=== PATIENT | male | born 1960 | race Caucasian/White ===

== ENCOUNTER 2018-02-28 04:14 | Emergency (ER) | payer MEDICAID, SELFPAY ==
[2018-02-28 04:17] VITALS: BP 137/89; PULSE 67; RESP 16; TEMP 36.6; O2SAT 99; BMI 27.5
--- NOTE | 2018-02-28 04:42 | RAD_ITS ---
STUDY: X-RAY - LEFT FOOT CLINICAL: Male, 57 years old. Pain. No known injury. TECHNIQUE: 3 view(s) of the foot. COMPARISON: None. FINDINGS: There is a plantar calcaneal spur. Otherwise normal Talus, calcaneus, and tarsal bones. Normal visualized subtalar, talonavicular, calcaneocuboid, tarsal and tarsometatarsal articulations. Normal metatarsi. Normal metatarsophalangeal joint of the great toe. Normal tibial and fibular sesamoid bones. Normal interphalangeal joint of the great toe. Normal phalanges of the great toe. Normal second through fifth metatarsophalangeal joints. There is a defect in the medial cortex of the proximal metaphysis of the proximal phalanx of the fifth toe which probably represents an old healed fracture. There is nonspecific soft tissue swelling. RAD/Foot min 3 Views IMPRESSION: No demonstrated acute fracture, dislocation, or destructive osseous lesion. Electronically Signed: Roni Cruz MD at 5:41 EDT , Service support ,
--- NOTE | 2018-02-28 04:49 | ED.DCSUM_ITS ---
- ER Visit Summary Date of Service: 02/28/18 Chief Complaint: Left foot pain History of Present Illness: The patient is a 57 M presenting with left foot pain. Patient states that he was walking in a store yesterday and started noticing pain in his left foot. He does not recall specific injury to his foot. He states he woke up this morning with more severe pain in his foot. Denies fever. Denies other complaints. He does have a history of previous gout. Physical Examination: Vitals are stable. Patient is afebrile. Alert no acute distress. HEENT exam is unremarkable. Neck is supple. Lungs are clear and equal bilaterally. Heart is regular rate and rhythm. Extremities left midfoot and ankle tenderness with mild erythema. Normal pulse. Active full range of motion. Skin is warm and dry. No focal neurologic deficit. Remainder of exam is unremarkable. Emergency Department Course and Treatment: Patient was given OxyIR. Left foot and ankle x-ray shows nonspecific soft tissue swelling. No demonstrated fracture , dislocation, or destructive osseous lesion. Patient has improvement following pain medication. He states he did eat red meat prior to this starting. He will be given colchicine and Naprosyn. Advised to follow-up with Dr. Mcdaniel his primary care physician. Advised return to ED for worsening complaints. Disposition: Discharge home Impression: Left ankle and foot pain suspect gout This note was generated with [employer] dictation software. It may contain incorrect words, spelling, and punctuation that were not noted in review of the chart prior to signing ED Disposition - Plan for ED Patient: Chief Complaint: Lower Extremity Injury Referrals: Ernesto Vincent MD [Primary Care Provider] -
--- NOTE | 2018-02-28 04:50 | RAD_ITS ---
STUDY: X-RAY - LEFT ANKLE REASON FOR EXAM: Male, 57 years old. Pain in the anterior left ankle. No known injury. TECHNIQUE: 3 view(s) of the ankle. COMPARISON: None. FINDINGS: Normal visualized distal tibia and fibula. Normal medial and lateral malleoli. Normal tibiotalar articulation and ankle mortise. There is a plantar calcaneal spur. Otherwise normal visualized talus and calcaneus. The visualized subtalar, talonavicular, calcaneocuboid and tarsal articulations are normal. There is nonspecific soft tissue swelling. RAD/Ankle min 3 Views IMPRESSION: No demonstrated fracture, dislocation, or destructive osseous lesion. Electronically Signed: Roni Cruz MD at 5:19 EDT , Service support ,
[2018-02-28] MEDS: oxyCODONE 5 MG Tablet PO (05:01)
--- NOTE | 2018-02-28 06:27 | ED.DEP ---
ED Disposition - Plan for ED Patient: Chief Complaint: Lower Extremity Injury Instructions: ED Arthritis Gout Prescriptions: Colchicine 0.6 mg PO DAILY #7 capsule Naproxen [Naprosyn] 500 mg PO BID PRN #20 tablet Referrals: Ernesto Vincent MD [Primary Care Provider] -
[2018-02-28 06:40] VITALS: BP 132/90; PULSE 60; RESP 16; O2SAT 96
== END 2018-02-28 06:47 | disposition home or self-care (01) ==
PROVIDERS: Emergency Provider Emergency Medicine; Family Provider Family Medicine; PCP Family Medicine
DX: M79.672 Pain in left foot (principal); M25.572 Pain in left ankle and joints of left foot; Z86.39 Personal history of other endocrine, nutritional and metabolic disease; Z79.899 Other long term (current) drug therapy
CPT/HCPCS: 73610; 73630; 99285

== ENCOUNTER 2018-03-22 11:19 | Emergency (ER) | payer MEDICAID, SELFPAY ==
[2018-03-22 11:19] VITALS: BP 146/92; PULSE 98; RESP 16; TEMP 36.2; O2SAT 97; BMI 25.4
--- NOTE | 2018-03-22 11:30 | ED.VISSUMM ---
- ER Visit Summary Date of Service: 03/22/18 Chief Complaint: Nausea, vomiting, diarrhea History of Present Illness: The patient is a 57 M nausea, vomiting, diarrhea. 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 He states he was at work Sunday in his normal state of health. He states he began to have some abdominal cramping. Shortly thereafter, he began to have some vomiting. He states he vomited for 2 days and began have loose watery diarrhea. Describes some abdominal cramping. He has had some chills and sweats. He denies any abdominal pain. He has been treated able to drink for the past 2 days, but states that every time he has to move his bowels. He has no history of inflammatory bowel disease. He denies any history of abdominal surgery. Physical Examination: Vital signs reviewed General: Well-nourished, well-developed Head: Normocephalic, atraumatic Eyes: Pupils equal and reactive, extraocular muscles intact Neck, supple, no lymphadenopathy Heart: Regular rate and rhythm Respiratory: No distress, clear bilaterally Abdomen: Soft, nontender, nondistended, no peritoneal signs Back: Nontender Extremities: Nontender, no edema, no cords Skin: Normal color no rash Neuro: Alert and oriented, no focal or lateralizing deficits Test Results: [] Emergency Department Course and Treatment: The patient has no reproducible abdominal tenderness. I did feel that this is more likely food related illness or gastroenteritis. Do not feel that imaging was necessary given his lack of pain on palpation. IV was established. Patient was given fluids, Zofran, and Bentyl. He had marked improvement of the symptoms. His nausea had completely resolved. Screening labs do show a very minimal leukocytosis. He has a creatinine of 1.5, but I have no old to compare to. He has a normal anion gap. On reevaluation is resting comfortably. Patient will be hydrated. At this time, I do feel that he is safe for outpatient therapy. I feel this is likely viral in nature. The patient will be treated with Zofran and Bentyl. He will also be using Imodium. He is counseled that if his pain worsens, he is a fever, or any change in symptoms he should be reevaluated within the next 24-48 hours. He is comfortable with this plan of care. Treatment Plan: [] Disposition: Discharge Impression: Gastroenteritis This note was generated with [employer] dictation software. It may contain incorrect words, spelling, and punctuation that were not noted in review of the chart prior to signing ED Disposition - Plan for ED Patient: Chief Complaint: Nausea/Vomiting/Diarrhea Instructions: ED Food Poison Or Gastroenteritis Prescriptions: Loperamide [Imodium] 2 mg PO Q4H PRN PRN #30 cap PRN Reason: Diarrhea Ondansetron [Zofran Odt] 4 mg PO Q8H PRN PRN #10 tab PRN Reason: Nausea Dicyclomine HCl [Bentyl] 20 mg PO TIDAC #20 cap Referrals: Ernesto Vincent MD [Primary Care Provider] -
[2018-03-22] MEDS: 0.9% Normal Saline 1,000 ML 1000 ML IV (11:44)
[2018-03-22] MEDS: Ondansetron 4 MG/2 ML Vial IV (11:44)
[2018-03-22] MEDS: Dicyclomine 20 MG/2 ML Vial IM (11:45)
[2018-03-22 12:03] LABS: Absolute Neutrophil Count 7.1 X10^3/uL (2.0-7.7); Basophil# 0.02 X10^3/uL; Basophil% 0.2 % (0-1); Eosinophil# 0.18 X10^3/uL; Eosinophils% 1.6 % (0-5); Hematocrit 40.7 % (40-54); Hemoglobin 13.6 g/dl (13.0-16.5); Lymphocyte % 13.3 % (19-41); Mean Corp Hgb Conc 33.4 g/gl (32-36); Mean Corpuscular Hgb 31.1 pg (27.0-32.0); Mean Corpuscular Volume 93.1 fL (80-94); Mean Platelet Vol. 9.6 fl (6.2-12.0); Monocyte# 2.49 X10^3/uL; Monocyte% 22.1 % (0-10); Neutrophil # 7.08 X10^3/uL (2.7-7.7); Neutrophil % 62.7 % (47-70); Platelet Count 365 K/mm3 (150-450); RBC Distribution Width SD 44.3 fl (35.1-43.9); Red Blood Count 4.37 M/mm3 (4.6-6.2); White Blood Count 11.3 K/mm3 (4.4-11.0)
[2018-03-22 12:04] LABS: Differential Indicated SCAN CRITERIA MET; POSITIVE COUNT NO; POSITIVE DIFFERENTIAL YES; POSITIVE MORPHOLOGY NO
[2018-03-22 12:13] LABS: ALB/GLOB Ratio 0.9 RATIO (0.9-2.4); AST(SGOT) 16 U/L (15-37); Alanine Aminotransfer ALT/SGPT 13 U/L (16-61); Albumin, Serum 3.7 g/dL (3.2-5.0); Alkaline Phosphatase 67 U/L (45-117); Anion Gap 9 (5-15); BUN 30 mg/dL (7-18); BUN/Creat Ratio 19.9 RATIO (10-20); Calcium,Total 8.9 mg/dL (8.5-10.1); Chloride 106 mmol/L (98-107); Creatinine, Serum 1.51 mg/dL (0.70-1.30); EST Glomerular Filtration Rate 51 mL/min (>60); Est Glom Filt Rate - Afr Amer 61 mL/min (>60); Estimated Creatinine Clearance 53.32 ml/min; Globulin 4.1 g/dL (2.2-4.2); Glucose 127 mg/dL (74-106); Lipase 456 U/L (73-393); Potassium 3.7 mmol/L (3.5-5.1); Protein, Total 7.8 g/dL (6.4-8.2); Sodium Level 138 mmol/L (136-145)
[2018-03-22] MEDS: Lactated Ringers 1,000 ML 999 ML IV (12:38)
[2018-03-22 13:14] VITALS: BP 131/82; PULSE 62; RESP 14; O2SAT 98
== END 2018-03-22 13:15 | disposition home or self-care (01) ==
LOC: ED 11:49
PROVIDERS: Emergency Provider Emergency Medicine; Family Provider Family Medicine; PCP Family Medicine
DX: K52.9 Noninfective gastroenteritis and colitis, unspecified (principal); Z72.0 Tobacco use; Z79.899 Other long term (current) drug therapy
CPT/HCPCS: 80053; 83690; 85025; 96361; 96372; 96374; 99285; J7030; J7120; J2405

== ENCOUNTER 2018-08-11 09:29 | Emergency (ER) | payer MEDICAID, SELFPAY ==
[2018-08-11 09:30] VITALS: BP 148/84; PULSE 78; RESP 16; TEMP 36.3; O2SAT 97; BMI 26.6
--- NOTE | 2018-08-11 10:03 | RAD_ITS ---
STUDY: X-RAY - LEFT KNEE REASON FOR EXAM: Male, 58 years old. Left knee pain TECHNIQUE: 2 view(s) of the knee. COMPARISON: None. FINDINGS: Normal visualized distal femur. Normal visualized proximal tibia and fibula. Normal proximal tibiofibular articulation. Normal medial femorotibial compartment. Normal lateral femorotibial compartment. Normal patellofemoral articulation. There is a moderate volume joint effusion. The soft tissue structures are unremarkable. RAD/Knee 1 or 2 Views IMPRESSION: No acute osseous findings. Moderate knee effusion Electronically Signed: Roland Sinha DO at 10:40 EST Tel , Service support ,
[2018-08-11] MEDS: Naproxen 500 MG Tablet PO (10:06)
[2018-08-11] MEDS: HYDROmorphone 1 MG/ML Syringe IM (10:06)
[2018-08-11] MEDS: Triamcinolone Acetonide 40 MG/ML Vial IU (10:09)
[2018-08-11] MEDS: Bupivacaine Mpf 0.5% 30 ML VIAL INFILT (10:09)
--- NOTE | 2018-08-11 10:24 | ED.VISSUMM ---
- ER Visit Summary Date of Service: 08/11/18 Chief Complaint: Left knee pain History of Present Illness: The patient is a [address] Vincent. He has a history of gout and is on allopurinol. He reports in the past this is always been in his feet. States he has left knee pain that began yesterday. He describes it as a sharp, aching pain is 10 out of 10 severity. Is worsened by walking or movement. Is not taking anything for pain. He denies any trauma. No fall, MVA, or change in activity. No fever, chills, nausea, or other constitutional symptoms. Physical Examination: Vitals: Stable. Afebrile. General: Well-nourished and well-developed. Head: Normocephalic atraumatic. Neck: Supple, no lymphadenopathy. No JVD. Nontender. Cardiovascular: Regular rate and rhythm. No murmurs. Respiratory: No respiratory distress. Clear to auscultation bilaterally. Abdominal: Soft, nontender, nondistended, normal bowel sounds. No guarding, rebound, or peritoneal signs. Back: Nontender. Extremities: Left knee shows a large joint effusion. No erythema or warmth. Decreased range of motion secondary to pain. He is neurovascular intact distal this. Skin: Normal color, no rash. Neurologic: Alert and oriented ?3. Cranial nerves II through XII are intact. Normal strength and sensation. Psych: Normal affect. Test Results: X-ray shows a large joint effusion, but no acute disease otherwise. Synovial fluid shows 35,000, 513 white cells with 82% segmented neutrophils. Gram stain was negative. There were monosodium urate crystals. Emergency Department Course and Treatment: Patient was given Dilaudid IM and naproxen p.o. He had arthrocentesis performed. He tolerated this well. Treatment Plan: Patient be discharged Percocet for pain. Instructed follow-up his primary care physician in 10-14 days not improving. Return to the emergency department for any worsening symptoms. Disposition: To home in improved and stable condition. Impression: 1. Gouty arthritis left knee. 2. Arthrocentesis left knee. Procedure note: Patient had his knee prepped with Betadine. It was draped in a sterile fashion. He had the knee joint accessed medial to the patella on the first attempt without any difficulty. 80 cc of yellow, viscous fluid was removed. It was injected with 9 cc of bupivacaine and 40 mg of Kenalog. He tolerated this well. This note was generated with [employer] dictation software. It may contain incorrect words, spelling, and punctuation that were not noted in review of the chart prior to signing ED Disposition - Plan for ED Patient: Disposition: Home or Assisted Living Chief Complaint: Lower Extremity Injury Instructions: ED Arthritis Gout Prescriptions: Oxycodone HCl/Acetaminophen [Percocet 5/325] 1 tablet PO Q6H PRN PRN 5 Days #20 tablet PRN Reason: Pain Referrals: Ernesto Vincent MD [Primary Care Provider] - 3-5 Days if not improving
[2018-08-11 10:49] LABS: Pathologist Comment May follow
[2018-08-11 11:04] LABS: Synovial Fld Mononuclear WBC % 9.2 %; Synovial Fld Polynuclear WBC % 90.8 %
[2018-08-11 11:10] LABS: AUTO B FLUID DILUENT BKGD CT WBC <0.1 RBC <0.01 (W<.1,R<.01)
[2018-08-11 11:11] LABS: Appearance /Synovial Fluid Cloudy (CLEAR); CRYSTALS, BODY FLUID MONOSODIUM URATE; Color / Synovial Fluid Yellow (Pale Yellow); Source- Body Fluid SYNOVIAL
[2018-08-11 11:57] LABS: Body Fluid QC Type(s) BF3Q,BF4Q; RBC /Synovial Fluid 497 /mm3 (0)
[2018-08-11 12:17] VITALS: BP 125/88; PULSE 71; RESP 17; O2SAT 95
--- NOTE | 2018-08-11 12:18 | ED.RN ---
DISCHARGE INSTRUCTIONS GIVE TO AND REVIEWED WITH PATIENT, PATIENT DENIES QUESTIONS OR CONCERNS AND VOICES UNDERSTANDING OF DISCHARGE INSTRUCTIONS. PT AMBULATES OUT OF ROOM WITHOUT DIFFICULTY.
[2018-08-11 12:31] LABS: Lymph 5 %; Monocyte /Synovial Fluid 13 %; Neutrophil 82 % (0-25)
[2018-08-12 15:34] LABS: Pathologist Review Reviewed
== END 2018-08-11 12:19 | disposition home or self-care (01) ==
LOC: ED 10:52
PROVIDERS: Emergency Provider Emergency Medicine; Family Provider Family Medicine; PCP Family Medicine
DX: M10.9 Gout, unspecified (principal); M06.9 Rheumatoid arthritis, unspecified; I10 Essential (primary) hypertension; Z79.899 Other long term (current) drug therapy
CPT/HCPCS: 20610; 73560; 87070; 87075; 87205; 89050; 89051; 89060; 96372; 99283

== ENCOUNTER 2018-10-20 10:23 | Emergency (ER) | payer SELFPAY ==
[2018-10-20 10:24] VITALS: BP 167/80; PULSE 87; RESP 16; TEMP 36.8; O2SAT 97; BMI 27.0
--- NOTE | 2018-10-20 10:35 | ED.VISSUMM ---
- ER Visit Summary Date of Service: 10/20/18 Chief Complaint: Dental pain History of Present Illness: The patient is a 58 M with history of hypertension. Patient reports left upper dental pain and facial swelling for the past 2 days. He states his tooth is been bad for quite some time, but did not start bothering him until 2 days ago. Patient denies any difficulty swallowing. No fever or chills. Physical Examination: Vital signs remarkable for blood pressure of 167/80, otherwise vitals are normal. Patient sitting upright in bed no acute distress. He speaks with a strong voice and is tolerating secretions well. Head neck examination does reveal left maxillary swelling without erythema. Intraoral examination reveals diffuse dental decay. What I believe is the left maxillary first molar is decayed with area of decay extending up onto the hard palate. No focal abscess is palpated. Posterior pharynx examination is unremarkable. There is no evidence of Daron's angina. He does have left anterior cervical lymphadenopathy. Heart is regular rate and rhythm without murmur. Lungs sounds are clear. Test Results: [] Emergency Department Course and Treatment: Patient be treated with Pen-Vee K and naproxen. He is written off work today and given a list of dental clinics in the area for follow-up. Treatment Plan: [] Disposition: Discharge Impression: Odontalgia with dental abscess This note was generated with [employer] dictation software. It may contain incorrect words, spelling, and punctuation that were not noted in review of the chart prior to signing ED Disposition - Plan for ED Patient: Chief Complaint: Dental Referrals: Ernesto Vincent MD [Primary Care Provider] -
--- NOTE | 2018-10-20 10:37 | ED.DEP ---
ED Disposition - Plan for ED Patient: Disposition: Home or Assisted Living Chief Complaint: Dental Instructions: Dental Abscess Prescriptions: Naproxen [Naprosyn] 500 mg PO BID PRN PRN #20 tablet PRN Reason: Pain Penicillin V Potassium 500 mg PO 4X/DAY #40 tablet Referrals: Ernesto Vincent MD [Primary Care Provider] - Additional Instructions: Dental list provided of area clinics. Follow-up as soon as possible.
[2018-10-20] MEDS: Naproxen 500 MG Tablet PO (10:39)
[2018-10-20] MEDS: Penicillin Vk 250 MG Tablet 500 MG PO (10:39)
== END 2018-10-20 10:50 | disposition home or self-care (01) ==
LOC: ED 10:48
PROVIDERS: Emergency Provider Emergency Medicine; Family Provider Family Medicine; PCP Family Medicine
DX: K04.7 Periapical abscess without sinus (principal); K02.9 Dental caries, unspecified; K08.89 Other specified disorders of teeth and supporting structures; I10 Essential (primary) hypertension; Z79.899 Other long term (current) drug therapy
CPT/HCPCS: 99283

== ENCOUNTER 2019-06-21 14:37 | Emergency (ER) | payer BC, SELFPAY ==
[2019-06-21 14:39] VITALS: BP 141/80; PULSE 84; RESP 16; TEMP 36.7; O2SAT 97; BMI 26.0
--- NOTE | 2019-06-21 15:16 | ED.DCSUM_ITS ---
History of Present Illness Informant: Patient, Family Occurred: Yesterday Mechanism/Context: - - denies inciting injury or trauma Onset: Yesterday Context: Gradual Onset Timing: Continuous Quality of Pain: Sharp, Aching, Throbbing Location: right foot Current Severity: Severe Maximum Severity: Severe Worsened by: movement, ambulation Relieved by: rest Associated Symptoms: Negative for: Parasthesia, Weakness, Loss of Funtion Narrative: 58-year-old male history of chronic kidney disease as well as gout presents to the emergency department with pain and swelling of his right foot. He first noticed it yesterday. Denies trauma or injury. It is gotten worse over the past 24 hours. He is able to bear weight. He does not feel like this is gout. He has not had a fever. He has no wound. He denies any other review of systems. <AmandaPelon - Last Filed: 06/21/19 16:30> <Penelope Van - Last Filed: 06/21/19 22:53> Chief Complaint: Lower Extremity Injury Past Medical History Prior records reviewed: Yes Past Medical History: - - CKD, gout Surgical History: no surgical history Lives: With Family Smoking Status: Former smoker <AmandaPelon - Last Filed: 06/21/19 16:30> <Penelope Van - Last Filed: 06/21/19 22:53> - Allergies and Home Meds Allergies/Adverse Reactions: Allergies No Known Allergies Allergy (Verified 06/21/19 14:39) Primary Care Physician: Ernesto Vincent MD [Primary Care Provider] - Review of Systems All systems negative except as indicated General: Denies: Chills, Fever Musculoskeletal: Reports: Swelling, Extremity Pain <AmandaPelon - Last Filed: 06/21/19 16:30> Physical Exam Vital Signs/Narrative: Vital Signs Temp Pulse Resp BP Pulse Ox 06/21/19 14:39 98.1 F 84 16 141/80 H 97 Inital Vital Signs reviewed: Yes - Extremity Exam Right Toe: Edema - Swelling of the right foot diffusely. There is no wound. There is no redness. It is not warm. Diffuse bony tenderness. No focal tenderness. No bony tenderness of the ankle. No asymmetrical leg edema. DP pulse and PT pulse are normal. Capillary refill and sensation of all 5 toes are normal. Negative for: Abrasion, Contusion, Deformity, Hematoma, Limited ROM General: Well nourished, Well developed Head: Normocephalic, Atraumatic Eyes: Perrl, EOMI ENT: No Trauma, Moist Mucous Membranes Neck: Nontender, Full ROM Cardiovascular: Regular rate, Regular rhythm Respiratory: No distress, CTA bilaterally, Chest nontender Back: Nontender Skin: Normal color, No rash, No Trauma Neurological: Alert, Oriented x3, Normal Gait <Pelon Patel - Last Filed: 06/21/19 16:30> Diagnostic/Tx/Re-eval - Medical Decision Making X-ray of the right foot shows no acute abnormality. Discussed with patient that this is likely early gout versus an early cellulitis. He is able to ambulate. Pulses are normal. There is no wound. Examination otherwise unremarkable. He will be placed on Keflex as well as given analgesia. He was advised to follow- up on Sunday with his primary care physician. He was agreeable with our plan of care. <Pelon Patel - Last Filed: 06/21/19 16:30> - Medical Decision Making I independently evaluated the patient and agree with above. Patient has swelling and erythema of his right foot. Normal pulses. X-ray right foot shows no acute abnormality. Will treat for gout versus early cellulitis. Advised to follow up with primary care physician. Advised return to ED if worsening complaints. <Penelope Van - Last Filed: 06/21/19 22:53> ED Disposition <Pelon Patel - Last Filed: 06/21/19 16:30> <Penelope Van - Last Filed: 06/21/19 22:53> - Plan for ED Patient: Disposition: Home or Assisted Living Diagnosis: Right foot pain Instructions: Cellulitis, Gouty Arthritis Prescriptions: Cephalexin [Keflex] 500 mg PO Q12 #14 cap Prescription Printed Oxycodone HCl/Acetaminophen [Percocet 5/325] 1 tab PO Q6H PRN PRN 3 Days #12 tab PRN Reason: Pain Prescription Printed Referrals: Ernesto Vincent MD [Primary Care Provider] -
[2019-06-21] MEDS: oxyCODONE 5 MG Tablet PO (15:17)
--- NOTE | 2019-06-21 15:23 | RAD_ITS ---
STUDY: X-RAY - RIGHT FOOT CLINICAL: Male, 58 years old. Pain, swelling. TECHNIQUE: 3 view(s) of the foot. COMPARISON: 07/10/2017. FINDINGS: No fracture or dislocation. Joint spaces are well-maintained. Moderate plantar calcaneal spur. Soft tissues and bony structures are otherwise unremarkable. RAD/Foot min 3 Views IMPRESSION: Heel spur, otherwise unremarkable x-ray examination of the foot. Electronically Signed: Natalie Brooke MD at 16:21 EDT Tel , Service support ,
== END 2019-06-21 16:50 | disposition home or self-care (01) ==
PROVIDERS: Emergency Provider Physician Assistant Medical; Family Provider Family Medicine; PCP Family Medicine
DX: M79.671 Pain in right foot (principal); M79.89 Other specified soft tissue disorders; M10.9 Gout, unspecified; N18.9 Chronic kidney disease, unspecified; Z79.899 Other long term (current) drug therapy; Z87.891 Personal history of nicotine dependence
CPT/HCPCS: 73630; 99282

== ENCOUNTER 2019-06-26 11:25 | Observation (INO) | payer BC, SELFPAY ==
[2019-06-26 11:25] VITALS: BP 122/92; PULSE 77; RESP 17; TEMP 36.7; O2SAT 96; BMI 25.1
[2019-06-26 14:26] LABS: Absolute Lymphocyte Count 1.91 X10^3/uL (0.83-4.51); Absolute Neutrophil Count 8.2 X10^3/uL (2.0-7.7); Basophil# 0.06 X10^3/uL; Basophil% 0.5 % (0-1); Eosinophils% 0.8 % (0-5); Hematocrit 39.7 % (40-54); Hemoglobin 13.3 g/dL (13.0-16.5); Lymphocyte # 1.91 X10^3/ul (4.0); Lymphocyte % 15.5 % (19-41); Mean Corp Hgb Conc 33.5 g/dL (32-36); Mean Corpuscular Hgb 31.8 pg (27.0-32.0); Mean Platelet Vol. 9.6 fl (6.2-12.0); Monocyte# 1.89 X10^3/uL; Monocyte% 15.4 % (0-10); NRBC Flagged by Analyzer 0 % (0-5); Neutrophil # 8.21 X10^3/uL (2.7-7.7); Neutrophil % 66.8 % (47-70); POSITIVE DIFFERENTIAL YES; Platelet Count 389 K/mm3 (150-450); RBC Distribution Width CV 12.1 % (11.6-14.6); RBC Distribution Width SD 42.4 fl (35.1-43.9); Red Blood Count 4.18 M/mm3 (4.6-6.2); White Blood Count 12.3 K/mm3 (4.4-11.0)
[2019-06-26 14:30] LABS: Differential Indicated SCAN CRITERIA MET
[2019-06-26 14:42] LABS: Anion Gap 9 (5-15); BUN 24 mg/dL (7-18); BUN/Creat Ratio 15.4 RATIO (10-20); Chloride 103 mmol/L (98-107); Creatinine, Serum 1.56 mg/dL (0.70-1.30); EST Glomerular Filtration Rate 49 mL/min (>60); Est Glom Filt Rate - Afr Amer 59 mL/min (>60); Estimated Creatinine Clearance 50.36 ml/min; Glucose 102 mg/dL (74-106); Potassium 3.6 mmol/L (3.5-5.1); Sodium Level 138 mmol/L (136-145)
[2019-06-26] MEDS: 0.9% Normal Saline 1,000 ML 150 ML IV ×2 (14:43→23:47)
[2019-06-26 15:01] LABS: Differential Comment SCANNED
[2019-06-26 15:09] LABS: Lactic Acid 2.6 mmol/L (0.4-2.0)
--- NOTE | 2019-06-26 15:13 | ED.DCSUM_ITS ---
- ER Visit Summary Date of Service: 06/26/19 Chief Complaint: [Pain, redness, swelling right foot] History of Present Illness: The patient is a 59 M [Zentz to the emergency department with pain and swelling to his foot that initially started 3 or 4 days ago. Patient was seen in the emergency department here at that time and had an x-ray of his foot and subsequently started on Keflex for suspected cellulitis. Patient states that the swelling and the redness seemed to improve for about 24 hours but then today developed severe pain once again as well as redness and swelling. Patient denies any fevers. Patient states that he stopped taking the Keflex antibiotic after 2 days because it made him nauseated and made him vomit. He denies any fevers at home. Patient has had subjective chills and sweats. Patient does have history of gout and history of plantar fasciitis. Patient having a hard time bearing any weight on the right foot now.] Physical Examination: [HEENT-PERRLA, EOMI. Cranial nerves II through XII grossly intact. TMs clear. Mucous membranes moist. No adenopathy. Cardiovascular-regular rate and rhythm without murmur or ectopy Lungs-clear to auscultation, chest wall stable without crepitus or subcu emphysema Abdomen-normoactive bowel sounds, soft, nontender, no rebound or rigidity, no peritoneal signs. Extremities-intact ?4, normal range of motion, normal pulses, atraumatic. Right foot-patient has diffuse soft tissue swelling of the foot with red streaks noted. Patient has dry skin about the toes and cracks in the skin noted. Toes warm to the touch. The foot appears cellulitic.] Test Results: [CBC with differential obtained showed an elevated white blood cell count of 12.3, hemoglobin 13, hematocrit 40, placed 389. Chemistries unremarkable. BUN was 24 and creatinine 1.56. Lactate pending.] Emergency Department Course and Treatment: [Patient had an IV line established and he was medicated with morphine and Zofran for his pain. Patient was started on Unasyn 3 g IV.] Treatment Plan: [Admit for pain control and IV antibiotics] Disposition: [Admit] Impression: [Cellulitis right foot] This note was generated with [employer] dictation software. It may contain incorrect words, spelling, and punctuation that were not noted in review of the chart prior to signing ED Disposition - Plan for ED Patient: Referrals: Ernesto Vincent MD [Primary Care Provider] -
[2019-06-26] MEDS: Morphine 4 MG/ML Syringe IV (15:35)
[2019-06-26] MEDS: Ondansetron 4 MG/2 ML Vial IV (15:35)
[2019-06-26 15:38] VITALS: BP 122/82; PULSE 64; RESP 18; TEMP 37.2; O2SAT 97
--- NOTE | 2019-06-26 16:10 | HP.PCM_ITS ---
Problem List (1) Cellulitis of right foot Status: Acute History of Present Illness Date of Admission: 06/26/19 Chief Complaint: right foot redness and pain. The patient is a 59 year old M presents with redness and pain on his her right foot. Patient was seen in the emergency room on the and discharged with Keflex. At that time, they could not determine if it was a gouty flare or early cellulitis and he was discharged with Keflex as well as Percocets. Patient states that he was taking the Keflex and his foot was getting slightly better but when he got worse. During that time, patient was unable to tolerate Keflex and started having vomiting and diarrhea when he would take it. Presents back to the emergency room with circumferential erythema over his right foot. Patient does have a history of gout but states that this is different than his gout flares. Also has a history of plantar fasciitis but the pain is just different quality from that as well. Given that his foot is gotten worse despite oral antibiotics, the hospitalist service was contacted for admission for treatment. Patient did receive ampicillin sulbactam in the emergency room. Patient denies ever having had cellulitis before. [] Past Medical History Medical History: Medical History (Last Updated 06/26/19 @ 16:13 by Phillip Liu DO) Gout M10.9 CKD (chronic kidney disease), stage III N18.3 HTN (hypertension) I10 Allergies No Known Allergies Allergy (Verified 06/26/19 11:25) Home Medications: Ambulatory Orders Medication Instructions Recorded Lisinopril [Zestril] 20 mg PO DAILY 02/02/15 Amlodipine Besylate 5 mg PO DAILY 06/21/19 Gabapentin [Neurontin] 200 cap PO BID 06/21/19 Allopurinol 300 mg PO BID 06/26/19 Surgical History: no surgical history Lives: Spouse/ Significant Other Smoking Status: Former smoker Tobacco Use: Non-smoker Alcohol: None Drugs: None - *Family History Maternal History Items: Hypertension Review of Systems Constitutional: Denies: Anorexia, Chills, Fever, Night Sweats Eyes: Denies: Blurred vision, Double vision HEENT: Denies: Head Aches, Sinus Congestion, Sinus Drainage Cardiovascular: Denies: Chest Pain, Palpitations Respiratory: Denies: Cough, Shortness of breath at rest, Sputum production Gastrointestinal: Reports: Diarrhea, Nausea. Denies: Abdominal Pain, Vomiting Genitourinary: Denies: Dysuria Musculoskeletal: Reports: Foot Pain - right. Denies: Joint Pain, Joint Tenderness Skin: Reports: Rash - right foot Neurological: Denies: Numbness, Tingling, Focal weakness Psychiatric: Denies: Anxiety, Depression, Homicidal Ideations, Suicidal Ideations Endocrine: Denies: Change in Body Habitus, Heat/ Cold Intolerance Hematologic/ Lymphatic: Denies: Easy Bruising, Easy Bleeding, Hx of blood clot Comment: A 10 point review of systems were negative except as mentioned in the history of present illness and the other review of systems. VTE Information - Inpt Only VTE Present on Admission: No VTE Mechan Device Prophylaxis: None VTE Pharm Prophylaxis ordered?: No Reason prophylaxis not ordered:: Procedure Not Indicated Patient Problems: Active and Suspected Problems Cellulitis of right foot (Acute) - Physical Exam General: Alert, Cooperative, No apparent distress HEENT: Atraumatic, Normocephalic Oral: Moist Mucosa, No Gingival or Mucosal Lesions/ Ulcerations Neck: No Nodes, Trachea Midline Lungs: Clear to auscultation, Normal air movement, No rhonchi, No wheeze, No rales, Diminished Cardiovascular: Regular rate, Regular Rhythm, Normal S1, Normal S2, No murmurs Abdomen: Bowel Sounds Present, Soft, Non Tender, Non-Distended, No Hepato- splenomegaly Extremities: No Calf Tenderness, Edema - Slight on the right foot Skin: - - Circumferential, spotty erythema involving the entire circumference of the right foot. Patient does have some mild edema and tenderness throughout. No overt lesions were notified as the source of cellulitis. Musculoskeletal: No Muscle Wasting Neurological: Neuro grossly intact, Muscle tone normal, Coordination normal Psych/Mental Status: Normal Affect, Appropriate Vital Signs Temp Pulse Resp BP Pulse Ox 37.2 C 64 18 122/82 H 97 06/26/19 15:38 06/26/19 15:38 06/26/19 15:38 06/26/19 15:38 06/26/19 15:38 Oxygen Delivery Method Room Air Weight: 77.111 kg Body Mass Index (BMI) 25.1 Laboratory Tests Past 24 Hrs 06/26/19 06/26/19 06/26/19 14:15 14:15 14:15 WBC 12.3 H RBC 4.18 L Hgb 13.3 Hct 39.7 L MCV 95.0 H MCH 31.8 MCHC 33.5 RDW Std Deviation 42.4 RDW Coeff of Stephen 12.1 Plt Count 389 MPV 9.6 Immature Gran % (Auto) 1.000 H Neut % (Auto) 66.8 Lymph % (Auto) 15.5 L [place] % (Auto) 15.4 H Eos % (Auto) 0.8 Baso % (Auto) 0.5 Absolute Neuts (auto) 8.2 H Absolute Lymphs (auto) 1.91 Nucleated RBC % 0 Differential Comment SCANNED Diff Path Review May foll Sodium 138 Potassium 3.6 Chloride 103 Carbon Dioxide 26.0 Anion Gap 9 BUN 24 H Creatinine 1.56 H Estim Creat Clear Calc 50.36 Est GFR (MDRD) Af Amer 59 L Est GFR (MDRD) Non-Af 49 L BUN/Creatinine Ratio 15.4 Glucose 102 Lactic Acid 2.6 H Calcium 9.0 Assessment/Plan All Active Problems Cellulitis of right foot (Acute) 1. Right foot cellulitis * Failed outpatient antibiotics with cephalexin * Patient appears not to tolerate the cephalexin with the vomiting. * Patient received ampicillin sulbactam in the emergency room and will continue that on the floor. If that does not work, then the plan would be to change him over to vancomycin. * Given the appearance at this time, I am more concerned that this being a streptococcal infection rather than staphylococcal infection * If does well, then patient could be discharged with amoxicillin/clavulanic acid 2. Gout * Patient does have some mild right MTP tenderness of the first digit * Though I do not feel that is consistent with acute gouty flare as patient's entire foot is tender throughout * Continue with the allopurinol 3. Hypertension * Stable * Continue with amlodipine and lisinopril 4. Lactic acidosis * Patient only meets 1/4 Sirs criteria with leukocytosis of 12.3 thousand * I do not have a good examination for it at this time but it is not necessary to further follow this up right now 5. VTE prophylaxis: Low risk at this time and therefore not indicated as patient is observation status 6. Advanced care planning: Discussed with the patient and I verify that he is full CODE STATUS at this time. Case discussed with the patient's at bedside. Code Visit OBSV E&M: 07050 Initial observation care L3
[2019-06-26 17:02] VITALS: BMI 25.1
[2019-06-26 17:14] VITALS: BMI 25.2
[2019-06-26] MEDS: oxyCODONE 5 MG Tablet PO ×2 (17:41→22:22)
[2019-06-26 17:44] VITALS: BP 116/71; PULSE 64; RESP 14; TEMP 36.9; O2SAT 97
[2019-06-26 18:21] LABS: Reflex Lactate? Y
[2019-06-26 19:08] LABS: Lactic Acid 1.9 mmol/L (0.4-2.0)
[2019-06-26] MEDS: Allopurinol 300 MG Tablet PO (21:18)
[2019-06-26] MEDS: Gabapentin 100 MG Capsule 200 MG PO (21:18)
[2019-06-26 21:25] VITALS: BP 115/74; PULSE 63; RESP 18; TEMP 36.8; O2SAT 97
[2019-06-27 03:25] VITALS: BP 118/79; PULSE 66; RESP 18; TEMP 36.9; O2SAT 97
[2019-06-27] MEDS: oxyCODONE 5 MG Tablet PO ×3 (03:33→13:29)
[2019-06-27 05:42] LABS: Absolute Lymphocyte Count 1.97 X10^3/uL (0.83-4.51); Absolute Neutrophil Count 9.7 X10^3/uL (2.0-7.7); Basophil# 0.07 X10^3/uL; Basophil% 0.5 % (0-1); Eosinophil# 0.23 X10^3/uL; Eosinophils% 1.6 % (0-5); Hematocrit 34.7 % (40-54); Hemoglobin 11.5 g/dL (13.0-16.5); Lymphocyte # 1.97 X10^3/ul (4.0); Lymphocyte % 13.6 % (19-41); Mean Corp Hgb Conc 33.1 g/dL (32-36); Mean Corpuscular Hgb 31.8 pg (27.0-32.0); Mean Corpuscular Volume 95.9 fL (80-94); Mean Platelet Vol. 9.5 fl (6.2-12.0); Monocyte# 2.33 X10^3/uL; Monocyte% 16.1 % (0-10); NRBC Flagged by Analyzer 0 % (0-5); Neutrophil % 66.9 % (47-70); POSITIVE DIFFERENTIAL YES; Platelet Count 344 K/mm3 (150-450); RBC Distribution Width CV 12.2 % (11.6-14.6); RBC Distribution Width SD 42.9 fl (35.1-43.9); Red Blood Count 3.62 M/mm3 (4.6-6.2); White Blood Count 14.5 K/mm3 (4.4-11.0)
[2019-06-27 05:52] LABS: Differential Indicated SCAN CRITERIA MET
[2019-06-27 05:54] LABS: Anion Gap 6 (5-15); BUN 19 mg/dL (7-18); BUN/Creat Ratio 13.6 RATIO (10-20); Calcium,Total 7.9 mg/dL (8.5-10.1); Chloride 108 mmol/L (98-107); EST Glomerular Filtration Rate 55 mL/min (>60); Est Glom Filt Rate - Afr Amer 67 mL/min (>60); Estimated Creatinine Clearance 56.11 ml/min; Glucose 113 mg/dL (74-106); Potassium 3.7 mmol/L (3.5-5.1); Sodium Level 139 mmol/L (136-145)
[2019-06-27 06:41] LABS: Differential Comment SCANNED
[2019-06-27 08:51] VITALS: BP 133/82; PULSE 72; RESP 16; TEMP 36.7; O2SAT 97
[2019-06-27] MEDS: Lisinopril 20 MG Tablet PO (08:53)
[2019-06-27] MEDS: amLODIPine 5 MG Tablet PO (08:53)
[2019-06-27] MEDS: Allopurinol 300 MG Tablet PO ×2 (08:54→17:19)
[2019-06-27] MEDS: Gabapentin 100 MG Capsule 200 MG PO ×2 (08:54→21:29)
[2019-06-27] MEDS: Acetaminophen 325 MG Tablet 650 MG PO (08:56)
[2019-06-27] MEDS: 0.9% Normal Saline 1,000 ML 150 ML IV ×2 (13:29→21:33)
[2019-06-27] MEDS: predniSONE 20 MG Tablet 40 MG PO (13:29)
[2019-06-27 14:04] VITALS: BP 126/79; PULSE 69; RESP 18; TEMP 36.8; O2SAT 96
[2019-06-27 15:18] LABS: Pathologist Review Reviewed
--- NOTE | 2019-06-27 16:49 | PN_ITS ---
Patient Problems: Active and Suspected Problems (Last Updated 06/26/19 @ 16:13 by Phillip Liu DO) Cellulitis of right foot (Acute) Subjective: redness around right foot improved, but still with swelling. Now with pain in right knee. Vitals/I&O's: Vital Signs Temp Pulse Resp BP Pulse Ox 36.8 C 69 18 126/79 H 96 06/27/19 14:04 06/27/19 14:04 06/27/19 14:04 06/27/19 14:04 06/27/19 14:04 Oxygen Delivery Method Room Air Weight: 77.3 kg Body Mass Index (BMI) 25.1 Intake and Output for Last 24 Hours 06/25/19 06/26/19 06/27/19 23:59 23:59 23:59 Intake Total 1464.0 / 1704.0 2276.5 / 2276.5 Output Total 2075 / 2075 Balance 1464.0 / 1054.0 201.5 / 201.5 General: Alert, No apparent distress HEENT: Atraumatic, Normocephalic Oral: Moist Mucosa, No Gingival or Mucosal Lesions/ Ulcerations Extremities: No Calf Tenderness, - - Still some mild swelling and involving his right foot circumferentially. Skin: - - improved erythema of right foot. Musculoskeletal: - - Tender palpation over the dorsum as well as plantar aspect of his foot. Tender palpation over the right medial MTP. Some pain bilaterally his knee but no overt effusion. No Sampson's cyst appreciated. Psych/Mental Status: Normal Affect, Agitated Laboratory Results 06/26/19 14:15: Diff Path Review Reviewed 06/26/19 18:31: Lactic Acid 1.9 06/27/19 05:15: WBC 14.5 H, RBC 3.62 L, Hgb 11.5 L, Hct 34.7 L, MCV 95.9 H, MCH 31.8, MCHC 33.1, RDW Std Deviation 42.9, RDW Coeff of Stephen 12.2, Plt Count 344, MPV 9.5, Immature Gran % (Auto) 1.300 H, Neut % (Auto) 66.9, Lymph % (Auto) 13.6 L, [place] % (Auto) 16.1 H, Eos % (Auto) 1.6, Baso % (Auto) 0.5, Absolute Neuts (auto) 9.7 H, Absolute Lymphs (auto) 1.97, Nucleated RBC % 0, Differential Comment SCANNED, Diff Path Review May foll 06/27/19 05:15: Sodium 139, Potassium 3.7, Chloride 108 H, Carbon Dioxide 25.0, Anion Gap 6, BUN 19 H, Creatinine 1.40 H, Estim Creat Clear Calc 56.11, Est GFR (MDRD) Af Amer 67, Est GFR (MDRD) Non-Af 55 L, BUN/Creatinine Ratio 13.6, Glucose 113 H, Calcium 7.9 L Current Medications Acetaminophen (Tylenol) 650 mg PO Q6H PRN PRN PRN Reason: Mild Pain (1-3)/Temp > 100.7 F Last Admin: 06/27/19 08:56 Dose: 650 mg Documented by: Allopurinol (Zyloprim) 300 mg PO BIDCM [facility] Last Admin: 06/27/19 08:54 Dose: 300 mg Documented by: Amlodipine Besylate (Norvasc) 5 mg PO DAILY [facility] Last Admin: 06/27/19 08:53 Dose: 5 mg Documented by: Colchicine (Colchicine) 0.6 mg PO BID PRN PRN Reason: gout flare Dextrose (D50w Syringe) 0 gm IV X1 PRN; Protocol PRN Reason: Hypoglycemia Gabapentin (Neurontin) 200 mg PO BID [facility] Last Admin: 06/27/19 08:54 Dose: 200 mg Documented by: Glucagon () 1 mg IM .X1 PRN PRN Reason: Hypoglycemia Sodium Chloride () 1,000 mls @ 150 mls/hr IV .Q6H40M [facility] Last Infusion: 06/27/19 15:43 Dose: 150 mls/hr Documented by: Ampicillin Sodium/Sulbactam (Sodium 3 gm/ Sodium Chloride) 112 mls @ 150 mls/hr IV Q8 [facility] Last Infusion: 06/27/19 15:42 Dose: Infused Documented by: Lisinopril (Zestril) 20 mg PO DAILY [facility] Last Admin: 06/27/19 08:53 Dose: 20 mg Documented by: Melatonin (Melatonin) 3 mg PO QHS PRN PRN PRN Reason: INSOMNIA Ondansetron HCl (Zofran) 4 mg IV Q8H PRN PRN PRN Reason: NAUSEA/VOMITING Oxycodone HCl (Oxyir) 5 mg PO Q4H PRN PRN PRN Reason: Moderate Pain (4-6/10) Last Admin: 06/27/19 13:29 Dose: 5 mg Documented by: Prednisone () 40 mg PO DAILY@0800 [facility] Senna/Docusate Sodium (Senokot-S, [place]-Colace) 2 tablet PO BID PRN PRN PRN Reason: Constipation Sodium Chloride () 10 - 40 ml IV UD PRN PRN Reason: SALINE FLUSH Medical Necessity - Tobacco Use Smoking Status: Former smoker Tobacco Use: Non-smoker Assessment/Plan All Active Problems (Last Updated 06/26/19 @ 16:13 by Phililp Liu DO) Cellulitis of right foot (Acute) 1. Right foot cellulitis * Failed outpatient antibiotics with cephalexin * Patient appears not to tolerate the cephalexin with the vomiting. * Patient received ampicillin sulbactam in the emergency room and will continue that on the floor. If that does not work, then the plan would be to change him over to vancomycin. * Given the appearance at this time, I am more concerned that this being a streptococcal infection rather than staphylococcal infection * Erythema resolved but still with swelling and tenderness and not certain suspect that this may be more of an acute gout flare. With his knee issues. We will continue with the ampicillin/sulbactam for now and add prednisone as well as as needed colchicine and monitor. 2. Gout * Patient does have some mild right MTP tenderness of the first digit * Though I do not feel that is consistent with acute gouty flare as patient's entire foot is tender throughout * Continue with the allopurinol * As above with the prednisone and the colchicine. Continue with allopurinol for now as he is already been on that even if this winds up being an acute gout flare. 3. Hypertension * Stable * Continue with amlodipine and lisinopril 4. Lactic acidosis * Patient only meets 1/4 Sirs criteria with leukocytosis of 12.3 thousand * I do not have a good examination for it at this time but it is not necessary t o further follow this up right now 5. VTE prophylaxis: Low risk at this time and therefore not indicated as patient is observation status 6. Advanced care planning: Discussed with the patient and I verify that he is full CODE STATUS at this time. Case discussed with the patient's at bedside. Code Visit OBSV E&M: 71965 Subsequent observation care L2
[2019-06-27 20:00] VITALS: BP 119/79; PULSE 66; RESP 18; TEMP 37; O2SAT 96
[2019-06-28 02:00] VITALS: BP 118/76; PULSE 60; RESP 18; TEMP 36.7; O2SAT 97
[2019-06-28] MEDS: 0.9% Normal Saline 1,000 ML 150 ML IV (05:28)
[2019-06-28 07:49] VITALS: BP 115/71; PULSE 67; RESP 18; TEMP 36.8; O2SAT 97
[2019-06-28] MEDS: predniSONE 20 MG Tablet 40 MG PO (07:55)
[2019-06-28] MEDS: amLODIPine 5 MG Tablet PO (07:55)
[2019-06-28] MEDS: Allopurinol 300 MG Tablet PO (07:55)
[2019-06-28] MEDS: Lisinopril 20 MG Tablet PO (07:55)
[2019-06-28] MEDS: Gabapentin 100 MG Capsule 200 MG PO (07:55)
--- NOTE | 2019-06-28 10:45 | DCINST_ITS ---
- Discharge Diagnoses Current Active Problems: Current Active and Chronic Problems (Last Updated 06/26/19 @ 16:13 by Phillip Liu DO) Cellulitis of right foot (Acute) You will use the following diet at home:: Other - avoid alcohol, red meats, fish during gout flares Your food should be the consistency of: Regular Your liquids should be the consistency of: Regular/Thin Return to work on:: 06/30/19 Weight Bearing Status: Weight bearing as tolerated Call your doctor if you observe: Fever of 101 or Higher, - - increased joint pain/swelling. Allergies/Adverse Reactions: Allergies No Known Allergies Allergy (Verified 06/26/19 11:25) Medications to take at Discharge Lisinopril [Zestril] 20 mg PO DAILY 02/02/15 Amlodipine Besylate 5 mg PO DAILY 06/21/19 Gabapentin [Neurontin] 200 cap PO BID 06/21/19 Allopurinol 300 mg PO BID 06/26/19 Acetaminophen [Tylenol Tablet] 650 mg PO Q6H PRN PRN tablet 06/28/19 Amox/Clavulanate Tablet [Augmentin Tablet] 875 mg PO Q12H #6 tab 06/28/19 Colchicine 0.6 mg PO BID PRN #30 tab 06/28/19 Oxycodone [Oxyir] 5 mg PO Q6H PRN 3 Days #12 tablet 06/28/19 Prednisone 4 tab PO DAILY #16 tab.ds.pk 06/28/19 The following prescriptions were given: Amox/Clavulanate Tablet [Augmentin Tablet] 875 mg PO Q12H #6 tab Transmission Status: Pending to [facility] Colchicine 0.6 mg PO BID PRN #30 tab PRN Reason: gout flare Transmission Status: Pending to [facility] [address] Oxycodone [Oxyir] 5 mg PO Q6H PRN 3 Days #12 tablet PRN Reason: Moderate Pain (4-6/10) Transmission Status: Received by [facility] Prednisone 4 tab PO DAILY #16 tab.ds.pk Transmission Status: Pending to [facility] Primary Care Physician: Ernesto Vincent MD [Primary Care Provider] - Within 2 Weeks Test Results: Test results from this visit will be discussed in further detail at your follow- up appointment, if applicable. Proposed Discharge Date: 06/28/19
--- NOTE | 2019-06-28 10:47 | DS.PCM_ITS ---
Discharge Date and Diagnosis - Problem List Patient Problems: Active and Suspected Problems (Last Updated 06/26/19 @ 16:13 by Phillip Liu DO) Cellulitis of right foot (Suspected) Gout flare (Acute) Date of Admission: 06/26/19 Date of Discharge: 06/28/19 - Primary Discharge Diagnosis Active and Suspected Problems (Last Updated 06/26/19 @ 16:13 by Phillip Liu DO) Cellulitis of right foot (Acute) Hospital Course and Treatment Operations: None Procedures: None Summary of Care Provided: The patient is a 59 year old M presents with erythema of his right foot. Patient had been on outpatient cephalexin but did not get better and patient actually had vomiting associated with taking cephalexin. The concern was for inadequately treated cellulitis. Patient was changed over to ampicillin sulbactam. On the , patient's erythema had resolved the patient still had swelling and increased pain in the right MTP as well as on the lateral aspect of his foot but also pain in his knee. Patient has no history of gout so is concerned that this may be acute gout flares that the patient may be experiencing so patient was started on colchicine as well as prednisone. Today, the patient feels much better able to put weight still does have swelling on the lateral aspect of his right foot though his right MTP pain and swelling are improved and his knee is unremarkable. Patient has been evaluated with arthrocentesis from his knee before the did confirm gout crystals and not pseudogout. I will treat the patient empirically for possible cellulitis though my thinking now that it is that this is less likely cellulitis and more likely just acute gout flares in numerous locations. Patient follows up with a medical claims examiner [place] and would defer to the medical claims examiner in regards to increasing his allopurinol or changing the patient over to febuxostat. Patient will continue with burst of prednisone 40 mg and then have colchicine as needed. Patient advised to hold off on returning to work until the . [] Patient Problems: Active and Suspected Problems (Last Updated 06/26/19 @ 16:13 by Phillip Liu DO) Cellulitis of right foot (Suspected) Gout flare (Acute) - Physical Exam General: Alert, No apparent distress HEENT: Atraumatic, Normocephalic Oral: Moist Mucosa, No Gingival or Mucosal Lesions/ Ulcerations Extremities: - - Swelling over the lateral aspect of his right foot with pitting. No right MTP tenderness. No right knee tenderness. Skin: - - Resolving erythema over the right foot Vital Signs Temp Pulse Resp BP Pulse Ox 36.8 C 67 18 115/71 97 06/28/19 07:49 06/28/19 07:49 06/28/19 07:49 06/28/19 07:49 06/28/19 07:49 Oxygen Delivery Method Room Air Weight: 77.3 kg Body Mass Index (BMI) 25.1 Intake and Output for Last 24 Hours 06/26/19 06/27/19 06/28/19 23:59 23:59 23:59 Intake Total 1464.0 / 1704.0 3766.0 / 4006.0 1314.5 / 1314.5 Output Total 3075 / 4175 2800 / 2800 Balance 1464.0 / 1054.0 691.0 / -169.0 -1485.5 / -1485.5 Laboratory Tests Past 24 Hrs 06/26/19 14:15 Diff Path Review Reviewed Discharge Diet: Low fat/ Low Cholesterol Return to work on:: 06/30/19 Weight Bearing Status: Weight bearing as tolerated Call your doctor if you observe: Fever of 101 or Higher, - - increased joint pain/swelling. Home Medications: Medications to take at Discharge Lisinopril [Zestril] 20 mg PO DAILY 02/02/15 Amlodipine Besylate 5 mg PO DAILY 06/21/19 Gabapentin [Neurontin] 200 cap PO BID 06/21/19 Allopurinol 300 mg PO BID 06/26/19 Acetaminophen [Tylenol Tablet] 650 mg PO Q6H PRN PRN tablet 06/28/19 Amox/Clavulanate Tablet [Augmentin Tablet] 875 mg PO Q12H #6 tab 06/28/19 Colchicine 0.6 mg PO BID PRN #30 tab 06/28/19 Oxycodone [Oxyir] 5 mg PO Q6H PRN 3 Days #12 tablet 06/28/19 Prednisone 4 tab PO DAILY #16 tab.ds.pk 06/28/19 Following Prescrptions Were Given to Patient: Amox/Clavulanate Tablet [Augmentin Tablet] 875 mg PO Q12H #6 tab Transmission Status: P[facility] Colchicine 0.6 mg PO BID PRN #30 tab PRN Reason: gout flare Transmission Status: Pending to [facility] [address] Oxycodone [Oxyir] 5 mg PO Q6H PRN 3 Days #12 tablet PRN Reason: Moderate Pain (4-6/10) Transmission Status: Received by [facility] Prednisone 4 tab PO DAILY #16 tab.ds.pk Transmission Status: Pending to [facility] [address] Primary Care Physician: Ernesto Vincent MD [Primary Care Provider] - Within 2 Weeks Disposition: Home Minutes spent on discharge:: 32 Patient Condition:: Good Medical Necessity - Tobacco Use Smoking Status: Former smoker Tobacco Use: Non-smoker Meaningful Use Info Meaningful Use Diagnoses (Choose all that apply): None applicable Code Visit OBSV E&M: 27958 Observation care discharge
[2019-06-28 12:16] VITALS: BP 135/79; PULSE 87; RESP 18; TEMP 37; O2SAT 96
[2019-06-30 13:34] LABS: Pathologist Review Reviewed
== END 2019-06-28 10:46 | disposition home or self-care (01) ==
LOC: ED 14:11 → PCU 15:39
PROVIDERS: Emergency Provider Emergency Medicine; Family Provider Family Medicine; PCP Family Medicine
DX: M10.9 Gout, unspecified (principal); I12.9 Hypertensive chronic kidney disease with stage 1 through stage 4 chronic kidney disease, or unspecified chronic kidney disease; E87.2 Acidosis; N18.3 Chronic kidney disease, stage 3 (moderate); Z79.899 Other long term (current) drug therapy; Z87.891 Personal history of nicotine dependence
CPT/HCPCS: 36415; 80048; 83605; 85025; 96361; 96365; 96366; 96375; 97802; 99218; 99285; J7030; A4216; G0378; J0295; J2405

== ENCOUNTER 2019-12-24 14:30 | Emergency (ER) | payer BC, SELFPAY ==
[2019-12-24 14:31] VITALS: BP 142/72; PULSE 109; RESP 18; TEMP 36.5; O2SAT 96; BMI 26.6
--- NOTE | 2019-12-24 15:25 | ED.VISSUMM ---
- ER Visit Summary Date of Service: 12/24/19 Chief Complaint: Left knee pain History of Present Illness: The patient is a 59 M who presents with left knee pain that is been getting worse over the past 6 days. Patient states it is gradually gotten worse. Patient states the pain is worse with flexion of his knee and with squatting. Patient describes his pain is sharp. Patient states his pain improves with rest. Patient denies any paresthesias or weakness. Patient denies any specific trauma or injury. Patient admits to some increasing swelling. Patient denies any back pain. Physical Examination: Vital signs are stable. Patient is afebrile. Patient is in no acute distress. Musculoskeletal exam reveals tenderness over the left knee. There is a moderate effusion. There is no bony crepitance or step-off. Range of motion was limited in all motions of the left knee secondary to pain. There is no erythema or warmth. There is guarding with exam. Varus and valgus stress tests were negative. Fracisco's test was negative. Patient was unable to tolerate Yue testing. Pedal pulses are equal bilaterally. There are no sensory deficits noted. Test Results: X-rays of the left knee were obtained. There is a moderate effusion of the left knee. There is no acute fracture or dislocation. This was interpreted by the radiologist and myself. Emergency Department Course and Treatment: Patient was given a dose of [place] here. Patient was instructed to ice and elevate the left knee. Patient was instructed to take Tylenol or ibuprofen as needed for pain. Patient was instructed to follow-up with his primary care physician in 5 to 7 days. Patient understood and was agreeable with the plan. All questions were answered. Disposition: Discharge home Impression: Left knee effusion This note was generated with [employer] dictation software. It may contain incorrect words, spelling, and punctuation that were not noted in review of the chart prior to signing ED Disposition - Plan for ED Patient: Disposition: Home or Assisted Living Diagnosis: Effusion, left knee Instructions: KNEE PAIN, Uncertain Cause Referrals: Ernesto Vincent MD [Primary Care Provider] - 5-7 Days Additional Instructions: Use ice to your left knee. Take Tylenol or ibuprofen as needed for pain. Follow-up with your primary care physician in 5 to 7 days.
[2019-12-24] MEDS: HYDROcodone Bitartrate/Apap 5/325 Tablet PO (15:30)
--- NOTE | 2019-12-24 15:30 | RAD_ITS ---
STUDY: X-RAY - LEFT KNEE REASON FOR EXAM: Male, 59 years old. Left knee pain. nki TECHNIQUE: 3 view(s) of the knee. COMPARISON: 08/11/2018. FINDINGS: No acute fracture, dislocation or osseous destruction. No significant joint space narrowing. No significant productive changes. Moderate suprapatellar effusion and soft tissue swelling. IMPRESSION: Moderate suprapatellar effusion and soft tissue swelling. Electronically Signed: Axel Ohara, at 15:59 EDT Tel , Service support , RAD/Knee 4 or More Views
[2019-12-24 17:23] VITALS: PULSE 102; RESP 16; O2SAT 99
== END 2019-12-24 17:33 | disposition home or self-care (01) ==
PROVIDERS: Emergency Provider Emergency Medicine; PCP Family Medicine
DX: M25.462 Effusion, left knee (principal); M17.12 Unilateral primary osteoarthritis, left knee; I10 Essential (primary) hypertension; M10.9 Gout, unspecified; Z79.899 Other long term (current) drug therapy
CPT/HCPCS: 73564; 99283

== ENCOUNTER 2019-12-29 14:07 | Emergency (ER) | payer BC, SELFPAY ==
[2019-12-29 14:09] VITALS: BP 133/99; PULSE 101; RESP 19; TEMP 36.8; O2SAT 98; BMI 27.5
--- NOTE | 2019-12-29 14:22 | ED.VIS.GEN ---
History of Present Illness Chief Complaint: Lower Extremity Injury Informant: Patient Onset: Days - Narrative: Persistent nontraumatic left knee swelling for the past 11 days. History of gout to the right knee in the past. Seen in the ED 5 days ago with x-ray noting effusion. Last 2 days no ankle and foot swelling. No fevers. History of stage III chronic kidney disease. No diabetes history. was told to follow-up with his PCP in 1 week and has not been that long and has not made appointment. [facility] he has right knee drained 2 years ago in the ED. denies any recent red meats or seafood or any alcohol. Prior similar symptoms: Yes Past Medical History - Allergies and Home Meds Allergies/Adverse Reactions: Allergies cephalexin [From Keflex] Adverse Reaction (Verified 12/24/19 14:34) Vomiting Primary Care Physician: Ernesto Vincent MD [Primary Care Provider] - Past Medical History: - - Stage III chronic kidney disease, gout, hypertension Surgical History: no surgical history Smoking Status: Former smoker - Family History Maternal Family History: Reports: Hypertension Review of Systems General: Denies: Chills, Fever, Sweats Eyes: Denies: Visual changes - bilaterally, Diplopia ENT: Denies: Rhinorrhea, Sore throat Cardiovascular: Denies: Chest pain, Palpitations Respiratory: Denies: Dyspnea, Cough, Dyspnea on exertion Gastrointestinal: Denies: Abdominal pain, Nausea, Vomiting, Diarrhea, Melena, Hematochezia Genitourinary: Denies: Dysuria, Hematuria, Frequency Musculoskeletal: Reports: Arthralgias. Denies: Back pain, Extremity Pain Skin: Denies: Rash, Wounds Neurological: Denies: Headache, Weakness, Numbness Physical Exam Vital Signs/Narrative: Vital Signs Temp Pulse Resp BP Pulse Ox 12/29/19 14:09 98.2 F 101 H 19 H 133/99 H 98 Inital Vital Signs reviewed: Yes General: Well nourished, Well developed, No Acute Distress Head: Normocephalic, Atraumatic Eyes: Perrl, EOMI ENT: Moist mucous membranes, No rhinorrhea Neck: Supple, Nontender Cardiovascular: Regular rate, Regular rhythm, No murmurs Respiratory: No distress, CTA bilaterally, Chest nontender Abdomen: Soft, Nontender, Nondistended, Normal bowel sounds Back: Nontender, Normal Inspection Extremities: - - Left lower extremity: Swelling in the knee prepatellar, no erythema joint cool to palpation however pain with forced flexion. There is mild ankle swelling with no tenderness. No foot tenderness or any erythema. Skin intact. Neurovascular intact. Skin: Normal color, No rash Neurological: Alert, Oriented x3, Cranial nerves II-XII grossly intact, Normal Strength, Normal Sensation Psychological: Normal affect, Normal Mood Diagnostic/Tx/Re-eval - Medical Decision Making Patient nontoxic, no redness or warmth left knee. Patient return after 5 days increasing pain with movement I discussed therapeutic arthrocentesis to remove fluid to try to help with symptoms. Nursing did give Kenalog IM. Knee films were reviewed from 5 days ago. Consent was obtained, total of 33 mL of synovial fluid was removed with improve infusion. Review of records he had a same knee arthrocentesis in 2018- for infection. I did not see any crystal evaluation. Sent to lab for crystal analysis and culture. [place] wrap and crutches and outpatient follow-up.OARRS report. Due to stage III chronic kidney disease will avoid NSAIDs. Will give a short prescription for [place]. All questions were answered. Procedure note: Written consent. Timeout performed. Normal sterile conditions. Betadine was used for prep. Sterile gloves. 18-gauge needle advanced medial aspect patellar ligament, synovial fluid yellow nature 33 cc obtained. 5 cc of 1% lidocaine was injected. Needle removed, bandage. Patient tolerated procedure well. ED Disposition - Plan for ED Patient: Disposition: Home or Assisted Living Diagnosis: Effusion, left knee, Gouty arthritis, S/P arthrocentesis Instructions: Knee Effusion, Gouty Arthritis Prescriptions: Hydrocodone Bitart/Apap 5-325 [[place] 5MG-325MG] 1 tablet PO Q6H PRN PRN 3 Days #12 tablet PRN Reason: Pain Referrals: Ernesto Vincent MD [Primary Care Provider] - 3-5 Days
[2019-12-29] MEDS: Triamcinolone Acetonide 40 MG/ML Vial OPERA.SITE (14:31)
[2019-12-29 16:03] VITALS: BP 127/83; PULSE 100; RESP 17
[2019-12-29 16:41] LABS: Body Fluid QC Type(s) BF1Q; Source- Body Fluid SYNOVIAL
--- NOTE | 2019-12-29 20:21 | ED.RN ---
PER DR JAMES, THIS NURSE CALLED PT TO INFORM HIM HE NEEDS TO RETURN TO THE ER FOR TREATMENT AND ADMISSION. NO ANSWER. LEFT A MESSAGE FOR THE PT TO CALL THE ER
--- NOTE | 2019-12-29 21:43 | ED.RN ---
THIS NURSE SPOKE WITH THE PT AND HIS GIRLFRIEND ON THE TELEPHONE. PT INSTRUCTED TO RETURN TO THE ER FOR ADMISSION AND ANTIBIOTIC TREATMENT PER DR JAMES
[2019-12-30 13:28] LABS: Pathologist Review Reviewed
== END 2019-12-29 16:07 | disposition home or self-care (01) ==
PROVIDERS: Emergency Provider Emergency Medicine; PCP Family Medicine
DX: M10.9 Gout, unspecified (principal); I12.9 Hypertensive chronic kidney disease with stage 1 through stage 4 chronic kidney disease, or unspecified chronic kidney disease; N18.3 Chronic kidney disease, stage 3 (moderate); Z79.899 Other long term (current) drug therapy; Z88.1 Allergy status to other antibiotic agents; Z87.891 Personal history of nicotine dependence
CPT/HCPCS: 20610; 87070; 87075; 87205; 89060; 99285

== ENCOUNTER 2019-12-29 22:11 | Inpatient (IN) | payer BC, SELFPAY ==
[2019-12-29 14:09] VITALS: BMI 27.5
[2019-12-29 22:12] VITALS: BP 110/75; PULSE 87; RESP 16; TEMP 36.4; O2SAT 96; BMI 27.3
[2019-12-29 22:38] VITALS: BP 110/75; PULSE 87; RESP 16; TEMP 36.4; O2SAT 96
--- NOTE | 2019-12-29 22:58 | ED.VISSUMM ---
- ER Visit Summary Date of Service: 12/29/19 Chief Complaint: Atraumatic left knee pain History of Present Illness: The patient is a 59 M past medical history of gout, hypertension, right foot cellulitis in the past and renal insufficiency. Was seen earlier today. Gram stain came back positive he was called back in for IV antibiotics and admitted for suspected septic joint. Patient states that this knee pain is been going on for 1 to 2 weeks. He denies any fever or chills. Physical Examination: Middle-aged male no acute distress vital signs are stable afebrile. H EENT exam unremarkable. Neck nontender. Lungs clear to auscultation. Heart regular rhythm no murmur. Abdomen soft nontender. Extremities moves all 4. His left knee is not severely swollen. Is not red or hot. But he has extreme discomfort with trying to do passive or active flexion. Left foot is neurovascular intact with DP pulse. Dorsi and plantar flexion. There is no cellulitis. Test Results: CBC shows a count of 14 which is seen on a previous CBC. Hemoglobin 12. Chemistries show BUN 32 creatinine 1.74 is a history of renal insufficiency. Is normal gap. Sed rate is pending. CRP is elevated at 92. Arthrocentesis from earlier showed gram-positive cocci rare and 2+ white blood cells. The cultures pending. I did call the lab to see if they can run cell counts. Emergency Department Course and Treatment: Concern is for a left septic joint. Patient be started on IV Rocephin. Labs being obtained. I will speak both to the hospitalist and orthopedic physician aeronautical test engineer. Treatment Plan: I spoke to orthopedics aeronautical test engineer. Also spoke to the hospitalist. Hospitalist will admit. Patient be started on IV antibiotics. Orthopedics will see in the morning. Disposition: admission Impression: Atraumatic left knee pain History of gout Rule out septic joint History of renal insufficiency This note was generated with [employer] dictation software. It may contain incorrect words, spelling, and punctuation that were not noted in review of the chart prior to signing ED Disposition - Plan for ED Patient: Referrals: Ernesto Vincent MD [Primary Care Provider] -
[2019-12-29 23:11] LABS: Absolute Lymphocyte Count 1.09 X10^3/uL (0.83-4.51); Basophil# 0.06 X10^3/uL; Basophil% 0.4 % (0-1); Eosinophil# 0.05 X10^3/uL; Eosinophils% 0.4 % (0-5); Hematocrit 36.9 % (40-54); Hemoglobin 12.1 g/dL (13.0-16.5); Lymphocyte # 1.09 X10^3/ul (4.0); Lymphocyte % 7.8 % (19-41); Mean Corp Hgb Conc 32.8 g/dL (32-36); Mean Corpuscular Hgb 31.4 pg (27.0-32.0); Mean Corpuscular Volume 95.8 fL (80-94); Mean Platelet Vol. 9.3 fl (6.2-12.0); Monocyte# 1.77 X10^3/uL; Monocyte% 12.6 % (0-10); NRBC Flagged by Analyzer 0 % (0-5); Neutrophil # 10.96 X10^3/uL (2.7-7.7); Neutrophil % 78.2 % (47-70); POSITIVE DIFFERENTIAL YES; Platelet Count 408 K/mm3 (150-450); RBC Distribution Width CV 12.4 % (11.6-14.6); RBC Distribution Width SD 42.9 fl (35.1-43.9); Red Blood Count 3.85 M/mm3 (4.6-6.2)
[2019-12-29 23:15] LABS: Differential Indicated SCAN CRITERIA MET
[2019-12-29 23:17] LABS: Erythrocyte Sedimentation Rate 86 mm/hr (0-20)
[2019-12-29] MEDS: Ceftriaxone 1 GM/50 ML BAG IV (23:17)
[2019-12-29 23:21] LABS: Anion Gap 8 (5-15); BUN 32 mg/dL (7-18); BUN/Creat Ratio 18.4 RATIO (10-20); Chloride 104 mmol/L (98-107); Creatinine, Serum 1.74 mg/dL (0.70-1.30); EST Glomerular Filtration Rate 43 mL/min (>60); Est Glom Filt Rate - Afr Amer 52 mL/min (>60); Estimated Creatinine Clearance 43.68 ml/min; Glucose 136 mg/dL (74-106); Potassium 4.7 mmol/L (3.5-5.1); Sodium Level 136 mmol/L (136-145)
[2019-12-29 23:29] LABS: Differential Comment SCANNED
[2019-12-30] VITALS (12 sets, daily range): BP systolic 110–152; BP diastolic 65–91; PULSE 63–86; RESP 16–18; TEMP 36.4–37.2; O2SAT 92–98; BMI 26.8; BMI 26.9
--- NOTE | 2019-12-30 00:14 | HP.PCM_ITS ---
Problem List (1) Swelling of left knee joint Status: Acute (2) History of gout Status: Chronic History of Present Illness Date of Admission: 12/30/19 Chief Complaint: left knee pain The patient is a 59 year old male patient with a significant past medical history of gout presents the emergency room for the second time today due to left knee pain. Earlier today he had his left knee drained due to substantial s welling and was subsequently discharged home however later in the day Gram stain of the synovial fluid was found to be 2+ for gram-positive cocci and patient was requested back to the emergency room for admission. He has an elevated white blood cell count of 14,000 and mild renal insufficiency with a creatinine of 1.7. He has no chest pain or shortness of breath no cough fever chills at this time. Dr. Jose Armando Downs was consulted for orthopedic management who will see the patient in consult. Past Medical History Past Medical History (Chronic Problems): Chronic Problems (Last Updated 06/26/19 @ 16:[address] Phillip Liu DO) History of gout (Chronic) Medical History: Medical History (Last Updated 06/26/19 @ 16:[address] Phillip Lui DO) Gout M10.9 CKD (chronic kidney disease), stage III N18.3 HTN (hypertension) I10 Allergies cephalexin [From Keflex] Adverse Reaction (Verified 12/29/19 22:11) Vomiting Home Medications: Ambulatory Orders Medication Instructions Recorded Lisinopril [Zestril] 20 mg PO DAILY 02/02/15 Amlodipine Besylate 5 mg PO DAILY 06/21/19 Gabapentin [Neurontin] 200 cap PO BID 06/21/19 Allopurinol 300 mg PO BID 06/26/19 Acetaminophen [Tylenol Tablet] 650 mg PO Q6H PRN PRN tab 06/28/19 Hydrocodone Bitart/Apap 5-325 1 tab PO Q6H PRN PRN 3 Days #12 tab 12/29/19 [[place] 5MG-325MG] traMADol [Ultram (G)] 50 mg PO Q6H PRN PRN 12/29/19 Surgical History: no surgical history Smoking Status: Current every day smoker - *Family History Maternal History Items: Hypertension Review of Systems Constitutional: Denies: Chills, Fever, Weight Change HEENT: Denies: Head Aches, Sinus Congestion, Sinus Drainage Cardiovascular: Denies: Chest Pain, Palpitations Respiratory: Denies: Cough, Shortness of breath at rest, Sputum production Gastrointestinal: Denies: Abdominal Pain, Nausea, Vomiting Genitourinary: Denies: Dysuria Musculoskeletal: Reports: Joint Pain, Joint swelling, Joint Tenderness Skin: Denies: Rash, Wounds Neurological: Denies: Numbness, Tingling, Focal weakness Psychiatric: Denies: Anxiety, Depression, Homicidal Ideations, Suicidal Ideations Hematologic/ Lymphatic: Denies: Easy Bruising, Easy Bleeding VTE Information - Inpt Only VTE Present on Admission: No VTE Mechan Device Prophylaxis: None VTE Pharm Prophylaxis ordered?: Yes Patient Problems: Active and Suspected Problems (Last Updated 06/26/19 @ 16:[address] Phillip Liu, DO) Swelling of left knee joint (Acute) - Physical Exam Vitals/I&O's: Vital Signs Temp Pulse Resp BP Pulse Ox 97.6 F L 87 16 110/75 96 12/29/19 22:38 12/29/19 22:38 12/29/19 22:38 12/29/19 22:38 12/29/19 22:38 Oxygen Delivery Method Room Air Weight: 179 lb 10.828 oz Body Mass Index (BMI) 27.3 General: Alert, Oriented x3, Cooperative HEENT: Atraumatic, Normocephalic Neck: Supple Lungs: Clear to auscultation, Normal air movement Cardiovascular: Regular rate, Normal S1, Normal S2, No murmurs Abdomen: Bowel Sounds Present Extremities: Edema, Tenderness Skin: No rashes Musculoskeletal: Tenderness - left knee Neurological: Neuro grossly intact Psych/Mental Status: Normal Affect, Appropriate Laboratory Results 12/29/19 22:30: WBC 14.0 H, RBC 3.85 L, Hgb 12.1 L, Hct 36.9 L, MCV 95.8 H, MCH 31.4, MCHC 32.8, RDW Std Deviation 42.9, RDW Coeff of Stephen 12.4, Plt Count 408, MPV 9.3, Immature Gran % (Auto) 0.600, Neut % (Auto) 78.2 H, Lymph % (Auto) 7.8 L, [place] % (Auto) 12.6 H, Eos % (Auto) 0.4, Baso % (Auto) 0.4, Absolute Neuts (auto) 11.0 H, Absolute Lymphs (auto) 1.09, Nucleated RBC % 0, Differential Comment SCANNED, Diff Path Review February gema, ESR 86 H 12/29/19 22:30: Sodium 136, Potassium 4.7, Chloride 104, Carbon Dioxide 24.0, Anion Gap 8, BUN 32 H, Creatinine 1.74 H, Estim Creat Clear Calc 43.68, Est GFR (MDRD) Af Amer 52 L, Est GFR (MDRD) Non-Af 43 L, BUN/Creatinine Ratio 18.4, Glucose 136 H, Calcium 9.0, C-React Prot Ext Range 92.30 H Assessment/Plan All Active Problems (Last Updated 06/26/19 @ 16:[address] Phillip Liu, DO) Swelling of left knee joint (Acute) Gout flare (Acute) Plan 1. Left knee joint infection?gram-positive cocci 2+ and synovial fluid further study evaluation pending?Place patient general medical floor, consult Dr. Jose Armando Downs, place patient on vancomycin, make n.p.o. at midnight with IV fluids of normal saline at 100 cc/h, will use tylenol as needed for pain 2. DVT prophylaxis?low molecular weight heparin Inpatient E&M: 51392 Init Hosp L3
[2019-12-30] MEDS: 0.9% Normal Saline 1,000 ML 100 ML IV ×3 (01:53→19:26)
--- NOTE | 2019-12-30 02:15 | PCM.RX.CS ---
Consult Pharmacy has been consulted to manage selected antiobiotic: Vancomycin Type of Consult: New start Suspected Infection: Other Prior Doses of Antibiotics Received/Current Regimen: Medications Vancomycin HCl 1,250 mg/ (Sodium Chloride) 275 mls @ 167 mls/hr IV Q24H CATHERINE Vancomycin HCl 1,250 mg/ (Sodium Chloride) 275 mls @ 167 mls/hr IV X1 ONE Stop: 12/30/19 03:08 Last Admin: 12/30/19 01:53 Dose: 167 mls/hr Labs: Sodium 136 mmol/L (136-145) 12/29/19 22:30 Potassium 4.7 mmol/L (3.5-5.1) 12/29/19 22:30 Chloride 104 mmol/L (98-107) 12/29/19 22:30 Carbon Dioxide 24.0 mmol/L (21.0-32.0) 12/29/19 22:30 Anion Gap 8 (5-15) 12/29/19 22:30 BUN 32 mg/dL (7-18) H 12/29/19 22:30 Creatinine 1.74 mg/dL (0.70-1.30) H 12/29/19 22:30 Est GFR (MDRD) Af Amer 52 mL/min (>60) L 12/29/19 22:30 Est GFR (MDRD) Non-Af 43 mL/min (>60) L 12/29/19 22:30 BUN/Creatinine Ratio 18.4 RATIO (10-20) 12/29/19 22:30 Glucose 136 mg/dL (74-106) H 12/29/19 22:30 Weight used for dosin.1 kg Estimated Creatinine Clearance: 44 Goal Trough: 10-15 mcg/mL Pharmacy Plan for Drug Dosing: Pharmacy Service will continue to monitor and adjust dosing as required. Follow-Up Labs: Trough Vancomycin Labs to be done on [date and time ordered]: 01/01/20 @6051
[2019-12-30 05:54] LABS: Absolute Lymphocyte Count 1.43 X10^3/uL (0.83-4.51); Absolute Neutrophil Count 10.5 X10^3/uL (2.0-7.7); Basophil# 0.05 X10^3/uL; Basophil% 0.4 % (0-1); Eosinophil# 0.06 X10^3/uL; Eosinophils% 0.4 % (0-5); Hematocrit 35.2 % (40-54); Hemoglobin 11.6 g/dL (13.0-16.5); Lymphocyte # 1.43 X10^3/ul (4.0); Lymphocyte % 10.5 % (19-41); Mean Corpuscular Hgb 31.4 pg (27.0-32.0); Mean Corpuscular Volume 95.4 fL (80-94); Mean Platelet Vol. 8.7 fl (6.2-12.0); Monocyte# 1.54 X10^3/uL; Monocyte% 11.3 % (0-10); NRBC Flagged by Analyzer 0 % (0-5); Neutrophil # 10.53 X10^3/uL (2.7-7.7); POSITIVE DIFFERENTIAL YES; Platelet Count 365 K/mm3 (150-450); RBC Distribution Width CV 12.3 % (11.6-14.6); RBC Distribution Width SD 42.7 fl (35.1-43.9); Red Blood Count 3.69 M/mm3 (4.6-6.2); White Blood Count 13.7 K/mm3 (4.4-11.0)
--- NOTE | 2019-12-30 06:00 | EKG12_ITS ---
Test Reason : Blood Pressure : / mmHG Vent. Rate : 060 BPM Atrial Rate : 060 BPM P-R Int : 154 ms QRS Dur : 088 ms QT Int : 382 ms P-R-T Axes : 056 076 037 degrees QTc Int : 382 ms Normal sinus rhythm Normal ECG No previous ECGs available Confirmed by MAURO STOVALL ([id number]), loan expeditor KATHY BUSTOS ([id number]) on 01/01/2020 8:01:12 AM Referred By: Confirmed By:MAURO STOVALL
[2019-12-30 06:06] LABS: Differential Indicated SCAN CRITERIA MET
[2019-12-30 06:11] LABS: Differential Comment SCANNED
[2019-12-30 06:12] LABS: Platelet Estimate ADEQUATE (ADEQ)
[2019-12-30 06:20] LABS: Anion Gap 9 (5-15); BUN 30 mg/dL (7-18); BUN/Creat Ratio 19.6 RATIO (10-20); Calcium,Total 8.8 mg/dL (8.5-10.1); Chloride 104 mmol/L (98-107); Creatinine, Serum 1.53 mg/dL (0.70-1.30); EST Glomerular Filtration Rate 50 mL/min (>60); Est Glom Filt Rate - Afr Amer 60 mL/min (>60); Estimated Creatinine Clearance 49.67 ml/min; Glucose 122 mg/dL (74-106); Potassium 5.1 mmol/L (3.5-5.1); Sodium Level 136 mmol/L (136-145)
--- NOTE | 2019-12-30 08:05 | PCM.CONS.GEN ---
Reason for Consult Date of Consultation: 12/30/19 Reason for Consultation: Left knee pain and swelling History of Present Illness: The patient is a 59 year old M [with a history of gout that presented for evaluation of left knee pain and swelling dating back to December 24, 2019. X-rays were taken in the emergency department and he was discharged. Over the past 1 or 2 weeks pain and swelling have increased with no known injury. He does take allopurinol routinely for his gout. He has had a gout flare in his knee in the past. He was treated with aspiration injection and oral medications. He feels that the intensity of pain is very similar to what he is experienced in the past the location may be slightly different. The pain is globally about the left knee. He presented to the emergency department December 29, 2019 the knee was aspirated and came back with positive Gram stain findings. He was contacted by the emergency department and recommended to come back in for admission for IV antibiotics. Orthopedics was consulted. Denies fevers chills or other signs of infection. Denies numbness or tingling into the left foot. No hip pain at this time. Does complain of some left ankle pain. He cannot recall if he has had gout flare in his ankle in the past or not. He has been on IV antibiotics overnight. There is pain at rest.] Past Medical History Past Medical History (Chronic Problems): Chronic Problems (Last Updated 06/26/19 @ 16:[address] Phillip Liu DO) History of gout (Chronic) Medical History: Medical History (Last Updated 06/26/19 @ 16:[address] Phillip Liu DO) Gout M10.9 CKD (chronic kidney disease), stage III N18.3 HTN (hypertension) I10 Allergies cephalexin [From Keflex] Adverse Reaction (Verified 12/29/19 22:11) Vomiting Home Medications: Ambulatory Orders Medication Instructions Recorded Lisinopril [Zestril] 20 mg PO DAILY 02/02/15 Amlodipine Besylate 5 mg PO DAILY 06/21/19 Gabapentin [Neurontin] 200 cap PO BID 06/21/19 Allopurinol 300 mg PO BID 06/26/19 Acetaminophen [Tylenol Tablet] 650 mg PO Q6H PRN PRN tab 06/28/19 traMADol [Ultram (G)] 50 mg PO Q6H PRN PRN 12/29/19 Surgical History: no surgical history Smoking Status: Former smoker Tobacco Use: Cigarettes - *Family History Maternal History Items: Hypertension Review of Systems Comment: Review of systems are documented in the electronic medical record and were personally reviewed Patient Problems: Active and Suspected Problems (Last Updated 06/26/19 @ 16:[address] Phillip Liu, DO) Swelling of left knee joint (Acute) Objective: Patient is resting comfortably in hospital bed upon entering the room. No acute distress at rest. Breathing easily without respiratory distress. He is pleasant. He has poor dentition. Inspection of left hip is without deformity. Left hip without tenderness. Gentle range of motion left hip without pain. Left knee is with trace palpable effusion there is a puncture site from where the knee was aspirated yesterday. Knee is without erythema warmth or other signs of infection. There is tenderness to palpation over the medial joint line of the left knee. Patient is able to actively perform a straight leg raise against gravity. Left knee range of motion is 0 to 45 degrees with discomfort and stiffness. Negative valgus/varus stress test on the left. Negative Esteban bilaterally without signs of DVT. Left ankle is with mild to moderate swelling and tenderness to palpation he is able to actively plantar and dorsiflex the left ankle against gravity with minimal discomfort and restriction. Sensation intact to light touch. Capillary refill less than 3 seconds. Neurovascularly intact. - Physical Exam Vitals/I&O's: Vital Signs Temp Pulse Resp BP Pulse Ox 98.1 F 63 16 113/65 97 12/30/19 02:00 12/30/19 02:00 12/30/19 02:00 12/30/19 02:00 12/30/19 02:00 Oxygen Delivery Method Room Air Weight: 80.1 kg Body Mass Index (BMI) 26.8 Intake and Output for Last 24 Hours 12/28/19 12/29/19 12/30/19 23:59 23:59 23:59 Intake Total 325 / 325 Output Total 600 / 600 Balance -275 / -275 Laboratory Results 12/29/19 15:15: Fluid Source OTHER, Fluid Color LT YEL, Fluid Appearance CLEAR, Fluid WBC 1.645, Fluid RBC 203, Fluid Tot Cell Count 1.649, Fld Polynuclear WBCs # 1.362, Fld Polynuclear WBCs % 82.8, Fluid Mononuclear WBCs 0.283, Fld Mononuclear WBCs % 17.2, Fluid Neutrophils 84, Fluid Lymphocytes 10, Fluid Monocytes 6, Fl Pathologist Comment May follow, Fluid Comment 2 SEE COMMENT 12/29/19 22:30: WBC 14.0 H, RBC 3.85 L, Hgb 12.1 L, Hct 36.9 L, MCV 95.8 H, MCH 31.4, MCHC 32.8, RDW Std Deviation 42.9, RDW Coeff of Stephen 12.4, Plt Count 408, MPV 9.3, Immature Gran % (Auto) 0.600, Neut % (Auto) 78.2 H, Lymph % (Auto) 7.8 L, [place] % (Auto) 12.6 H, Eos % (Auto) 0.4, Baso % (Auto) 0.4, Absolute Neuts (auto) 11.0 H, Absolute Lymphs (auto) 1.09, Nucleated RBC % 0, Differential Comment SCANNED, Diff Path Review Layla ribeiro, ESR 86 H 12/29/19 22:30: Sodium 136, Potassium 4.7, Chloride 104, Carbon Dioxide 24.0, Anion Gap 8, BUN 32 H, Creatinine 1.74 H, Estim Creat Clear Calc 43.68, Est GFR (MDRD) Af Amer 52 L, Est GFR (MDRD) Non-Af 43 L, BUN/Creatinine Ratio 18.4, Glucose 136 H, Calcium 9.0, C-React Prot Ext Range 92.30 H 12/30/19 05:41: WBC 13.7 H, RBC 3.69 L, Hgb 11.6 L, Hct 35.2 L, MCV 95.4 H, MCH 31.4, MCHC 33.0, RDW Std Deviation 42.7, RDW Coeff of Stephen 12.3, Plt Count 365, MPV 8.7, Immature Gran % (Auto) 0.400, Neut % (Auto) 77.0 H, Lymph % (Auto) 10.5 L, [place] % (Auto) 11.3 H, Eos % (Auto) 0.4, Baso % (Auto) 0.4, Absolute Neuts (auto) 10.5 H, Absolute Lymphs (auto) 1.43, Nucleated RBC % 0, Differential Comment SCANNED, Diff Path Review Layla ribeiro, Platelet Estimate ADEQUATE 12/30/19 05:41: Sodium 136, Potassium 5.1, Chloride 104, Carbon Dioxide 23.0, Anion Gap 9, BUN 30 H, Creatinine 1.53 H, Estim Creat Clear Calc 49.67, Est GFR (MDRD) Af Amer 60, Est GFR (MDRD) Non-Af 50 L, BUN/Creatinine Ratio 19.6, Glucose 122 H, Calcium 8.8 Current Medications Acetaminophen (Tylenol) 650 mg PO Q6H PRN PRN PRN Reason: Mild Pain (1-3)/Temp > 100.7 F Hydrocodone Bitart/Acetaminophen ([place] 5mg-325mg) 1 tablet PO Q6H PRN PRN PRN Reason: PAIN (4-07/17) Allopurinol (Zyloprim) 300 mg PO BIDCM CATHERINE Amlodipine Besylate (Norvasc) 5 mg PO DAILY CATHERINE Enoxaparin Sodium (Lovenox) 40 mg SC DAILY CATHERINE Gabapentin (Neurontin) 200 mg PO BID CATHERINE Sodium Chloride () 1,000 mls @ 100 mls/hr IV .Q10H CATHERINE Last Infusion: 12/30/19 03:32 Dose: 100 mls/hr Documented by: Vancomycin IV Pharmacy to Dose (1 ea/ Sodium Chloride) 500 mls @ 250 mls/hr IV PRN PRN; Protocol PRN Reason: Rx to Dose Vancomycin HCl 1,250 mg/ (Sodium Chloride) 275 mls @ 167 mls/hr IV Q24H CATHERINE Lisinopril (Zestril) 20 mg PO DAILY CATHERINE Sodium Chloride () 10 - 40 ml IV UD PRN PRN Reason: SALINE FLUSH Assessment/Plan All Active Problems (Last Updated 06/26/19 @ 16:[address] Phillip Liu, DO) Swelling of left knee joint (Acute) Gout flare (Acute) Diagnostic studies x-rays of [facility] dated December 24, 2019 weightbearing images were reviewed are without acute bony abnormality fracture dislocation lytic or blastic lesions. Suprapatellar joint effusion noted. Without significant degenerative changes All laboratory results were reviewed discussed with Dr. Jose Armando Downs Gram stain findings of gram-positive cocci rare is a preliminary finding culture results are not back Impression: Left knee effusion Left knee pain Possible gouty flare versus septic knee joint Plan: I discussed and reviewed treatment options with the patient as well as Dr. Jose Armando Downs. With the presence of the knee effusion the patient did wish to proceed with a repeat aspiration of the left knee today. We will send it for culture sensitivity Gram stain cell count and crystals. We will additionally order a serum uric acid level. He may continue with the IV antibiotics as ordered by the hospitalist. We will keep him n.p.o. at this time. Based on results if we have a high suspicion for septic joint we will plan for a left knee arthroscopy with I&D. If this is an acute gouty flare we will plan to treat him nonoperatively may consider a cortisone injection into the knee joint after septic knee joint has been ruled out. Continue with rest ice elevation for any pain or swelling. Continue with pain medications as needed. Continue to work on gentle range of motion left knee as tolerated.
[2019-12-30 08:31] LABS: Pathologist Comment May follow
[2019-12-30 08:49] LABS: Synovial Fld Mononuclear WBC % 32.7 %; Synovial Fld Polynuclear WBC # 2.141 10^3/uL; Synovial Fld Polynuclear WBC % 67.3 %
[2019-12-30 08:50] LABS: Uric Acid 6.8 mg/dL (3.5-7.2)
[2019-12-30 08:54] LABS: RBC /Synovial Fluid 0.003 10^6/uL (0)
[2019-12-30 09:10] LABS: AUTO B FLUID DILUENT BKGD CT WBC <0.1 RBC <0.01 (W<.1,R<.01); Appearance /Synovial Fluid Sl Cl (CLEAR); Color / Synovial Fluid Yellow (Pale Yellow)
[2019-12-30 09:11] LABS: RBC /Synovial Fluid 203 /mm3 (0); Synovial Fld Mononuclear WBC # 0.283 10^3/ul; Synovial Fld Mononuclear WBC % 17.2 %; Synovial Fld Polynuclear WBC # 1.362 10^3/uL; Synovial Fld Polynuclear WBC % 82.8 %
[2019-12-30 09:12] LABS: Lymph 10 %; Monocyte /Synovial Fluid 6 %; Neutrophil 84 % (0-25)
--- NOTE | 2019-12-30 10:02 | PN_ITS ---
Patient Problems: Active and Suspected Problems (Last Updated 06/26/19 @ 16:[address] Phillip Liu, DO) Swelling of left knee joint (Acute) Subjective: Patient seen and examined. He was admitted with complaints of left swollen knee. He had talked done in the ED was told to come back for admission because cultures and Gram stain revealed gram-positive cocci. Patient feels well this morning. He complains of some left ankle swelling but denies any left knee pain. He denies any fever or chills, competitions or dizziness, chest pain, abdominal pain, diarrhea vomiting. Review of systems otherwise negative. Repeat aspiration done by orthopedic surgery this morning. Labs and vitals reviewed. WBC is down to 13.7 from 14 on admission. ESR was 86 and CRP was also elevated at 92.3. Vitals/I&O's: Vital Signs Temp Pulse Resp BP Pulse Ox 98.1 F 63 16 113/65 97 12/30/19 02:00 12/30/19 02:00 12/30/19 02:00 12/30/19 02:00 12/30/19 02:00 Oxygen Delivery Method Room Air Weight: 176 lb 9.444 oz Body Mass Index (BMI) 26.8 Intake and Output for Last 24 Hours 12/28/19 12/29/19 12/30/19 23:59 23:59 23:59 Intake Total 325 / 325 Output Total 600 / 600 Balance -275 / -275 General: Alert, Oriented x3, Cooperative, No apparent distress HEENT: Atraumatic, PERRLA, EOMI, Normocephalic Oral: Dry Mucosa Neck: Supple, No JVD, Negative Carotid Bruits Lungs: Clear to auscultation, Normal air movement, No rhonchi, No wheeze, No rales Cardiovascular: Regular rate, Regular Rhythm, Normal S1, Normal S2, No murmurs Abdomen: Bowel Sounds Present, Soft, Non Tender, No Hepato-splenomegaly Extremities: No clubbing, No cyanosis, No edema, Capillary Refill Less than 3 Seconds Skin: No rashes, No breakdown Musculoskeletal: - - dressing over left knee; minimal swelling and tenderness, no differential warmth. Mild left ankle swelling, no redness or differential warmth. Lymphatic: No Cervical, Supraclavicular, or Inguinal Adenopathy Neurological: Cranial nerves II-XII grossly intact, Neuro grossly intact, Motor Exam 5/5 strength throughout Psych/Mental Status: Normal Affect, Appropriate, Alert and oriented to time, place, person, mood and affect Microbiology Past 72 Hours 12/30/19 08:00 Fluid - Synovial (joint) Gram Stain - Final Laboratory Results 12/29/19 15:15: Fluid Source Cancelled, Fluid Color Cancelled, Fluid Appearance Cancelled, Fluid WBC Cancelled, Fluid RBC Cancelled, Fluid Tot Cell Count Cancelled, Fld Polynuclear WBCs # Cancelled, Fld Polynuclear WBCs % Cancelled, Fluid Mononuclear WBCs Cancelled, Fld Mononuclear WBCs % Cancelled, Fluid Neutrophils Cancelled, Fluid Lymphocytes Cancelled, Fluid Monocytes Cancelled, Fluid Plasma Cells Cancelled, Fluid Macrophages Cancelled, Fld Mesothelial Cells Cancelled, Fluid Other Cells Cancelled, Fl Pathologist Comment Cancelled, Fluid Comment 2 Cancelled, Synovial Source LKNEE, Synovial Color Yellow, Synovial Appearance Sl Cl, Synovial WBC 1.6450 H, Synovial RBC 203 H, Synovial Tot Cell Ct 1.6490 H, Synov Polynuclear WBCs 1.362, Synov Mononuclear WBCs 0.283, Synovial Neutrophils 84 H, Synovial Lymphocytes 10, Synovial Monocytes 6, Synovial Polynuclear % 82.8, Synovial Mononuclear % 17.2, Synovial Path Comment May follow 12/29/19 22:30: WBC 14.0 H, RBC 3.85 L, Hgb 12.1 L, Hct 36.9 L, MCV 95.8 H, MCH 31.4, MCHC 32.8, RDW Std Deviation 42.9, RDW Coeff of Stephen 12.4, Plt Count 408, MPV 9.3, Immature Gran % (Auto) 0.600, Neut % (Auto) 78.2 H, Lymph % (Auto) 7.8 L, [place] % (Auto) 12.6 H, Eos % (Auto) 0.4, Baso % (Auto) 0.4, Absolute Neuts (auto) 11.0 H, Absolute Lymphs (auto) 1.09, Nucleated RBC % 0, Differential Comment SCANNED, Diff Path Review February foll, ESR 86 H 12/29/19 22:30: Sodium 136, Potassium 4.7, Chloride 104, Carbon Dioxide 24.0, Anion Gap 8, BUN 32 H, Creatinine 1.74 H, Estim Creat Clear Calc 43.68, Est GFR (MDRD) Af Amer 52 L, Est GFR (MDRD) Non-Af 43 L, BUN/Creatinine Ratio 18.4, Glucose 136 H, Calcium 9.0, C-React Prot Ext Range 92.30 H 12/30/19 05:41: WBC 13.7 H, RBC 3.69 L, Hgb 11.6 L, Hct 35.2 L, MCV 95.4 H, MCH 31.4, MCHC 33.0, RDW Std Deviation 42.7, RDW Coeff of Stephen 12.3, Plt Count 365, MPV 8.7, Immature Gran % (Auto) 0.400, Neut % (Auto) 77.0 H, Lymph % (Auto) 10.5 L, [place] % (Auto) 11.3 H, Eos % (Auto) 0.4, Baso % (Auto) 0.4, Absolute Neuts (auto) 10.5 H, Absolute Lymphs (auto) 1.43, Nucleated RBC % 0, Differential Comment SCANNED, Diff Path Review February, Platelet Estimate ADEQUATE 12/30/19 05:41: Sodium 136, Potassium 5.1, Chloride 104, Carbon Dioxide 23.0, Anion Gap 9, BUN 30 H, Creatinine 1.53 H, Estim Creat Clear Calc 49.67, Est GFR (MDRD) Af Amer 60, Est GFR (MDRD) Non-Af 50 L, BUN/Creatinine Ratio 19.6, Glucose 122 H, Calcium 8.8 12/30/19 05:41: Uric Acid 6.8 12/30/19 08:00: Fluid Source Cancelled, Fluid Color Cancelled, Fluid Appearance Cancelled, Fluid WBC Cancelled, Fluid RBC Cancelled, Fluid Tot Cell Count Cancelled, Fld Polynuclear WBCs # Cancelled, Fld Polynuclear WBCs % Cancelled, Fluid Mononuclear WBCs Cancelled, Fld Mononuclear WBCs % Cancelled, Fluid Neutrophils Cancelled, Fluid Lymphocytes Cancelled, Fluid Monocytes Cancelled, Fluid Plasma Cells Cancelled, Fluid Macrophages Cancelled, Fld Mesothelial Cells Cancelled, Fluid Other Cells Cancelled, Fluid Crystals Pending, Fluid Crystal Source Pending, Fl Pathologist Comment Cancelled, Fluid Comment 2 Cancelled, Synovial Source Pending, Synovial Color Pending, Synovial Appearance Pending, Synovial WBC 3.1830 H, Synovial RBC 0.003 H, Synovial Tot Cell Ct 3.2290 H, Synov Polynuclear WBCs 2.141, Synovial Polynuclear % 67.3, Synovial Mononuclear % 32.7, Synovial Path Comment Pending Current Medications Acetaminophen (Tylenol) 650 mg PO Q6H PRN PRN PRN Reason: Mild Pain (1-3)/Temp > 100.7 F Hydrocodone Bitart/Acetaminophen (Warren 5mg-325mg) 1 tablet PO Q6H PRN PRN PRN Reason: PAIN (4-10/10) Allopurinol (Zyloprim) 300 mg PO BIDCM [facility] Last Admin: 12/30/19 09:22 Dose: Not Given Documented by: Amlodipine Besylate (Norvasc) 5 mg PO DAILY [facility] Last Admin: 12/30/19 09:22 Dose: Not Given Documented by: Enoxaparin Sodium (Lovenox) 40 mg SC DAILY [facility] Last Admin: 12/30/19 09:22 Dose: Not Given Documented by: Gabapentin (Neurontin) 200 mg PO BID [facility] Last Admin: 12/30/19 09:22 Dose: Not Given Documented by: Sodium Chloride () 1,000 mls @ 100 mls/hr IV .Q10H [facility] Last Infusion: 12/30/19 03:32 Dose: 100 mls/hr Documented by: Vancomycin IV Pharmacy to Dose (1 ea/ Sodium Chloride) 500 mls @ 250 mls/hr IV PRN PRN; Protocol PRN Reason: Rx to Dose Vancomycin HCl 1,250 mg/ (Sodium Chloride) 275 mls @ 167 mls/hr IV Q24H [facility] Lisinopril (Zestril) 20 mg PO DAILY [facility] Last Admin: 12/30/19 09:22 Dose: Not Given Documented by: Sodium Chloride () 10 - 40 ml IV UD PRN PRN Reason: SALINE FLUSH Medical Necessity - Tobacco Use Smoking Status: Former smoker Tobacco Use: Cigarettes Assessment/Plan All Active Problems (Last Updated 06/26/19 @ 16:[address] Phillip Liu, DO) Swelling of left knee joint (Acute) Gout flare (Acute) 1. Left knee effusion * differentials are currently septic knee vs gout flare up. * CRP and ESR are both elevated * had a repeat aspiration of left knee today and it is pending gram stain, culture and sensitivity as well as review for crystals * serum uric acid is 6.8; this however doesnt rule out gout flare up. * wbc is 13.7 today, from 14 on admission * on IV vancomycin and ceftriaxone * tylenol prn for pain * per orthopedics, to keep NPO for now, pending review of aspirate. If there is high suspicion for septic joint, to have left knee arthroscopy with I&D * on allopurinol * patient to go for left knee arthroscopy and debridement; NSQIP surgical risk calculator shows a 7.6% risk of serious compliaction from surgery, with average risk being 14.6%. and 0.1% risk of cardiac complication, 7.8% risk of any complication * EKG done showed normal sinus rhythm with no acute ST changes * patient to go for surgery with low to medium risk of complications, as per NSQIP risk score. * 2.CKD 3: Cr is 1.53 today, was 1.74 on admission. baseline is ~ 1.4, from 06/09/19 3. Hypertension: on lisinopril. DVT prophylaxis; SCDs Inpatient E&M: 69449 Subs Hosp L2
[2019-12-30 10:18] LABS: AUTO B FLUID DILUENT BKGD CT WBC <0.1 RBC <0.01 (W<.1,R<.01)
[2019-12-30 10:19] LABS: Appearance /Synovial Fluid Sl Cl (CLEAR); CRYSTALS, BODY FLUID Other, see comment; Color / Synovial Fluid Yellow (Pale Yellow)
[2019-12-30 10:25] LABS: Lymph 4 %; Monocyte /Synovial Fluid 39 %; Neutrophil 55 % (0-25)
[2019-12-30 10:26] LABS: Body Fluid QC Type(s) BF2Q,BF3Q; Other Cell /Synovial Fluid 2 %
[2019-12-30 10:29] LABS: Source- Body Fluid SYNOVIAL
--- NOTE | 2019-12-30 12:03 | EKG12_ITS ---
Test Reason : Blood Pressure : / mmHG Vent. Rate : 066 BPM Atrial Rate : 066 BPM P-R Int : 144 ms QRS Dur : 098 ms QT Int : 378 ms P-R-T Axes : 049 075 017 degrees QTc Int : 396 ms Normal sinus rhythm Normal ECG When compared with ECG of 30-DEC-2019 05:38, MANUAL COMPARISON REQUIRED, DATA IS UNCONFIRMED Confirmed by MAURO STOVALL ([id number]), order editor ANNELISE BYRNE ([id number]) on 01/01/2020 9:34:23 AM Referred By: ANNA Confirmed By:MAURO STOVALL
--- NOTE | 2019-12-30 12:15 | RAD_ITS ---
STUDY: X-RAY CHEST REASON FOR EXAM: Male, 59 years old. PRE OP TECHNIQUE: Single AP portable view of the chest. COMPARISON: None. FINDINGS: The lungs are clear and expanded. There is no demonstrated pleural abnormality. Normal size heart. Normal mediastinum and domingo. Normal visualized pulmonary arteries. Normal visualized aortic arch and descending thoracic aorta. Normal visualized thoracic spine. Normal visualized ribs, clavicles, and shoulders. There is no demonstrated abnormality of the visualized soft tissue structures of the upper abdomen. RAD/Chest 1 View (Portable) IMPRESSION: Normal x-ray examination of the chest. Electronically Signed: Juan Rinaldi, at 13:05 EDT , Service support ,
--- NOTE | 2019-12-30 12:16 | CASEMGMT ---
TATYANA ALBARRAN Face to Face with patient for initial transition planning/care coordination assessment. RN DEION introduced self and role at [facility]. Patient lying in bed, alert and oriented. Patient willing to participate in assessment and is able to answer all questions appropriately. Care providers, pharmacy, and demographics verified. Patient wishes to discharge home, will monitor for need for HHC pending course of treatment. Patient states he has no further needs or concerns at this time. CM to follow for discharge planning needs that may arise. PCP: Melisa Specialists: [facility], [facility] in [place] Preferred Pharmacy: [facility] Insurance: [employer] Prescription Benefit: yes Living Will/HPOA: none LNOK: girlfriend Living Arrangements: Patient lives with girlfriend in 2nd floor apartment. Patient able to ambulate stairs and is independent at home. Transportation: Friend DME/HHC: Patient states he has crutches. No previous HHC. Will monitor for additional DME and HHC pending course of treatment. Patient to have surgery later today. Disposition Plan: Home with family support and follow-up plans in place. Will monitor for need for HHC and additional DME. Becky MERIDA, RN, CM
[2019-12-30 12:45] LABS: International Normalized Ratio 1.2; Prothrombin Time (Protime)PT. 14.7 SECONDS (11.7-14.9)
[2019-12-30 13:29] LABS: Pathologist Comment Reviewed
[2019-12-30 13:34] LABS: Pathologist Review Reviewed
[2019-12-30 13:36] LABS: Pathologist Review Reviewed
--- NOTE | 2019-12-30 14:58 | OP.PCM_ITS ---
Problem List (1) Swelling of joint, ankle, left Status: Acute Report of Operation Date of Procedure: 12/30/19 Pre-Operative Diagnosis: Possible septic arthritis, left ankle joint Post-Operative Diagnosis: Same as preoperative Surgery/Procedure Performed:: Left ankle joint aspiration for Gram stain, aerobic, anaerobic, crystals, cell count Description of Surgical Findings:: Left ankle joint aspiration performed to rule out septic arthritis of left ankle. Initial Gram stain shows white blood cells but no evidence of bacteria. Type of Anesthesia:: General Anesthesiologist: Arnie Joyner Specimen's removed: Left ankle joint aspiration for Gram stain, aerobic, anaerobic, crystals, cell count Drains: None Estimated Blood Loss (mL): 1 Description of Procedure: Pathology:Left ankle joint aspiration for Gram stain, aerobic, anaerobic, crystals, cell count Anesthesia: General Estimated blood loss: 1 mL Complications: None Condition: Stable Indications: Patient is a 59-year-old male who was admitted for left knee sepsis after po sitive Gram stain for bacteria after knee joint aspiration. Patient was admitted for IV antibiotics and surgical intervention. Patient had increased swelling and pain in his left ankle as well. Patient has history of gout. Due to the presence of a left knee joint infection, it was determined that a joint aspiration of the left ankle would be performed in order to rule out a left ankle joint septic arthritis. Left knee arthroscopic debridement was performed by Dr. Jose Armando Downs. Operative report: Before the patient was brought to the operating room, the risks, benefits, possible outcomes, possible complications the procedure discussed with the patient. All patient questions were answered to his satisfaction and all of his concerns were addressed. No guarantees were made as to the outcome of the procedure. Patient understood all aspects of the procedure, consent was then signed by the patient. Patient was then brought to the operating room placed on the operating table in supine position. After timeout, under general anesthesia, the left foot and ankle were scrubbed, prepped, draped in the usual sterile manner. Tender Zendra to the anterior medial aspect of the left ankle. The tibialis anterior tendon was palpated and marked. The ankle joint line was palpated and marked. At this time, a 10 cc syringe with an 18-gauge spinal needle was used to aspirate the joint. This was placed just medial to the tibialis anterior tendon at the level of the ankle joint. Care was taken make sure that this needle entered the ankle joint. Aspiration of fluid was performed, appr oximately 1 mL total. This was then sent for stat Gram stain along with aerobic, anaerobic, crystals, cell count. The initial read of the Gram stain came back as positive white blood cells, but no evidence of bacteria. The incision site was then dressed with a Band-Aid. The left knee incision and drainage with arthroscopic debridement was performed by Dr. Jose Armando Downs. Patient tolerated the left ankle aspiration well. At this time, there are no restrictions by me for immobilization of the left ankle. Patient can perform left ankle range of motion exercises as tolerated. Patient can be weightbearing on the left ankle as tolerated. Weightbearing restrictions per Dr. Jose Armando Downs status post left knee incision and drainage and debridement. Thank you for allowing me to take part in the care of your patient. - Complications None
[2019-12-30] MEDS: Epinephrine (1 mg/ml) 1 MG/ML VIAL (15:00)
--- NOTE | 2019-12-30 15:32 | PRO.PCM_ITS ---
Procedure Report Date of Procedure: 12/30/19 Preoperative diagnosis: Left knee effusion, probable septic knee #2 left ankle swelling Postoperative diagnosis : Same plus left lateral meniscus tear, arthritis medial femoral condyle Procedure: Diagnostic video arthroscopy, arthroscopic irrigation debridement tricompartmental left knee, arthroscopic partial lateral meniscectomy, shaving chondroplasty medial femoral condyle, insertion of Hemovac drain #2 aspiration of left ankle by Dr. Elton Downs Surgeon: Dr. Jose Armando Downs Anesthesia: General, Dr. Joyner /GALE Special medications: Vancomycin, Rocephin Complications: None EBL: Minimal Indications for surgery: Patient is a 59-year-old male with approximately 7-day history of left knee pain and swelling. Developed left ankle pain and swelling a few days later. Does have a history of gout. Patient was seen and evaluated by [facility]opedic physician back office medical assistant this morning. He was aspirated and again gram-positive cocci in clusters reported. Gram stain from fluid from December 29, 2019 so reported as gram-positive cocci. Based on history and physical exam and laboratory studies surgery was recommended for left knee arthroscopy, joint debridement. Also plan to aspirate left ankle to rule out infection there or possibly gout flare Findings: Intraoperative findings were consistent with her preoperative history, physical, radiographic exam. INFlamed, hyper trophic synovium in his left knee joint consistent with infection. He underwent arthroscopic debridement of all 3 compartments. Partial lateral meniscectomy, chondroplasty medial femoral condyle, drain insertion. Ankle aspiration to be dictated by Dr. Elton Downs Details of procedure: Patient was taken to the OR transfer to the OR table. Nonoperative limb was appropriately padded, STEPH hose and SCD applied. Patient was placed under the anesthetic agent. Operative knee was examined. Effusion consistent with possibility of infection. Operative upper thigh was well-padded and ultimately placed in a well-padded thigh miranda. Operative lower extremity was prepped and draped in usual orthopedic sterile fashion for the procedure. L Lateral portal was established with a knife. Took us through skin only. Dull trocar took us into the joint. The scope was placed through the lateral portal. Medial portal and ultimately established using a spinal needle followed by a knife through skin, followed by a dull trocar into the joint. Probe was placed to the medial portal. Patellofemoral joint: No significant arthritis was noted. Patella tracked nicely. No significant plica noted. Hypertrophic synovium noted about the patellofemoral joint region and suprapatellar pouch region this was ultimately debrided with a shaver. Medial and lateral gutter: No loose bodies noted. Hypertrophic synovial lining debrided with a shaver Intercondylar notch: ACL appeared within normal limits. Nice resting tension. No loose bodies or cystic changes noted. Hyper trophic synovium debrided with a shaver Medial compartment: Chondral surfaces were with chondrosis, grade 1 and 2 diffusely. No obvious medial meniscus tear noted and compartment fully probed. Plasty carried out with a shaver. Anterior compartment debrided of hypertrophic synovium Lateral compartment: Chondral surfaces are within normal limits. Parrot-beak lateral meniscus tear noted, and compartment fully probed. Show lateral meniscectomy performed with forward biter and shaver Posterior medial compartment: No loose bodies or pathology noted. Posterior lateral compartment: No loose bodies or pathology noted. 9 L of fluid irrigated throughout joint during the procedure. Medium Hemovac drain placed from a superior lateral portal. Then placed with Steri-Strips. 4- 0 nylon suture used next to drain tube Arthroscopic pictures were taken and saved throughout the procedure. Knee was drained of excess fluid. Arthroscopic instruments were removed. Arthroscopic portals closed with simple sutures of 4-0 nylon. Knee joint injected with a combination of local anesthetic and Duramorph. sterile bandage was applied. Patient was transferred to the room bed and recovery room in satisfactory condition. Patient will continue on IV antibiotics. Drain output will be monitored and drain will be removed when deemed appropriate. This note was generated with [employer] dictation software. It may contain incorrect words, spelling, and punctuation that were not noted in checking the note before signing.
[2019-12-30] MEDS: HYDROcodone Bitartrate/Apap 5/325 Tablet PO (17:39)
[2019-12-30] MEDS: Allopurinol 300 MG Tablet PO (17:40)
[2019-12-30] MEDS: Morphine 2 MG/ML Syringe IV (20:24)
[2019-12-30] MEDS: Gabapentin 100 MG Capsule 200 MG PO (23:05)
[2019-12-31 00:39] VITALS: BP 127/80; PULSE 78; RESP 16; TEMP 36.9; O2SAT 97
[2019-12-31] MEDS: HYDROcodone Bitartrate/Apap 5/325 Tablet PO ×2 (02:31→20:55)
[2019-12-31 02:34] VITALS: BP 139/86; PULSE 81; RESP 16; TEMP 36.6; O2SAT 97
[2019-12-31] MEDS: 0.9% Normal Saline 1,000 ML 100 ML IV ×2 (06:17→17:14)
--- NOTE | 2019-12-31 07:17 | PCM.PN.ORT ---
Patient Problems: Active and Suspected Problems (Last Updated 06/26/19 @ 16:[address] Phillip Liu, DO) Swelling of left knee joint (Acute) Swelling of joint, ankle, left (Acute) Subjective: 59-year-old male no adverse events overnight. Pain seems to be slightly better controlled since increasing pain medications. Currently rates the pain level at about a 6 out of 10. He had continued bloody drainage into the drain overnight. Currently denies chest pain shortness of breath dizziness or calf pain. Ankle pain on the left is slightly improved. He has been working on gentle range of motion. Objective: Patient is alert and oriented x3 no acute distress at rest breathing easily without respiratory distress. Inspection of right knee reveals a drain from the surgical site with minimal bloody drainage present at this time. Total of 50 cc of bloody drainage from the knee overnight per nursing staff. Gentle range of motion left knee was stiffness negative Esteban bilaterally without signs of DVT. Mild swelling about the left ankle. Patient is able to actively plantar and dorsiflex the left ankle against resistance with minimal discomfort. Neurovascularly intact. Sensation intact light touch. Capillary refill less than 3 seconds. Neurovascularly intact. - Physical Exam Vitals/I&O's: Vital Signs Temp Pulse Resp BP Pulse Ox 97.9 F 81 16 139/86 H 97 12/31/19 02:34 12/31/19 02:34 12/31/19 02:34 12/31/19 02:34 12/31/19 02:34 Oxygen Delivery Method Room Air Weight: 80.1 kg Body Mass Index (BMI) 26.8 Intake and Output for Last 24 Hours 12/29/19 12/30/19 12/31/19 23:59 23:59 23:59 Intake Total 2618.33 / 3168.33 2295 / 2295 Output Total 1870 / 3090 2450 / 2450 Balance 748.33 / 78.33 -155 / -155 Microbiology Past 72 Hours 12/30/19 14:21 Aspirate - Ankle Gram Stain - Final 12/30/19 08:00 Fluid - Synovial (joint) Gram Stain - Final Laboratory Results 12/29/19 15:15: Fluid Source Cancelled, Fluid Color Cancelled, Fluid Appearance Cancelled, Fluid WBC Cancelled, Fluid RBC Cancelled, Fluid Tot Cell Count Cancelled, Fld Polynuclear WBCs # Cancelled, Fld Polynuclear WBCs % Cancelled, Fluid Mononuclear WBCs Cancelled, Fld Mononuclear WBCs % Cancelled, Fluid Neutrophils Cancelled, Fluid Lymphocytes Cancelled, Fluid Monocytes Cancelled, Fluid Plasma Cells Cancelled, Fluid Macrophages Cancelled, Fld Mesothelial Cells Cancelled, Fluid Other Cells Cancelled, Fl Pathologist Comment Cancelled, Fluid Comment 2 Cancelled, Synovial Source LKNEE, Synovial Color Yellow, Synovial Appearance Sl Cl, Synovial WBC 1.6450 H, Synovial RBC 203 H, Synovial Tot Cell Ct 1.6490 H, Synov Polynuclear WBCs 1.362, Synov Mononuclear WBCs 0.283, Synovial Neutrophils 84 H, Synovial Lymphocytes 10, Synovial Monocytes 6, Synovial Polynuclear % 82.8, Synovial Mononuclear % 17.2, Synovial Path Comment Reviewed 12/29/19 22:30: Diff Path Review Reviewed 12/30/19 05:41: Diff Path Review Reviewed 12/30/19 05:41: Uric Acid 6.8 12/30/19 08:00: Fluid Source Cancelled, Fluid Color Cancelled, Fluid Appearance Cancelled, Fluid WBC Cancelled, Fluid RBC Cancelled, Fluid Tot Cell Count Cancelled, Fld Polynuclear WBCs # Cancelled, Fld Polynuclear WBCs % Cancelled, Fluid Mononuclear WBCs Cancelled, Fld Mononuclear WBCs % Cancelled, Fluid Neutrophils Cancelled, Fluid Lymphocytes Cancelled, Fluid Monocytes Cancelled, Fluid Plasma Cells Cancelled, Fluid Macrophages Cancelled, Fld Mesothelial Cells Cancelled, Fluid Other Cells Cancelled, Fluid Crystals Other, see comment, Fluid Crystal Source SYNOVIAL, Fl Crystal Path Review Will follow, Fl Pathologist Comment Cancelled, Fluid Comment 2 Cancelled, Synovial Source LKNEE, Synovial Color Yellow, Synovial Appearance Sl Cl, Synovial WBC 3.1830 H, Synovial RBC 0.003 H, Synovial Tot Cell Ct 3.2290 H, Synov Polynuclear WBCs 2.141, Synovial Neutrophils 55 H, Synovial Lymphocytes 4, Synovial Monocytes 39, Synovial Other Cells 2, Synovial Polynuclear % 67.3, Synovial Mononuclear % 32.7, Synovial Path Comment May follow 12/30/19 12:20: PT 14.7, INR 1.2 Current Medications Acetaminophen (Tylenol) 650 mg PO Q6H PRN PRN PRN Reason: Mild Pain (1-3)/Temp > 100.7 F Hydrocodone Bitart/Acetaminophen ([place] 5mg-325mg) 2 tablet PO Q6H PRN PRN PRN Reason: Pain Score 1-5/10 Last Admin: 12/31/19 02:31 Dose: 2 tablet Documented by: Allopurinol (Zyloprim) 300 mg PO BIDCM [facility] Last Admin: 12/30/19 17:40 Dose: 300 mg Documented by: Amlodipine Besylate (Norvasc) 5 mg PO DAILY [facility] Last Admin: 12/30/19 09:22 Dose: Not Given Documented by: Gabapentin (Neurontin) 200 mg PO BID [facility] Last Admin: 12/30/19 23:05 Dose: 200 mg Documented by: Sodium Chloride () 1,000 mls @ 100 mls/hr IV .Q10H [facility] Last Admin: 12/31/19 06:17 Dose: 100 mls/hr Documented by: Vancomycin IV Pharmacy to Dose (1 ea/ Sodium Chloride) 500 mls @ 250 mls/hr IV PRN PRN; Protocol PRN Reason: Rx to Dose Vancomycin HCl 1,250 mg/ (Sodium Chloride) 275 mls @ 167 mls/hr IV Q24H [facility] Last Infusion: 12/31/19 04:05 Dose: Infused Documented by: Lisinopril (Zestril) 20 mg PO DAILY [facility] Last Admin: 12/30/19 09:22 Dose: Not Given Documented by: Morphine Sulfate () 2 mg IV Q4H PRN PRN PRN Reason: Pain Score 6-10/10 Last Admin: 12/30/19 20:24 Dose: 2 mg Documented by: Sodium Chloride () 10 - 40 ml IV UD PRN PRN Reason: SALINE FLUSH Medical Necessity - Tobacco Use Smoking Status: Former smoker Tobacco Use: Cigarettes Assessment/Plan All Active Problems (Last Updated 06/26/19 @ 16:[address] Phillip Liu, DO) Swelling of left knee joint (Acute) Swelling of joint, ankle, left (Acute) Gout flare (Acute) Serum uric acid was 6.8 and appears to have nondescript crystals from yesterday's knee aspiration not yet reviewed by pathology. Status post left knee arthroscopy I&D postop day #1. We will plan to continue with drain at surgical site. Anticipate discontinuing tomorrow. Continue rest ice compression elevation for any pain or swelling. Continue pain medications as prescribed. Continue with bilateral teds SCDs for DVT prevention. We will order a CBC and review later today. Recommended working on gentle range of motion of the left knee and ankle. Okay to weight-bear as tolerated with crutches. We are awaiting culture and sensitivity results from previous knee aspirates. We have consulted infectious disease for antibiotic management upon receiving cultures and sensitivities. We will follow-up tomorrow.
[2019-12-31 07:45] LABS: Absolute Lymphocyte Count 1.66 X10^3/uL (0.83-4.51); Absolute Neutrophil Count 12.9 X10^3/uL (2.0-7.7); Basophil# 0.09 X10^3/uL; Basophil% 0.5 % (0-1); Eosinophil# 0.09 X10^3/uL; Eosinophils% 0.5 % (0-5); Hematocrit 35.3 % (40-54); Hemoglobin 11.5 g/dL (13.0-16.5); Lymphocyte # 1.66 X10^3/ul (4.0); Lymphocyte % 9.6 % (19-41); Mean Corp Hgb Conc 32.6 g/dL (32-36); Mean Corpuscular Volume 95.1 fL (80-94); Mean Platelet Vol. 10.5 fl (6.2-12.0); Monocyte# 2.44 X10^3/uL; Monocyte% 14.1 % (0-10); NRBC Flagged by Analyzer 0 % (0-5); Neutrophil # 12.94 X10^3/uL (2.7-7.7); Neutrophil % 74.8 % (47-70); POSITIVE DIFFERENTIAL YES; Platelet Count 335 K/mm3 (150-450); RBC Distribution Width CV 12.1 % (11.6-14.6); RBC Distribution Width SD 42.2 fl (35.1-43.9); Red Blood Count 3.71 M/mm3 (4.6-6.2); White Blood Count 17.3 K/mm3 (4.4-11.0)
[2019-12-31 07:52] VITALS: BP 141/92; PULSE 74; RESP 16; TEMP 36.6; O2SAT 98
[2019-12-31] MEDS: Allopurinol 300 MG Tablet PO ×2 (08:03→17:14)
[2019-12-31 08:06] LABS: Differential Indicated SCAN CRITERIA MET
[2019-12-31] MEDS: Gabapentin 100 MG Capsule 200 MG PO ×2 (09:30→20:55)
[2019-12-31] MEDS: amLODIPine 5 MG Tablet PO (09:30)
[2019-12-31] MEDS: Lisinopril 20 MG Tablet PO (09:30)
--- NOTE | 2019-12-31 09:58 | CASEMGMT ---
RN DEION Note: Intro role of CM to patient in room. Discussed list of Home care and IV infusion companies IF home IV antibiotics are needed on dc. Pt does not have a preference as long as is [facility]. Agreeable to [facility] and [facility]. Call to Harmony @ [facility] to notify of referral. Can accept pt if infusion company is [facility] as they can bill Lasana through this. TATYANA ALBARRAN let Harmony know cultures are pending and ID will be evaluating for home with po antibiotics vs IV. Anticipate dc Sunday or Sunday. -Pt states his girlfriend Loan is willing to assist at home with care needs, learning IV antibiotics, transportation and meals. Discussed if IV antibiotics are needed, would be delivered to home and Loan would need to be there to accept delivery as well as be home when C nurse came to do teaching. Pt states this would not be a problem. -Pt states he has 16 steep steps to apt. States he was managing them prior, but now has more pain since surgery. RN DEION let pt know PT/OT would work with him and would be aware of stairs into apt. -Call to Dr. Downs's office as PT/OT has not been ordered. Order received for PT/OT WBAT w/crutches. Call to [facility] to update that order is being placed and pt has 16 steep stairs into home. -DC PLAN: Home w/girlfriend to assist. [facility] can do HHC for IV antibiotics if needed. Jennifer MERIDA RN ACM
--- NOTE | 2019-12-31 09:59 | PCM.PN.HOSP ---
Patient Problems: Active and Suspected Problems (Last Updated 06/26/19 @ 16:[address] Phillip Liu, DO) Swelling of left knee joint (Acute) Swelling of joint, ankle, left (Acute) Subjective: Patient seen and examined. He had left knee arthroscopy done yesterday. Complains of mild pain in his left knee. He denies nausea vomiting, fever or chills, diarrhea vomiting he denies any pain in his left cough. Review of systems otherwise negative. Vitals/I&O's: Vital Signs Temp Pulse Resp BP Pulse Ox 97.9 F 74 16 141/92 H 98 12/31/19 07:52 12/31/19 07:52 12/31/19 07:52 12/31/19 07:52 12/31/19 07:52 Oxygen Delivery Method Room Air Weight: 176 lb 9.444 oz Body Mass Index (BMI) 26.8 Intake and Output for Last 24 Hours 12/29/19 12/30/19 12/31/19 23:59 23:59 23:59 Intake Total 2618.33 / 3168.33 2295 / 2295 Output Total 1870 / 3090 2450 / 2450 Balance 748.33 / 78.33 -155 / -155 General: Alert, Oriented x3, Cooperative, No apparent distress HEENT: Atraumatic, PERRLA, EOMI, Normocephalic Oral: Dry Mucosa Neck: Supple, No JVD, Negative Carotid Bruits Lungs: Clear to auscultation, Normal air movement, No rhonchi, No wheeze, No rales Cardiovascular: Regular rate, Regular Rhythm, Normal S1, Normal S2, No murmurs Abdomen: Bowel Sounds Present, Soft, Non Tender, No Hepato-splenomegaly Extremities: No clubbing, No cyanosis, No edema, Capillary Refill Less than 3 Seconds Skin: No rashes, No breakdown Musculoskeletal: - - left knee dressing, with drain in place. Lymphatic: No Cervical, Supraclavicular, or Inguinal Adenopathy Neurological: Cranial nerves II-XII grossly intact, Neuro grossly intact, Motor Exam 5/5 strength throughout Psych/Mental Status: Normal Affect, Appropriate, Alert and oriented to time, place, person, mood and affect Microbiology Past 72 Hours 12/30/19 08:00 Fluid - Synovial (joint) Gram Stain - Final 12/30/19 08:00 Fluid - Synovial (joint) Body Fluid Culture - Preliminary No growth-Final to follow 12/30/19 14:21 Aspirate - Ankle Gram Stain - Final Laboratory Results 12/29/19 15:15: Synovial Path Comment Reviewed 12/29/19 22:30: Diff Path Review Reviewed 12/30/19 05:41: Diff Path Review Reviewed 12/30/19 08:00: Fluid Crystals Other, see comment, Fluid Crystal Source SYNOVIAL, Fl Crystal Path Review Will follow, Synovial Source LKNEE, Synovial Color Yellow, Synovial Appearance Sl Cl, Synovial Neutrophils 55 H, Synovial Lymphocytes 4, Synovial Monocytes 39, Synovial Other Cells 2, Synovial Path Comment May follow 12/30/19 12:20: PT 14.7, INR 1.2 12/31/19 07:34: WBC 17.3 H, RBC 3.71 L, Hgb 11.5 L, Hct 35.3 L, MCV 95.1 H, MCH 31.0, MCHC 32.6, RDW Std Deviation 42.2, RDW Coeff of Stephen 12.1, Plt Count 335, MPV 10.5, Immature Gran % (Auto) 0.500, Neut % (Auto) 74.8 H, Lymph % (Auto) 9.6 L, Rice % (Auto) 14.1 H, Eos % (Auto) 0.5, Baso % (Auto) 0.5, Absolute Neuts (auto) 12.9 H, Absolute Lymphs (auto) 1.66, Nucleated RBC % 0, Differential Comment COMMENT, Diff Path Review May foll Diagnostic Data Chest X-Ray 12/30/19 12:15 IMPRESSION: Normal x-ray examination of the chest. Electronically Signed: Juan Rinaldi, at 13:05 EDT , Service support , Current Medications Acetaminophen (Tylenol) 650 mg PO Q6H PRN PRN PRN Reason: Mild Pain (1-3)/Temp > 100.7 F Hydrocodone Bitart/Acetaminophen ([place] 5mg-325mg) 2 tablet PO Q6H PRN PRN PRN Reason: Pain Score 1-5/10 Last Admin: 03/25/20 02:31 Dose: 2 tablet Documented by: [facility] Last Admin: 12/31/19 08:03 Dose: 300 mg Documented by: Amlodipine Besylate (Norvasc) 5 mg PO DAILY [facility] Last Admin: 12/31/19 09:30 Dose: 5 mg Documented by: Gabapentin (Neurontin) 200 mg PO BID [facility] Last Admin: 12/31/19 09:30 Dose: 200 mg Documented by: Sodium Chloride () 1,000 mls @ 100 mls/hr IV .Q10H [facility] Last Admin: 12/31/19 06:17 Dose: 100 mls/hr Documented by: Vancomycin IV Pharmacy to Dose (1 ea/ Sodium Chloride) 500 mls @ 250 mls/hr IV PRN PRN; Protocol PRN Reason: Rx to Dose Vancomycin HCl 1,250 mg/ (Sodium Chloride) 275 mls @ 167 mls/hr IV Q24H [facility] Last Infusion: 12/31/19 04:05 Dose: Infused Documented by: Lisinopril (Zestril) 20 mg PO DAILY [facility] Last Admin: 12/31/19 09:30 Dose: 20 mg Documented by: Morphine Sulfate () 2 mg IV Q4H PRN PRN PRN Reason: Pain Score 6-10/10 Last Admin: 12/30/19 20:24 Dose: 2 mg Documented by: Sodium Chloride () 10 - 40 ml IV UD PRN PRN Reason: SALINE FLUSH STROKE Vital Signs/Narrative: Vital Signs Temp Pulse Resp BP Pulse Ox 12/31/19 07:52 97.9 F 74 16 141/92 H 98 Medical Necessity - Tobacco Use Smoking Status: Former smoker Tobacco Use: Cigarettes Assessment/Plan All Active Problems (Last Updated 06/26/19 @ 16:[address] Phillip Liu, DO) Swelling of left knee joint (Acute) Swelling of joint, ankle, left (Acute) Gout flare (Acute) 1. Left knee effusion with left lateral meniscal tear had left knee arthroscopy yesterday with debridement, findings of which were left left knee effusion with left lateral meniscal tear and arthritis of medial femoral condyle also had left ankle arthroplasty. initial gram statin shows wbcs but no evidence of bacteria on IV vancomycin and ceftriaxone. wbc today is up to 17 wound cultures pending CRP and ESR both elevated will consult ID [id number] 3:baseline is ~1.4. Cr is 1.53. 3. Hypertension: on lisinopril. DVT prophylaxis;SCDs Inpatient E&M: 66394 Subs Hosp L2
[2019-12-31 10:40] LABS: Pathologist Review Reviewed
[2019-12-31 14:18] VITALS: BP 145/86; PULSE 80; RESP 16; TEMP 37.3; O2SAT 98
--- NOTE | 2019-12-31 16:20 | PCM.HP.ID ---
Problem List (1) Swelling of left knee joint Status: Acute Reason for Consult: septic arthritis Consulted by: Dr. Benson History of Present Illness: The patient is a 59 year old M with h/o gout, presented with several days of progressive L knee pain. Sx started 12/23, works at [employer] in [email or web address], so has been busy. Noticed knee pain, no trauma, no cuts. No h/o MRSA. Over next few days, increasing, pain, redness, warmth. No fever. Ankle started to get sore, knee started to swell. Admitted here, aspiration done, started on ceftriaxone, vanc. Taken to OR 12/29 for L knee arthroscopy, drain placed. L ankle also aspirated. Feeling better. Full ROS performed and neg except as noted above. - Medical History Past Medical History (Chronic Problems): Chronic Problems (Last Updated 06/26/19 @ 16:[address] Phillip Liu, DO) History of gout (Chronic) Allergies/Adverse Reactions: Allergies cephalexin [From Keflex] Adverse Reaction (Verified 12/29/19 22:11) Vomiting Home Medications: Ambulatory Orders Medication Instructions Recorded Lisinopril [Zestril] 20 mg PO DAILY 02/02/15 Amlodipine Besylate 5 mg PO DAILY 06/21/19 Gabapentin [Neurontin] 200 cap PO BID 06/21/19 Allopurinol 300 mg PO BID 06/26/19 Acetaminophen [Tylenol Tablet] 650 mg PO Q6H PRN PRN tab 06/28/19 traMADol [Ultram (G)] 50 mg PO Q6H PRN PRN 12/29/19 - Social History SMOKING STATUS:: Former smoker Vital Signs Temp Pulse Resp BP Pulse Ox 99.1 F 80 16 145/86 H 98 12/31/19 14:18 12/31/19 14:18 12/31/19 14:18 12/31/19 14:18 12/31/19 14:18 Oxygen Delivery Method Room Air Weight: 80.1 kg Body Mass Index (BMI) 26.8 Microbiology Past 72 Hours 12/30/19 14:21 Gram Stain - Final Aspirate - Ankle Wound Culture - Preliminary No growth aerobically. 12/30/19 08:00 Gram Stain - Final Fluid - Synovial (joint) Body Fluid Culture - Preliminary No growth-Final to follow Laboratory Tests Past 24 Hrs 12/30/19 12/31/19 08:00 07:34 WBC 17.3 H RBC 3.71 L Hgb 11.5 L Hct 35.3 L MCV 95.1 H MCH 31.0 MCHC 32.6 RDW Std Deviation 42.2 RDW Coeff of Stephen 12.1 Plt Count 335 MPV 10.5 Immature Gran % (Auto) 0.500 Neut % (Auto) 74.8 H Lymph % (Auto) 9.6 L Wagoner % (Auto) 14.1 H Eos % (Auto) 0.5 Baso % (Auto) 0.5 Absolute Neuts (auto) 12.9 H Absolute Lymphs (auto) 1.66 Nucleated RBC % 0 Differential Comment COMMENT Diff Path Review May foll Fl Crystal Path Review Reviewed - Other Studies Radiology: [] reviewed Other Studies: [] Route of nutrition/ use of supplements: [] Nutritional Intake: [] IV Site: [] [place]alante Catheter: [] - Physical Exam General: Alert, Oriented x3, Cooperative, No apparent distress HEENT: Atraumatic, PERRLA, EOMI Neck: Supple, No Nodes Lungs: Clear to auscultation, Normal air movement Cardiovascular: Regular rate, Regular Rhythm Extremities: No edema Skin: No rashes IV Site: Peripheral, without redness Musculoskeletal: - - L knee wrapped, drain in place Neurological: Cranial nerves II-XII grossly intact - Assessment/Plan Antibiotics: [] Assessment/Plan: [] Active and Suspected Problems (Last Updated 06/26/19 @ 16:[address] Phillip Liu, DO) Swelling of left knee joint (Acute) Swelling of joint, ankle, left (Acute) L knee septic arthritis - gram stain shows GPC. Cont vanc. No fever here. Will follow, thank you.
[2019-12-31 20:49] VITALS: BP 145/81; PULSE 80; RESP 18; TEMP 36.9; O2SAT 98
[2020-01-01 02:11] VITALS: BP 131/79; PULSE 72; RESP 16; TEMP 36.9; O2SAT 98
[2020-01-01] MEDS: 0.9% Normal Saline 1,000 ML 100 ML IV (02:12)
[2020-01-01 02:19] LABS: Vancomycin, Trough Level 7.2 ug/mL (5.0-15.0)
[2020-01-01 02:20] LABS: Creatinine, Serum 1.25 mg/dL (0.70-1.30); EST Glomerular Filtration Rate 63 mL/min (>60); Est Glom Filt Rate - Afr Amer 76 mL/min (>60)
--- NOTE | 2020-01-01 02:32 | PCM.RX.CS ---
Consult Pharmacy has been consulted to manage selected antiobiotic: Vancomycin Type of Consult: Follow-up Labs: Sodium 136 mmol/L (136-145) 12/30/19 05:41 Potassium 5.1 mmol/L (3.5-5.1) 12/30/19 05:41 Chloride 104 mmol/L (98-107) 12/30/19 05:41 Carbon Dioxide 23.0 mmol/L (21.0-32.0) 12/30/19 05:41 Anion Gap 9 (5-15) 12/30/19 05:41 BUN 30 mg/dL (7-18) H 12/30/19 05:41 Creatinine 1.25 mg/dL (0.70-1.30) 01/01/20 01:37 Est GFR (MDRD) Af Amer 76 mL/min (>60) 01/01/20 01:37 Est GFR (MDRD) Non-Af 63 mL/min (>60) 01/01/20 01:37 BUN/Creatinine Ratio 19.6 RATIO (10-20) 12/30/19 05:41 Glucose 122 mg/dL (74-106) H 12/30/19 05:41 Vancomycin Trough 7.2 ug/mL (5.0-15.0) 01/01/20 01:37 Microbiology: Microbiology 12/30/19 14:21 Aspirate - Ankle Gram Stain - Final 12/30/19 14:21 Aspirate - Ankle Wound Culture - Preliminary No growth aerobically. 12/30/19 08:00 Fluid - Synovial (joint) Gram Stain - Final 12/30/19 08:00 Fluid - Synovial (joint) Body Fluid Culture - Preliminary No growth-Final to follow Goal Trough: 10-15 mcg/mL Pharmacy Plan for Drug Dosing: Pharmacy Service will continue to monitor and adjust dosing as required. trough 7.2 increase to 1000mg q12h and redraw trough 01/01 @ 1330 Follow-Up Labs: Trough Vancomycin Labs to be done on [date and time ordered]: 01/01 @ 1338
[2020-01-01 05:56] LABS: Absolute Lymphocyte Count 1.97 X10^3/uL (0.83-4.51); Absolute Neutrophil Count 11.1 X10^3/uL (2.0-7.7); Basophil# 0.08 X10^3/uL; Basophil% 0.5 % (0-1); Eosinophil# 0.11 X10^3/uL; Eosinophils% 0.7 % (0-5); Hematocrit 34.6 % (40-54); Hemoglobin 11.5 g/dL (13.0-16.5); Lymphocyte # 1.97 X10^3/ul (4.0); Lymphocyte % 12.8 % (19-41); Mean Corp Hgb Conc 33.2 g/dL (32-36); Mean Corpuscular Hgb 32.3 pg (27.0-32.0); Mean Corpuscular Volume 97.2 fL (80-94); Mean Platelet Vol. 8.9 fl (6.2-12.0); Monocyte# 2.03 X10^3/uL; Monocyte% 13.2 % (0-10); NRBC Flagged by Analyzer 0 % (0-5); Neutrophil # 11.11 X10^3/uL (2.7-7.7); Neutrophil % 72.2 % (47-70); POSITIVE DIFFERENTIAL YES; Platelet Count 412 K/mm3 (150-450); RBC Distribution Width CV 12.2 % (11.6-14.6); Red Blood Count 3.56 M/mm3 (4.6-6.2); White Blood Count 15.4 K/mm3 (4.4-11.0)
[2020-01-01 05:59] LABS: Differential Indicated SCAN CRITERIA MET
[2020-01-01 06:12] LABS: Differential Comment SCANNED; Platelet Estimate ADEQUATE (ADEQ)
[2020-01-01 06:19] LABS: Anion Gap 9 (5-15); BUN 24 mg/dL (7-18); BUN/Creat Ratio 19.4 RATIO (10-20); Calcium,Total 8.7 mg/dL (8.5-10.1); Chloride 107 mmol/L (98-107); Creatinine, Serum 1.24 mg/dL (0.70-1.30); EST Glomerular Filtration Rate 63 mL/min (>60); Est Glom Filt Rate - Afr Amer 76 mL/min (>60); Estimated Creatinine Clearance 61.29 ml/min; Glucose 113 mg/dL (74-106); Potassium 4.6 mmol/L (3.5-5.1); Sodium Level 138 mmol/L (136-145)
--- NOTE | 2020-01-01 07:28 | PN.ORTHO_ITS ---
Patient Problems: Active and Suspected Problems (Last Updated 06/26/19 @ 16:[address] Phillip Liu, DO) Swelling of left knee joint (Acute) Swelling of joint, ankle, left (Acute) Subjective: 59-year-old male is now 2 days following left knee arthroscopy with I&D partial lateral meniscectomy and chondroplasty of the medial femoral condyle. He still has an indwelling Hemovac drain. The drainage has become minimal within the last 12 to 24 hours. His pain is improving. He denies chest pain shortness of breath dizziness or calf pain. Doing well overall. He has been weightbearing with crutches and working with physical therapy. Objective: Patient is alert and oriented x3 no acute distress at rest breathing easily without respiratory distress. Hemovac drain is with 12 cc of blood-tinged serous drainage. Left knee is with range of motion 0 to 80 degrees with stiffness. Negative Esteban bilaterally without signs of DVT. Sensation intact light touch bilateral lower extremities. Left ankle pain improved no longer with tenderness to palpation full range of motion without pain. Capillary re fill less than 3 seconds. Pedal pulses present and equal bilaterally. Neurovascularly intact. - Physical Exam Vitals/I&O's: Vital Signs Temp Pulse Resp BP Pulse Ox 98.5 F 72 16 131/79 H 98 01/01/20 02:11 01/01/20 02:11 01/01/20 02:11 01/01/20 02:11 01/01/20 02:11 Oxygen Delivery Method Room Air Weight: 80.1 kg Body Mass Index (BMI) 26.8 Intake and Output for Last 24 Hours 12/30/19 12/31/19 01/01/20 23:59 23:59 23:59 Intake Total 2618.33 / 3168.33 3450 / 3450 1573.34 / 1573.34 Output Total 1870 / 3090 5395 / 5395 562 / 562 Balance 748.33 / 78.33 -1945 / -1945 1011.34 / 1011.34 Microbiology Past 72 Hours 12/30/19 14:21 Aspirate - Ankle Gram Stain - Final 12/30/19 14:21 Aspirate - Ankle Wound Culture - Preliminary No growth aerobically. 12/30/19 08:00 Fluid - Synovial (joint) Gram Stain - Final 12/30/19 08:00 Fluid - Synovial (joint) Body Fluid Culture - Preliminary No growth-Final to follow Laboratory Results 12/30/19 08:00: Fl Crystal Path Review Reviewed 12/31/19 07:34: WBC 17.3 H, RBC 3.71 L, Hgb 11.5 L, Hct 35.3 L, MCV 95.1 H, MCH 31.0, MCHC 32.6, RDW Std Deviation 42.2, RDW Coeff of Stephen 12.1, Plt Count 335, MPV 10.5, Immature Gran % (Auto) 0.500, Neut % (Auto) 74.8 H, Lymph % (Auto) 9.6 L, [place] % (Auto) 14.1 H, Eos % (Auto) 0.5, Baso % (Auto) 0.5, Absolute Neuts (auto) 12.9 H, Absolute Lymphs (auto) 1.66, Nucleated RBC % 0, Differential Comment COMMENT, Diff Path Review February gema 01/01/20 01:37: Vancomycin Trough 7.2 01/01/20 01:37: Creatinine 1.25, Estim Creat Clear Calc 60.80, Est GFR (MDRD) Af Amer 76, Est GFR (MDRD) Non-Af 63 01/01/20 05:35: WBC 15.4 H, RBC 3.56 L, Hgb 11.5 L, Hct 34.6 L, MCV 97.2 H, MCH 32.3 H, MCHC 33.2, RDW Std Deviation 43.0, RDW Coeff of Stephen 12.2, Plt Count 412, MPV 8.9, Immature Gran % (Auto) 0.600, Neut % (Auto) 72.2 H, Lymph % (Auto) 12.8 L, [place] % (Auto) 13.2 H, Eos % (Auto) 0.7, Baso % (Auto) 0.5, Absolute Neuts (auto) 11.1 H, Absolute Lymphs (auto) 1.97, Nucleated RBC % 0, Differential Comment SCANNED, Diff Path Review February gema, Platelet Estimate ADEQUATE 01/01/20 05:35: Sodium 138, Potassium 4.6, Chloride 107, Carbon Dioxide 22.0, Anion Gap 9, BUN 24 H, Creatinine 1.24, Estim Creat Clear Calc 61.29, Est GFR (MDRD) Af Amer 76, Est GFR (MDRD) Non-Af 63, BUN/Creatinine Ratio 19.4, Glucose 113 H, Calcium 8.7 Current Medications Acetaminophen (Tylenol) 650 mg PO Q6H PRN PRN PRN Reason: Mild Pain (1-3)/Temp > 100.7 F Hydrocodone Bitart/Acetaminophen ([place] 5mg-325mg) 2 tablet PO Q6H PRN PRN PRN Reason: Pain Score 1-5/10 Last Admin: 12/31/19 20:55 Dose: 2 tablet Documented by: [facility] Last Admin: 12/31/19 17:14 Dose: 300 mg Documented by: Amlodipine Besylate (Norvasc) 5 mg PO DAILY [facility] Last Admin: 12/31/19 09:30 Dose: 5 mg Documented by: Gabapentin (Neurontin) 200 mg PO BID [facility] Last Admin: 12/31/19 20:55 Dose: 200 mg Documented by: Sodium Chloride () 1,000 mls @ 100 mls/hr IV .Q10H [facility] Last Infusion: 01/01/20 03:51 Dose: 100 mls/hr Documented by: Vancomycin IV Pharmacy to Dose (1 ea/ Sodium Chloride) 500 mls @ 250 mls/hr IV PRN PRN; Protocol PRN Reason: Rx to Dose Vancomycin HCl (Vancomycin) 1,000 mg in 200 mls @ 200 mls/hr IV Q12H [facility] Lisinopril (Zestril) 20 mg PO DAILY [facility] Last Admin: 12/31/19 09:30 Dose: 20 mg Documented by: Morphine Sulfate () 2 mg IV Q4H PRN PRN PRN Reason: Pain Score 6-10/10 Last Admin: 12/30/19 20:24 Dose: 2 mg Documented by: Sodium Chloride () 10 - 40 ml IV UD PRN PRN Reason: SALINE FLUSH Medical Necessity - Tobacco Use Smoking Status: Former smoker Tobacco Use: Cigarettes Assessment/Plan All Active Problems (Last Updated 06/26/19 @ 16:[address] Phillip Liu, DO) Swelling of left knee joint (Acute) Swelling of joint, ankle, left (Acute) Gout flare (Acute) Under sterile conditions patient's Hemovac drain was removed today. He tolerated procedure well. Dry sterile dressing was reapplied. Gram stain and cultures reviewed both knee aspirate cultures are without growth at this time. CBC results reviewed white blood cell count is slightly improved from yesterday. Patient is status post left knee arthroscopy with I&D partial lateral meniscectomy and chondroplasty of the medial femoral condyle postoperative day #2. Continue with pain medications as needed attempting to minimize narcotic use when appropriate for his pain. Continue with rest ice heat compression elevation for any pain or swelling. Continue with DVT prophylaxis bilateral t eds and SCDs. Continue with physical therapy weightbearing as tolerated crutches as needed. Continue with infectious disease for antibiotic decision making for discharge IV versus oral regimen. We will plan to have the patient follow with PCP or infectious disease in the postoperative period for antibiotic management and he will follow with orthopedics for postoperative assessment of the left knee. He is orthopedically stable and okay for discharge to home at this time. We recommend follow-up with orthopedics 7 to 10 days postop for reassessment and suture removal. Case and findings were discussed and reviewed with Dr. Jose Armando Downs. Please do not hesitate to contact us with any further orthopedic concerns.
[2020-01-01 08:02] VITALS: BP 147/88; PULSE 66; RESP 16; TEMP 37.1; O2SAT 99
[2020-01-01] MEDS: Allopurinol 300 MG Tablet PO (08:07)
[2020-01-01] MEDS: Gabapentin 100 MG Capsule 200 MG PO (08:07)
[2020-01-01] MEDS: amLODIPine 5 MG Tablet PO (08:07)
[2020-01-01] MEDS: Lisinopril 20 MG Tablet PO (08:08)
--- NOTE | 2020-01-01 10:09 | PCM.PN.ID ---
Patient Problems: Active and Suspected Problems (Last Updated 06/26/19 @ 16:[address] Phillip Liu, DO) Swelling of left knee joint (Acute) Swelling of joint, ankle, left (Acute) Subjective: Feeling better, no fever, no n/v/d, wants to go home. - Physical Exam Vitals/I&O's: Vital Signs Temp Pulse Resp BP Pulse Ox 98.8 F 66 16 147/88 H 99 01/01/20 08:02 01/01/20 08:02 01/01/20 08:02 01/01/20 08:02 01/01/20 08:02 Oxygen Delivery Method Room Air Weight: 80.1 kg Body Mass Index (BMI) 26.8 Intake and Output for Last 24 Hours 12/30/19 12/31/19 01/01/20 23:59 23:59 23:59 Intake Total 2618.33 / 3168.33 3450 / 3450 1573.34 / 1573.34 Output Total 1870 / 3090 5395 / 5395 562 / 562 Balance 748.33 / 78.33 -1945 / -1945 1011.34 / 1011.34 General: Alert, Cooperative, No apparent distress Lungs: Clear to auscultation, Normal air movement Cardiovascular: Regular rate, Regular Rhythm Abdomen: Soft, Non Tender, Non-Distended Skin: No rashes, Incision - Knee wrapped Microbiology Past 72 Hours 12/30/19 08:00 Fluid - Synovial (joint) Gram Stain - Final 12/30/19 08:00 Fluid - Synovial (joint) Body Fluid Culture - Preliminary No growth aerobically. 12/30/19 08:00 Fluid - Synovial (joint) Anaerobic Culture - Preliminary No growth in 48 hours. 12/30/19 14:21 Aspirate - Ankle Gram Stain - Final 12/30/19 14:21 Aspirate - Ankle Wound Culture - Preliminary No growth aerobically. 12/30/19 14:21 Aspirate - Ankle Anaerobic Culture - Preliminary No growth in 48 hours. Laboratory Results 12/30/19 08:00: Fl Crystal Path Review Reviewed 01/01/20 01:37: Vancomycin Trough 7.2 01/01/20 01:37: Creatinine 1.25, Estim Creat Clear Calc 60.80, Est GFR (MDRD) Af Amer 76, Est GFR (MDRD) Non-Af 63 01/01/20 05:35: WBC 15.4 H, RBC 3.56 L, Hgb 11.5 L, Hct 34.6 L, MCV 97.2 H, MCH 32.3 H, MCHC 33.2, RDW Std Deviation 43.0, RDW Coeff of Stephen 12.2, Plt Count 412, MPV 8.9, Immature Gran % (Auto) 0.600, Neut % (Auto) 72.2 H, Lymph % (Auto) 12.8 L, Bee % (Auto) 13.2 H, Eos % (Auto) 0.7, Baso % (Auto) 0.5, Absolute Neuts (auto) 11.1 H, Absolute Lymphs (auto) 1.97, Nucleated RBC % 0, Differential Comment SCANNED, Diff Path Review February, Platelet Estimate ADEQUATE 01/01/20 05:35: Sodium 138, Potassium 4.6, Chloride 107, Carbon Dioxide 22.0, Anion Gap 9, BUN 24 H, Creatinine 1.24, Estim Creat Clear Calc 61.29, Est GFR (MDRD) Af Amer 76, Est GFR (MDRD) Non-Af 63, BUN/Creatinine Ratio 19.4, Glucose 113 H, Calcium 8.7 Current Medications Acetaminophen (Tylenol) 650 mg PO Q6H PRN PRN PRN Reason: Mild Pain (1-3)/Temp > 100.7 F Hydrocodone Bitart/Acetaminophen ([place] 5mg-325mg) 2 tablet PO Q6H PRN PRN PRN Reason: Pain Score 1-5/10 Last Admin: 12/31/19 20:55 Dose: 2 tablet Documented by: [facility] Last Admin: 01/01/20 08:07 Dose: 300 mg Documented by: Amlodipine Besylate (Norvasc) 5 mg PO DAILY [facility] Last Admin: 01/01/20 08:07 Dose: 5 mg Documented by: Gabapentin (Neurontin) 200 mg PO BID [facility] Last Admin: 01/01/20 08:07 Dose: 200 mg Documented by: Sodium Chloride () 1,000 mls @ 100 mls/hr IV .Q10H [facility] Last Infusion: 01/01/20 03:51 Dose: 100 mls/hr Documented by: Vancomycin IV Pharmacy to Dose (1 ea/ Sodium Chloride) 500 mls @ 250 mls/hr IV PRN PRN; Protocol PRN Reason: Rx to Dose Vancomycin HCl (Vancomycin) 1,000 mg in 200 mls @ 200 mls/hr IV Q12H [facility] Lisinopril (Zestril) 20 mg PO DAILY [facility] Last Admin: 01/01/20 08:08 Dose: 20 mg Documented by: Morphine Sulfate () 2 mg IV Q4H PRN PRN PRN Reason: Pain Score 6-10/10 Last Admin: 12/30/19 20:24 Dose: 2 mg Documented by: Sodium Chloride () 10 - 40 ml IV UD PRN PRN Reason: SALINE FLUSH Medical Necessity - Tobacco Use Smoking Status: Former smoker Tobacco Use: Cigarettes Route of nutrition/ use of supplements: [] Nutritional Intake: [] IV Site: [] [place] Catheter: [] - Assessment/Plan Antibiotics: [] Assessment/Plan: [] Active and Suspected Problems (Last Updated 06/26/19 @ 16:[address] Phillip Liu, DO) Swelling of left knee joint (Acute) Swelling of joint, ankle, left (Acute) L knee septic arthritis - gram stain shows GPC. Cont vanc. No fever here. Surg cxs remain neg. Ok for d/c home on 20 days of doxy and omnicef. Reports n/v with keflex, no issues with amoxicillin. Will follow as needed, d/w Dr. Benson. Rx written.
--- NOTE | 2020-01-01 11:12 | DCINST_ITS ---
- Discharge Diagnoses Current Active Problems: Current Active and Chronic Problems (Last Updated 06/26/19 @ 16:[address] Phillip Lui, DO) Swelling of left knee joint (Acute) History of gout (Chronic) Swelling of joint, ankle, left (Acute) You will use the following diet at home:: Cardiac Your food should be the consistency of: Regular Your liquids should be the consistency of: Regular/Thin Discharge Activity: Return to Normal Activity Weight Bearing Status: Weight bearing as tolerated Call your doctor if you observe: Fever of 101 or Higher, Shortness of breath, Uncontrolled pain Instructions: What Is Arthritis?, Erythrocyte Sedimentation Rate Allergies/Adverse Reactions: Allergies cephalexin [From Keflex] Adverse Reaction (Verified 12/29/19 22:11) Vomiting Medications to take at Discharge Lisinopril [Zestril] 20 mg PO DAILY 02/02/15 Amlodipine Besylate 5 mg PO DAILY 06/21/19 Gabapentin [Neurontin] 200 cap PO BID 06/21/19 Allopurinol 300 mg PO BID 06/26/19 Acetaminophen [Tylenol Tablet] 650 mg PO Q6H PRN PRN tab 06/28/19 traMADol [Ultram] 50 mg PO Q6H PRN PRN 12/29/19 Cefdinir [Omnicef [equiv]] 300 mg PO Q12H #40 cap 01/01/20 Doxycycline 100 mg PO BID #40 cap 01/01/20 The following prescriptions were given: Doxycycline 100 mg PO BID #40 cap Transmission Status: Received by [facility] Cefdinir [Omnicef [equiv]] 300 mg PO Q12H #40 cap Transmission Status: Received by [facility] Primary Care Physician: Ernesto Vincent MD [Primary Care Provider] - Please follow up with your Primary Care Physician in: one week Test Results: Test results from this visit will be discussed in further detail at your follow- up appointment, if applicable. Please Follow Up With: Jose Armando Downs MD When: 2-3 weeks Please Follow Up With: Omkar Guzman MD When: 2-4 weeks Proposed Discharge Date: 01/01/20
--- NOTE | 2020-01-01 11:25 | DS.PCM_ITS ---
Discharge Date and Diagnosis Date of Admission: 12/30/19 Date of Discharge: 01/01/20 - Primary Discharge Diagnosis Active and Suspected Problems (Last Updated 06/26/19 @ 16:[address] Phillip Liu DO) Swelling of left knee joint (Acute) Swelling of joint, ankle, left (Acute) left knee septic arthritis - Secondary Discharge Diagnosis Chronic Problems (Last Updated 06/26/19 @ 16:[address] Phillip Liu DO) History of gout (Chronic) Hospital Course and Treatment Imaging Results: Diagnostic Data Chest X-Ray 12/30/19 12:15 IMPRESSION: Normal x-ray examination of the chest. Electronically Signed: Juan Rinaldi, at 13:05 EDT , Service support , orthopedic surgery- Dr Downs Infectious diseases- Dr Guzman Operations: None Procedures: None Summary of Care Provided: The patient is a 59 year old M who was admitted through the ED on 12/30/2019 with a complaint of left knee pain. He had earlier presented to the ED on account of left knee pain and not had left knee drained in the ED. However he was called to come back to the ED after Gram stain of the synovial fluid was found to be 2+ for positive gram-positive cocci. White cell count was also elevated at 14,000 and his creatinine was 1.7. He was admitted and managed for left knee effusion and possible septic arthritis of the left knee. Orthopedic surgery was consulted and he was started on IV vancomycin. He had left knee arthroscopy with debridement on 12/30/2019 and also had left ankle arthroscopy and aspiration. Initial Gram stain showed white cells but no evidence of bacteria. Findings of left knee arthroscopy showed left lateral meniscal tear and arthritis of medial femoral condyle. Synovial fluid cultures of the left knee and left ankle showed no growth after 48 hours. Patient remained stable and he was discharged home on p.o. doxycycline 100 mg twice daily x40 tablets and p.o. cefdinir 300 mg every 12 hourly x40 tablets for total of 3 weeks of antibiotics. He is to follow-up with his primary care doctor and orthopedic surgery as well as infectious disease within 1 to 2 weeks. Patient seen and examined prior to discharge. He felt well and had no complaints and wanted to be discharged home. He had no pain in his knee. Review of systems otherwise negative. Labs and vitals reviewed. Home medication reviewed and reconciled. o/e:[] Vital Signs Height 5 ft 8 in Weight: 176 lb 9.444 oz Weight in Pounds 176.6 lbs Pulse Ox 99 Temperature 98.8 F Pulse Rate 66 Respiratory Rate 16 Blood Pressure 147/88 Blood Pressure Position Semi-Fowlers General: Alert, Oriented x3, Cooperative, No apparent distress HEENT: Atraumatic, PERRLA, EOMI, Normocephalic Oral: Dry Mucosa Neck: Supple, No JVD, Negative Carotid Bruits Lungs: Clear to auscultation, Normal air movement, No rhonchi, No wheeze, No rales Cardiovascular: Regular rate, Regular Rhythm, Normal S1, Normal S2, No murmurs Abdomen: Bowel Sounds Present, Soft, Non Tender, No Hepato-splenomegaly Extremities: No clubbing, No cyanosis, No edema, Capillary Refill Less than 3 Seconds Skin: No rashes, No breakdown Musculoskeletal: - - left knee dressing, with drain in place. Lymphatic: No Cervical, Supraclavicular, or Inguinal Adenopathy Neurological: Cranial nerves II-XII grossly intact, Neuro grossly intact, Motor Exam 5/5 strength throughout Psych/Mental Status: Normal Affect, Appropriate, Alert and oriented to time, place, person, mood and affect Plan as above. - Physical Exam Vitals/I&O's: Vital Signs Temp Pulse Resp BP Pulse Ox 98.8 F 66 16 147/88 H 99 01/01/20 08:02 01/01/20 08:02 01/01/20 08:02 01/01/20 08:02 01/01/20 08:02 Oxygen Delivery Method Room Air Weight: 176 lb 9.444 oz Body Mass Index (BMI) 26.8 Intake and Output for Last 24 Hours 12/30/19 12/31/19 01/01/20 23:59 23:59 23:59 Intake Total 2618.33 / 3168.33 3450 / 3450 1573.34 / 1573.34 Output Total 1870 / 3090 5395 / 5395 562 / 562 Balance 748.33 / 78.33 -1945 / -1945 1011.34 / 1011.34 Microbiology Past 72 Hours 12/30/19 08:00 Fluid - Synovial (joint) Gram Stain - Final 12/30/19 08:00 Fluid - Synovial (joint) Body Fluid Culture - Preliminary No growth aerobically. 12/30/19 08:00 Fluid - Synovial (joint) Anaerobic Culture - Preliminary No growth in 48 hours. 12/30/19 14:21 Aspirate - Ankle Gram Stain - Final 12/30/19 14:21 Aspirate - Ankle Wound Culture - Preliminary No growth aerobically. 12/30/19 14:21 Aspirate - Ankle Anaerobic Culture - Preliminary No growth in 48 hours. Laboratory Results 01/01/20 01:37: Vancomycin Trough 7.2 01/01/20 01:37: Creatinine 1.25, Estim Creat Clear Calc 60.80, Est GFR (MDRD) Af Amer 76, Est GFR (MDRD) Non-Af 63 01/01/20 05:35: WBC 15.4 H, RBC 3.56 L, Hgb 11.5 L, Hct 34.6 L, MCV 97.2 H, MCH 32.3 H, MCHC 33.2, RDW Std Deviation 43.0, RDW Coeff of Stephen 12.2, Plt Count 412, MPV 8.9, Immature Gran % (Auto) 0.600, Neut % (Auto) 72.2 H, Lymph % (Auto) 12.8 L, [place] % (Auto) 13.2 H, Eos % (Auto) 0.7, Baso % (Auto) 0.5, Absolute Neuts (auto) 11.1 H, Absolute Lymphs (auto) 1.97, Nucleated RBC % 0, Differential Comment SCANNED, Diff Path Review February foll, Platelet Estimate ADEQUATE 01/01/20 05:35: Sodium 138, Potassium 4.6, Chloride 107, Carbon Dioxide 22.0, Anion Gap 9, BUN 24 H, Creatinine 1.24, Estim Creat Clear Calc 61.29, Est GFR (MDRD) Af Amer 76, Est GFR (MDRD) Non-Af 63, BUN/Creatinine Ratio 19.4, Glucose 113 H, Calcium 8.7 Current Medications Acetaminophen (Tylenol) 650 mg PO Q6H PRN PRN PRN Reason: Mild Pain (1-3)/Temp > 100.7 F Hydrocodone Bitart/Acetaminophen ([place] 5mg-325mg) 2 tablet PO Q6H PRN PRN PRN Reason: Pain Score 1-5/10 Last Admin: 12/31/19 20:55 Dose: 2 tablet Documented by: [facility]) [facility] Last Admin: 01/01/20 08:07 Dose: 300 mg Documented by: Amlodipine Besylate (Norvasc) 5 mg PO DAILY [facility] Last Admin: 01/01/20 08:07 Dose: 5 mg Documented by: Gabapentin (Neurontin) 200 mg PO BID [facility] Last Admin: 01/01/20 08:07 Dose: 200 mg Documented by: Sodium Chloride () 1,000 mls @ 100 mls/hr IV .Q10H [facility] Last Infusion: 01/01/20 03:51 Dose: 100 mls/hr Documented by: Vancomycin IV Pharmacy to Dose (1 ea/ Sodium Chloride) 500 mls @ 250 mls/hr IV PRN PRN; Protocol PRN Reason: Rx to Dose Vancomycin HCl (Vancomycin) 1,000 mg in 200 mls @ 200 mls/hr IV Q12H [facility] Lisinopril (Zestril) 20 mg PO DAILY [facility] Last Admin: 01/01/20 08:08 Dose: 20 mg Documented by: Morphine Sulfate () 2 mg IV Q4H PRN PRN PRN Reason: Pain Score 6-10/10 Last Admin: 12/30/19 20:24 Dose: 2 mg Documented by: Sodium Chloride () 10 - 40 ml IV UD PRN PRN Reason: SALINE FLUSH Discharge Diet: Low fat/ Low Cholesterol Discharge Activity: Return to Normal Activity Weight Bearing Status: Weight bearing as tolerated Call your doctor if you observe: Fever of 101 or Higher, Shortness of breath, Uncontrolled pain Home Medications: Medications to take at Discharge Lisinopril [Zestril] 20 mg PO DAILY 02/02/15 Amlodipine Besylate 5 mg PO DAILY 06/21/19 Gabapentin [Neurontin] 200 cap PO BID 06/21/19 Allopurinol 300 mg PO BID 06/26/19 Acetaminophen [Tylenol Tablet] 650 mg PO Q6H PRN PRN tab 06/28/19 traMADol [Ultram] 50 mg PO Q6H PRN PRN 12/29/19 Cefdinir [Omnicef [equiv]] 300 mg PO Q12H #40 cap 01/01/20 Doxycycline 100 mg PO BID #40 cap 01/01/20 Following Prescrptions Were Given to Patient: Doxycycline 100 mg PO BID #40 cap Transmission Status: Received by [facility] Cefdinir [Omnicef [equiv]] 300 mg PO Q12H #40 cap Transmission Status: Received by [facility] Primary Care Physician: Ernesto Vincent MD [Primary Care Provider] - Please follow up with your Primary Care Physician in: one week Please Follow Up With: Jose Armando Downs MD When: 2-3 weeks Please Follow Up With: Omkar Guzman MD When: 2-4 weeks Patient Instructions: Erythrocyte Sedimentation Rate, What Is Arthritis? Disposition: Home Minutes spent on discharge:: 40 Patient Condition:: Stable Medical Necessity - Tobacco Use Smoking Status: Former smoker Tobacco Use: Cigarettes Meaningful Use Info Meaningful Use Diagnoses (Choose all that apply): None applicable Inpatient E&M: 10297 Disch Hosp
[2020-01-01 12:05] LABS: Pathologist Review Reviewed
[2020-01-01 12:09] LABS: Pathologist Review Reviewed
--- NOTE | 2020-01-02 14:58 | CASEMGMT ---
DC DATE: 01.01.2020 DC DISPOSITION: home DC DIAGNOSIS: L knee septic arthritis LACE/STRATA: 07/10 F/U APPTS MADE PRIOR TO DC: no PRESCRIPTIONS ACQUIRED BY PT:yes Intro role of CM to patient's SO kristy. States pt is sleeping, but he is doing well, has prescriptions. Pt is having pain, did not have pain medications ordered on dc. RN CM recommended pt call his PCP, let him know he was in hospital and discuss pain mgmt with doctor. No other concerns. Jennifer COMBSN RN ACM
== END 2020-01-01 12:28 | disposition home or self-care (01) | DRG 487 ==
LOC: ED 22:38 → MS3 12-30 00:54
PROVIDERS: Orthopaedic Surgery; Physician Assistant; Admitting Provider Family Medicine; Emergency Provider Emergency Medicine; PCP Family Medicine; Visit Provider Student in an Organized Health Care Education/Training Program
PROC: 0SBD4ZZ Excision of Left Knee Joint, Percutaneous Endoscopic Approach (ICD-10-PCS; CPT 29870; principal; 2019-12-30 13:10)
DX: M00.862 Arthritis due to other bacteria, left knee (principal); S83.282A Other tear of lateral meniscus, current injury, left knee, initial encounter; N18.3 Chronic kidney disease, stage 3 (moderate); I12.9 Hypertensive chronic kidney disease with stage 1 through stage 4 chronic kidney disease, or unspecified chronic kidney disease; Z87.891 Personal history of nicotine dependence; M10.9 Gout, unspecified; M25.472 Effusion, left ankle
CPT/HCPCS: 36415; 71045; 80048; 80202; 82565; 84550; 85025; 85610; 85652; 86140; 87070; 87075; 87205; 89050; 89051; 89060; 93005; 97161; 97166; 97530; 99284; J7030; J7050; A4216; J2405

== ENCOUNTER 2020-01-10 09:10 | Emergency (ER) | payer BC, SELFPAY ==
[2019-12-30 12:17] VITALS: BMI 26.8
[2020-01-10 09:11] VITALS: BP 142/93; PULSE 70; RESP 18; TEMP 36.6; O2SAT 98; BMI 26.4
--- NOTE | 2020-01-10 10:20 | VDLE_ITS ---
Reason For Study: PAIN Procedure LEFT Exam performed portable in ED. GSV is normal. A preliminary report was called and/or faxed CFV is compressible, spontaneous, phasic, to ED. competent, and demonstrates normal augmentation. FV is compressible, spontaneous, phasic, competent and demonstrates normal augmentation. POP V is compressible, spontaneous, phasic, competent and demonstrates normal augmentation. T/P Trunk is compressible. Left PTV and PeroV are DILATED and NONCOMPRESSIBLE from just below knee to ankle. Interpretation Summary Acute deep vein thrombosis is noted in the left posterior tibial vein. Acute deep vein thrombosis is noted in the left peroneal vein. The remainder of the left lower extremity deep venous system is patent and compressible. Valvular competence appears intact within the proximal deep venous system on the left . The left great saphenous vein appears patent and compressible segmentally. Ordering Physician: Eliazar Gregg Referring Physician: CHIDI DIEGO Performed By: Emy Mcneill, BRIDGET, RVT
[2020-01-10] MEDS: morphine 8 MG/ML Syringe IM (10:25)
[2020-01-10] MEDS: 0.9% Normal Saline 1,000 ML 1000 ML IV (10:38)
[2020-01-10 10:55] LABS: Absolute Lymphocyte Count 1.93 X10^3/uL (0.83-4.51); Absolute Neutrophil Count 16.4 X10^3/uL (2.0-7.7); Basophil% 0.5 % (0-1); Eosinophil# 0.01 X10^3/uL; Hematocrit 38.5 % (40-54); Lymphocyte # 1.93 X10^3/ul (4.0); Lymphocyte % 9.1 % (19-41); Mean Corp Hgb Conc 33.8 g/dL (32-36); Mean Corpuscular Hgb 32.1 pg (27.0-32.0); Mean Corpuscular Volume 95.1 fL (80-94); Mean Platelet Vol. 8.7 fl (6.2-12.0); Monocyte# 2.49 X10^3/uL; Monocyte% 11.8 % (0-10); NRBC Flagged by Analyzer 0 % (0-5); Neutrophil # 16.36 X10^3/uL (2.7-7.7); Neutrophil % 77.5 % (47-70); POSITIVE DIFFERENTIAL YES; Platelet Count 581 K/mm3 (150-450); RBC Distribution Width CV 12.5 % (11.6-14.6); RBC Distribution Width SD 43.2 fl (35.1-43.9); Red Blood Count 4.05 M/mm3 (4.6-6.2); White Blood Count 21.1 K/mm3 (4.4-11.0)
[2020-01-10 11:03] LABS: Differential Indicated SCAN CRITERIA MET
[2020-01-10 11:08] LABS: Anion Gap 8 (5-15); BUN 33 mg/dL (7-18); BUN/Creat Ratio 22.6 RATIO (10-20); Calcium,Total 9.4 mg/dL (8.5-10.1); Chloride 106 mmol/L (98-107); Creatinine, Serum 1.46 mg/dL (0.70-1.30); EST Glomerular Filtration Rate 52 mL/min (>60); Erythrocyte Sedimentation Rate 73 mm/hr (0-20); Est Glom Filt Rate - Afr Amer 63 mL/min (>60); Estimated Creatinine Clearance 52.05 ml/min; Glucose 116 mg/dL (74-106); Potassium 4.3 mmol/L (3.5-5.1); Sodium Level 136 mmol/L (136-145)
--- NOTE | 2020-01-10 12:17 | ED.VISSUMM ---
- ER Visit Summary Date of Service: 01/10/20 Chief Complaint: Left knee pain History of Present Illness: The patient is a [address] irby. He has a history of a septic left knee that he had an an arthroscopic drainage of December [address] Jose Armando Downs. He is still on doxycycline and Omnicef. He denies any fever, nausea, vomiting, or other constitutional symptoms. Patient reports that last night he had the abrupt onset of pain in his left leg popliteal fossa. Is a sharp pain is 10 of 10 at worst and 710 currently. Is worsened by movement. Is taken gabapentin and tramadol without relief. Denies any numbness or weakness distally. He has no personal history of DVT. He is unsure family history of DVT. He denies any chest pain or shortness of breath. Physical Examination: Vitals: Stable. Afebrile. General: Well-nourished and well-developed. Head: Normocephalic atraumatic. Neck: Supple, no lymphadenopathy. No JVD. Nontender. Cardiovascular: Regular rate and rhythm. No murmurs. Respiratory: No respiratory distress. Clear to auscultation bilaterally. Abdominal: Soft, nontender, nondistended, normal bowel sounds. No guarding, rebound, or peritoneal signs. Back: Nontender. Extremities: The incisions to the left knee are healing well. There is a stitch in place and 3 incisions. There is no erythema or warmth. He has a mild joint effusion. He has no pain with short arc movements. He does have a very limited range of motion secondary to pain. He has no pain over the anterior surface of his knee. No pain medially or laterally. He has moderate tensional patient in the popliteal fossa and this is worse over the tendons laterally. He has a 2+ dorsalis pedis pulse Skin: Normal color, no rash. Neurologic: Alert and oriented ?3. Cranial nerves II through XII are intact. Normal strength and sensation. Psych: Normal affect. Test Results: CBC shows a white count of 21.1 and this was 15.4 on December 31. He has 77 neutrophils and 9 lymphocytes. H&H 30.5. Platelets of 581. Chem-7 shows a BUN of 33, creatinine 1.46, glucose 116. His CRP today is 17.8. It was 92.3 on December 28 with the septic knee. His sed rate is 73. It was 86 on December 28. He had a left lower extremity Doppler that does show a DVT in the posterior tibial and popliteal veins. Emergency Department Course and Treatment: Patient was given a dose of morphine IM. He was given Eliquis p.o. He is resting more comfortably. He states that this pain is entirely different than what he had with the septic joint. At that time the pain seemed like it was inside his knee. Now he reports just in the back of his knee. Treatment Plan: Patient was discussed with Dr. Jose Armando Downs. He suggested arthrocentesis if the patient has a appreciable joint effusion I feel that will help with his pain. I do not feel much of a joint effusion in the patient agrees and does not want this performed. He will be discharged instructions to follow-up with Dr. Jose Armando Downs in 2 days to let him know how he is doing. Follow-up with Dr. Guzman of infectious diseases for further treatment with p.o. antibiotics for his septic joint. Instructed to follow-up with his primary care physician, Dr. irby, for further treatment with Eliquis. Return to the emergency department for any worsening symptoms. Disposition: To home in improved and stable condition. Impression: 1. DVT left leg. 2. 2 weeks status post arthroscopic drainage of septic left knee. This note was generated with Sessions dictation software. It may contain incorrect words, spelling, and punctuation that were not noted in review of the chart prior to signing ED Disposition - Plan for ED Patient: Instructions: ED DVT Prescriptions: Apixaban [Eliquis] 5 mg PO BID #74 tab Prescription Printed Oxycodone HCl/Acetaminophen [Percocet 5/325] 1 tab PO Q6H PRN PRN 3 Days #12 tab PRN Reason: Pain Prescription Printed Referrals: Ernesto Vincent MD [Primary Care Provider] - 1 Week Jose Armando Downs MD [STAFF PHYSICIAN] - 2 Days for wound check Omkar Guzman MD [STAFF PHYSICIAN] - Keep Paulette appointment
[2020-01-10 12:48] VITALS: BP 140/83; PULSE 70; RESP 18; O2SAT 96
[2020-01-10] MEDS: APIXABAN 5 MG TABLET 10 MG PO (12:49)
[2020-01-12 11:17] LABS: Pathologist Review Reviewed
== END 2020-01-10 13:05 | disposition home or self-care (01) ==
LOC: ED 10:04
PROVIDERS: Emergency Provider Emergency Medicine; PCP Family Medicine
DX: I82.442 Acute embolism and thrombosis of left tibial vein (principal); I82.432 Acute embolism and thrombosis of left popliteal vein; Z98.890 Other specified postprocedural states; I10 Essential (primary) hypertension; M10.9 Gout, unspecified; M19.90 Unspecified osteoarthritis, unspecified site; Z79.899 Other long term (current) drug therapy
CPT/HCPCS: 80048; 85025; 85652; 86140; 93971; 96360; 96361; 96372; 99285; J7030

== ENCOUNTER 2020-03-03 08:54 | Emergency (ER) | payer BC, SELFPAY ==
[2020-03-03 08:55] VITALS: BP 121/80; PULSE 88; RESP 16; TEMP 36.7; O2SAT 96; BMI 25.1
--- NOTE | 2020-03-03 09:32 | ED.VIS.GEN ---
History of Present Illness Chief Complaint: Lower Extremity Injury Detail of Chief Complaint: Right knee pain and swelling Informant: Patient Onset: Today Current Severity: Moderate Maximum Severity: Moderate Narrative: Patient presents with right knee pain and swelling that he noted this morning. 2 days ago he was getting out of the tub and twisted his right knee. He states the pain seemed to go away and he was doing well yesterday. After sitting at rest all night last evening he states it was more swollen and painful again this morning. It is not erythematous. He is had no fever. Patient has had prior surgery on his left knee secondary to joint infection. He also was recently started on Eliquis for DVT. - Past Medical History (1) Chronic kidney disease Status: Chronic (2) Hypertension Status: Chronic (3) History of gout Status: Chronic Past Medical History - Allergies and Home Meds Allergies/Adverse Reactions: Allergies cephalexin [From Keflex] Adverse Reaction (Verified 03/03/20 08:55) Vomiting Primary Care Physician: Ernesto Vincent MD [Primary Care Provider] - Doctors: Dr. Jose Armando Downs Prior records reviewed: Yes Surgical History: no surgical history Smoking Status: Former smoker - Family History Maternal Family History: Reports: Hypertension Review of Systems General: Denies: Chills, Fever Eyes: Denies: Visual changes - bilaterally ENT: Denies: Bilateral ear pain Cardiovascular: Denies: Chest pain Respiratory: Denies: Dyspnea, Cough Gastrointestinal: Denies: Abdominal pain Musculoskeletal: Reports: Swelling, Extremity Pain Neurological: Denies: Headache Hematologic: Denies: Easy bruising, Easy bleeding Allergy: Denies: Uticaria Physical Exam Vital Signs/Narrative: Vital Signs Temp Pulse Resp BP Pulse Ox 03/03/20 08:55 98.1 F 88 16 121/80 H 96 Inital Vital Signs reviewed: Yes General: Well nourished, Well developed Head: Normocephalic Neck: Supple Cardiovascular: Regular rate, Regular rhythm Respiratory: No distress, CTA bilaterally Abdomen: Soft, Nontender Extremities: - - Mild right knee edema with tenderness along the joint line. No erythema or warmth. He is able to straight leg raise his foot off the bed. Slight decreased range of motion secondary to pain. Strong distal pulses with no calf tenderness. Skin: Normal color Neurological: Alert, Oriented x3 Psychological: Normal affect Diagnostic/Tx/Re-eval Impressions Knee X-Ray 03/03/20 09:55 IMPRESSION: Moderate joint effusion. Electronically Signed: Juan Rinaldi, at 10:10 EDT , Service support , 03/03/20 09:55 Knee 4 or More Views [RAD] Stat - Medical Decision Making Patient was given [place] here for pain. Test results discussed with patient. [place] wrap is applied. He has crutches at home that he will use. Patient does raise question about another infection as he did have an infection in his left knee. He does have a documented injury to his knee a few days ago and does not have erythema or warmth. My suspicion is that this is injury related and not secondary to infection. He will follow-up with orthopedics. He is advised to return for increasing redness, increasing pain, or fever. ED Disposition - Plan for ED Patient: Disposition: Home or Assisted Living Diagnosis: Knee sprain Instructions: ED Sprain Knee Prescriptions: Hydrocodone Bitart/Apap 5-325 [[place] 5MG-325MG] 1 tablet PO Q6H PRN PRN 3 Days #10 tablet PRN Reason: Pain Transmission [facility] Referrals: Jose Armando Downs MD [STAFF PHYSICIAN] - 1 Week if not improving
[2020-03-03] MEDS: HYDROcodone Bitartrate/Apap 5/325 Tablet PO (09:45)
--- NOTE | 2020-03-03 09:55 | RAD_ITS ---
STUDY: X-RAY - RIGHT KNEE REASON FOR EXAM: Male, 59 years old. RIGHT KNEE PAIN AND SWELLING THAT STARTED SUDDENLY THIS AM. NO KNOWN INJURY. TECHNIQUE: 4 view(s) of the knee. COMPARISON: None. FINDINGS: Normal visualized distal femur. Normal visualized proximal tibia and fibula. Normal proximal tibiofibular articulation. Normal medial femorotibial compartment. Normal lateral femorotibial compartment. Normal patellofemoral articulation. Moderate joint effusion. RAD/Knee 4 or More Views IMPRESSION: Moderate joint effusion. Electronically Signed: Juan Rinaldi, at 10:10 EDT , Service support ,
== END 2020-03-03 10:34 | disposition home or self-care (01) ==
PROVIDERS: Emergency Provider Emergency Medicine; PCP Family Medicine
DX: S83.91XA Sprain of unspecified site of right knee, initial encounter (principal); I10 Essential (primary) hypertension; X50.1XXA Overexertion from prolonged static or awkward postures, initial encounter; Z79.01 Long term (current) use of anticoagulants; Z87.891 Personal history of nicotine dependence
CPT/HCPCS: 73564; 99285; A4216

== ENCOUNTER 2020-03-06 14:07 | Emergency (ER) | payer BC, SELFPAY ==
[2020-03-06 14:08] VITALS: BP 121/78; PULSE 102; RESP 16; TEMP 36.9; O2SAT 95; BMI 25.7
[2020-03-06] MEDS: HYDROcodone Bitartrate/Apap 5/325 Tablet PO (14:20)
--- NOTE | 2020-03-06 14:22 | ED.DCSUM_ITS ---
History of Present Illness Informant: Patient Occurred: Days - 4 days Mechanism/Context: Injury Onset: Days - 4 days Context: Sudden Onset Timing: Continuous Quality of Pain: Sharp Location: right knee Current Severity: Severe Maximum Severity: Severe Worsened by: movement Relieved by: rest Associated Symptoms: Negative for: Parasthesia, Weakness, Loss of Funtion Narrative: 59 year old male presents to the emergency department by squad with right knee pain and swelling. Patient suffered a twisting injury to his knee 4 days ago and was seen here at the emergency department and referred to orthopedic surgery. He was seen the next day. He states his orthopedic surgeon diagnosed him with gout and drained his knee. Patient states that he is continuing to have pain in the Vicodin that he was prescribed here in the emergency department has run out and he states his surgeon would not write him for any more pain medicine. He denies any fevers or redness of his knee he has been able to ambulate and has not suffered any further injury. Tetanus Immunization: Unknown Prior similar symptoms: Yes Recent Illness/Hospitalization: No <Pelon Patel - Last Filed: 03/06/20 14:51> <Crow Ortiz - Last Filed: 03/06/20 15:01> Chief Complaint: Lower Extremity Injury Past Medical History Past Medical History: - - Hypertension, hyperlipidemia, chronic kidney disease Surgical History: no surgical history Lives: With Family Smoking Status: Former smoker Alcohol: Occasional Drugs: None - Family History Maternal Family History: Reports: Hypertension <Pelon Patel - Last Filed: 03/06/20 14:51> <Crow Ortiz - Last Filed: 03/06/20 15:01> - Allergies and Home Meds Allergies/Adverse Reactions: Allergies cephalexin [From Keflex] Adverse Reaction (Verified 03/06/20 14:08) Vomiting Primary Care Physician: Ernesto Vincent MD [Primary Care Provider] - Jose Armando Downs MD [STAFF PHYSICIAN] - Review of Systems All systems negative except as indicated General: Denies: Chills, Fever, Malaise Eyes: Denies: Visual changes - bilaterally, Blurred Vision - bilaterally, Diplopia ENT: Denies: Rhinorrhea, Sore throat Cardiovascular: Denies: Chest pain, Palpitations, Heart racing Respiratory: Denies: Dyspnea, Cough, Sputum Gastrointestinal: Denies: Abdominal pain, Nausea, Vomiting, Diarrhea Genitourinary: Denies: Dysuria, Hematuria, Frequency Musculoskeletal: Reports: Swelling, Extremity Pain. Denies: Myalgias, Arthralgias, Neck pain, Back pain Skin: Denies: Rash, Abscess, Abrasions, Wounds Neurological: Denies: Headache, Weakness, Parasthesia, Numbness <Pelon Patel - Last Filed: 03/06/20 14:51> Physical Exam Vital Signs/Narrative: Vital Signs Temp Pulse Resp BP Pulse Ox 03/06/20 14:08 98.5 F 102 H 16 121/78 H 95 Inital Vital Signs reviewed: Yes - Extremity Exam Right Knee: Edema - Patient's right knee is mildly swollen. It is not red. It is very mildly warm. He is able to flex and extend actively. He does not have any lymphatic streaking. He is neurovascular intact distally. General: Well nourished, Well developed Head: Normocephalic, Atraumatic Eyes: Perrl, EOMI ENT: No Trauma, Moist Mucous Membranes Neck: Nontender, Full ROM Cardiovascular: Regular rate, Regular rhythm, No murmurs Respiratory: No distress, CTA bilaterally, Chest nontender Abdomen: Soft, Nontender, Nondistended, Normal bowel sounds, No masses Back: Nontender Skin: Normal color, No rash, No Trauma Neurological: Alert, Oriented x3 Psychological: Normal affect, Normal Mood <Pelon Patel - Last Filed: 03/06/20 14:51> Vital Signs/Narrative: Vital Signs Temp Pulse Resp BP Pulse Ox 03/06/20 14:08 98.5 F 102 H 16 121/78 H 95 <Crow Ortiz - Last Filed: 03/06/20 15:01> Diagnostic/Tx/Re-eval - Medical Decision Making Patient's knee shows no sign of infection. He does not have a septic joint. He is mostly here because he is requesting a prescription for narcotics. He was given a prescription 3 days ago here in the emergency department and I discussed with him we would be unable to prescribe him narcotics and he will have to rest ice and use Tylenol because he is unable to take anti-inflammatories secondary to his anticoagulation use. He was reassured and will follow-up on Sunday. He does not need crutches he has these at home <Pelon Patel - Last Filed: 03/06/20 14:51> - Medical Decision Making Seen and evaluated independently and in conjunction with physician surgical assistant certified. Agree with notes above unless documented otherwise. Patient states he mildly injured his knee after twisting it getting up out of the tub, he had some pain initially but then it subsided and he started having swelling later that day, worse when he woke up the next. He already had an appointment with orthopedics for his left knee, he states that Dr. Downs did a right knee arthrocentesis and pulled out lots of nonbloody yellow fluid that he sent for testing and has not had the results yet. Now it is recurrent basically to the point of that day. It does not appear erythematous and is not excessively warm compared to the surrounding areas, he has good short arc range of motion and my suspicion is relatively low for acute septic arthritis. I suspect this is a traumatic effusion. He was just given a prescription for narcotics from this emergency department, and so I do not think he needs another one right now. Agree with the other recommendations as above and he was also given an [place] wrap which I think will help too. Since he had pretty quick recurr ence of the effusion after an arthrocentesis before, I do not think another arthrocentesis benefits will outweigh the risk of infection. <Crow Ortiz - Last Filed: 03/06/20 15:01> ED Disposition <Pelon Patel - Last Filed: 03/06/20 14:51> <Crow Ortiz - Last Filed: 03/06/20 15:01> - Plan for ED Patient: Disposition: Home or Assisted Living Diagnosis: Effusion, right knee Instructions: ED Effusion Knee Referrals: Ernesto Vincent MD [Primary Care Provider] - Jose Armando Downs MD [STAFF PHYSICIAN] - 2 Days
[2020-03-06 15:00] VITALS: RESP 16
--- NOTE | 2020-03-06 15:01 | ED.RN ---
REVIEWED D/C INSTRUCTIONS, FOLLOW UP CARE, AND S/S THAT WOULD WARRANT A RETURN TO THE ED WITH PT. PT VERBALIZED AN UNDERSTANDING AND DENIES FURTHER QUESTIONS FOR THIS RN. PT SKIN P/W/D, RESP EVEN AND UNLABORED, PT A&O X 3, NO DISTRESS NOTED. PT ASSISTED OUT OF ED IN WHEELCHAIR.
== END 2020-03-06 15:13 | disposition home or self-care (01) ==
LOC: ED 15:02
PROVIDERS: Emergency Provider Physician Assistant Medical; PCP Family Medicine
DX: M25.461 Effusion, right knee (principal); I12.9 Hypertensive chronic kidney disease with stage 1 through stage 4 chronic kidney disease, or unspecified chronic kidney disease; N18.9 Chronic kidney disease, unspecified; E78.5 Hyperlipidemia, unspecified; Z79.01 Long term (current) use of anticoagulants; Z79.899 Other long term (current) drug therapy; Z88.1 Allergy status to other antibiotic agents; Z87.891 Personal history of nicotine dependence
CPT/HCPCS: 99284

== ENCOUNTER → 2021-02-09 11:16 | Outpatient (CLI) | payer MEDICAID, SELFPAY ==
[2021-02-09 11:42] LABS: Hematocrit 43.5 % (40-54); Hemoglobin 14.3 g/dL (13.0-16.5); Mean Corp Hgb Conc 32.9 g/dL (32-36); Mean Corpuscular Hgb 31.8 pg (27.0-32.0); Mean Corpuscular Volume 96.9 fL (80-94); Mean Platelet Vol. 9.8 fl (6.2-12.0); Platelet Count 363 K/mm3 (150-450); RBC Distribution Width CV 13.7 % (11.6-14.6); RBC Distribution Width SD 49.2 fl (35.1-43.9); Red Blood Count 4.49 M/mm3 (4.6-6.2); White Blood Count 12.9 K/mm3 (4.4-11.0)
[2021-02-09 12:11] LABS: Albumin, Serum 4.1 g/dL (3.2-5.0); BUN 33 mg/dL (7-18); Calcium,Total 9.3 mg/dL (8.5-10.1); Chloride 108 mmol/L (98-107); Creatinine, Serum 1.65 mg/dL (0.70-1.30); EST Glomerular Filtration Rate 45 mL/min (>60); Est Glom Filt Rate - Afr Amer 55 mL/min (>60); Glucose 119 mg/dL (74-106); Phosphorus 3.1 mg/dL (2.5-4.9); Potassium 4.2 mmol/L (3.5-5.1); Sodium Level 136 mmol/L (136-145); Uric Acid 5.7 mg/dL (3.5-7.2)
== END ==
PROVIDERS: PCP Family Medicine; Referring Provider Internal Medicine Nephrology; Visit Provider Internal Medicine Nephrology
DX: N18.30 Chronic kidney disease, stage 3 unspecified (principal); E79.0 Hyperuricemia without signs of inflammatory arthritis and tophaceous disease
CPT/HCPCS: 36415; 80069; 84550; 85027

== ENCOUNTER 2021-02-17 17:35 | Emergency (ER) | payer MEDICAID, SELFPAY ==
[2021-02-17 17:36] VITALS: BP 133/85; PULSE 82; RESP 15; TEMP 36.3; O2SAT 94; BMI 28.0
== END 2021-02-17 17:48 | disposition left against medical advice (07) ==
LOC: ED 18:09
PROVIDERS: PCP Family Medicine
DX: T14.8XXA Other injury of unspecified body region, initial encounter (principal); Z53.21 Procedure and treatment not carried out due to patient leaving prior to being seen by health care provider; X58.XXXA Exposure to other specified factors, initial encounter; Y93.9 Activity, unspecified; Y92.9 Unspecified place or not applicable; Y99.9 Unspecified external cause status

== ENCOUNTER 2021-04-01 21:59 | Emergency (ER) | payer MEDICAID, SELFPAY ==
[2021-04-01 22:00] VITALS: BP 139/80; PULSE 67; RESP 15; TEMP 36.1; O2SAT 95; BMI 28.1
[2021-04-01] MEDS: Diphth,Pertuss(Acell),Tet Vac 0.5 ML Vial IM (23:17)
--- NOTE | 2021-04-02 00:45 | EX.ED.UPPERE ---
HPI History of Present Illness Chief Complaint: Laceration Informant: patient Occured/Mechanism Comment: Cut on broken glass while washing dishes Onset/Context/Timing Onset: Today Current Severity: Moderate Maximum Severity: Moderate Narrative Narrative: Patient presents secondary to a laceration between his fourth and fifth fingers of his right hand. Patient was washing dishes when the broken edge of the dish cut him between his fingers. He is unsure of his last tetanus update. He is right-hand dominant. PFSH PFS Medical History CKD (chronic kidney disease), stage III Gout HTN (hypertension) Home Medications lisinopril 20 mg PO DAILY 02/02/15 [History Last Taken 12/29/19 10:00] amlodipine 5 mg PO DAILY 06/21/19 [History Last Taken 12/29/19 10:00] allopurinol 300 mg PO BID 06/26/19 [History Last Taken 12/29/19 10:00] acetaminophen 650 mg PO Q6H PRN PRN tab 06/28/19 [Rx Last Taken Unknown] apixaban 5 mg PO BID #74 tab 01/10/20 [Rx Last Taken Unknown] Allergy/AdvReac Type Severity Reaction Status Date / Time cephalexin [From Keflex] AdvReac Vomiting Verified 04/01/21 22:02 Social History Smoking Status: Former smoker ROS ROS ED Constitutional Constitutional ED: Denies chills or fever(s) Eyes Eyes: Denies change in vision ENT ENT ED: Denies sore throat Cardiovascular Cardiovascular: Denies chest pain Respiratory/Chest Respiratory/Chest: Denies cough or dyspnea Gastrointestinal Gastrointestinal: Denies abdominal pain, diarrhea, nausea or vomiting Genitourinary Genitourinary ED: Denies dysuria Musculoskeletal Musculoskeletal: Reports other Details: Right hand pain ; Denies back pain Integumentary Denies rash Neurologic Neurologic: Denies headache(s) or weakness Psychiatric Psychiatric: Denies anxiety or depression Endocrine Endocrinology: Denies polydipsia or polyuria Allergic/Immunologic Allergic/Immunologic ED: Denies urticaria EXAM Physical Exam Const Vital Signs: 04/01/21 22:00 Temperature 96.9 F L Temperature Source Temporal Pulse Rate 67 Respiratory Rate 15 Blood Pressure 139/80 H Blood Pressure Mean 99 Pulse Ox 95 Oxygen Delivery Method Room Air Positive well nourished and well developed General Appearance ED: well developed HEENT Reports normocephalic and head/scalp atraumatic Eyes PERRL and EOMs intact bilaterally Neck supple Chest Wall inspection of chest normal and palpation of chest normal Resp normal respiratory effort and clear to auscultation bilaterally Cardio regular rate and regular rhythm GI normal to inspection, nondistended, normoactive bowel sounds Palpation: soft Extremity Extremity Narrative: 2 cm laceration to the webspace between the fourth and fifth fingers of the right hand. Full range of motion of all digits with normal cap refill and sensation. Neuro oriented x3 and no sensory deficits noted Sensorium / Orientation: alert Motor Exam: strength 5/5 throughout Psych mental status grossly normal Skin no rashes or lesions noted MDM MDM MDM Narrative Medical decision making narrative: Tetanus update is provided. Treatment and Re-Evaluation Comments:: Right hand wound is anesthetized with 5 cc of 1% lidocaine. Wound is cleansed and irrigated. 3 simple entered sutures of 5-0 nylon are placed with good approximation. Dressing is placed and wound care as discussed. Patient is to follow-up in 7 to 10 days for suture removal. Procedures Lacerations 2 cm right hand laceration: Length: 0.79 in Depth: Sub Q Shape: Linear Prep: Shdi-Clens Laceration repair: Irrigated, Lidocaine, Local and Skin sutures Number of Sutures/[place]: 3 Suture Information: Ethilon, Simple and 5-0 Discharge Plan Triage Chief Complaint: Laceration ED Provider: Sophy Lawson Dx/Rx/DC Orders Clinical Impression: Hand laceration Instructions: ED Laceration, Hand: All Closures Prescriptions: No Action lisinopril 20 MG tablet 20 mg PO DAILY RF: 0 amlodipine 5 MG tablet 5 mg PO DAILY RF: 0 allopurinol 300 MG tablet 300 mg PO BID RF: 0 acetaminophen 325 MG tablet 650 mg PO Q6H PRN PRN (Reason: Mild Pain (1-3)/Temp > 100.7 F) RF: 0 apixaban 5 MG tablet 5 mg PO BID Qty: 74 RF: 0 Primary Care Provider: Ernesto Vincent Referrals: Ernesto Vincent MD [Primary Care Provider] - 10 Day for suture removal Disposition Disposition: Home, Self Care Discharge Date/Time: 04/02/21 00:54
== END 2021-04-02 00:54 | disposition home or self-care (01) ==
PROVIDERS: Emergency Provider Emergency Medicine; PCP Family Medicine
DX: S61.411A Laceration without foreign body of right hand, initial encounter (principal); Z23 Encounter for immunization; W25.XXXA Contact with sharp glass, initial encounter; Y93.G1 Activity, food preparation and clean up; Y92.9 Unspecified place or not applicable; Y99.9 Unspecified external cause status; I12.9 Hypertensive chronic kidney disease with stage 1 through stage 4 chronic kidney disease, or unspecified chronic kidney disease; N18.30 Chronic kidney disease, stage 3 unspecified; M10.9 Gout, unspecified; Z79.01 Long term (current) use of anticoagulants; Z79.899 Other long term (current) drug therapy; Z87.891 Personal history of nicotine dependence
CPT/HCPCS: 12001; 90471; 90715; 99283

== ENCOUNTER → 2021-04-18 12:15 | Outpatient (CLI) | payer MEDICAID, SELFPAY ==
[2021-04-01 22:00] VITALS: BMI 28.1
[2021-04-18 14:37] LABS: Albumin, Serum 3.9 g/dL (3.2-5.0); BUN 31 mg/dL (7-18); BUN/Creat Ratio 18.9 RATIO (10-20); Calcium,Total 8.9 mg/dL (8.5-10.1); Chloride 103 mmol/L (98-107); Creatinine, Serum 1.64 mg/dL (0.70-1.30); EST Glomerular Filtration Rate 46 mL/min (>60); Est Glom Filt Rate - Afr Amer 55 mL/min (>60); Glucose 90 mg/dL (74-106); Phosphorus 2.7 mg/dL (2.5-4.9); Potassium 4.2 mmol/L (3.5-5.1); Sodium Level 133 mmol/L (136-145)
== END ==
PROVIDERS: PCP Family Medicine; Referring Provider Internal Medicine Nephrology; Visit Provider Internal Medicine Nephrology
DX: N18.30 Chronic kidney disease, stage 3 unspecified (principal); N17.9 Acute kidney failure, unspecified
CPT/HCPCS: 36415; 80069

== ENCOUNTER 2021-05-16 10:23 | Emergency (ER) | payer MEDICAID, SELFPAY ==
[2021-05-16 10:24] VITALS: BP 138/93; PULSE 60; RESP 15; TEMP 36.1; O2SAT 96; BMI 28.8
--- NOTE | 2021-05-16 11:08 | EX.ED.UPPERE ---
HPI History of Present Illness Chief Complaint: Upper Extremity Injury Informant: patient Narrative Narrative: Patient is a 60-year-old male who presents to the emergency department for acute on chronic right shoulder pain. He denies any trauma or inciting event. Has flared up over the past 2 to 3 days. He is actually supposed to have the shoulder operated on for a shoulder replacement in 9 days. He did contact his orthopedic surgeon and was not able to get a hold of him so he came in here. He has been using topical ointments for the pain which has not been giving significant relief. The pain does go to the right scapular region. He denies any chest pain or shortness of breath. No neck pain, headache. He denies any fevers or chills. No loss of sensation going down the hand. [facility] Medical History CKD (chronic kidney disease), stage III Gout HTN (hypertension) Home Medications lisinopril 20 mg PO DAILY 02/02/15 [History Last Taken 12/29/19 10:00] amlodipine 5 mg PO DAILY 06/21/19 [History Last Taken 12/29/19 10:00] allopurinol 300 mg PO BID 06/26/19 [History Last Taken 12/29/19 10:00] acetaminophen 650 mg PO Q6H PRN PRN tab 06/28/19 [Rx Last Taken Unknown] apixaban 5 mg PO BID #74 tab 01/10/20 [Rx Last Taken Unknown] cyclobenzaprine 10 mg PO TID PRN #10 tab 05/16/21 [Rx Last Taken Unknown] lidocaine [Lidoderm] 1 patch TOPICAL DAILY 5 Days #1 ea 05/16/21 [Rx Last Taken Unknown] Allergy/AdvReac Type Severity Reaction Status Date / Time cephalexin [From Keflex] AdvReac Vomiting Verified 05/16/21 10:26 Social History Smoking Status: Former smoker ROS ROS ED Constitutional Constitutional ED: Denies chills or fever(s) ENT ENT ED: Denies epistaxis Cardiovascular Cardiovascular: Denies chest pain Respiratory/Chest Respiratory/Chest: Denies cough or dyspnea Gastrointestinal Gastrointestinal: Denies abdominal pain, diarrhea, nausea or vomiting Musculoskeletal Musculoskeletal: Reports other Details: Right shoulder and scapula pain. ; Denies back pain or neck pain Integumentary Denies rash Neurologic Neurologic: Denies dizziness, headache(s) or weakness EXAM Physical Exam Const Vital Signs: 05/16/21 10:24 Temperature 96.9 F L Temperature Source Temporal Pulse Rate 60 Respiratory Rate 15 Blood Pressure 138/93 H Blood Pressure Mean 108 Pulse Ox 96 Oxygen Delivery Method Room Air Positive well nourished and well developed General Appearance ED: well developed and NAD HEENT Reports normocephalic and head/scalp atraumatic Eyes PERRL and EOMs intact bilaterally Neck supple General: Negative for tenderness Resp normal respiratory effort and clear to auscultation bilaterally Auscultation: Negative for rales, rhonchi or wheezes Cardio regular rate, regular rhythm and no murmurs GI normal to inspection, nondistended, normoactive bowel sounds and non-tender Palpation: soft; Negative for guarding or rebound tenderness present Back/Spine Back/Spine Narrative: Tenderness along the right medial scapula going up into the right shoulder. No obvious deformity, crepitus, overlying skin changes. Neurovascular intact. Range of motion is limited due to pain in the right shoulder with arm extension. Extremity normal to inspection General Extremety ED: Negative for edema or tenderness General Extremity: Negative for edema Neuro no sensory deficits noted Sensorium / Orientation: alert Motor Exam: strength 5/5 throughout Psych mental status grossly normal Skin no rashes or lesions noted MDM MDM MDM Narrative Medical decision making narrative: Patient presents the ED for acute on chronic nontraumatic right shoulder pain. He is supposed to have the shoulder replaced in 9 days. On arrival to the ED vital signs within normal limits. He is in no acute distress. Without any acute inciting traumatic events I do not feel imaging is indicated at this time. We will treat him symptomatically and he needs to have close follow-up with his orthopedic surgeon. He is given a dose of oral [place] here in the ED and given a prescription for Lidoderm patch as well as Flexeril. He can continue to take Tylenol at home and use ice over the area. Return precautions are reviewed with him. He otherwise is to follow-up with the surgeon. He understands and is agreeable this plan. Discharged home in stable condition. All questions are answered. Discharge Plan Triage Chief Complaint: Upper Extremity Injury ED Provider: John Kasper Dx/Rx/DC Orders Clinical Impression: Right shoulder pain Instructions: ED Shoulder Pain, Uncertain Cause Prescriptions: New lidocaine [Lidoderm] 5 % adhesive patch,medicated 1 patch topical DAILY 5 Days Qty: 1 RF: 0 cyclobenzaprine 10 mg tablet 10 mg PO TID PRN (Reason: muscle spasm) Qty: 10 RF: 0 No Action lisinopril 20 MG tablet 20 mg PO DAILY RF: 0 amlodipine 5 MG tablet 5 mg PO DAILY RF: 0 allopurinol 300 MG tablet 300 mg PO BID RF: 0 acetaminophen 325 MG tablet 650 mg PO Q6H PRN PRN (Reason: Mild Pain (1-3)/Temp > 100.7 F) RF: 0 apixaban 5 MG tablet 5 mg PO BID Qty: 74 RF: 0 Primary Care Provider: Ernesto Vincent Referrals: Ernesto Vincent MD [Primary Care Provider] - Activity Restrictions/Additional Instructions: Please follow-up with your orthopedic surgeon as soon as possible. Disposition Disposition: Home, Self Care Discharge Date/Time: 05/16/21 11:28
[2021-05-16] MEDS: HYDROcodone Bitartrate/Apap 5/325 Tablet PO (11:22)
== END 2021-05-16 11:28 | disposition home or self-care (01) ==
LOC: ED 11:27
PROVIDERS: Emergency Provider Emergency Medicine; PCP Family Medicine
DX: M25.511 Pain in right shoulder (principal); G89.29 Other chronic pain; I12.9 Hypertensive chronic kidney disease with stage 1 through stage 4 chronic kidney disease, or unspecified chronic kidney disease; N18.30 Chronic kidney disease, stage 3 unspecified; M10.9 Gout, unspecified; Z79.899 Other long term (current) drug therapy; Z79.01 Long term (current) use of anticoagulants; Z87.891 Personal history of nicotine dependence
CPT/HCPCS: 99283

== ENCOUNTER 2021-06-09 15:57 | Inpatient (IN) | payer MEDICAID, SELFPAY ==
[2021-06-09] VITALS (17 sets, daily range): BP systolic 118–149; BP diastolic 78–103; PULSE 67–80; RESP 11–98; TEMP 35.9–37.2; O2SAT 95–100; BMI 28.1
--- NOTE | 2021-06-09 16:00 | RAD_ITS ---
STUDY: X-RAY CHEST REASON FOR EXAM: Male, 60 years old. chest pain TECHNIQUE: AP portable COMPARISON: 12/30/2019 FINDINGS: Mild bilateral perihilar interstitial thickening with bronchovascular cuffing possibly representing mild pulmonary interstitial edema. There is no demonstrated pleural abnormality. Mild cardiomegaly exaggerated by radiographic technique Normal mediastinum and [place]. Normal visualized pulmonary arteries. Normal visualized aortic arch and descending thoracic aorta. Normal visualized thoracic spine. Normal visualized ribs, and clavicles. Right shoulder prosthesis is noted. There is no demonstrated abnormality of the visualized soft tissue structures of the upper abdomen. RAD/Chest 1 View (Portable) IMPRESSION: Findings suggestive of early changes of congestive failure. Clinical correlation recommended Electronically Signed: Ernesto Orr MD at 16:47 EDT , Service support ,
--- NOTE | 2021-06-09 16:00 | EKG12_ITS ---
Test Reason : CP Blood Pressure : / mmHG Vent. Rate : 073 BPM Atrial Rate : 073 BPM P-R Int : 152 ms QRS Dur : 096 ms QT Int : 364 ms P-R-T Axes : 045 071 057 degrees QTc Int : 401 ms Normal sinus rhythm ST elevation consider inferolateral injury or acute infarct ACUTE [place] / STEMI Consider right ventricular involvement in acute inferior infarct Abnormal ECG Confirmed by LAURYN HAM, TONY ([id number]), editor map SHERRI GALARZA ([id number]) on 06/14/2021 8:18:01 AM Referred By: CLAY Confirmed By:JENISE COMBS MD
[2021-06-09] MEDS: Aspirin 81 MG TAB.CHEW 324 MG PO (16:13)
--- NOTE | 2021-06-09 16:16 | EKG12_ITS ---
Test Reason : AM EKG Blood Pressure : / mmHG Vent. Rate : 067 BPM Atrial Rate : 067 BPM P-R Int : 150 ms QRS Dur : 096 ms QT Int : 380 ms P-R-T Axes : 011 070 037 degrees QTc Int : 401 ms Normal sinus rhythm Incomplete right bundle branch block Confirmed by ABBEY HAM, HE ([id number]), rewrite editor SHERRI GALARZA ([id number]) on 06/15/2021 9:34:00 AM Referred By: DR GLOVER Confirmed By:HE POTTER MD
[2021-06-09] MEDS: Heparin Injection (Vial) 5,000 UNIT/ML VIAL 5030 UNIT IV (16:17)
[2021-06-09] MEDS: Ondansetron 4 MG/2 ML Vial IV (16:22)
[2021-06-09] MEDS: TICAGRELOR 90 MG TABLET 180 MG PO (16:22)
[2021-06-09] MEDS: Morphine 4 MG/ML Syringe IV ×2 (16:22→16:38)
[2021-06-09 16:26] LABS: Absolute Lymphocyte Count 2.62 X10^3/uL (0.83-4.51); Absolute Neutrophil Count 11.7 X10^3/uL (2.0-7.7); Basophil# 0.14 X10^3/uL; Basophil% 0.9 % (0-1); Eosinophil# 0.14 X10^3/uL; Eosinophils% 0.9 % (0-5); Hematocrit 36.3 % (40-54); Lymphocyte # 2.62 X10^3/ul (0.83-4.51); Mean Corp Hgb Conc 33.1 g/dL (32-36); Mean Corpuscular Hgb 32.3 pg (27.0-32.0); Mean Corpuscular Volume 97.8 fL (80-94); Mean Platelet Vol. 9.4 fl (6.2-12.0); Monocyte# 1.47 X10^3/uL; NRBC Flagged by Analyzer 0 % (0-5); Neutrophil # 11.71 X10^3/uL (2.7-7.7); Neutrophil % 71.5 % (47-70); Platelet Count 669 K/mm3 (150-450); RBC Distribution Width CV 13.4 % (11.6-14.6); RBC Distribution Width SD 47.9 fl (35.1-43.9); Red Blood Count 3.71 M/mm3 (4.6-6.2); White Blood Count 16.4 K/mm3 (4.4-11.0)
--- NOTE | 2021-06-09 16:32 | NURSING ---
DIGITAL STRATEGIST SENIOR MANAGER ICU 10 [facility]
[2021-06-09] MEDS: 0.9% Normal Saline 1,000 ML 999 ML IV (16:34)
--- NOTE | 2021-06-09 16:41 | NURSING ---
DR SIMRAN WILLIAMSON
[2021-06-09 16:46] LABS: Anion Gap 6 (5-15); BUN 38 mg/dL (7-18); BUN/Creat Ratio 21.8 RATIO (10-20); Calcium,Total 9.6 mg/dL (8.5-10.1); Chloride 102 mmol/L (98-107); Creatinine, Serum 1.74 mg/dL (0.70-1.30); EST Glomerular Filtration Rate 43 mL/min (>60); Est Glom Filt Rate - Afr Amer 51 mL/min (>60); Estimated Creatinine Clearance 43.13 ml/min; Glucose 143 mg/dL (74-106); Potassium 4.6 mmol/L (3.5-5.1); Sodium Level 134 mmol/L (136-145); Troponin-I HS 103 pg/mL (3.0-78.0)
[2021-06-09 16:53] LABS: International Normalized Ratio 1.1; Prothrombin Time (Protime)PT. 13.4 SECONDS (11.7-14.9)
[2021-06-09 16:54] LABS: Partial Thromboplast Time 27.3 Seconds (24.1-36.2)
--- NOTE | 2021-06-09 16:59 | CM.ED ---
SW Note SW Referral Source: STEMI Referral Source: STEMI SW provided emotional support to patient's girlfriend, Loan. Loan and patient had been together for 7 years. Loan was home with patient when he reported he was having pain. Loan said that she felt that [facility] was a good hospital. Loan called her daughter, Sheldon (CALLI garcia) and her son, Silvia. SW accompanied patient from the ED to semiconductor lab technician. Emotional support provided. Plan: STEMI alert, transfer to semiconductor lab technician Jennifer Parra
--- NOTE | 2021-06-09 17:29 | EDS_ITS ---
HPI History of Present Illness Chief Complaint: Chest Pain Informant: patient and spouse/S.O. Narrative Narrative: 60-year-old male sitting outside who suddenly developed central chest pain radiating to the left arm. He states he has nausea and sweating. History of hypertension non-smoker. On the 25 May he underwent right shoulder replacement in [place]. He states he has been doing well. History of chronic kidney disease as well as gout. He does not know his creatinine. [facility] Medical History CKD (chronic kidney disease), stage III Gout HTN (hypertension) Home Medications lisinopril 20 mg PO DAILY 02/02/15 [History Last Taken 12/29/19 10:00] amlodipine 5 mg PO DAILY 06/21/19 [History Last Taken 12/29/19 10:00] allopurinol 300 mg PO DAILY 06/26/19 [History Last Taken 12/29/19 10:00] Allergy/AdvReac Type Severity Reaction Status Date / Time cephalexin [From Keflex] AdvReac Vomiting Verified 06/09/21 15:58 Surgical History H/O shoulder replacement Social History (Updated 06/09/21 @ 17:[address] Mahamed Marrero DO) Smoking Status: Former smoker substance use type: does not use ROS ROS ED Constitutional Constitutional ED: Denies chills or weight loss Eyes Eyes: Denies change in vision or diplopia ENT ENT ED: Denies ear pain, rhinorrhea or sore throat Cardiovascular Cardiovascular: Reports chest pain; Denies orthopnea, palpitations or racing heartbeat Respiratory/Chest Respiratory/Chest: Denies cough, dyspnea or orthopnea Gastrointestinal Gastrointestinal: Reports nausea; Denies abdominal pain, diarrhea or vomiting Genitourinary Genitourinary ED: Denies dysuria, hematuria or urinary frequency Musculoskeletal Musculoskeletal: Reports other Details: Left arm pain ; Denies arthralgias or myalgias Integumentary Reports other Details: Diaphoresis ; Denies abscess or rash Neurologic Neurologic: Denies headache(s) or weakness Psychiatric Psychiatric: Denies anxiety, depression, suicidal ideation or suicidal thoughts Endocrine Endocrinology: Denies polydipsia, polyphagia or polyuria Allergic/Immunologic Allergic/Immunologic ED: Denies mouth swelling, tongue swelling or urticaria EXAM Physical Exam Const Vital Signs: 06/09/21 15:58 06/09/21 16:13 06/09/21 16:17 Temperature 96.6 F L Temperature Source Temporal Pulse Rate 78 Respiratory Rate 19 H 19 H 98 H Respiratory Effort Blood Pressure 140/88 H 140/88 H 149/103 H Blood Pressure Mean 105 Pulse Ox 95 Oxygen Delivery Method Room Air Oxygen Flow Rate (L/min) 06/09/21 16:22 06/09/21 16:24 06/09/21 16:30 Temperature Temperature Source Pulse Rate 74 Respiratory Rate 12 Respiratory Effort Blood Pressure 149/103 H Blood Pressure Mean 118 Pulse Ox 99 98 Oxygen Delivery Method Nasal Cannula Nasal Cannula Nasal Cannula Oxygen Flow Rate (L/min) 2 2 2 06/09/21 16:31 06/09/21 16:41 Temperature 96.6 F L Temperature Source Temporal Pulse Rate 78 Respiratory Rate 19 H Respiratory Effort Normal Blood Pressure 140/88 H Blood Pressure Mean 105 Pulse Ox 95 Oxygen Delivery Method Room Air Oxygen Flow Rate (L/min) Positive well nourished and well developed General Appearance ED: well developed HEENT Reports normocephalic, head/scalp atraumatic and moist mucous membranes Eyes PERRL and EOMs intact bilaterally Neck no lymphadenopathy, supple and no JVD Resp normal respiratory effort and clear to auscultation bilaterally Cardio regular rate, regular rhythm and no murmurs GI normal to inspection, nondistended, normoactive bowel sounds and non-tender Palpation: soft Back/Spine no CVA tenderness and normal ROM Extremity normal to inspection General Extremety ED: Negative for edema General Extremity: Negative for edema Neuro oriented x3 and CN's II-XII intact bilaterally Sensorium / Orientation: alert Motor Exam: strength 5/5 throughout Psych mental status grossly normal Mood & Affect: Negative for depressed or tearful Skin no rashes or lesions noted and no wounds Skin Narrative: Diaphoretic Heart Score History: Highly Suspicious ECG: Normal (Inferior STEMI) Age: >45 - <65 years Risk Factors: 1 or 2 Risk Factors Troponin: >/=3 x Normal Limit Score: 6 MDM MDM MDM Narrative Medical decision making narrative: Patient was interviewed and case was discussed with Dr. Brown x2. Creatinine 1.74. Troponin I 03. Patient received Brilinta aspirin heparin morphine and Zofran as well as IV fluids. Chest x-ray my interpretation shows no acute process. Patient was transferred to the Steam Plant Control Room Operator. I remained with the patient until the arrival of the joggle press operator. Lab Data Attestation: I reviewed the patient's lab results. Labs: Laboratory Results - last 24 hr 06/09/21 06/09/21 06/09/21 16:10 16:10 16:10 WBC 16.4 H RBC 3.71 L Hgb 12.0 L Hct 36.3 L MCV 97.8 H MCH 32.3 H MCHC 33.1 RDW Std Deviation 47.9 H RDW Coeff of Stephen 13.4 Plt Count 669 H MPV 9.4 Immature Gran % (Auto) 1.700 H Neut % (Auto) 71.5 H Lymph % (Auto) 16.0 L [place] % (Auto) 9.0 Eos % (Auto) 0.9 Baso % (Auto) 0.9 Absolute Neuts (auto) 11.7 H Absolute Lymphs (auto) 2.62 Nucleated RBC % 0 PT 13.4 INR 1.1 APTT 27.3 Sodium 134 L Potassium 4.6 Chloride 102 Carbon Dioxide 26.0 Anion Gap 6 BUN 38 H Creatinine 1.74 H Estim Creat Clear Calc 43.13 Est GFR (MDRD) Af Amer 51 L Est GFR (MDRD) Non-Af 43 L BUN/Creatinine Ratio 21.8 H Glucose 143 H Calcium 9.6 Troponin I High Sens 103 H Radiography Diagnostic Testing: Radiology Impression Chest X-Ray 06/09/21 16:00 IMPRESSION: Findings suggestive of early changes of congestive failure. Clinical correlation recommended Electronically Signed: Ernesto Orr MD at 16:47 EDT , Service support , Critical Care Time Critical Care Time: Yes Critical care time (excluding procedures): 30-74 minutes ( min), Including time spent:, Discussing w/Patient &/or Family/Formulation Chemist, Discussing w/Consultants, Arranging Admission or Transfer and Performing Direct Patient Care at Bedside Discharge Plan Dx/Rx/DC Orders Clinical Impression: Acute ST elevation myocardial infarction (STEMI) of inferior wall Disposition Disposition: Located within [facility]
--- NOTE | 2021-06-09 17:56 | CL.I_ITS ---
Patient Name: JUDY ANGULO Study Date: 06/09/2021 Performing: Bartolo Brown MD Ht: 68.11 inches 173 cm : 1960 Wt: 185.19 lbs 84 kg Age: 60 Gender: male BSA: 1.98 PROCEDURE(S) PERFORMED [id number], ROLANDO AND/OR PTCA, ARTERY OR GRAFT, SINGLE VESSEL CLINICAL PROFILE AND CO-MORBIDITIES Indications: ACS <= 24 hrs Heart Failure: None Stress/Imaging Stress/Image Study Performed: No CAD Presentations: STEMI. Symptom onset Date/Time: 06/09/21 14:30:00 Time Estimated STEMI. Symptom onset Date/Time: 06/09/21 14:30:00 Time Estimated CONCLUSIONS CAD as described. Successful PCI of pLAD with ROLANDO RECOMMENDATIONS DESCRIPTION OF PROCEDURE The patient arrived to the procedure lab. The risks and benefits of the procedure as well as a full d escription of our services here and lack of surgical backup were fully explained to the patient and/o r their significant other prior to the catheterization. The Timeout was completed, verifying the nomi ect patient and procedure. The patient's procedural site was prepped and draped in the usual fashion. Local anesthetic was given subcutaneously to right groin region with Lidocaine 2%. Using a modified Seldinger technique, arterial access was obtained via the right femoral artery, a 6Fr sheath was inse rted.. Left Coronary Artery selective angiography was performed in multiple views using a 5 Fr. JL4 catheter. Left Coronary Artery selective angiography was performed in multiple views using a 5 Fr. JL 4 catheter Arterial sheath was exchanged for a 6fr 70cm Raabe sheath JR 4.0 Guide catheter was inserted and engaged into the RCA. XB 3.5 Guide catheter was inserted and engaged into the LCA. BMW Guide wire was advanced to the LAD. Priority One inserted Pass # 1 Priority One Removed Orsiro 3.5x18 Drug Eluting stent was inserted. Angiogram performed post stent deployment. Contrast was injected through the chanel th and the Right Iliac and Femoral artery were assessed for possible closure device. The arterial sh eath was pulled and a Perclose closure device was deployed for hemostasis CORONARY ANGIOGRAPHY DOMINANCE: Right Dominant LEFT HEART ASSESSMENT Left Ventricular Ejection Fraction: Not assessed LEFT MAIN: No significant disease noted LEFT ANTERIOR DESCENDING ARTERY: PROX LAD: 80 % hazy stenosis with thrombus CIRCUMFLEX ARTERY: No significant disease noted RIGHT CORONARY ARTERY: No significant disease noted INTERVENTION INFORMATION LESION SITE: LAD (Proximal) Lesion Complexity: High/C, chronic total occlusion: No, lesion at bifurcation: Yes, thrombus present: Yes, lesion length: 15 mm, culprit lesion: Yes, Previously treated lesion: No Pre Stenosis: 80 % Pre intervention CATERINA flow: 3 PROCEDURE: Thrombectomy, Drug Eluting Stent Tortuosity in iliac arteries required switching to a long sheath. Post Stenosis: 0 % Post intervention CATERINA flow: 3 Lesion Devices: [place] .014 BMW [place] Straight 190cm Cook 6F 70cm Raabe Sheath Cardinal 6 Fr XB3.5 100cm Guide Catheter [employer] Priority One Aspiration Catheter The 360 Mallronik Orsiro MR ROLANDO 3.5x18 COMPLICATIONS No Complications PROCEDURE MEDICATIONS Oxygen: 2 L/min via nasal cannula Heparin 2000 unit(s) IV 06/09/2021 17:23:27 IV Bolus: .9 NaCl 150ml total 06/09/2021 17:26:40 SUMMARY OF HEMODYNAMIC DATA Time AIR REST ECG 16:48:24 AO 89/72 (82) SA 17:07:45 AO 102/64 (78) 17:34:26 RM AIR REST 17:52:19 Signed By Bartolo Brown MD On 06/09/2021 17:55:32 Bartolo Brown MD
[2021-06-09] MEDS: 0.9% Normal Saline 1,000 ML 250 ML IV (18:00)
--- NOTE | 2021-06-09 18:07 | HP.PCM.HOS_ITS ---
HPI - General General Date of Admission: 06/09/21 HPI Narrative JUDY ANGULO, is a 60 M who presented to the emergency department at [facility] on 06/09/2021 after developing sudden onset central chest pain that radiated to his left arm. He had associated symptoms consisting of nausea and diaphoresis. He had a recent right total shoulder replacement. He reported that he had been doing well with regards to this. He has a history of hypertension, CKD, and gout. The patient had an abnormal EKG waiting ST wave elevation in the inferior leads. He was taken emergently to the [facility] by Dr. Brown. During left heart cath the patient was found to have an 80% haziness stenosis with thrombus in the LAD. A successful PCI of the proximal LAD with a ROLANDO was performed. [facility] Medical History CKD (chronic kidney disease), stage III Gout HTN (hypertension) Home Medications lisinopril 20 mg PO DAILY 02/02/15 [History Last Taken 12/29/19 10:00] amlodipine 5 mg PO DAILY 06/21/19 [History Last Taken 12/29/19 10:00] allopurinol 300 mg PO DAILY 06/26/19 [History Last Taken 12/29/19 10:00] Allergy/AdvReac Type Severity Reaction Status Date / Time cephalexin [From Keflex] AdvReac Vomiting Verified 06/09/21 15:58 Family History (Updated 06/09/21 @ 18:[address] Helen Burrows DO) Other Hypertension Surgical History H/O shoulder replacement Social History Smoking Status: Former smoker substance use type: does not use ROS Constitutional Constitutional: Denies anorexia, change in weight, chills, fatigue, fever(s), malaise, night sweats, weakness or other Eyes Eyes: Denies blurry vision, change in eye color, change in vision, discharge from eye(s), double vision, erythema, eye pain, loss of vision or other ENT HEENT: Denies abnormal hearing, dysphagia, ear pain, epistaxis, headache(s), hearing loss, nasal congestion, nasal discharge, post nasal drip, sinus pressure, sore throat or other Cardiovascular Cardiovascular: Reports chest pain and other Details: Diaphoresis ; Denies claudication, dyspnea on exertion, edema, lightheadedness, orthopnea, palpitations, paroxysmal nocturnal dyspnea, rapid heart rate or syncope Respiratory/Chest Respiratory/Chest: Reports shortness of breath at rest; Denies cough, dyspnea, excessive phlegm production, hemoptysis, productive cough, shortness of breath with exertion, wheezing or other Gastrointestinal Gastrointestinal: Reports nausea; Denies abdominal pain, coffee ground emesis, constipation, diarrhea, dyspepsia, hematemesis, hematochezia, loose stools, melena, vomiting or other Genitourinary Genitourinary: Denies burning urination, difficulty urinating, dysuria, hematuri a, nocturia, urinary frequency, urinary hesitancy, urinary incontinence, urinary urgency or other Musculoskeletal Musculoskeletal: Reports joint pain, joint stiffness and joint swelling; Denies arthralgias, back pain, myalgias, neck pain or other Neurologic Neurologic: Denies abnormal gait, abnormal speech, confusion, disequilibrium, dizziness, focal weakness, headache(s), numbness, paresthesias, seizure-like activity, seizures, syncope, tingling, tremor(s) or other Psychiatric Psychiatric: Denies anxiety, depression, homicidal ideation, suicidal ideation or other Endocrine Endocrinology: Denies change in body appearance, cold intolerance, excessive sweating, heat intolerance, polydipsia, polyuria or other Hematologic/Lymphatic Hematologic/Lymphatic: Denies anemia, easy bleeding, easy bruising, lymph adenopathy or other Allergic/Immunologic Allergic/Immunologic: Denies rhinitis, hives, eczemia, asthma or other Vital Signs Vital Signs Vital Signs: 06/09/21 15:58 06/09/21 16:13 06/09/21 16:17 Temperature 96.6 F L Temperature Source Temporal Pulse Rate 78 Respiratory Rate 19 H 19 H 98 H Respiratory Effort Blood Pressure 140/88 H 140/88 H 149/103 H Blood Pressure Mean 105 Pulse Ox 95 Oxygen Delivery Method Room Air Oxygen Flow Rate (L/min) 06/09/21 16:22 06/09/21 16:24 06/09/21 16:30 Temperature Temperature Source Pulse Rate 74 Respiratory Rate 12 Respiratory Effort Blood Pressure 149/103 H Blood Pressure Mean 118 Pulse Ox 99 98 Oxygen Delivery Method Nasal Cannula Nasal Cannula Nasal Cannula Oxygen Flow Rate (L/min) 2 2 2 06/09/21 16:31 06/09/21 16:41 Temperature 96.6 F L Temperature Source Temporal Pulse Rate 78 Respiratory Rate 19 H Respiratory Effort Normal Blood Pressure 140/88 H Blood Pressure Mean 105 Pulse Ox 95 Oxygen Delivery Method Room Air Oxygen Flow Rate (L/min) Weight Weight: 83.915 kg Body Mass Index (BMI) 28.1 Physical Exam Const alert, oriented x3 and no apparent distress Constitutional Narrative: Upper middle-aged white male lying in bed flat, right arm in a sling, patient appears comfortable and nontoxic General Appearance: cooperative HEENT normocephalic, head/scalp atraumatic, hearing grossly normal bilaterally, moist oral mucous membranes and oropharynx normal HEENT Narrative: Dentition is good, Mallampati is 2 Mouth: oral and palatal mucosa normal Eyes PERRL, EOMs intact bilaterally and conjunctivae normal Neck no lymphadenopathy, supple, no JVD and no carotid bruits Neck Narrative: Trachea midline, no thyroid enlargement noted Resp normal respiratory effort, no retractions, no use of accessory muscles and clear to auscultation bilaterally Auscultation: Negative for crackles, rales, rhonchi or wheezes Cardio regular rate, regular rhythm, S1 normal heart sound, S2 normal heart sound, no murmurs, no rub, no gallops, no clicks and no JVD GI normal to inspection, nondistended, normoactive bowel sounds, soft to palpation, non-tender and non-distended; Negative for hepatosplenomegaly Extremity no clubbing, cyanosis or edema Extremity Narrative: Right upper extremity in sling with a well-healing surgical incision anterior joint Peripheral Pulses: Yes pulses 2+ throughout Skin no rashes or lesions noted, skin turgor normal, no jaundice, no petechiae and no mottling Skin Narrative: Well-healing right shoulder incision, right groin is soft with post left heart cath bandage in place Neuro CN's II-XII intact bilaterally and moves all extremities Sensorium / Orientation: awake, alert, oriented to person, oriented to place and oriented to time Speech: speech normal Psych affect normal Results Lab / Micro Data Attestation: I reviewed the patient's lab results. Result Diagrams: 06/09/21 16:10 06/09/21 16:10 Labs: Laboratory Results - last 24 hr 06/09/21 16:10: WBC 16.4 H, RBC 3.71 L, Hgb 12.0 L, Hct 36.3 L, MCV 97.8 H, MCH 32.3 H, MCHC 33.1, RDW Std Deviation 47.9 H, RDW Coeff of Stephen 13.4, Plt Count 669 H, MPV 9.4, Immature Gran % (Auto) 1.700 H, Neut % (Auto) 71.5 H, Lymph % (Auto) 16.0 L, Blair % (Auto) 9.0, Eos % (Auto) 0.9, Baso % (Auto) 0.9, Absolute Neuts (auto) 11.7 H, Absolute Lymphs (auto) 2.62, Nucleated RBC % 0 06/09/21 16:10: Sodium 134 L, Potassium 4.6, Chloride 102, Carbon Dioxide 26.0, Anion Gap 6, BUN 38 H, Creatinine 1.74 H, Estim Creat Clear Calc 43.13, Est GFR (MDRD) Af Amer 51 L, Est GFR (MDRD) Non-Af 43 L, BUN/Creatinine Ratio 21.8 H, Glucose 143 H, Calcium 9.6, Troponin I High Sens 103 H 06/09/21 16:10: PT 13.4, INR 1.1, APTT 27.3 Radiology Impression Chest X-Ray 06/09/21 16:00 IMPRESSION: Findings suggestive of early changes of congestive failure. Clinical correlation recommended Electronically Signed: Ernesto Orr MD at 16:47 EDT , Service support , Assessment & Plan Assessment/Plan (1) Acute ST elevation myocardial infarction (STEMI) of inferior wall: (2) Chronic kidney disease: (3) Hypertension: (4) History of gout: PLAN: STEMI inferior wall -Status post PCI to proximal LAD with ROLANDO -Aspirin, Brilinta, statin, beta-sharron, continue home PENNY inhibitor -Check hemoglobin A1c in a.m. -Check a.m. lipids -Suspect cardiology will want to obtain an echocardiogram given his CKD and no LV gram done during the cath -Cardiology following-appreciate input Leukocytosis -Suspect reactive -We will monitor CKD stage IIIb -Baseline serum creatinine appears to be between 1.6 and 1.7 -Serum creatinine admission was 1.74 -Monitor closely with contrast administration Hypertension -Continue home lisinopril 20 mg daily -Hold amlodipine 5 mg daily as patient will start a beta-sharron -Monitor Gout -Continue allopurinol Recent right shoulder replacement -Continue recommended precautions from orthopedic surgeon DVT prophylaxis -Heparin CODE STATUS -Full code Charges/Coding Visit Charges Inpatient E&M: 72589 Init Hosp L3
--- NOTE | 2021-06-09 18:15 | EKG12_ITS ---
Test Reason : AM EKG Blood Pressure : / mmHG Vent. Rate : 060 BPM Atrial Rate : 060 BPM P-R Int : 154 ms QRS Dur : 100 ms QT Int : 404 ms P-R-T Axes : 043 065 050 degrees QTc Int : 404 ms Normal sinus rhythm Incomplete right bundle branch block Confirmed by ABBEY HAM, HE ([id number]), slot editor SHERRI GALARZA ([id number]) on 06/15/2021 9:43:17 AM Referred By: LAURYN Confirmed By:HE POTTER MD
[2021-06-09] MEDS: Heparin Injection (Vial) 5,000 UNIT/ML VIAL 5000 UNIT SC (21:24)
[2021-06-09] MEDS: TICAGRELOR 90 MG TABLET PO (21:24)
[2021-06-09] MEDS: Metoprolol Tartrate 25 MG Tablet PO (21:24)
[2021-06-09] MEDS: Atorvastatin Calcium 40 MG Tablet PO (21:24)
[2021-06-10] VITALS (24 sets, daily range): BP systolic 111–149; BP diastolic 80–100; PULSE 55–89; RESP 12–18; TEMP 36.6–36.8; O2SAT 96–100
[2021-06-10 04:30] LABS: Absolute Lymphocyte Count 2.78 X10^3/uL (0.83-4.51); Basophil# 0.11 X10^3/uL; Basophil% 0.8 % (0-1); Eosinophil# 0.15 X10^3/uL; Eosinophils% 1.1 % (0-5); Hematocrit 31.3 % (40-54); Hemoglobin 10.4 g/dL (13.0-16.5); Lymphocyte # 2.78 X10^3/ul (0.83-4.51); Lymphocyte % 20.3 % (19-41); Mean Corp Hgb Conc 33.2 g/dL (32-36); Mean Corpuscular Hgb 32.2 pg (27.0-32.0); Mean Corpuscular Volume 96.9 fL (80-94); Mean Platelet Vol. 8.9 fl (6.2-12.0); Monocyte# 1.54 X10^3/uL; Monocyte% 11.2 % (0-10); NRBC Flagged by Analyzer 0 % (0-5); Neutrophil # 8.97 X10^3/uL (2.7-7.7); Neutrophil % 65.6 % (47-70); POSITIVE DIFFERENTIAL YES; Platelet Count 548 K/mm3 (150-450); RBC Distribution Width CV 13.5 % (11.6-14.6); RBC Distribution Width SD 48.1 fl (35.1-43.9); Red Blood Count 3.23 M/mm3 (4.6-6.2); White Blood Count 13.7 K/mm3 (4.4-11.0)
[2021-06-10 04:53] LABS: Scan Indicated on CBC? Y/N YES- FLAGS NOTED
[2021-06-10 05:00] LABS: ALB/GLOB Ratio 0.8 RATIO (0.9-2.4); AST(SGOT) 39 U/L (15-37); Alanine Aminotransfer ALT/SGPT 20 U/L (16-61); Albumin, Serum 3.1 g/dL (3.2-5.0); Alkaline Phosphatase 81 U/L (45-117); Anion Gap 9 (5-15); BUN 30 mg/dL (7-18); BUN/Creat Ratio 19.4 RATIO (10-20); Calcium,Total 8.9 mg/dL (8.5-10.1); Chloride 103 mmol/L (98-107); Cholesterol 147 mg/dL (200); Creatinine, Serum 1.55 mg/dL (0.70-1.30); EST Glomerular Filtration Rate 49 mL/min (>60); Est Glom Filt Rate - Afr Amer 59 mL/min (>60); Estimated Creatinine Clearance 48.42 ml/min; Globulin 3.9 g/dL (2.2-4.2); Glucose 117 mg/dL (74-106); High Density Lipoprotein 34 mg/dL; Phosphorus 3.8 mg/dL (2.5-4.9); Potassium 4.3 mmol/L (3.5-5.1); Sodium Level 137 mmol/L (136-145); Triglycerides 269 mg/dL; Very Low Density Lipoprotein 54 mg/dL (5-40)
[2021-06-10 05:17] LABS: Differential Comment SCANNED
[2021-06-10 05:18] LABS: Atypical Lymphocyte RARE %
[2021-06-10] MEDS: Heparin Injection (Vial) 5,000 UNIT/ML VIAL 5000 UNIT SC ×3 (07:49→22:04)
[2021-06-10 07:54] LABS: Hemoglobin A1c 6.2 % (3.8-5.6)
[2021-06-10] MEDS: Metoprolol Tartrate 25 MG Tablet PO ×2 (08:52→22:04)
[2021-06-10] MEDS: TICAGRELOR 90 MG TABLET PO ×2 (08:52→22:04)
[2021-06-10] MEDS: Allopurinol 300 MG Tablet PO (08:52)
[2021-06-10] MEDS: Aspirin E.C. 81 MG Tablet PO (08:52)
[2021-06-10] MEDS: Lisinopril 20 MG Tablet PO (08:52)
--- NOTE | 2021-06-10 09:03 | PN.CARD_ITS ---
Subjective Subjective Overall, he states feeling well. Patient denies chest pain, shortness of breath, palpitations, lightheadedness, dizziness, PND, or orthopnea. Objective Data Vital Signs: Vital Signs Temp Pulse Resp BP Pulse Ox 98.2 F 73 16 143/100 H 100 06/10/21 04:00 06/10/21 08:52 06/10/21 08:00 06/10/21 08:00 06/10/21 08:00 Oxygen Flow Rate (L/min) 2 Oxygen Delivery Method Room Air Weight: 194 lb 3.636 oz Body Mass Index (BMI) 28.1 Intake & Output: Intake and Output for Last 24 Hours 06/08/21 06/09/21 06/10/21 23:59 23:59 23:59 Intake Total 1999 / 1999 240 / 240 Output Total 525 / 525 1150 / 1150 Balance 1475 / 1475 -910 / -910 Lab / Micro Data Result Diagrams: 06/10/21 04:15 06/10/21 04:15 Labs: Laboratory Results - last 24 hr 06/09/21 16:10: WBC 16.4 H, RBC 3.71 L, Hgb 12.0 L, Hct 36.3 L, MCV 97.8 H, MCH 32.3 H, MCHC 33.1, RDW Std Deviation 47.9 H, RDW Coeff of Stephen 13.4, Plt Count 669 H, MPV 9.4, Immature Gran % (Auto) 1.700 H, Neut % (Auto) 71.5 H, Lymph % (Auto) 16.0 L, [place] % (Auto) 9.0, Eos % (Auto) 0.9, Baso % (Auto) 0.9, Absolute Neuts (auto) 11.7 H, Absolute Lymphs (auto) 2.62, Nucleated RBC % 0 06/09/21 16:10: Sodium 134 L, Potassium 4.6, Chloride 102, Carbon Dioxide 26.0, Anion Gap 6, BUN 38 H, Creatinine 1.74 H, Estim Creat Clear Calc 43.13, Est GFR (MDRD) Af Amer 51 L, Est GFR (MDRD) Non-Af 43 L, BUN/Creatinine Ratio 21.8 H, Glucose 143 H, Calcium 9.6, Troponin I High Sens 103 H 06/09/21 16:10: PT 13.4, INR 1.1, APTT 27.3 06/10/21 04:15: WBC 13.7 H, RBC 3.23 L, Hgb 10.4 L, Hct 31.3 L, MCV 96.9 H, MCH 32.2 H, MCHC 33.2, RDW Std Deviation 48.1 H, RDW Coeff of Stephen 13.5, Plt Count 548 H, MPV 8.9, Immature Gran % (Auto) 1.000 H, Neut % (Auto) 65.6, Lymph % (Auto) 20.3, [place] % (Auto) 11.2 H, Eos % (Auto) 1.1, Baso % (Auto) 0.8, Absolute Neuts (auto) 9.0 H, Absolute Lymphs (auto) 2.78, Nucleated RBC % 0, Differential Comment SCANNED, Diff Path Review May foll, Atypical Lymphocytes RARE 06/10/21 04:15: Sodium 137, Potassium 4.3, Chloride 103, Carbon Dioxide 25.0, Anion Gap 9, BUN 30 H, Creatinine 1.55 H, Estim Creat Clear Calc 48.42, Est GFR (MDRD) Af Amer 59 L, Est GFR (MDRD) Non-Af 49 L, BUN/Creatinine Ratio 19.4, Glucose 117 H, Calcium 8.9, Phosphorus 3.8, Magnesium 2.0, Total Bilirubin 0.30, AST 39 H, ALT 20, Alkaline Phosphatase 81, Total Protein 7.0, Albumin 3.1 L, Globulin 3.9, Albumin/Globulin Ratio 0.8 L, Triglycerides 269 H, Cholesterol 147, LDL Cholesterol 59, VLDL Cholesterol 54 H, HDL Cholesterol 34 L 06/10/21 04:15: Hemoglobin A1c 6.2 H Cardiology Labs/Tests 06/09/21 16:10: WBC 16.4 H, RBC 3.71 L, Hgb 12.0 L, Hct 36.3 L, MCV 97.8 H, MCH 32.3 H, MCHC 33.1, Plt Count 669 H, MPV 9.4, Immature Gran % (Auto) 1.700 H, Neut % (Auto) 71.5 H, Lymph % (Auto) 16.0 L, [place] % (Auto) 9.0, Eos % (Auto) 0.9, Baso % (Auto) 0.9, Absolute Neuts (auto) 11.7 H, Nucleated RBC % 0 06/09/21 16:10: Sodium 134 L, Potassium 4.6, Chloride 102, Carbon Dioxide 26.0, Anion Gap 6, BUN 38 H, Creatinine 1.74 H, Est GFR (MDRD) Af Amer 51 L, Est GFR (MDRD) Non-Af 43 L, BUN/Creatinine Ratio 21.8 H, Glucose 143 H, Calcium 9.6 06/09/21 16:10: PT 13.4, INR 1.1, APTT 27.3 06/10/21 04:15: WBC 13.7 H, RBC 3.23 L, Hgb 10.4 L, Hct 31.3 L, MCV 96.9 H, MCH 32.2 H, MCHC 33.2, Plt Count 548 H, MPV 8.9, Immature Gran % (Auto) 1.000 H, Neut % (Auto) 65.6, Lymph % (Auto) 20.3, [place] % (Auto) 11.2 H, Eos % (Auto) 1.1, Baso % (Auto) 0.8, Absolute Neuts (auto) 9.0 H, Nucleated RBC % 0 06/10/21 04:15: Sodium 137, Potassium 4.3, Chloride 103, Carbon Dioxide 25.0, Anion Gap 9, BUN 30 H, Creatinine 1.55 H, Est GFR (MDRD) Af Amer 59 L, Est GFR (MDRD) Non-Af 49 L, BUN/Creatinine Ratio 19.4, Glucose 117 H, Calcium 8.9, Phosphorus 3.8, Magnesium 2.0, Total Bilirubin 0.30, Triglycerides 269 H, Cholesterol 147, LDL Cholesterol 59, VLDL Cholesterol 54 H, HDL Cholesterol 34 L 06/10/21 04:15: Hemoglobin A1c 6.2 H Rhythm: Sinus Rhythm EKG: ECHO: Stress Test: Cardiac Cath: 06/09/2021 CONCLUSIONS CAD as described. Successful PCI of pLAD with ROLANDO RECOMMENDATIONS CORONARY ANGIOGRAPHY DOMINANCE: Right Dominant LEFT HEART ASSESSMENT Left Ventricular Ejection Fraction: Not assessed LEFT MAIN: No significant disease noted LEFT ANTERIOR DESCENDING ARTERY: PROX LAD: 80 % hazy stenosis with thrombus CIRCUMFLEX ARTERY: No significant disease noted RIGHT CORONARY ARTERY: No significant disease noted PCI: 06/09/[address] Surgery: Holter monitor: EPS: PPM: CXR: Chest CT Scan: Radiography Diagnostic Testing: Radiology Impression Chest X-Ray 06/09/21 16:00 IMPRESSION: Findings suggestive of early changes of congestive failure. Clinical correlation recommended Electronically Signed: Ernesto Orr MD at 16:47 EDT , Service support , Physical Exam Const alert and oriented x3 Orientation / Consciousness: awake HEENT normocephalic Neck no JVD Chest inspection of chest normal Resp normal respiratory effort and clear to auscultation bilaterally Auscultation: Negative for crackles, rales, rhonchi or wheezes Cardio regular rate, regular rhythm, S1 normal heart sound, S2 normal heart sound and no murmurs Jugular Venous Distention: Negative for JVD Rate: regular rate and bradycardia Rhythm: regular rhythm Heart Sounds: S1 normal and S2 normal; Negative for gallop, murmur or rub Bruits: Negative for carotid bruit Peripheral Pulses: pulses 2+ throughout GI normal to inspection, nondistended, normoactive bowel sounds no CVA tenderness Groin / Perineum Exam: ecchymosis and other soft, light purple color, warm, no drainage ; Negative for edema or tenderness Extremity normal to inspection and normal capillary refill Peripheral Pulses: Yes pulses 2+ throughout Psych mental status grossly normal Assessment & Plan Assessment/Plan (1) Atherosclerosis of coronary artery of [place] heart without angina pectoris: QUALIFIERS: Coronary Disease-Associated Artery/Lesion type: [place] artery Qualified Code(s): I25.10 - Atherosclerotic heart disease of [place] coronary artery without angina pectoris PLAN: Patient denies any chest pain, arm pain, jaw pain, neck pain, shortness of breath, or fatigue suggestive of angina at this time. His EKG shows sinus rhythm with improved ST elevation in lead III and aVL. Ther e is no ventricular dysrhythmia overnight. He will undergo echocardiogram to evaluated EF and establish baseline. Patient's kidney function is improved today. His hemoglobin will be monitored as there does not appear to be overt bleeding concerns. (2) History of coronary artery stent placement: PLAN: He will continue aspirin 81 mg p.o. daily, atorvastatin 40 mg p.o. daily, lisinopril 20 mg p.o. daily, metoprolol tartrate 25 mg p.o. twice daily, and Brilinta 90 mg p.o. twice daily. His LDL this morning is below 70. (3) Essential hypertension: PLAN: Patient's blood pressure is well-controlled. We will continue to monitor and adjust medication over time. We will not make any medication regimen changes.
--- NOTE | 2021-06-10 09:43 | ECHOD_ITS ---
Reason For Study: STEMI Procedure This was a 2D Doppler, Color Flow transthoracic echocardiogram. Exam performed portable in ICU/CCU. Left Ventricle Normal LV size. The estimated ejection fraction is 65 %. No evidence for diastolic dysfunction. No regional wall motion abnormalities noted. Right Ventricle Normal RV size. Normal systolic function. Atria Normal left atrium. Normal right atrium. No doppler evidence for ASD. Mitral Valve There is no mitral valve stenosis. No mitral valve insufficiency. Tricuspid Valve There is no tricuspid stenosis. Unable to estimate RV systolic pressure due to inadequate jet, pulmonary artery pressure probably normal. Aortic Valve Trisinus/trileaflet aortic valve. There is no aortic stenosis. No aortic valve insufficiency. Pulmonic Valve There is no pulmonic valvular stenosis. Trivial pulmonic valve insufficiency. Great Vessels Normal aortic root. Pericardium/Pleural No pericardial effusion. MMode/2D Measurements & Calculations LVIDd: 4.8 cm IVSd: 1.2 cm Ao root diam: 3.4 cm LVIDs: 3.5 cm LVPWd: 1.2 cm RVDd: 3.7 cm FS: 27.6 % LAV(MOD-bp): 66.2 ml LA A4 area: 22.3 cm2 LA dimension(2D): 3.8 cm LAV(MOD-bp) Indexed: 32.8 ml/m2 LAV(MOD-sp2): 61.8 ml LAV(MOD-sp4): 64.6 ml RA A4 area: 17.0 cm2 Time Measurements MV dec time: 0.21 sec Doppler Measurements & Calculations MV E max jigar: 81.3 cm/sec Lat Peak E' Jigar: 9.6 cm/sec Med Peak E' Jigar: 10.1 cm/sec MV A max jigar: 70.6 cm/sec E/E' lat: 8.5 E/E' med: 8.0 MV E/A: 1.2 Ao V2 max: 152.4 cm/sec LV V1 max: 127.5 cm/sec PA V2 max: 102.9 cm/sec Ao max P.3 mmHg LV V1 max P.5 mmHg TR max jigar: 267.0 cm/sec TR max P.5 mmHg ECHO/Echo Complete Interpretation Summary The estimated ejection fraction is 65 %. No evidence for diastolic dysfunction. Ordering Physician: Eb Leach Referring Physician: CHIDI DIEGO Performed By: Emy Mcneill RDCS, RVT
--- NOTE | 2021-06-10 10:01 | CON.PCM.CA_ITS ---
Assessment & Plan Assessment/Plan (1) Acute ST elevation myocardial infarction (STEMI) of inferior wall: PLAN: Patient was treated with thrombectomy and drug-eluting stent to the LAD. We will keep the patient on aspirin, Brilinta, lisinopril, metoprolol and Lipitor. We will check a 2D echo to evaluate LVEF. Patient does have LV dysfunction then we will switch from metoprolol tartrate to Coreg or metoprolol succinate. HPI Consult Data Date of Consult: 06/10/21 HPI Narrative HPI Narrative: 60-year-old male presenting with chest pain. Patient was found to have inferior ST elevation on the EKG and was brought emergently to the [facility]. He was found to have hazy stenosis in the LAD with thrombus that was treated with thrombectomy and drug-eluting stent placement. He was admitted to the ICU after that for further management of his STEMI. Review of systems: All systems reviewed. All else is negative except that in HPI PFSH Medical History (Updated 06/10/21 @ 09:07 by Eb Leach MOWER OPERATOR, MOWER OPERATOR-C) Atherosclerosis of coronary artery of [place] heart without angina pectoris CKD (chronic kidney disease), stage III Essential hypertension Gout Home Medications lisinopril 20 mg PO DAILY 02/02/15 [History Last Taken 12/29/19 10:00] amlodipine 5 mg PO DAILY 06/21/19 [History Last Taken 12/29/19 10:00] allopurinol 300 mg PO DAILY 06/26/19 [History Last Taken 12/29/19 10:00] Allergy/AdvReac Type Severity Reaction Status Date / Time cephalexin [From Keflex] AdvReac Vomiting Verified 06/09/21 15:58 Family History (Updated 06/09/21 @ 18:[address] Helen Burrows DO) Other Hypertension Surgical History (Updated 06/10/21 @ 08:40 by Mireya Ortiz) H/O shoulder replacement History of coronary artery stent placement Social History Smoking Status: Former smoker substance use type: does not use Physical Exam Const alert and oriented x3 Orientation / Consciousness: awake HEENT normocephalic Eyes no scleral icterus Resp normal respiratory effort Cardio regular rate Skin no rashes or lesions noted Neuro oriented x3 Psych mental status grossly normal Objective Data Vital Signs: Vital Signs Temp Pulse Resp BP Pulse Ox 98.2 F 73 16 143/100 H 100 06/10/21 04:00 06/10/21 08:52 06/10/21 08:00 06/10/21 08:00 06/10/21 08:00 Oxygen Flow Rate (L/min) 2 Oxygen Delivery Method Room Air Weight: 194 lb 3.636 oz Body Mass Index (BMI) 28.1 Intake & Output: Intake and Output for Last 24 Hours 06/08/21 06/09/21 06/10/21 23:59 23:59 23:59 Intake Total 1999 240 / 240 Output Total 525 / 525 1150 / 1150 Balance 1475 / 1475 -910 / -910 Lab / Micro Data Result Diagrams: 06/10/21 04:15 06/10/21 04:15 Labs: Laboratory Results - last 24 hr 06/09/21 16:10: WBC 16.4 H, RBC 3.71 L, Hgb 12.0 L, Hct 36.3 L, MCV 97.8 H, MCH 32.3 H, MCHC 33.1, RDW Std Deviation 47.9 H, RDW Coeff of Stephen 13.4, Plt Count 669 H, MPV 9.4, Immature Gran % (Auto) 1.700 H, Neut % (Auto) 71.5 H, Lymph % (Auto) 16.0 L, [place] % (Auto) 9.0, Eos % (Auto) 0.9, Baso % (Auto) 0.9, Absolute Neuts (auto) 11.7 H, Absolute Lymphs (auto) 2.62, Nucleated RBC % 0 06/09/21 16:10: Sodium 134 L, Potassium 4.6, Chloride 102, Carbon Dioxide 26.0, Anion Gap 6, BUN 38 H, Creatinine 1.74 H, Estim Creat Clear Calc 43.13, Est GFR (MDRD) Af Amer 51 L, Est GFR (MDRD) Non-Af 43 L, BUN/Creatinine Ratio 21.8 H, Glucose 143 H, Calcium 9.6, Troponin I High Sens 103 H 06/09/21 16:10: PT 13.4, INR 1.1, APTT 27.3 06/10/21 04:15: WBC 13.7 H, RBC 3.23 L, Hgb 10.4 L, Hct 31.3 L, MCV 96.9 H, MCH 32.2 H, MCHC 33.2, RDW Std Deviation 48.1 H, RDW Coeff of Stephen 13.5, Plt Count 548 H, MPV 8.9, Immature Gran % (Auto) 1.000 H, Neut % (Auto) 65.6, Lymph % (A uto) 20.3, [place] % (Auto) 11.2 H, Eos % (Auto) 1.1, Baso % (Auto) 0.8, Absolute Neuts (auto) 9.0 H, Absolute Lymphs (auto) 2.78, Nucleated RBC % 0, Differential Comment SCANNED, Diff Path Review May foll, Atypical Lymphocytes RARE 06/10/21 04:15: Sodium 137, Potassium 4.3, Chloride 103, Carbon Dioxide 25.0, Anion Gap 9, BUN 30 H, Creatinine 1.55 H, Estim Creat Clear Calc 48.42, Est GFR (MDRD) Af Amer 59 L, Est GFR (MDRD) Non-Af 49 L, BUN/Creatinine Ratio 19.4, Glucose 117 H, Calcium 8.9, Phosphorus 3.8, Magnesium 2.0, Total Bilirubin 0.30, AST 39 H, ALT 20, Alkaline Phosphatase 81, Total Protein 7.0, Albumin 3.1 L, Globulin 3.9, Albumin/Globulin Ratio 0.8 L, Triglycerides 269 H, Cholesterol 147, LDL Cholesterol 59, VLDL Cholesterol 54 H, HDL Cholesterol 34 L 06/10/21 04:15: Hemoglobin A1c 6.2 H Cardiology Labs/Tests 06/09/21 16:10: WBC 16.4 H, RBC 3.71 L, Hgb 12.0 L, Hct 36.3 L, MCV 97.8 H, MCH 32.3 H, MCHC 33.1, Plt Count 669 H, MPV 9.4, Immature Gran % (Auto) 1.700 H, Neut % (Auto) 71.5 H, Lymph % (Auto) 16.0 L, [place] % (Auto) 9.0, Eos % (Auto) 0.9, Baso % (Auto) 0.9, Absolute Neuts (auto) 11.7 H, Nucleated RBC % 0 06/09/21 16:10: Sodium 134 L, Potassium 4.6, Chloride 102, Carbon Dioxide 26.0, Anion Gap 6, BUN 38 H, Creatinine 1.74 H, Est GFR (MDRD) Af Amer 51 L, Est GFR (MDRD) Non-Af 43 L, BUN/Creatinine Ratio 21.8 H, Glucose 143 H, Calcium 9.6 06/09/21 16:10: PT 13.4, INR 1.1, APTT 27.3 06/10/21 04:15: WBC 13.7 H, RBC 3.23 L, Hgb 10.4 L, Hct 31.3 L, MCV 96.9 H, MCH 32.2 H, MCHC 33.2, Plt Count 548 H, MPV 8.9, Immature Gran % (Auto) 1.000 H, Neut % (Auto) 65.6, Lymph % (Auto) 20.3, [place] % (Auto) 11.2 H, Eos % (Auto) 1.1, Baso % (Auto) 0.8, Absolute Neuts (auto) 9.0 H, Nucleated RBC % 0 06/10/21 04:15: Sodium 137, Potassium 4.3, Chloride 103, Carbon Dioxide 25.0, Anion Gap 9, BUN 30 H, Creatinine 1.55 H, Est GFR (MDRD) Af Amer 59 L, Est GFR (MDRD) Non-Af 49 L, BUN/Creatinine Ratio 19.4, Glucose 117 H, Calcium 8.9, Phosphorus 3.8, Magnesium 2.0, Total Bilirubin 0.30, Triglycerides 269 H, Cholesterol 147, LDL Cholesterol 59, VLDL Cholesterol 54 H, HDL Cholesterol 34 L 06/10/21 04:15: Hemoglobin A1c 6.2 H Rhythm: EKG: ECHO: Stress Test: Cardiac Cath: PCI: CT Surgery: Holter monitor: EPS: PPM: CXR: Chest CT Scan: Radiography Diagnostic Testing: Radiology Impression Chest X-Ray 06/09/21 16:00 IMPRESSION: Findings suggestive of early changes of congestive failure. Clinical correlation recommended Electronically Signed: Ernesto Orr MD at 16:47 EDT , Service support ,
--- NOTE | 2021-06-10 10:42 | CRPH1.INST_ITS ---
General Education CAD and cardiac anatomy and function:: Patient communicates acknowledgment Explanation of diagnoses and procedures:: Patient communicates acknowledgment, Needs reinforcement Sign/Symptoms of [place]:: Patient communicates acknowledgment, Needs reinforcement Antiplatelet therapy: Patient communicates acknowledgment, Needs reinforcement Proper use of NTG-SL: Patient communicates acknowledgment, Needs reinforcement Emergency procedures and activation of EMS: Patient communicates acknowledgment, Needs reinforcement Compliance of all prescribed medications: Patient communicates acknowledgment, Needs reinforcement Smoking Patient Nicotine/Smoking Risk Factors Are:: Cigarettes Recommendations Include:: Previous smoker; encourage continued cessation Nicotine/Smoking Response Code:: Patient communicates acknowledgment, Needs reinforcement Dyslipidemia Patient Dyslipidemia Risk Factors Are:: Triglycerides, HDL Recommendations Include:: Lipid profile provided, Reviewed NCEP/ATP guidelines, Therapeutic Lifestyle Change dietary guidelines Dyslipidemia Response Code:: Patient communicates acknowledgment, Needs reinforcement Overweight/Obesity Patient Overweight/Obesity Risk Factors Are:: Overweight = 26-29 Recommendations Include:: Weight loss of 5-10%, Reduced calorie diet, Exercise 5-7 times/week Overweight/Obesity:: Patient communicates acknowledgment, Needs reinforcement Hypertension Recommendations Include:: Maintain BP <130/85, DASH dietary guidelines, Decre ase/maintain normal body weight, Moderation of ETOH Hypertension:: Patient communicates acknowledgment, Needs reinforcement Heart Disease Recommendations Include:: Educated family members of their risk, Educated family members of importance of prevention of heart disease Heart Disease Response Code:: Patient communicates acknowledgment, Needs reinforcement Metabolic Syndrome Patient Metabolic Syndrome Risk Factors Are [3 of 5]:: Fasting blood sugar > 100 mg/dL, Waist circumference > 35 [female] or 40 [male], High triglyceride >150, Hypertension, Low HDL <40 [male] or < 50 [female] Recommendations Include:: Reinforce compliance to risk factor modifications, Encouraged follow-up with Primary Care Physician Metabolic Syndrome Response Code:: Patient communicates acknowledgment, Needs reinforcement Sedentary Patient Sedentary Risk Factors Are:: Lack of regular exercise Recommendations Include:: Aerobic exercise 5-7 times/week for 20-30 minutes continuously, Benefits of regular exercise, Discussed home walking program, Monitored Outpatient Cardiac Rehab Sedentary Response Code:: Patient communicates acknowledgment, Needs reinforcement Stress Patient Stress Risk Factors Are:: Patient denies stress as a risk factor Recommendations Include:: Identification of stressors, and assessment of coping skills, Stress management techniques Stress Response Code:: Patient communicates acknowledgment, Needs reinforcement
--- NOTE | 2021-06-10 10:42 | CRPHASE1 ---
Patient Communication PHII Cardiac Rehab Discussed with Patient:: Yes Guide to Cardiac Rehab Given to Patient:: Yes Cardiac Rehab Facility Choice List Given to Patient:: Yes Choice Program [facility] CR PHII:: Communication Given to CR Mortgage Closer:: Astrid Brown Refer Phase II Cardiac Rehab:: Yes Sessions:: 36 sessions - 3 days/wk, 12 weeks Cardiac Rehabilitation Info Cardiac Rehabilitation Program Information: Cardiac Rehabilitation is important for patients like you who are recovering from a heart problem. Cardiac rehabilitation programs are recognized as integral to the continued care of the patient with coronary heart disease. The cardiac rehabilitation program is designed to optimize a patient's physical, psychological, and social functioning. Health cardiac care unit nurse work in cardiac rehabilitation programs and assist you with getting the treatments you need to get stronger and healthier - like exercise, healthy eating habits, and medications. Cardiac rehabilitation has been show to help people with heart problems live longer and have better life enjoyment than people who do not go to cardiac rehabilitation. Please contact the Cardiac Rehabilitation Program at [facility] at in two weeks if you have not heard from them.
--- NOTE | 2021-06-10 12:00 | CASEMGMT ---
TATYANA ALBARRAN Face to Face with patient for initial transition planning/care coordination assessment. RN CM introduced self and role at [facility]. Patient sitting in chair, alert and oriented. Patient willing to participate in assessment and is able to answer all questions appropriately. Care providers, pharmacy, and demographics verified. Patient wishes to discharge home, denies need for home health at this time. Patient states he has no further needs or concerns at this time. CM to follow for discharge planning needs that may arise. PCP: Melisa Specialists: KEVIN mensah Preferred Pharmacy: [facility] Insurance: [place] Prescription Benefit: yes, Brilinta savings card provided to patient Living Will/HPOA: none LNOK: brother, significant other Living Arrangements: Patient lives with significant other in a 2nd floor apartment. Patient states he is independent and able to ambulate stairs. Transportation: self, significant other DME/HHC: Patient states he has crutches at home. Denies further DME or HHC. Disposition Plan: Patient to discharge home with family support and follow-up plans in place. Becky MERIDA, RN, CM
--- NOTE | 2021-06-10 12:57 | PN.HOSP_ITS ---
Subjective Subjective No further chest pain. Feels well currently. Objective Data Objective Data Vital Signs: Vital Signs Temp Pulse Resp BP Pulse Ox 36.8 C 62 16 129/91 H 97 06/10/21 12:00 06/10/21 12:00 06/10/21 12:00 06/10/21 12:00 06/10/21 12:00 Oxygen Flow Rate (L/min) 2 Oxygen Delivery Method Room Air Weight: 88.1 kg Body Mass Index (BMI) 28.1 Intake & Output: Intake and Output for Last 24 Hours 06/08/21 06/09/21 06/10/21 23:59 23:59 23:59 Intake Total 1999 / 1999 240 / 240 Output Total 525 / 525 1500 / 1500 Balance 1475 / 1475 -1260 / -1260 Lab / Micro Data Result Diagrams: 06/10/21 04:15 06/10/21 04:15 Labs: Laboratory Results - last 24 hr 06/09/21 16:10: WBC 16.4 H, RBC 3.71 L, Hgb 12.0 L, Hct 36.3 L, MCV 97.8 H, MCH 32.3 H, MCHC 33.1, RDW Std Deviation 47.9 H, RDW Coeff of Stephen 13.4, Plt Count 669 H, MPV 9.4, Immature Gran % (Auto) 1.700 H, Neut % (Auto) 71.5 H, Lymph % (Auto) 16.0 L, [place] % (Auto) 9.0, Eos % (Auto) 0.9, Baso % (Auto) 0.9, Absolute Neuts (auto) 11.7 H, Absolute Lymphs (auto) 2.62, Nucleated RBC % 0 06/09/21 16:10: Sodium 134 L, Potassium 4.6, Chloride 102, Carbon Dioxide 26.0, Anion Gap 6, BUN 38 H, Creatinine 1.74 H, Estim Creat Clear Calc 43.13, Est GFR (MDRD) Af Amer 51 L, Est GFR (MDRD) Non-Af 43 L, BUN/Creatinine Ratio 21.8 H, Glucose 143 H, Calcium 9.6, Troponin I High Sens 103 H 06/09/21 16:10: PT 13.4, INR 1.1, APTT 27.3 06/10/21 04:15: WBC 13.7 H, RBC 3.23 L, Hgb 10.4 L, Hct 31.3 L, MCV 96.9 H, MCH 32.2 H, MCHC 33.2, RDW Std Deviation 48.1 H, RDW Coeff of Setphen 13.5, Plt Count 548 H, MPV 8.9, Immature Gran % (Auto) 1.000 H, Neut % (Auto) 65.6, Lymph % (Auto) 20.3, [place] % (Auto) 11.2 H, Eos % (Auto) 1.1, Baso % (Auto) 0.8, Absolute Neuts (auto) 9.0 H, Absolute Lymphs (auto) 2.78, Nucleated RBC % 0, Differential Comment SCANNED, Diff Path Review February foll, Atypical Lymphocytes RARE 06/10/21 04:15: Sodium 137, Potassium 4.3, Chloride 103, Carbon Dioxide 25.0, Anion Gap 9, BUN 30 H, Creatinine 1.55 H, Estim Creat Clear Calc 48.42, Est GFR (MDRD) Af Amer 59 L, Est GFR (MDRD) Non-Af 49 L, BUN/Creatinine Ratio 19.4, Glucose 117 H, Calcium 8.9, Phosphorus 3.8, Magnesium 2.0, Total Bilirubin 0.30, AST 39 H, ALT 20, Alkaline Phosphatase 81, Total Protein 7.0, Albumin 3.1 L, Laon bulin 3.9, Albumin/Globulin Ratio 0.8 L, Triglycerides 269 H, Cholesterol 147, LDL Cholesterol 59, VLDL Cholesterol 54 H, HDL Cholesterol 34 L 06/10/21 04:15: Hemoglobin A1c 6.2 H Radiography Diagnostic Testing: Radiology Impression Chest X-Ray 06/09/21 16:00 IMPRESSION: Findings suggestive of early changes of congestive failure. Clinical correlation recommended Electronically Signed: Chidi Orr MD at 16:47 EDT , Service support , Echocardiogram 06/10/21 09:43 Interpretation Summary The estimated ejection fraction is 65 %. No evidence for diastolic dysfunction. Ordering Physician: Eb Leach Referring Physician: CHIDI DIEGO Performed By: Emy Mcneill, SONALICS, RVT Physical Exam Const alert Resp normal respiratory effort, no retractions, no use of accessory muscles and clear to auscultation bilaterally Cardio regular rate, regular rhythm, S1 normal heart sound and S2 normal heart sound GI normal to inspection, nondistended, normoactive bowel sounds, soft to palpation, non-tender and non-distended Extremity normal to inspection Extremity Narrative: Intact incision of the right shoulder Assessment & Plan Assessment/Plan (1) Acute ST elevation myocardial infarction (STEMI) of inferior wall: PLAN: 1. ST elevation myocardial infarction Status post PCI to the LAD on second. Continue with high intensity statin, aspirin and ticagrelor 2D echocardiogram shows EF of 65% 2. Leukocytosis Trending down but appears to be chronic Follow-up with hematology as outpatient 3. Chronic kidney disease stage IIIa Creatinine appears to be slightly better today GFR is 49 as compared to 43 from yesterday. Follow-up with nephrology as outpatient 4. Disposition: We will transfer the patient to the progressive care unit. Anticipated discharge will be June 11. Charges/Coding Visit Charges Inpatient E&M: 72913 Subs Hosp L2
--- NOTE | 2021-06-10 18:01 | PCS.PANDOC ---
PANDEMIC DOCUMENTATION INITIATED: Date: 05/23/2021 Time: 190
[2021-06-10] MEDS: Atorvastatin Calcium 40 MG Tablet PO (22:04)
[2021-06-11] VITALS (7 sets, daily range): BP systolic 123–146; BP diastolic 84–90; PULSE 60–81; RESP 12–16; TEMP 36.7–36.9; O2SAT 97–98
[2021-06-11 06:17] LABS: Absolute Lymphocyte Count 3.22 X10^3/uL (0.83-4.51); Absolute Neutrophil Count 9.4 X10^3/uL (2.0-7.7); Basophil% 0.7 % (0-1); Eosinophil# 0.19 X10^3/uL; Eosinophils% 1.3 % (0-5); Hematocrit 33.6 % (40-54); Hemoglobin 11.1 g/dL (13.0-16.5); Lymphocyte # 3.22 X10^3/ul (0.83-4.51); Lymphocyte % 21.7 % (19-41); Mean Corpuscular Hgb 32.2 pg (27.0-32.0); Mean Corpuscular Volume 97.4 fL (80-94); Mean Platelet Vol. 9.4 fl (6.2-12.0); Monocyte# 1.68 X10^3/uL; Monocyte% 11.3 % (0-10); NRBC Flagged by Analyzer 0 % (0-5); Neutrophil # 9.43 X10^3/uL (2.7-7.7); Neutrophil % 63.7 % (47-70); POSITIVE DIFFERENTIAL YES; Platelet Count 571 K/mm3 (150-450); RBC Distribution Width CV 13.4 % (11.6-14.6); RBC Distribution Width SD 47.7 fl (35.1-43.9); Red Blood Count 3.45 M/mm3 (4.6-6.2); White Blood Count 14.8 K/mm3 (4.4-11.0)
[2021-06-11 06:26] LABS: Differential Indicated SCAN CRITERIA MET
[2021-06-11 06:46] LABS: Anion Gap 4 (5-15); BUN 32 mg/dL (7-18); BUN/Creat Ratio 20.9 RATIO (10-20); Calcium,Total 9.3 mg/dL (8.5-10.1); Chloride 106 mmol/L (98-107); Creatinine, Serum 1.53 mg/dL (0.70-1.30); EST Glomerular Filtration Rate 49 mL/min (>60); Est Glom Filt Rate - Afr Amer 60 mL/min (>60); Estimated Creatinine Clearance 49.05 ml/min; Glucose 103 mg/dL (74-106); Potassium 4.8 mmol/L (3.5-5.1); Sodium Level 135 mmol/L (136-145)
[2021-06-11 06:58] LABS: Differential Comment SCANNED
[2021-06-11] MEDS: Aspirin E.C. 81 MG Tablet PO (08:45)
--- NOTE | 2021-06-11 10:00 | PCM.DC ---
Discharge Instructions Diet Discharge Diet: Low fat / Low cholesterol Activity Discharge Activity: Return to Normal Activity Lifting Restrictions: no more weight greater than 20 pounbds Dressing / Incision Call your doctor if your incision/area has: Continuous Slow Oozing, Sudden Increased Bleeding, Increased Pain/ Swelling, Increased Redness and Swelling at the incision site Call your doctor if you observe: Shortness of breath, Dizziness and Chest pain Follow Up Care Test Results: Test results from this visit will be discussed in further detail at your follow-up appointment, if applicable. Discharge Plan Admission Admit Date/Time: 06/09/21 18:01 Primary Reason for Your Visit: myocardial infarction. Attending Provider: Phillip Liu Primary Care Provider: Ernesto Vincent Discharge Orders/Prescriptions Prescriptions: New atorvastatin 40 mg Tablet 40 mg PO QHS Qty: 30 RF: 0 aspirin 81 mg Tablet,Delayed Release (Dr/Ec) 81 mg PO DAILY@0800 Qty: 0 RF: 0 metoprolol tartrate 25 mg Tablet 25 mg PO BID Qty: 60 RF: 0 Brilinta 90 mg Tablet 90 mg PO BID Qty: 60 RF: 0 Continued lisinopril 20 MG tablet 20 mg PO DAILY RF: 0 allopurinol 300 MG tablet 300 mg PO DAILY RF: 0 Discontinued amlodipine 5 MG tablet 5 mg PO DAILY RF: 0 Referrals / Follow Up: Ernesto Vincent MD [Primary Care Provider] - Within 2 Weeks Astrid Brown MD [STAFF PHYSICIAN] - Within 2 Weeks Disposition Disposition (needs filled in before D/C Order can be placed): Home, Self Care
--- NOTE | 2021-06-11 10:05 | DS.PCM_ITS ---
Providers Date of Admission: 06/09/21 Primary Care Physician: Dr. Chidi Diego MD Reason For Visit: STEMI Diagnosis Discharge Diagnosis (1) Acute ST elevation myocardial infarction (STEMI) of inferior wall: Status: Acute Code(s): I21.19 - ST elevation (STEMI) myocardial infarction involving other coronary artery of inferior wall Medications at Discharge Home Medications lisinopril 20 mg PO DAILY 02/02/15 allopurinol 300 mg PO DAILY 06/26/19 aspirin 81 mg PO DAILY@0800 #0 tab 06/11/21 atorvastatin 40 mg PO QHS #30 tab 06/11/21 metoprolol tartrate 25 mg PO BID #60 tab 06/11/21 ticagrelor [Brilinta] 90 mg PO BID #60 tab 06/11/21 Hospital Course Operations None Procedures 2-D Echocardiogram and Cardiac catheterization Summary of Care Provided Minutes Spent on Discharge: 32 Hospital Course: 60 year old male presents with chest pain. Patient was found to have ST elevations patient was taken to the [facility] emergently. Patient underwent successful percutaneous coronary intervention to the LAD on the second. Patient had an echocardiogram that showed preserved ejection fraction of 65%. Patient's course was uncomplicated patient did have some ecchymosis at his right femoral site but no pseudoaneurysm. Patient will continue with dual antiplatelet therapy with aspirin and ticagrelor. Patient continue with high intensity statin with 40 mg of atorvastatin. Patient follow-up with cardiology in the next 2 weeks. Physical Exam Const alert Resp normal respiratory effort, no use of accessory muscles and clear to auscultation bilaterally Cardio regular rate, regular rhythm, S1 normal heart sound and S2 normal heart sound GI normal to inspection, nondistended, normoactive bowel sounds, soft to palpation, non-tender and non-distended Extremity normal to inspection Skin Skin Narrative: Ecchymosis at the right femoral site. No hematoma appreciated. Weight / BMI Weight Weight: 84.5 kg Body Mass Index (BMI) 28.1 ABG / Lab / Microbiology Data Result Diagrams: 06/11/21 05:36 06/11/21 05:36 Laboratory: Laboratory Results - last 24 hr 06/11/21 05:36: WBC 14.8 H, RBC 3.45 L, Hgb 11.1 L, Hct 33.6 L, MCV 97.4 H, MCH 32.2 H, MCHC 33.0, RDW Std Deviation 47.7 H, RDW Coeff of Stephen 13.4, Plt Count 571 H, MPV 9.4, Immature Gran % (Auto) 1.300 H, Neut % (Auto) 63.7, Lymph % (Auto) 21.7, [place] % (Auto) 11.3 H, Eos % (Auto) 1.3, Baso % (Auto) 0.7, Absolute Neuts (auto) 9.4 H, Absolute Lymphs (auto) 3.22, Nucleated RBC % 0, Differential Comment SCANNED, Diff Path Review February foll 06/11/21 05:36: Sodium 135 L, Potassium 4.8, Chloride 106, Carbon Dioxide 25.0, Anion Gap 4 L, BUN 32 H, Creatinine 1.53 H, Estim Creat Clear Calc 49.05, Est GFR (MDRD) Af Amer 60, Est GFR (MDRD) Non-Af 49 L, BUN/Creatinine Ratio 20.9 H, Glucose 103, Calcium 9.3 Radiography Diagnostic Testing: Radiology Impression Echocardiogram 06/10/21 09:43 Interpretation Summary The estimated ejection fraction is 65 %. No evidence for diastolic dysfunction. Ordering Physician: Eb Leach Referring Physician: CHIDI DIEGO Performed By: Emy Mcneill, SONALICS, RVT D/C Instructions Discharge Diet: Low fat / Low cholesterol Call your doctor if your incision/area has: Continuous Slow Oozing, Sudden Incre ased Bleeding, Increased Pain/ Swelling, Increased Redness and Swelling at the incision site Call your doctor if you observe: Shortness of breath, Dizziness and Chest pain Meaningful Use Info Meaningful Use Diagnoses (Choose all that apply): AMI AMI/Post PCI/Angioplasty Aspirin given w/in 24hrs of arrival?: Yes ASA at discharge?: Yes Antiplatelet Therapy at Discharge:: Yes Statins at discharge?: Yes [place]/ARB at discharge?: Yes Beta Bao at discharge?: Yes Done w/ Acute CT measure.: Yes Documented LVEF (%): 65 Discharge Plan Admission Admit Date/Time: 06/09/21 18:01 Primary Reason for Your Visit: myocardial infarction. Attending Provider: Phillip Liu Primary Care Provider: Chidi Diego Discharge Orders/Prescriptions Prescriptions: New atorvastatin 40 mg Tablet 40 mg PO QHS Qty: 30 RF: 0 aspirin 81 mg Tablet,Delayed Release (Dr/Ec) 81 mg PO DAILY@0800 Qty: 0 RF: 0 metoprolol tartrate 25 mg Tablet 25 mg PO BID Qty: 60 RF: 0 Brilinta 90 mg Tablet 90 mg PO BID Qty: 60 RF: 0 Continued lisinopril 20 MG tablet 20 mg PO DAILY RF: 0 allopurinol 300 MG tablet 300 mg PO DAILY RF: 0 Discontinued amlodipine 5 MG tablet 5 mg PO DAILY RF: 0 Referrals / Follow Up: Chidi Diego MD [Primary Care Provider] - Within 2 Weeks Astrid Brown MD [STAFF PHYSICIAN] - Within 2 Weeks Disposition Disposition (needs filled in before D/C Order can be placed): Home, Self Care Charges/Coding Visit Charges Inpatient E&M: 95272 Disch Hosp
[2021-06-11] MEDS: TICAGRELOR 90 MG TABLET PO (10:33)
[2021-06-11] MEDS: Allopurinol 300 MG Tablet PO (10:33)
[2021-06-11] MEDS: Lisinopril 20 MG Tablet PO (10:34)
[2021-06-11] MEDS: Metoprolol Tartrate 25 MG Tablet PO (10:34)
[2021-06-14 10:05] LABS: Pathologist Review Reviewed
--- NOTE | 2021-06-14 15:18 | CASEMGMT ---
TATYANA ALBARRAN Discharge Follow-up Phone Call: JUSTEN: Magdalena Strata: 3 Call Date: 06/14/21 Discharge Date: 06/11/21 Time of Call: 1515 Duration: 3 min Admitting Diagnosis: STEMI TATYANA ALBARRAN completed follow-up phone call after recent hospitalization. Patient states he is doing well. Patient had no questions or concerns regarding discharge instructions. Patient was able to fill prescriptions without any issues. Patient has follow-up appts scheduled. Patient had no further questions at this time.
[2021-06-15 09:49] LABS: Pathologist Review Reviewed
== END 2021-06-11 13:53 | disposition home or self-care (01) | DRG 174 ==
LOC: ED 16:22 → ICU 17:28 → PCU 06-10 17:52
PROVIDERS: Internal Medicine; Admitting Provider Specialist; Emergency Provider Emergency Medicine; PCP Family Medicine
DX: I21.19 ST elevation (STEMI) myocardial infarction involving other coronary artery of inferior wall (principal); I25.10 Atherosclerotic heart disease of native coronary artery without angina pectoris; M10.9 Gout, unspecified; I12.9 Hypertensive chronic kidney disease with stage 1 through stage 4 chronic kidney disease, or unspecified chronic kidney disease; N18.32 Chronic kidney disease, stage 3b; H54.7 Unspecified visual loss; Z96.611 Presence of right artificial shoulder joint; Z79.899 Other long term (current) drug therapy; Z82.49 Family history of ischemic heart disease and other diseases of the circulatory system; Z87.891 Personal history of nicotine dependence
CPT/HCPCS: 36415; 71045; 80048; 80053; 80061; 83036; 83735; 84100; 84484; 85025; 85027; 85610; 85730; 92941; 93005; 93306; 93458; 97802; 99251; 99285; C1757; C1874; J7030; Q9967; A4216; C1760; C1769; C1887; C1894; C9606; G0463; J1327; J2405

== ENCOUNTER → 2021-06-21 09:29 | Outpatient (CLI) | payer MEDICAID, SELFPAY ==
--- NOTE | 2021-06-21 09:35 | PCM.CR.ITP ---
Diagnosis - General Information Admitting Diagnosis: ST ELEVATED MYOCARDIAL INFARCTION (STEMI). PCI w/coronary angioplasty implant and graft Personal Learning Style:: Audio/Visual, Written Barriers to Learning: No Barriers Stage of change r/t lifestyle modifications:: Action Gave educational material for:: Treating Heart Disease, Emotions & Heart Disease, Stress Management & Relaxation, Sleep Disorders & Heart Disease, How The Heart Works, What it means to have Heart Disease, How Coronary Artery Disease is Diagnosed, Heart Procedures, What Heart Medications Do, Risk Factors & Modifications, Living an Active Life, Nutrition - Education/Goals Individual Counseling: Initial Assessment: Abnormal Cholesterol Levels, High Blood Pressure Cardiac Rehabilitation Goals: 1. Maintain the individual as the primary focus of care. 2. To improve the patient's quality of life. 3. Identification of cardiac risk factors and provide cardiac risk factor management. 4. Enhance the psychosocial status of the patient. 5. Reconditioning enough to allow the patient to resume customary activities. 6. Control symptoms of cardiac disease Personal Goals: Initial Assessment: Improve management of stress and emotions, Get back to work, or to resume activities faster, Improve knowledge of cardiac disease, Improve diet and eating habits (eat healthier), Control risk factors (learn risk factor modification) Scale for measuring improvement of personal goals: Enter appropriate number in Comments. 2 = Unchanged. 3 = Slightly Better. 4 = Moderate Improvement. 5 = Met my Goal - Diagnosis & Disease Process Outcomes/Goals: Pt IDs own risk factors & lifestyle modifications by Session 10, Verbalizes symptoms of angina & response by session 3., Pt independently manages Plan/Interventions: Assist Pt to ID & engage in lifestyle modification to reduce CVD risk, Instruct on individual risk factors, Review symptoms of angina & emergency actions, Review secondary diagnosis & identify educational needs. - Safety Referral to Physical Therapy: No Referral to [facility] Case Management: No Fall Risk Assessed:: Yes Assistive Devices:: None Exercise - Initial Assessment - Visit Date of Eval: 06/21/21 Session #:: 0 - precardiac rehab evaluation Mets: Pre-: >5 METS for 30 minutes by discharge - Physician Prescribed Exercise Modalities: Treadmill, Rower, Airdyne, NuStep Frequency: 3x/week for 12 weeks [36 sessions] Intensity: 60-80% of age predicted maximum heart rate reserve - Outcomes & Goals Goals:: Verbalizes understanding of THR, RPE & goal METS by session 6, Documents in home exercise log/reports 30 min aerobic 5 day/wk by DC, Demonstrates accurate pulse taking by DC - Intervention & Plan Exercise Program Goals: Instruct on personal THR & RPE, Instruct on MET level & personal MET goal, Instruct on home exercise - Physical Activity Home Exercise Physical Activity - Home Exercise: Safe Exercise, Warm-up, Self-monitoring, Cool-Down, Home Exercise > 30 min Daily, Sitting Time <3 hours/daily - Outcomes & Goals Outcomes/Goals: Demonstrates correct Warm-up/exercise Cool-Down (S3) if = 2.5 METs, Verbalizes symptoms of exercise intolerance by Session 3 (S3), Demonstrate safe equipment use (S3) & follows exercise prescrition (6) - Intervention & Plan Plan/Intervention: Instruct warm-up & cool-down if exercising at > 2 METs, Instruct on symptoms of exercise intolerance & actions to take, Instruct & monitor on saf, Assess intial functional capacity & safety risk Nutrition - Initial Assessment - Program Goals Nutrition Program Goals: LDL <100 optimal. 100 - 129 Near optimal. 130 - 159 Borderline High. 160 - 189 High. Total Cholesterol <200 desirable. 200 - 239 Borderline High. >/= 240 High. HDL < 40 Low >/=60 High. Triglycerides <150 desirable. <199 optimal. VlDL 5 - 40. HgbA1C <7%. BMI <25 Patient has diagnosis of Hyperlipidemia (ICD E78)?: Yes - Visit Date of Assessment:: 06/21/21 Session #:: 0 - precardiac rehab evaluation - Cholesterol/Lipids Triglycerides (mg/dL): 269 - 06/10/2021 Total Cholesterol (mg/dL): 147 LDL Cholesterol (mg/dL): 59 HDL Cholesterol (mg/dL): 54 Determine presence & major risk factors that modify LDL goal: Cigarette smoking, Hypertension or hypertensive medication, Family history of premature CHD in Male < 55 years: female <65 yearsFa, Age men > 45 years; women >/= 55 years Outcomes/Goals: Pt IDs own risk factors & lifestyle modifications by Session 10, Verbalizes symptoms of angina & response by session 3., Pt independently manages Intervention/Plan: Instruct on personal lipid levels & lipid goals/NCEP guidelines, Instruct on cholesterol Referral to dietitian:: Yes - Medical Nutrition Therapy - Diabetes (Other Core Measures) Diabetes Type: Not Applicable - Weight Mgt (Other Care) Height: 5 ft 8 in Weight:: 194 lb BMI: 29.5 Diagnosis Overweight/Obesity BMI> 30% ICD-10 E66: No Diagnosis High BMI/Morbid Obesity BMI> 35% ICD-10 Z68: No Outcomes/Goals: Pt sets, maintains & shows weight loss goal & trend during rehab Intervention/Plan: Instruct on ideal BMI & set weight loss goal w/patient, Assist pt to ID & incorporate diet changes for weight loss by S9, Encourage goal of using 250-300dcal per session for weight loss - Healthy Eating Habits Will attend diet classes:: Yes Outcomes/Goals:: Consume diet rich in vegs,fruits,whole grain/high fiber,fish,lean meat, Limit sat/trans fats,cholesterol & added salts & sugars Intervention/Plan:: Assess current eating habits - Education Gave educational materials for:: Healthy eating Nutrition - 30-Day Assessment Nutrition - 60-Day Assessment Nutrition - 90-Day Assessment Nutrition - Final Assessment Medical - Initial Assessment - Visit Date of Eval: 06/21/21 Session #:: 0 - precardiac rehab evaluation - Medication Compliance Preventative Medication(s):: Aspirin, Ticagrelor/P2Y12 inhibitor, Statin/lipid, Beta sharron H/O mental health issues: depression, anxiety, or addiction?: No Doesn?t believe in the benefits of treatment?: No Believes medications are unnecessary or harmful?: No Has a concern about medication side effects?: No Expresses concern over the cost of medications?: No Outcomes/Goals: Verbalizes medications,desired effect & common side effects @ DC, Pt self-reports following medication regimen, Keeps card in wallet w/medications listed by DC Interventions/plans: Instruct on medication effects & side effects, Review medication list w/patient every two weeks, Instruct importance of taking meds as ordered & assist problem solving - Tobacco Use Tobacco Use: Non-smoker - former smoker How long ago did you quit using tobacco products?: Less than 6 months ago - Hypertension Hypertension Diagnosis:: Hypertension ICD-10 I10 Resting Blood Pressure:: 142/100 [place] [employer] Hypertension Guidelines: [place] [employer] Hypertension Guidelines. Normal BP Less than 120/80. Elevated BP 120/80. Hypertension Stage 1: BP 130-139/80-89. Hypertesnion Stage 2: BP 140 or higher/90 or higher. Hypertension Crisis: BP higher than 180/120 Outcomes/Goals: Able to verbalize/achieve optimal blood pressure <130/80, Incorporates diet changes & exercise for blood pressure control by DC Interventions/plan: Instruct on optimal blood pressure, hypertension & medications, Instruct on effects of sodium, alcohol, stress, exercise &hypertension - Tobacco Cessation Referral Smoking Cessation Referral:: No Individual Education/Counseling:: No Education Schedule Given:: Yes - online education instructions & workbook provided Medical- 30-Day Assessment Medical- 60-Day Assessment Medical- 90-Day Assessment Medical - Final Assessment Psychosocial - Initial Assess - VIsit Date of Eval: 06/21/21 Session #:: 0 - pre-cardiac rehab evaluation Not Applicable: No - Psychosocial Test Tool Used:: [facility] QOL Cardiac, PHQ-9 Questionnaire phq-9 Severity: Severity. 1-4 Minimal Depression. 5-9 Mild Depression. 10-14 Moderate Depression. 15-19 Moderately Sever Depression. 20-27 Severe Depression. Rule: - Referral to Behavioral Health PS - Interventions: Yes Attend Stress Management Classes, No Referral to Behavioral Health if PHQ-9 score >9:, No Referral to [facility], No Referral to Physician if PHQ-9 if score is 5-9: - Outcomes/Goals: See list Psychosocial Outcomes/Goals:: ID's personal stressors & 2 strategies to manage stress by discharge - Intervention/Plan: See List Interventions/Plan:: Assess stressors,coping strategies & signs of derpression on admission, Instruct/assist pt to develop coping & personal stress Mgt strategies, Instruct patient to recognize signs & symptoms of depression, Instruct patient to recog Psychosocial - 30-Day Assess Psychosocial - 60-Day Assess Psychosocial - 90-Day Assess Psychosocial - Final Assessmen Patient Health Questionnaire Initial Assessment 1. Little interest or pleasure in doing things: Not at all 2. Feeling down, depressed, or hopeless: Not at all 3. Trouble falling or staying asleep, or sleeping too much: Not at all 4. Feeling tired or having little energy: Not at all 5. Poor appetite or overeating: Several days 6. Feeling bad about yourself -- or that you are a failure or have let yourself or your family down: Not at all 7. Trouble concentrating on things, such as reading the newspaper or watching television: Not at all 8. Moving or speaking so slowly that other people could have noticed. Or the opposite - being so fidgety or restless that you have been moving around a lot more than usual: Not at all 9. Thoughts that you would be better off , or of hurting yourself in some way: Not at all How difficult have these problems made it for you to do your work, take care of things at home, or get along with other people?: Somewhat difficult Total Score: 1 JAYLA-Q SV Test - Statements CAD is a disease of the arteries in the heart: False Examples of risk factors for heart disease: True Angina is chest pain or discomfort: I Don't Know The benefits of resistance training include: True Eating more meat and dairy products: False Anti-platelet medications such as aspirin are important: I Don't Know The only effective way to manage stress: False An exercise warm-up slowly increases heart rate: I Don't Know Prepared, processed foods usually have high sodium: True Depression is common after a heart attack: I Don't Know The statin medications lower cholesterol: True To control blood pressure, lower the amount of sodium: True If someone gets chest discomfort during walking: False Transfats are partially hydrogenated vegetable oils: I Don't Know Sleep apnea that is not treated increases the risk: I Don't Know To control cholesterol, one should become a vegetarian: I Don't Know Someone knows if he/she is exercising at the right level: I Don't Know Diabetes cannot be prevented with exercise & health eating: False Stress is a large risk for heart attack: True A diet that can help lower blood pressure is rich in: True - Total Score Total Correct Responses: 12 Self-Efficacy Initial Assessment We would like to know how confident you are in doing certain activities. Please select your confidence level for:: Select your confidence level for the following using the scale 1-10 where 1 is not at all confident and 10 is totally confident. Your score is the average of all 6 responses. Fatigue: How confident are you that you can keep the fatigue caused by your disease from interfering with the things you want to do? Select Number: 8 Physical Discomfort or Pain: How confident are you that you can keep the physical discomfort or pain of your disease from interfering with the things you want to do? Select Number: 8 Emotional Distress: How confident are you that you can keep the emotional distress caused by your disease from interfering with the things you want to do? Select Number: 10 Other Symptoms or Health Problems: How confident are you that you can keep other symptoms or health problems from interfering with the things you want to do? Select Number: 10 Different Tasks and Activities: How confident are you that you can do the different tasks and activities needed to manage your health condition so as to reduce your need to see a doctor? Select Number: 10 Medication: How confident are you that you can do things other than just taking medication to reduce how much your illness affects your everyday life? Select Number: 10 Total Score:: 9 Nutrition Survey - Nutrition Survey Initial Have you lost >10 lbs over the past 2 months without trying?: No Are you following a special diet at home for diabetes, low fat, or low salt?: No Are you interested in meeting with a dietitian for help understanding your diet?: Yes Do you eat less than 3 meals a day?: Yes Do you eat fatty meats (griffin, sausage, ribs, etc), fried foods, desserts, large amounts of salad dressings, margarine, butter, or cheese most days?: No Do you have food allergies? [Enter types in comment field]: No Do you eat in restaurants more than 3 times a week?: No Do you season food with salt, seasoning salt, or garlic salt?: No Do you used canned, boxed, frozen meals, or soups, seasoning packets?: Yes Total Score:: 3
--- NOTE | 2021-06-21 09:36 | PCM.CR.HP2 ---
CR - History & Physical - General Arrival date:: 06/21/21 Arrival time:: 09:37 Date of Referral:: 06/10/21 Date of CR Evaluation:: 06/21/21 Referring Physician: Dr. Brown - History of Present Cardiac Event Onset Date: Enter Onset Date of cardiac illnesses in Comment field below Acute Myocardial Infarction within 12 months:: Yes - STEMI - ST-elevated myocardiaol infarction PTCA or coronary stenting:: Yes - PCI w/coronary agioplasty implant and graft Type of Symptoms:: 60 yr old male was itting outside suddenly developed central chest pain radiating to the left arm. Patient presented to the emergency room with nausea and sweating. Interventions with present event:: Emergency heart cath and stent placement - Sleep Disorder Evaluation Hx of Sleep Apnea: No Do you snore loudly (louder than talking or can be heard through closed doors)?: No Do you often feel tired/ fatigued/ sleepy during daytime?: Yes Has anyone observed you stop breathing during sleep?: No History of Hypertension (for STOP score): Yes STOP Results: Positive - Medications Home Medications: Ambulatory Orders Medication Instructions Recorded lisinopril 20 mg PO DAILY 02/02/15 allopurinol 300 mg PO DAILY 06/26/19 aspirin 81 mg PO DAILY@0800 #0 tab 06/11/21 atorvastatin 40 mg PO QHS #30 tab 06/11/21 metoprolol tartrate 25 mg PO BID #60 tab 06/11/21 ticagrelor [Brilinta] 90 mg PO BID #60 tab 06/11/21 - Allergies Allergies/Adverse Reactions: Allergies cephalexin [From Keflex] Adverse Reaction (Verified 06/09/21 15:58) Vomiting Advanced Directives - Advanced Directives 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 Living Will: No Advance Directives Information Provided: Yes Advance Directives on File: No DNR Order?:: No - MOLST See MOLST form: No Past Medical History - Covid-19 Screening Fever: No Unexplained muscle aches: No Current respiratory symptoms: No Upper respiratory infections symptoms: No Gastro-intestinal symptoms: No [id number] symptoms: No Has tested positive for COVID-19 in last 30 days: No Date of testin01/21/21 - Moderna vaccine taken Had contact w/person w/symptoms or Covid-19 (+) last 14 days: No Has High Risk Exposures ID'd by Health dept/Inf Control team: No 65 years or older:: No Lives in Assisted Living facility:: No Has a chronic lung disease or moderate to severe asthma:: No Has a serious heart condition:: No Immunocompromised:: No Severely obese (Body Mass Index of 40 or higher):: No Diabetic:: No Has chronic kidney disease undergoing dialysis:: Yes Has liver disease:: No - Past Medical Illness Medical History: Past Medical History (Last Updated 06/10/21 @ 08:40 by Mireya Ortiz) Atherosclerosis of coronary artery of [place] heart without angina pectoris I25.10 Chronic kidney disease N18.9 CKD (chronic kidney disease), stage III N18.3 Essential hypertension I10 Gout M10.9 History of gout Z87.39 - Past Surgical History Surgical History: Past Surgical History (Last Updated 06/21/21 @ 10:09 by David Clarke, [employer]E KNOT[employer], HOME HEALTH CARE WORKER, BS) H/O shoulder replacement Onset Date: ~05/25/21 Z96.619 done at [facility] History of coronary artery stent placement Z95.5 3.5 x 18 mm Orsiro MR ROLANDO to pLAD 06/09/21 Status post arthroscopic surgery of left knee Z98.890 Status post arthroscopic surgery of right knee Z98.890 - Family History Summary Family History: Family History (Last Updated 06/09/21 @ 18:[address] Helen Burrows, DO) Other Hypertension Social History - Smoking History Smoking Status: Former smoker Hx Tobacco Use: No Hx Smoking Exposure: Yes - Alcohol Use Alcohol Usage: No - Substance Abuse Hx Substance Use: No - Occupation Occupation (List type of work in comments):: Unemployed - disability - Hobbies, Recreation, Social Activities Hobbies: Sports, Walking, Exercise - swimming, Other - outdoor person Recreational Activities: I am able to engage in a few activities Social Environment - Status Marital Status: - Current Living Arrangements Living Environment:: Spouse - significant other - Children How many children do you have?: 0 Do any of your children live nearby?: No - Safety Do you feel safe in your surroundings?: Yes - Assistance Do you need any assistance at home?: no Review of Systems - Review of Systems Hints: Right click = Denies ([place]). Left click = Reports ([place]) Review of Present Symptoms: Reports: Dizziness/Lightheadedness - feels one medication contributesd to the dizziness., Fatigue, Sleep - Normal. Denies: Shortness of Breath at Rest, Shortness of Breath with Exertion, Angina, Heart Arrhythmia/Irregularities, Appetite - Normal - lack of appetite - Pain Is Patient Pain Free?: No Pain Location: upper extremity - right shoulder total replacement Risk Factor Assessment - Vital Signs Temperature: 97.5 F Respiratory Rate: 16 Pulse Ox: 98 Blood Pressure: 112/60 - Pulse Pulse Rate: 54 Pulse Rhythm: Regular - Hypertension Blood Pressure Sitting - Left Arm: 112/60 - Blood Cholesterol/Lipids Total Cholesterol (mg/dL) Goal = less than 200 mg/dL: 147 - 06/10/2021 HDL Cholesterol (mg/dL) Goal = less than 40 mg/dL: 34 LDL Cholesterol (mg/dL) Goal = less than 70 mg/dL: 59 Triglycerides (mg/dL) Goal = less than 150 mg/dL: 269 - Diabetes Nutrition Referral for Diabetes: No - Obesity Height: 5 ft 8 in Weight:: 194 lb Weight in Pounds: 194.0 lbs Weight Source: Stated by Patient Body Mass Index (BMI): 29.5 Nutritional Referral for Obesity: No - Physical Inactivity Physical Inactivity: Reg Exercise 30 min/day - Risk Stratification Risk Guidelines: Lowest Risk: Risk Factor for Smoking, Risk Factor for Dyslipidemia, Risk Factor for Diabetes, Risk Factor for Hypertension, Risk Factor for Sedentary Lifestyle, Risk Factor for Depression, Highest Risk: Risk Factor for Obesity - Family History Family History: Family History (Last Updated 06/09/21 @ 18:[address] Helen Burrows, DO) Other Hypertension Motivation - Motivation to Participate On a scale of 1 to 10, how prepared are you to commit to attending program?: 10 What do you see as barriers to successfully being able to complete the program?: none What do you see as the benefits of succesfully completing the program? In other words, what do you hope to get out of participating in the program?: improving my health Are there issues you are dealing with that will interfere with completing the program?: none Do you have a spouse or signficant other, family or friends who will help support you to complete the program?: yes
[2021-06-21 09:56] VITALS: BP 142/100; BMI 29.5
[2021-06-21 10:18] VITALS: BP 112/60; PULSE 54; RESP 16; TEMP 36.4; O2SAT 98; BMI 29.5
== END ==
PROVIDERS: PCP Family Medicine; Visit Provider Specialist
DX: I25.10 Atherosclerotic heart disease of native coronary artery without angina pectoris (principal); I25.2 Old myocardial infarction; Z95.5 Presence of coronary angioplasty implant and graft

== ENCOUNTER 2021-07-06 14:30 | Outpatient (RCR) | payer MEDICAID, SELFPAY ==
[2021-06-21 09:56] VITALS: BMI 29.5
== END 2021-07-07 23:59 ==
LOC: CR 14:30
PROVIDERS: PCP Family Medicine; Referring Provider Specialist; Visit Provider Specialist
DX: I25.10 Atherosclerotic heart disease of native coronary artery without angina pectoris (principal); Z95.5 Presence of coronary angioplasty implant and graft
CPT/HCPCS: 93798

== ENCOUNTER 2021-08-05 14:30 | Outpatient (RCR) | payer MEDICAID, SELFPAY ==
[2021-06-21 09:56] VITALS: BMI 29.5
--- NOTE | 2021-07-22 09:33 | CR.ITP_ITS ---
Diagnosis Exercise - 30-day Assessment - Visit Date of Eval: 07/22/21 Session #:: 11 - Physician Prescribed Exercise Modalities: Treadmill, Airdyne, NuStep Frequency: 3x/week for 12 weeks [36 sessions] Intensity: 60-80% of age predicted maximum heart rate reserve Current METSs:: 4 Target Heart Rate:: 103-135 Current RPE:: 12 Maximum Excercise HR:: 87 Resting Blood Pressure: 92/62 Maximum Exercise Blood Pressure: 132/68 EKG Type: NSR to sinus tachy with rare PAC and T wave inversion - Outcomes & Goals Goals:: Verbalizes understanding of THR, RPE & goal METS by session 6, Documents in home exercise log/reports 30 min aerobic 5 day/wk by DC, Demonstrates accurate pulse taking by DC, Other additional outcome/goals: see below - Intervention & Plan Exercise Program Goals: Instruct on personal THR & RPE, Instruct on MET level & personal MET goal, Show patient to take own pulse /validate performance until accurate, Instruct on home exercise, Other additional plan/int - 30-day Reassessments 30 day Reassessments:: Progressing - Physical Activity Home Exercise Physical Activity - Home Exercise: Safe Exercise, Warm-up, Self-monitoring, Cool-Down, Home Exercise > 30 min Daily, Sitting Time <3 hours/daily - Outcomes & Goals Outcomes/Goals: Demonstrates correct Warm-up/exercise Cool-Down (S3) if = 2.5 METs, Verbalizes symptoms of exercise intolerance by Session 3 (S3), Demonstrate safe equipment use (S3) & follows exercise prescrition (6), Other: See below - Intervention & Plan Plan/Intervention: Instruct warm-up & cool-down if exercising at > 2 METs, Instruct on symptoms of exercise intolerance & actions to take, Instruct & monitor on saf, Assess intial functional capacity & safety risk, Other See below - 30-day Reassessments 30 day Reassessments:: Progressing Nutrition - Initial Assessment Nutrition - 30-Day Assessment - Visit Date of Assessment:: 07/22/21 Session #:: 11 - Cholesterol/Lipids Determine presence & major risk factors that modify LDL goal: Cigarette smoking, Hypertension or hypertensive medication, Low HDL cholesterol <40 mg/dL*, Family history of premature CHD in Male < 55 years: female <65 yearsFa, Age men > 45 years; women >/= 55 years Outcomes/Goals: Pt IDs own risk factors & lifestyle modifications by Session 10, Verbalizes symptoms of angina & response by session 3., Pt independently manages, Other Additional Outcomes/Goals: Intervention/Plan: Advocate for lipid panel cholesterol medication if applicable, Instruct on personal lipid levels & lipid goals/NCEP guidelines, Instruct on cholesterol, Other additional plan/int Referral to dietitian:: Yes - medical nutrition therapy 30-day Reassessments:: Progressing - Diabetes (Other Core Measures) Diabetes Type: Not Applicable - Weight Mgt (Other Care) Height: 5 ft 8 in Weight:: 88.451 kg BMI: 29.6 Diagnosis Overweight/Obesity BMI> 30% ICD-10 E66: No Diagnosis High BMI/Morbid Obesity BMI> 35% ICD-10 Z68: No Outcomes/Goals: Pt sets, maintains & shows weight loss goal & trend during rehab, Other additional outcomes/goals Intervention/Plan: Instruct on ideal BMI & set weight loss goal w/patient, Assist pt to ID & incorporate diet changes for weight loss by S9, Refer to Structured Weight Loss program as appropriate, Encourage goal of using 250- 300dcal per session for weight loss, Other additional plan/interventions 30 day Reassessments:: Progressing - Healthy Eating Habits Will attend diet classes:: Yes Outcomes/Goals:: Consume diet rich in vegs,fruits,whole grain/high fiber,fish,lean meat, Limit sat/trans fats,cholesterol & added salts & sugars, Other additional outcome/goals: Intervention/Plan:: Assess current eating habits, Other Additional plan/interventions 30-day Reassessments:: Progressing - Education Gave educational materials for:: Signs & symptoms of hypoglycemia, Signs & symptoms of hyperglycemia, Relate diabetes to coronary artery disease, Healthy eating Nutrition - 60-Day Assessment Nutrition - 90-Day Assessment Nutrition - Final Assessment Medical - Initial Assessment Medical- 30-Day Assessment - Visit Date of Eval: 07/22/21 Session #:: 11 - Medication Compliance Preventative Medication(s):: Aspirin, Ticagrelor/P2Y12 inhibitor, Statin/lipid, Beta sharron H/O mental health issues: depression, anxiety, or addiction?: No Doesn?t believe in the benefits of treatment?: No Believes medications are unnecessary or harmful?: No Has a concern about medication side effects?: No Expresses concern over the cost of medications?: No Outcomes/Goals: Verbalizes medications,desired effect & common side effects @ DC, Pt self-reports following medication regimen, Keeps card in wallet w/medications listed by DC, Other additional outcome/goals: Interventions/plans: Instruct on medication effects & side effects, Review medication list w/patient every two weeks, Instruct importance of taking meds as ordered & assist problem solving, Other additional 30-day Reassessments:: Progressing - Tobacco Use Tobacco Use: Non-smoker - Hypertension Hypertension Diagnosis:: Hypertension ICD-10 I10 Resting Blood Pressure:: 92/62 [employer] Hypertension Guidelines: [employer] [place] [employer] Hypertension Guidelines. Normal BP Less than 120/80. Elevated BP 120/80. Hypertension Stage 1: BP 130-139/80-89. Hypertesnion Stage 2: BP 140 or higher/90 or higher. Hypertension Crisis: BP higher than 180/120 Peak Exercise Blood Pressure:: 132/68 Outcomes/Goals: Able to verbalize/achieve optimal blood pressure <130/80, In corporates diet changes & exercise for blood pressure control by DC, Other additional outcomes/goals Interventions/plan: Instruct on optimal blood pressure, hypertension & med ications, Instruct on effects of sodium, alcohol, stress, exercise &hypertension, Other additional plan/interventions 30 day Reassessments:: Progressing - Tobacco Cessation Referral Smoking Cessation Referral:: No Individual Education/Counseling:: No Education Schedule Given:: Yes Medical- 60-Day Assessment Medical- 90-Day Assessment Medical - Final Assessment Psychosocial - Initial Assess Psychosocial - 30-Day Assess - VIsit Date of Eval: 07/22/21 Session #:: 11 History of previous Mental disease:: No - Outcomes/Goals: See list Psychosocial Outcomes/Goals:: ID's personal stressors & 2 strategies to manage stress by discharge, Other Additional outcome/goals: - 30-day Reassessments: 30 day Reassessments:: Progressing Psychosocial - 60-Day Assess Psychosocial - 90-Day Assess Psychosocial - Final Assessmen Patient Health Questionnaire 30-Day Re-eval Assessment 1. Little interest or pleasure in doing things: Not at all 2. Feeling down, depressed, or hopeless: Not at all 3. Trouble falling or staying asleep, or sleeping too much: Not at all 4. Feeling tired or having little energy: Not at all 5. Poor appetite or overeating: Several days 6. Feeling bad about yourself -- or that you are a failure or have let yourself or your family down: Not at all 7. Trouble concentrating on things, such as reading the newspaper or watching television: Not at all 8. Moving or speaking so slowly that other people could have noticed. Or the opposite - being so fidgety or restless that you have been moving around a lot more than usual: Not at all 9. Thoughts that you would be better off , or of hurting yourself in some way: Not at all How difficult have these problems made it for you to do your work, take care of things at home, or get along with other people?: Not difficult at all Total Score: 1 Self-Efficacy 30-Day Re-eval Assessment We would like to know how confident you are in doing certain activities. Please select your confidence level for:: Select your confidence level for the following using the scale 1-10 where 1 is not at all confident and 10 is totally confident. Your score is the average of all 6 responses. Fatigue: How confident are you that you can keep the fatigue caused by your disease from interfering with the things you want to do? Select Number: 8 Physical Discomfort or Pain: How confident are you that you can keep the physical discomfort or pain of your disease from interfering with the things you want to do? Select Number: 8 Emotional Distress: How confident are you that you can keep the emotional distress caused by your disease from interfering with the things you want to do? Select Number: 10 Other Symptoms or Health Problems: How confident are you that you can keep other symptoms or health problems from interfering with the things you want to do? Select Number: 10 Different Tasks and Activities: How confident are you that you can do the different tasks and activities needed to manage your health condition so as to reduce your need to see a doctor? Select Number: 10 Medication: How confident are you that you can do things other than just taking medication to reduce how much your illness affects your everyday life? Select Number: 10 Total Score:: 9 Nutrition Survey
[2021-07-22 09:40] VITALS: BP 132/68; BP 92/62; BMI 29.6
== END 2021-08-07 23:59 ==
LOC: CR 14:30
PROVIDERS: PCP Family Medicine; Referring Provider Specialist; Visit Provider Specialist
DX: I25.10 Atherosclerotic heart disease of native coronary artery without angina pectoris (principal); Z95.5 Presence of coronary angioplasty implant and graft
CPT/HCPCS: 93798

== ENCOUNTER → 2021-08-15 12:26 | Outpatient (CLI) | payer MEDICAID, SELFPAY ==
[2021-07-22 09:40] VITALS: BMI 29.6
[2021-08-15 14:51] LABS: Albumin, Serum 3.8 g/dL (3.2-5.0); BUN 26 mg/dL (7-18); BUN/Creat Ratio 16.2 RATIO (10-20); Calcium,Total 9.3 mg/dL (8.5-10.1); Chloride 105 mmol/L (98-107); EST Glomerular Filtration Rate 47 mL/min (>60); Est Glom Filt Rate - Afr Amer 57 mL/min (>60); Glucose 96 mg/dL (74-106); Phosphorus 3.5 mg/dL (2.5-4.9); Potassium 4.4 mmol/L (3.5-5.1); Sodium Level 136 mmol/L (136-145)
== END ==
PROVIDERS: PCP Family Medicine; Referring Provider Internal Medicine Nephrology; Visit Provider Internal Medicine Nephrology
DX: N17.9 Acute kidney failure, unspecified (principal)
CPT/HCPCS: 36415; 80069

== ENCOUNTER 2021-08-21 17:32 | Emergency (ER) | payer MEDICAID, SELFPAY ==
[2021-07-22 09:40] VITALS: BMI 29.6
[2021-08-21 17:32] VITALS: BP 131/91; PULSE 55; RESP 14; TEMP 36.5; O2SAT 97; BMI 30.2
--- NOTE | 2021-08-21 18:16 | ED.VIS.DENTA ---
HPI History of Present Illness Chief Complaint: Dental Narrative Narrative: 61-year-old male presenting with dental pain for the last 3 days. He denies any fever or chills. He denies any difficulty swallowing or breathing. He states he does not currently have a dentist. Patient does admit to multiple dental caries. [facility] Medical History Atherosclerosis of coronary artery of [place] without angina pectoris Chronic kidney disease CKD (chronic kidney disease), stage III Essential hypertension Gout History of gout Home Medications allopurinol 300 mg PO DAILY 06/26/19 [History Last Taken 12/29/19 10:00] aspirin 81 mg PO DAILY@0800 #0 tab 06/11/21 [Rx Last Taken Unknown] atorvastatin 40 mg tablet 40 mg PO QHS #90 tab 06/30/21 [Rx Last Taken Unknown] lisinopril 20 mg tablet 20 mg PO DAILY #90 tab 06/30/21 [Rx Last Taken Unknown] metoprolol tartrate 25 mg tablet 25 mg PO BID #180 tab 06/30/21 [Rx Last Taken Unknown] ticagrelor 90 mg tablet 90 mg PO BID #180 tab 06/30/21 [Rx Last Taken Unknown] amoxicillin-pot clavulanate [Augmentin] 1 tab PO BID #20 tab 08/21/21 [Rx Last Taken Unknown] naproxen [Naprosyn] 500 mg PO BID #20 tab 08/21/21 [Rx Last Taken Unknown] Allergy/AdvReac Type Severity Reaction Status Date / Time cephalexin [From Keflex] AdvReac Vomiting Verified 08/21/21 17:33 Family History Other Hypertension Surgical History H/O shoulder replacement (~05/25/21) History of coronary artery stent placement Status post arthroscopic surgery of left knee Status post arthroscopic surgery of right knee Social History Smoking Status: Former smoker substance use type: does not use ROS ROS ED Constitutional Constitutional ED: Denies chills or fever(s) Eyes Eyes: Denies blurry vision or change in vision ENT ENT ED: Reports other Details: Dental pain ; Denies rhinorrhea or sore throat Cardiovascular Cardiovascular: Denies chest pain or palpitations Respiratory/Chest Respiratory/Chest: Denies cough or dyspnea Gastrointestinal Gastrointestinal: Denies abdominal pain or nausea Musculoskeletal Musculoskeletal: Denies arthralgias or myalgias Integumentary Denies Abrasions or rash Neurologic Neurologic: Denies headache(s) EXAM Physical Exam Const Vital Signs: 08/21/21 17:32 Temperature 97.7 F L Temperature Source Temporal Pulse Rate 55 L Respiratory Rate 14 Blood Pressure 131/91 H Blood Pressure Mean 104 Pulse Ox 97 Oxygen Delivery Method Room Air Positive well nourished General Appearance ED: NAD HEENT HEENT Narrative: Patient has multiple dental caries in different stages of decay throughout the maxillary teeth were is complaining of pain. Oropharynx is patent without stridor. No difficulty swallowing. No sublingual edema. No fullness to the submental region. Negative for trauma Eyes PERRL General Eye ED: Yes pale conjunctiva Neck no lymphadenopathy and supple Cardio regular rate and regular rhythm Neuro oriented x3 Sensorium / Orientation: alert Skin no rashes or lesions noted MDM MDM MDM Narrative Medical decision making narrative: Patient will be given oxycodone as well as Augmentin in the ER. He will be given prescription for Naprosyn and Augmentin. He does not have any signs of Daron's angina. He was provided with a list of dental professionals that the need to follow-up with. Patient given return precautions. Impression: 1. Dental caries Discharge Plan Triage Chief Complaint: Dental ED Provider: James Sheikh Dx/Rx/DC Orders Instructions: ED Dental Cavity Prescriptions: New amoxicillin-pot clavulanate [Augmentin] 875-125 mg tablet 1 tab PO BID Qty: 20 RF: 0 naproxen [Naprosyn] 500 mg tablet 500 mg PO BID Qty: 20 RF: 0 No Action atorvastatin 40 mg tablet 40 mg PO QHS Qty: 90 RF: 3 lisinopril 20 mg tablet 20 mg PO DAILY Qty: 90 RF: 3 metoprolol tartrate 25 mg tablet 25 mg PO BID Qty: 180 RF: 3 Brilinta 90 mg tablet 90 mg PO BID Qty: 180 RF: 3 allopurinol 300 MG tablet 300 mg PO DAILY RF: 0 aspirin 81 mg Tablet,Delayed Release (Dr/Ec) 81 mg PO DAILY@0800 Qty: 0 RF: 0 Primary Care Provider: Ernesto Vincent Referrals: Ernesto Vincent MD [Primary Care Provider] - Disposition Disposition: Home, Self Care
[2021-08-21 18:19] VITALS: RESP 15
[2021-08-21] MEDS: oxyCODONE 5 MG Tablet PO (18:19)
[2021-08-21] MEDS: Amox/Clavulanate 875 MG Tablet PO (18:20)
== END 2021-08-21 18:25 | disposition home or self-care (01) ==
PROVIDERS: Emergency Provider Student in an Organized Health Care Education/Training Program; PCP Family Medicine
DX: K02.9 Dental caries, unspecified (principal); I25.10 Atherosclerotic heart disease of native coronary artery without angina pectoris; I12.9 Hypertensive chronic kidney disease with stage 1 through stage 4 chronic kidney disease, or unspecified chronic kidney disease; N18.30 Chronic kidney disease, stage 3 unspecified; M10.9 Gout, unspecified; Z79.82 Long term (current) use of aspirin; Z79.1 Long term (current) use of non-steroidal anti-inflammatories (NSAID); Z79.899 Other long term (current) drug therapy; Z87.891 Personal history of nicotine dependence; Z95.5 Presence of coronary angioplasty implant and graft
CPT/HCPCS: 99283

== ENCOUNTER 2021-09-05 14:30 | Outpatient (RCR) | payer MEDICAID, SELFPAY ==
[2021-07-22 09:40] VITALS: BMI 29.6
[2021-08-08 00:29] VITALS: BP 132/68; BP 92/62
== END 2021-09-06 23:59 ==
LOC: CR 14:30
PROVIDERS: PCP Family Medicine; Referring Provider Specialist; Visit Provider Specialist
DX: I25.10 Atherosclerotic heart disease of native coronary artery without angina pectoris (principal); Z95.5 Presence of coronary angioplasty implant and graft
CPT/HCPCS: 93798

== ENCOUNTER 2021-09-21 14:15 | Outpatient (RCR) | payer MEDICAID, SELFPAY ==
[2021-07-22 09:40] VITALS: BMI 29.6
[2021-09-07 00:32] VITALS: BP 132/68; BP 92/62
== END 2021-10-07 23:59 ==
LOC: CR 14:15
PROVIDERS: PCP Family Medicine; Referring Provider Specialist; Visit Provider Specialist
DX: I25.10 Atherosclerotic heart disease of native coronary artery without angina pectoris (principal); Z95.5 Presence of coronary angioplasty implant and graft
CPT/HCPCS: 93798

== ENCOUNTER 2021-12-19 17:55 | Emergency (ER) | payer MEDICAID, SELFPAY ==
[2021-07-22 09:40] VITALS: BMI 29.6
[2021-12-19 17:56] VITALS: BP 131/92; PULSE 63; RESP 17; TEMP 36.3; O2SAT 97; BMI 30.8
--- NOTE | 2021-12-19 19:20 | EDS_ITS ---
HPI History of Present Illness Chief Complaint: Dental Informant: patient Narrative Narrative: Patient has dental pain in the left upper jaw. He has had broken and eroded teeth for years. But these jaw started hurting over the last week. He is responded to amoxicillin in the past. He has an appointment with a dentist in 2 weeks now. No fevers chills. It is worse if he tries to chew on the area. Nothing makes better. He is taking his meds. He has taken Naprosyn without any problems in the past. [facility] Medical History Atherosclerosis of coronary artery of [place] heart without angina pectoris Chronic kidney disease CKD (chronic kidney disease), stage III Essential hypertension Gout History of gout Home Medications allopurinol 300 mg PO DAILY 06/26/19 [History Last Taken 12/29/19 10:00] aspirin 81 mg PO DAILY@0800 #0 tab 06/11/21 [Rx Last Taken Unknown] atorvastatin 40 mg tablet 40 mg PO QHS #90 tab 06/30/21 [Rx Last Taken Unknown] lisinopril 20 mg tablet 20 mg PO DAILY #90 tab 06/30/21 [Rx Last Taken Unknown] metoprolol tartrate 25 mg tablet 25 mg PO BID #180 tab 06/30/21 [Rx Last Taken Unknown] ticagrelor 90 mg tablet 90 mg PO BID #180 tab 06/30/21 [Rx Last Taken Unknown] amoxicillin 500 mg PO TID #30 tab 12/19/21 [Rx Last Taken Unknown] naproxen 500 mg PO BID #8 tab 12/19/21 [Rx Last Taken Unknown] Allergy/AdvReac Type Severity Reaction Status Date / Time cephalexin [From Keflex] AdvReac Vomiting Verified 12/19/21 17:56 Family History Other Hypertension Surgical History H/O shoulder replacement (~05/25/21) History of coronary artery stent placement Status post arthroscopic surgery of left knee Status post arthroscopic surgery of right knee Social History Smoking Status: Former smoker how long ago did patient quit smokin alcohol intake: never substance use type: does not use and marijuana caffeine: Yes Type: tea ROS ROS ED Constitutional Constitutional ED: Denies chills or fever(s) ENT ENT ED: Reports other Details: See history of present illness. Cardiovascular Cardiovascular: Denies chest pain or palpitations Respiratory/Chest Respiratory/Chest: Denies cough or dyspnea Gastrointestinal Gastrointestinal: Denies nausea or vomiting Hematologic/Lymphatic Hematologic/Lymphatic: Denies easy bleeding or easy bruising Allergic/Immunologic Allergic/Immunologic ED: Denies mouth swelling EXAM Physical Exam Const Vital Signs: 12/19/21 17:56 Temperature 97.3 F L Temperature Source Oral Pulse Rate 63 Respiratory Rate 17 Blood Pressure 131/92 H Blood Pressure Mean 105 Pulse Ox 97 Oxygen Delivery Method Room Air Positive well nourished and well developed General Appearance ED: well developed and NAD HEENT HEENT Narrative: No facial swelling or erythema. There is diffusely poor dentition. The left upper jaw there is more erythema but this really is not localized to one tooth. Multiple ones of these could be infected at the roots. There is some mild diffuse tenderness. Lower jaw does not seem to be involved. There is no indication of Ludewig's angina whatsoever. Negative for trauma Eyes Negative for PERRL or EOMs intact bilaterally Neck no lymphadenopathy Neck Narrative: No stridor swelling or tenderness Chest Wall inspection of chest normal and palpation of chest normal Resp normal respiratory effort and clear to auscultation bilaterally Cardio regular rate, regular rhythm and no murmurs GI normal to inspection, nondistended, normoactive bowel sounds and non-tender Palpation: soft Skin no rashes or lesions noted MDM MDM MDM Narrative Medical decision making narrative: I will give the patient a few days of Naprosyn. If he gets any GI upset he should stop this. I will also give a moxicillin which he has taken successfully before despite an allergy to cephalexin. We discussed reasons to return acutely. Regardless he should follow-up with his dentist in 2 weeks Discharge Plan Triage Chief Complaint: Dental ED Provider: Naveed Cash Dx/Rx/DC Orders Clinical Impression: Abscess, apical, Pain, dental Instructions: ED Dental Pain Prescriptions: New amoxicillin 500 MG tablet 500 mg PO TID Qty: 30 RF: 0 naproxen 500 MG tablet 500 mg PO BID Qty: 8 RF: 0 No Action atorvastatin 40 mg tablet 40 mg PO QHS Qty: 90 RF: 3 lisinopril 20 mg tablet 20 mg PO DAILY Qty: 90 RF: 3 metoprolol tartrate 25 mg tablet 25 mg PO BID Qty: 180 RF: 3 Brilinta 90 mg tablet 90 mg PO BID Qty: 180 RF: 3 allopurinol 300 MG tablet 300 mg PO DAILY RF: 0 aspirin 81 mg Tablet,Delayed Release (Dr/Ec) 81 mg PO DAILY@0800 Qty: 0 RF: 0 Primary Care Provider: Ernesto Vincent Referrals: Ernesto Vincent MD [Primary Care Provider] - As Needed Activity Restrictions/Additional Instructions: Follow-up dentist as scheduled in 2 weeks. Disposition Disposition: Home, Self Care
[2021-12-19] MEDS: Naproxen 375 MG Tablet 500 MG PO (19:35)
[2021-12-19] MEDS: AMOXICILLIN 500 MG CAPSULE PO (19:36)
== END 2021-12-19 19:38 | disposition home or self-care (01) ==
PROVIDERS: Emergency Provider Emergency Medicine; PCP Family Medicine; Visit Provider Emergency Medicine
DX: K04.7 Periapical abscess without sinus (principal); N18.30 Chronic kidney disease, stage 3 unspecified; S02.5XXA Fracture of tooth (traumatic), initial encounter for closed fracture; I12.9 Hypertensive chronic kidney disease with stage 1 through stage 4 chronic kidney disease, or unspecified chronic kidney disease; I25.10 Atherosclerotic heart disease of native coronary artery without angina pectoris; M10.9 Gout, unspecified; Z79.82 Long term (current) use of aspirin; Z79.1 Long term (current) use of non-steroidal anti-inflammatories (NSAID); Z79.02 Long term (current) use of antithrombotics/antiplatelets; Z79.899 Other long term (current) drug therapy; Z87.891 Personal history of nicotine dependence
CPT/HCPCS: 99283

== ENCOUNTER 2021-12-27 11:10 | Outpatient (CLI) | payer MEDICAID, SELFPAY ==
[2021-07-22 09:40] VITALS: BMI 29.6
[2021-12-27 13:04] LABS: AST(SGOT) 34 U/L (15-37); Alanine Aminotransfer ALT/SGPT 34 U/L (16-61); Alkaline Phosphatase 96 U/L (45-117); Bilirubin, Direct 0.13 mg/dL (0.00-0.30); Cholesterol 89 mg/dL (200); Globulin 3.7 g/dL (2.2-4.2); High Density Lipoprotein 37 mg/dL; Protein, Total 7.7 g/dL (6.4-8.2); Triglycerides 141 mg/dL; Very Low Density Lipoprotein 28 mg/dL (5-40)
== END 2021-12-27 23:59 | disposition home or self-care (01) ==
LOC: LAB 11:11
PROVIDERS: PCP Family Medicine; Referring Provider Nurse Practitioner Family; Visit Provider Nurse Practitioner Family
DX: I25.10 Atherosclerotic heart disease of native coronary artery without angina pectoris (principal); Z95.5 Presence of coronary angioplasty implant and graft; I10 Essential (primary) hypertension
CPT/HCPCS: 36415; 80061; 80076

== ENCOUNTER → 2022-04-25 | Outpatient (CLI) | payer MEDICAID, SELFPAY ==
[2021-07-22 09:40] VITALS: BMI 29.6
[2022-04-25 12:57] LABS: Albumin, Serum 3.8 g/dL (3.2-5.0); BUN 33 mg/dL (7-18); BUN/Creat Ratio 17.1 RATIO (10-20); Calcium,Total 9.1 mg/dL (8.5-10.1); Chloride 111 mmol/L (98-107); Creatinine, Serum 1.93 mg/dL (0.70-1.30); EST Glomerular Filtration Rate 38 mL/min (>60); Est Glom Filt Rate - Afr Amer 46 mL/min (>60); Glucose 122 mg/dL (74-106); Phosphorus 3.3 mg/dL (2.5-4.9); Potassium 4.5 mmol/L (3.5-5.1); Sodium Level 137 mmol/L (136-145); Uric Acid 6.6 mg/dL (3.5-7.2)
[2022-04-25 17:26] LABS: Albumin, Serum 3.1 g/dL (3.2-5.0); BUN 39 mg/dL (7-18); BUN/Creat Ratio 22.4 RATIO (10-20); Calcium,Total 8.6 mg/dL (8.5-10.1); Chloride 110 mmol/L (98-107); Creatinine, Serum 1.74 mg/dL (0.70-1.30); EST Glomerular Filtration Rate 42 mL/min (>60); Est Glom Filt Rate - Afr Amer 51 mL/min (>60); Glucose 96 mg/dL (74-106); Phosphorus 3.3 mg/dL (2.5-4.9); Sodium Level 139 mmol/L (136-145)
[2022-04-25 17:58] LABS: Protein, Urine (Random) 236.7 mg/dL (<11.9); Protein:Creat Ratio 2132 mg/g CRE (0-200)
== END | disposition home or self-care (01) ==
LOC: POLAB3 12:11
PROVIDERS: PCP Family Medicine; Visit Provider Internal Medicine Nephrology
DX: N18.31 Chronic kidney disease, stage 3a (principal); E79.0 Hyperuricemia without signs of inflammatory arthritis and tophaceous disease
CPT/HCPCS: 36415; 80069; 82570; 84156; 84550

== ENCOUNTER → 2022-07-18 | Outpatient (CLI) | payer MEDICAID, SELFPAY ==
[2021-07-22 09:40] VITALS: BMI 29.6
--- NOTE | 2022-07-18 09:37 | ART_ITS ---
Procedure A bilateral lower extremity continuous wave Doppler with analog waveform analysis and ankle brachial indexes. Left Segmental Pressures Left brachial= 124mmHg. Left posterior tibial artery = 170mmHg. Left dorsalis pedis artery = 154mmHg. The left posterior tibial artery waveforms are triphasic. The left dorsalis pedis waveforms are triphasic. Right Segmental Pressures Right brachial= 129mmHg. Right posterior tibial artery = 168mmHg. Right dorsalis pedis artery = 163mmHg. The right posterior tibial artery waveforms are triphasic. The right dorsalis pedis waveforms are triphasic. Indices The right resting ankle brachial index is 1.30. The left resting ankle brachial index is 1.32. VL/Ankle Brachial Index Interpretation Summary Right VASILE 1.3, normal. Doppler/PVR waveforms of the right leg normal at rest. Left VASILE 1.32, normal. Doppler/PVR waveforms of the left leg normal at rest. Ordering Physician: Александр Terry Referring Physician: MD Melisa [facility] Performed By: LAYNE MEIER [facility]
== END | disposition home or self-care (01) ==
PROVIDERS: PCP Family Medicine; Referring Provider Internal Medicine Cardiovascular Disease; Visit Provider Internal Medicine Cardiovascular Disease
DX: I73.9 Peripheral vascular disease, unspecified (principal)
CPT/HCPCS: 93922

== ENCOUNTER → 2022-11-30 | Outpatient (CLI) | payer MEDICAID, SELFPAY ==
[2021-07-22 09:40] VITALS: BMI 29.6
[2022-11-30 15:23] LABS: Protein, Urine (Random) 41.6 mg/dL (<11.9); Protein:Creat Ratio 353 mg/g CRE (0-200)
[2022-11-30 15:39] LABS: Albumin, Serum 3.7 g/dL (3.2-5.0); BUN 27 mg/dL (7-18); BUN/Creat Ratio 15.3 RATIO (10-20); Calcium,Total 9.6 mg/dL (8.5-10.1); Chloride 105 mmol/L (98-107); Creatinine, Serum 1.76 mg/dL (0.70-1.30); EST Glomerular Filtration Rate 42 mL/min (>60); Est Glom Filt Rate - Afr Amer 51 mL/min (>60); Glucose 123 mg/dL (74-106); Phosphorus 3.9 mg/dL (2.5-4.9); Potassium 4.5 mmol/L (3.5-5.1); Sodium Level 136 mmol/L (136-145)
== END | disposition home or self-care (01) ==
LOC: LAB 13:43
PROVIDERS: PCP Family Medicine; Visit Provider Internal Medicine Nephrology
DX: N18.31 Chronic kidney disease, stage 3a (principal)
CPT/HCPCS: 36415; 80069; 82570; 84156

== ENCOUNTER 2023-05-15 12:10 | Emergency (ER) | payer MEDICAID, SELFPAY ==
[2021-07-22 09:40] VITALS: BMI 29.6
[2023-05-15 12:11] VITALS: BP 128/88; PULSE 77; RESP 18; TEMP 35.9; O2SAT 96; BMI 29.6
--- NOTE | 2023-05-15 12:23 | EX.ED.VIS.EY ---
HPI History of Present Illness Chief Complaint: Eye Problem Detail of Chief Complaint: Right upper eyelid pain and swelling Informant: patient Narrative Narrative: Patient presents to the emergency department with complaint of redness and swelling to the right upper eyelid. States initially it started to bother him may be 3 days ago. Patient has been using warm compresses and ice to the area. He denies any trauma to the area. He denies visual changes. He denies fevers or chills or sweats. PFSH PFS Medical History (Updated 07/05/23 @ 09:34 by Mireya Ortiz) Atherosclerosis of coronary artery of [place] heart without angina pectoris Chronic kidney disease CKD (chronic kidney disease), stage III Erectile dysfunction Essential hypertension Gout Gout flare Hand laceration History of gout History of ST elevation myocardial infarction (STEMI) (06/09/21) Right shoulder pain Sleep apnea Swelling of joint, ankle, left Swelling of left knee joint Home Medications allopurinol 300 mg tablet 300 mg PO DAILY gout 06/26/19 [History Last Taken 12/29/19 10:00] aspirin 81 mg tablet,delayed release 81 mg PO DAILY@0800 #0 tabs 06/11/21 [Rx Last Taken Unknown] metoprolol tartrate 25 mg tablet 25 mg PO BID #180 tabs 07/06/22 [Rx Last Taken Unknown] ticagrelor 90 mg tablet (Brilinta) 90 mg PO BID #180 tabs 06/25/23 [Rx Last Taken Unknown] lisinopril 20 mg tablet See Rx Instructions .Route .COMPLEX #90 tabs 06/27/23 [Rx Last Taken Unknown] sildenafil 50 mg tablet (Viagra) 50 mg PO DAILY PRN sexual activity #30 tabs 07/02/23 [Rx Last Taken Unknown] atorvastatin 40 mg tablet 40 mg PO QHS #90 tabs 07/04/23 [Rx Last Taken Unknown] Allergy/AdvReac Type Severity Reaction Status Date / Time cephalexin [From Keflex] AdvReac Vomiting Verified 07/02/23 13:49 Family History (Reviewed 07/02/23 @ 14:29 by Eb Leach INTERDISCIPLINARY PROFESSOR, INTERDISCIPLINARY PROFESSOR-C) Other Hypertension Surgical History H/O shoulder replacement (~05/25/21) History of coronary artery stent placement (09/02/21) Status post arthroscopic surgery of left knee Status post arthroscopic surgery of right knee Social History (Reviewed 07/02/23 @ 14:29 by Eb Leach INTERDISCIPLINARY PROFESSOR, INTERDISCIPLINARY PROFESSOR-C) Smoking Status: Former smoker how long ago did patient quit smokin alcohol intake: never substance use type: does not use and marijuana caffeine: Yes Type: tea ROS ROS ED Constitutional Constitutional ED: Reports systems reviewed and no addt'l complaints, except as documented; Denies body ache(s), change in weight or chills Eyes Eyes: Denies acute decrease in peripheral vision, change in vision, double vision or loss of vision ENT ENT ED: Reports none and other Details: Redness and swelling to right upper eyelid ; Denies ear pain, lip swelling, loss taste/smell, neck pain, otalgia or sore throat Cardiovascular Cardiovascular: Reports none; Denies abdominal pain, chest pain with activity, leg edema, lightheadedness, palpitations, rapid heart rate or syncope Respiratory/Chest Respiratory/Chest: Reports none; Denies change in mental status, dry cough, dyspnea, hemoptysis, shortness of breath at rest or shortness of breath with exertion Gastrointestinal Gastrointestinal: Reports none; Denies abdominal pain, change in stool character, diarrhea, hematemesis, hematochezia, melena, rectal bleeding or vomiting Genitourinary Genitourinary ED: Reports none; Denies abdominal discomfort, anuria, dysuria, genital pain or polyuria Musculoskeletal Musculoskeletal: Reports none; Denies arthralgias, back pain, difficulty walking, extremity pain, muscle weakness or myalgias Integumentary Reports none; Denies abscess or rash Neurologic Neurologic: Reports none; Denies abnormal gait, confusion, focal weakness, frequent falls, headache(s), loss of vision, numbness, paresthesias, radicular pain, vertigo or weakness Psychiatric Psychiatric: Reports systems reviewed and no addt'l complaints, except as documented and none; Denies behavioral changes, confusion, difficulty concentrating, hallucinations, suicidal ideation, tactile hallucinations or visual hallucinations Endocrine Endocrinology: Denies none, cold intolerance, excessive sweating, fatigue or heat intolerance Hematologic/Lymphatic Hematologic/Lymphatic: Reports none; Denies anemia, easy bleeding or easy bruising Allergic/Immunologic Allergic/Immunologic ED: Denies as per HPI, none, lip swelling, mouth swelling, throat swelling, tongue swelling or hives EXAM Physical Exam Const Vital Signs: 05/15/23 12:11 Temperature 96.7 F L Temperature Source Temporal Pulse Rate 77 Respiratory Rate 18 Blood Pressure 128/88 H Blood Pressure Mean 101 Pulse Ox 96 Oxygen Delivery Method Room Air Positive well nourished and well developed General Appearance ED: well developed and NAD HEENT Reports TM's clear and moist mucous membranes normocephalic and atraumatic; Negative for trauma or tenderness Tympanic Membrane ED: Yes TM's clear Eyes PERRL and EOMs intact bilaterally Eyes Narrative: Right upper eyelid erythema and mild soft tissue swelling and fullness near the lid margin consistent with a stye. No abscess noted. No significant cellulitic changes noted. Extraocular muscle movement is painless and normal. No evidence of orbital cellulitis. General Eye ED: Negative for pale conjunctiva or scleral icterus Neck no lymphadenopathy, supple and no JVD General: Negative for tenderness Chest Wall inspection of chest normal and palpation of chest normal Chest: Negative for tenderness Resp normal respiratory effort and clear to auscultation bilaterally Effort and Inspection: Negative for respiratory distress or pain with movement Auscultation: Negative for rhonchi, wheezes or diminished lung sounds Cardio regular rate, regular rhythm, S1 normal heart sound, S2 normal heart sound and no murmurs Peripheral Pulses: pulses 2+ throughout GI normal to inspection, nondistended, normoactive bowel sounds, soft to palpation, non-tender, non-distended and no masses Back/Spine no CVA tenderness and no thoracic nor lumbar tenderness Extremity normal to inspection General Extremety ED: Negative for edema General Extremity: Negative for edema Neuro oriented x3, CN's II-XII intact bilaterally, no sensory deficits noted and gait normal Sensorium / Orientation: awake, alert, oriented to person, oriented to place and oriented to time Motor Exam: strength 5/5 throughout and strength abnormal Psych mental status grossly normal Skin no rashes or lesions noted and no wounds MDM MDM MDM Narrative Medical decision making narrative: Patient presents with right upper eyelid swelling consistent with stye. He is to continue with warm compresses. We will start him on erythromycin ointment. Will refer to ophthalmology for follow-up. Patient advised to return if increasing pain, redness, swelling, or condition should worsen anyway. Discharge Plan Triage Chief Complaint: Eye Problem ED Provider: Dennise Villafuerte Dx/Rx/DC Orders Clinical Impression: Sty, external Instructions: ED Sty Prescriptions: No Action sildenafil [Viagra] 50 mg tablet 50 mg PO DAILY PRN (Reason: sexual activity) Qty: 30 0RF Rx Instructions: administer 30 minutes to 4 hours before activity allopurinol 300 MG tablet 300 mg PO DAILY Patient Comments: take 1 tablet by mouth twice a day aspirin 81 mg Tablet,Delayed Release (Dr/Ec) 81 mg PO DAILY@0800 Qty: 0 0RF metoprolol tartrate 25 mg tablet 25 mg PO BID Qty: 180 3RF Brilinta 90 mg tablet 90 mg PO BID Qty: 180 3RF lisinopril 20 mg tablet See Rx Instructions .ROUTE .COMPLEX Qty: 90 3RF Dose Instruction: take 1 tablet by mouth once daily for blood pressure Rx Instructions: take 1 tablet by mouth once daily for blood pressure atorvastatin 40 mg tablet 40 mg PO QHS Qty: 90 3RF Primary Care Provider: Ernesto Vincent Referrals: Ernesto Vincent MD [Primary Care Provider] - Sung Braswell MD [Med Staff - Active Staff] - 3-5 Days Disposition Disposition: Home, Self Care Discharge Date/Time: 05/15/23 12:35
[2023-05-15] MEDS: Erythromycin Base 1 OPTH.TUBE 1 APPLIC RIGHT EYE (12:32)
== END 2023-05-15 12:35 | disposition home or self-care (01) ==
PROVIDERS: Emergency Provider Emergency Medicine; PCP Family Medicine; Visit Provider Emergency Medicine
DX: H00.011 Hordeolum externum right upper eyelid (principal); N18.30 Chronic kidney disease, stage 3 unspecified; I25.10 Atherosclerotic heart disease of native coronary artery without angina pectoris; I12.9 Hypertensive chronic kidney disease with stage 1 through stage 4 chronic kidney disease, or unspecified chronic kidney disease; Z79.02 Long term (current) use of antithrombotics/antiplatelets; Z79.82 Long term (current) use of aspirin; Z79.899 Other long term (current) drug therapy; Z87.891 Personal history of nicotine dependence
CPT/HCPCS: 99283

== ENCOUNTER → 2023-07-27 | Outpatient (CLI) | payer MEDICAID, SELFPAY ==
[2021-07-22 09:40] VITALS: BMI 29.6
--- NOTE | 2023-07-28 07:39 | PFT ---
INTRODUCTION: The patient is a 63-year-old male who presents for pulmonary function studies secondary to a diagnosis of dyspnea. Respiratory therapy reported good patient effort. Bronchodilators were used during testing. INTERPRETATION: Forced expiration spirometry demonstrates no evidence of a large airways obstructive ventilatory defect. There was no significant response to aerosolized bronchodilators. Spirograms are of good quality and plateau normally. The respiratory flow-volume loop is normal. Body plethysmography was performed and revealed lung volumes to be within normal limits. Diffusing capacity by single breath CO was also within normal limits. IMPRESSION: Grossly normal pulmonary function studies.
== END | disposition home or self-care (01) ==
LOC: PSN 12:36
PROVIDERS: PCP Family Medicine; Referring Provider Nurse Practitioner Family; Visit Provider Nurse Practitioner Family
DX: R06.09 Other forms of dyspnea (principal)
CPT/HCPCS: 94060; 94726; 94729

== ENCOUNTER → 2023-11-29 | Outpatient (CLI) | payer MEDICAID, SELFPAY ==
[2021-07-22 09:40] VITALS: BMI 29.6
--- OUTSIDE RECORDS SUMMARY | 2023-10-31 06:30 | XMS RPT_ITS | CCD ---
Author Name Unknown Address [facility] [place] [address] Organization [facility] Care Team Providers Care Dairy Chemist Name Role Phone Lyn Diego MD Primary Care Provider LYN DIEGO Primary Care Unavailable PAULINA MALDONADO Referring Unavailable JOHN KNAPP Attending Unavailable JOHN KNAPP Attending Unavailable PAULINA MALDONADO Referring Unavailable LYN DIEGO Primary Care Unavailable LYN DIEGO Primary Care Unavailable CHANDA CARRION Referring Unavailable PAULINA MALDONADO Attending Unavailable LYN DIEGO Primary Care Unavailable LYN DIEGO Primary Care Unavailable CHANDA CARRION Referring Unavailable LYN DIEGO Primary Care Unavailable CHANDA CARRION Referring Unavailable LYN DIEGO Primary Care Unavailable CHANDA CARRION Attending Unavailable LYN DIEGO Primary Care Unavailable LYN DIEGO Attending Unavailable LYN DIEGO Primary Care Unavailable Cris Duque Attending Unavailable Cris Duque Referring Unavailable LYN DIEGO Primary Care Unavailable rCis Duque Attending Unavailable Allergies Allergy Classification Reported Allergen(s) Allergy Type Date of Onset Reaction(s) Facility (20 sources) Cephalexin; Translations: [CEPHALEXIN] Drug Allergy 07-11-2019 Diarrhea, Vomiting [facility] Medications Completed/Discontinued Medications Medication Drug Class(es) Dates Sig (Normalized) Sig (Original) allopurinol 300 mg oral tablet (20 sources) Xanthine Oxidase Inhibitor Start: 06-27-2021 End: 12-28-2022 take 1 tablet by mouth once daily allopurinol (ZYLOPRIM) 300 mg tablet Indications: Hyperuricemia take 1 tablet by mouth once daily 180 tablet 3 12/28/2022 Active Problems Active Problems Problem Classification Problem Date Documented Da te Episodic/Chronic Chronic kidney disease (20 sources) Chronic kidney disease stage 3; Translations: [Chronic renal disease, stage 3, moderately decreased glomerular filtration rate (GFR) between 30-59 mL/min/1.73 square meter] Onset: 04-25-2018 04-25-2018 Chronic Coronary atherosclerosis and other heart disease (20 sources) Stented coronary artery; Translations: [Atherosclerotic heart disease of [place] coronary artery without angina pectoris] Onset: 06-15-2021 06-15-2021 Chronic Essential hypertension (20 sources) Benign essential hypertension; Translations: [Essential (primary) hypertension] Onset: 05-10-2020 05-10-2020 Chronic Gout and other crystal arthropathies (20 sources) Gouty arthritis of multiple sites; Translations: [Gout, unspecified] Onset: 04-25-2018 04-25-2018 Chronic Osteoarthritis (20 sources) Osteoarthritis of joint of right shoulder region; Translations: [Primary osteoarthritis, right shoulder] Onset: 05-11-2021 05-11-2021 Chronic Other aftercare (1 source) H/O: high risk medication; Translations: [Other predatory animal exterminator (current) drug therapy] Episodic Other and unspecified benign neoplasm (2 sources) History of polyp of colon; Translations: [Personal history of colonic polyps] 07-25-2023 Episodic Other and unspecified benign neoplasm (1 source) Personal history of colonic polyps; Translations: [History of colon polyps] Onset: 09-07-2023 Episodic Other connective tissue disease (1 source) Ischial bursitis ; Translations: [Other bursitis of hip, right hip] Episodic Other nutritional; endocrine; and metabolic disorders (1 source) Obese class I; Translations: [Obesity, unspecified] Chronic Other nutritional; endocrine; and metabolic disorders (2 sources) Hyperuricemia; Translations: [Hyperuricemia without signs of inflammatory arthritis and tophaceous disease] Episodic Other screening for suspected conditions (not mental disorders or infectious disease) (1 source) Encounter for screening for malignant neoplasm of colon; Translations: [Screening for colon cancer] Onset: 09-07-2023 Episodic Spondylosis; intervertebral disc disorders; other back problems (10 sources) Degeneration of lumbar intervertebral disc; Translations: [Other intervertebral disc degeneration, lumbar region] Onset: 03-26-2023 Chronic Past or Other Problems Problem Classification Problem Date Documented Da te Episodic/Chronic Joint disorders and dislocations; trauma-related (20 sources) Tear of medial meniscus of knee; Translations: [Other tear of medial meniscus, current injury, right knee, initial encounter] Onset: 05-10-2020 05-10-2020 Episodic Other aftercare (20 sources) Patient encounter status; Translations: [Encounter for therapeutic drug level monitoring] Onset: 06-19-2018 06-19-2018 Episodic Other connective tissue disease (20 sources) Trigger thumb of left hand; Translations: [Trigger thumb, left thumb] Onset: 08-17-2015 08-17-2015 Episodic Other connective tissue disease (20 sources) Disorder of wrist; Translations: [Synovitis and tenosynovitis, unspecified] Onset: 08-17-2015 08-17-2015 Episodic Other nervous system disorders (20 sources) Paresthesia of foot ; Translations: [Paresthesia of skin] Onset: 04-25-2018 04-25-2018 Episodic Other nervous system disorders (1 source) Paresthesia of skin; Translations: [Paresthesia of right foot] Onset: 04-25-2018 Episodic Other non-traumatic joint disorders (20 sources) Chronic pain of right upper limb; Translations: [Pain in right shoulder] Onset: 04-25-2018 04-25-2018 Episodic Other non-traumatic joint disorders (20 sources) Chronic pain of left upper limb; Translations: [Pain in left shoulder] Onset: 06-19-2018 06-19-2018 Episodic Phlebitis; thrombophlebitis and thromboembolism (20 sources) H/O: Deep vein thrombosis; Translations: [Personal history of other venous thrombosis and embolism] Onset: 03-26-2020 03-26-2020 Episodic Screening and history of mental health and substance abuse codes (20 sources) Ex-smoker; Translations: [Personal history of nicotine dependence] Onset: 05-10-2020 05-10-2020 Episodic Spondylosis; intervertebral disc disorders; other back problems (9 sources) Lumbar radiculopathy; Translations: [Radiculopathy, lumbar region] Onset: 03-26-2023 Episodic Results Test Name Value Interpretation Reference Range Facil ity Vital Signs Date Time Vital Sign Value Performing Clinician Faci lity 07-25-2023 14:39-0400 Body height 172.7 cm Cris Duque MD Work Phone: [facility] 07-25-2023 14:39-0400 Body temperature 97.2 [degF] Cris Duque MD Work Phone: [facility] 07-25-2023 14:39-0400 Body weight 90.36 kg Cris Duque MD Work Phone: [facility] 07-25-2023 14:39-0400 Diastolic blood pressure 70 mm[Hg] Cris Duque MD Work Phone: [facility] 07-25-2023 14:39-0400 Heart rate 98 /min Cris Duque MD Work Phone: [facility] 07-25-2023 14:39-0400 SaO2% (BldA) [Mass fraction] 98 % Cris Duque MD Work Phone: [facility] 07-25-2023 14:39-0400 Systolic blood pressure 126 mm[Hg] Cris Duque MD Work Phone: [facility] 03-07-2023 13:38-0400 Body height 172.7 cm Paulina Maldonado PA-C Work Phone: [facility] 03-07-2023 13:38-0400 Body weight 89.63 kg Paulina Maldonado PA-C Work Phone: [facility] 03-07-2023 13:38-0400 Diastolic blood pressure 97 mm[Hg] Paulina Maldonado PA-C Work Phone: [facility] 03-07-2023 13:38-0400 Heart rate 81 /min Paulina Maldonado PA-C Work Phone: [facility] 03-07-2023 13:38-0400 SaO2% (BldA) [Mass fraction] 98 % Paulina Maldonado PA-C Work Phone: [facility] 03-07-2023 13:38-0400 Systolic blood pressure 133 mm[Hg] Paulina Maldonado PA-C Work Phone: [facility] 01-22-2023 10:48-0400 Body weight 92.08 kg Chanda Carrion APRN.CNP Work Phone: [facility] 01-22-2023 10:48-0400 Diastolic blood pressure 85 mm[Hg] Chanda Christina ASSISTANT STORE MANAGER TRAINEE.SEED MILL SUPERINTENDENT Work Phone: [facility] 01-22-2023 10:48-0400 Heart rate 52 /min Chanda Crhistina ASSISTANT STORE MANAGER TRAINEE.SEED MILL SUPERINTENDENT Work Phone: [facility] 01-22-2023 10:48-0400 Systolic blood pressure 144 mm[Hg] Chanda Christina ASSISTANT STORE MANAGER TRAINEE.SEED MILL SUPERINTENDENT Work Phone: [facility] 12-29-2022 10:54-0400 Diastolic blood pressure 82 mm[Hg] Lyn Diego MD Work Phone: [facility] 12-29-2022 10:54-0400 Systolic blood pressure 120 mm[Hg] Lyn Diego MD Work Phone: [facility] 12-29-2022 10:35-0400 Body height 172.7 cm Lyn Diego MD Work Phone: [facility] 12-29-2022 10:35-0400 Body weight 90.27 kg Lyn Diego MD Work Phone: [facility] 12-29-2022 10:35-0400 Heart rate 53 /min Lyn Diego MD Work Phone: [facility] 01-02-2022 10:59-0400 Body height 172.7 cm Chanda Christina ASSISTANT STORE MANAGER TRAINEE.SEED MILL SUPERINTENDENT Work Phone: [facility] 01-02-2022 10:59-0400 Body weight 91.35 kg Chanda Christina ASSISTANT STORE MANAGER TRAINEE.SEED MILL SUPERINTENDENT Work Phone: [facility] 01-02-2022 10:59-0400 Diastolic blood pressure 74 mm[Hg] Chanda Christina ASSISTANT STORE MANAGER TRAINEE.SEED MILL SUPERINTENDENT Work Phone: [facility] 01-02-2022 10:59-0400 Heart rate 82 /min Chanda Christina ASSISTANT STORE MANAGER TRAINEE.SEED MILL SUPERINTENDENT Work Phone: [facility] 01-02-2022 10:59-0400 Systolic blood pressure 107 mm[Hg] Chanda Carrion APRN.SEED MILL SUPERINTENDENT Work Phone: [facility] Encounters Encounter Date Encounter Type Care Provider Facility Start: 09-07-2023 End: 09-07-2023 ambulatory LYN DIEGO Facility:[facility] Start: 08-02-2023 Orders Only Cris sevilla MD Work Phone: LD PROVIDER ADULT Procedures Date Procedure Procedure Detail Performing Clinician Start: 02-12-2023 Nerve conduction jessica dies 5-6 studies Chanda Carrion APRN.SEED MILL SUPERINTENDENT Work Phone: Start: 12-29-2022 Lipid 1996 panel - S serina or Plasma Lyn Diego MD Work Phone: Start: 01-02-2022 PFIZER-BIONTBlackstrap COVI D-19 VACCINE, AGE 12+ YR ([facility]ES TOP) Chanda Carrion APRN.SEED MILL SUPERINTENDENT Work Phone: Start: 01-02-2022 Adult depression screening assessment Chanda Carrion APRN.SEED MILL SUPERINTENDENT Work Phone: Start: 12-27-2021 Lipid panel [facility] Prov[facility] er Start: 05-11-2021 Antibody screen Plan of Treatment Date Care Activity Detail Author Start: 06-15-2031 Urine microalbumin profile [facility] Start: 12-30-2027 Lipid 1996 panel - Serum or Plasma Lipid Screening [facility] Start: 12-30-2027 LIPID SCREEN LIPID SCREEN [facility] Start: 01-10-2027 PROSTATE CANCER SCREENING DISCUSSION PROSTATE CANCER SCREENING DISCUSSION [facility] Start: 12-27-2026 LIPID SCREEN LIPID SCREEN [facility] Start: 12-29-2025 DIABETES SCREEN DIABETES SCREEN [facility] Start: 12-29-2025 Diabetes Screening Diabetes Screening [facility] Start: 07-25-2024 BP Controlled (<130/80) BP Controlled (<130/80) [facility] Start: 05-11-2024 DIABETES SCREEN DIABETES SCREEN [facility] Start: 01-23-2024 ANNUAL PCP TEAM CHRONIC DISEASE VISIT ANNUAL PCP TEAM CHRONIC DISEASE VISIT [facility] Start: 12-30-2023 ANNUAL PCP TEAM CHRONIC DISEASE VISIT ANNUAL PCP TEAM CHRONIC DISEASE VISIT [facility] Start: 12-30-2023 HEMOGLOBIN/HEMATOCRIT HEMOGLOBIN/HEMATOCRIT [facility] Start: 12-30-2023 Hepatitis B surface antibody level LDL CHOLESTEROL [facility] Start: 12-30-2023 SERUM CREATININE SERUM CREATININE [facility] Start: 07-25-2023 Colonoscopy COLONOSCOPY [facility] Start: 07-25-2023 COLORECTAL CANCER SCREENING COLORECTAL CANCER SCREENING [facility] Start: 06-08-2023 Covid-19 Vaccine () Covid-19 Vaccine () [facility] Start: 06-08-2023 Influenza vaccination [facility] Start: 01-02-2023 Adult depression screening assessment DEPRESSION SCREENING [facility] Start: 01-02-2023 ANNUAL PCP TEAM CHRONIC DISEASE VISIT ANNUAL PCP TEAM CHRONIC DISEASE VISIT [facility] Start: 01-02-2023 BP CONTROLLED (<130/80) BP CONTROLLED (<130/80) [facility] Start: 10-08-2022 DEPRESSION ASSESSMENT DEPRESSION ASSESSMENT [facility] Start: 07-04-2022 End: 09-03-2022 CBC panel - Blood by Automated count CBC Lab Routine Chronic renal disease, stage 3, moderately decreased glomerular filtration rate (GFR) between 30-59 mL/min/1.73 square meter (HCC) Expected: 07/04/2022, Expires: 09/03/2022 [facility] Work Phone: Immunizations Immunization Date Immunization Notes Care Provider Jos lewis 03-07-2022 zoster vaccine recombinant Lyn Diego MD Work Phone: [facility] 01-02-2022 COVID-19 vaccine, ag e 12+ yr (PFIZER-BIONTBlackstrap - [facility]) Chanda Christina ASSISTANT STORE MANAGER TRAINEE.SEED MILL SUPERINTENDENT Work Phone: [facility] 01-02-2022 zoster vaccine recombinant Chanda Christina ASSISTANT STORE MANAGER TRAINEE.SEED MILL SUPERINTENDENT Work Phone: [facility] 06-15-2021 tetanus toxoid, redu stacey diphtheria toxoid, and acellular pertussis vaccine, adsorbed Lyn Diego MD Work Phone: [facility] 04-01-2021 tetanus toxoid, redu stacey diphtheria toxoid, and acellular pertussis vaccine, adsorbed Chanda Christina ASSISTANT STORE MANAGER TRAINEE.SEED MILL SUPERINTENDENT Work Phone: [facility] 01-21-2021 COVID-19 vaccine, fu ll dose (MODERNA) Lyn Diego MD Work Phone: [facility] 12-24-2020 COVID-19 vaccine, fu ll dose (MODERNA) Lyn Diego MD Work Phone: [facility] Payers Date Payer Category Payer Medicaid [id number] 2021 Medicaid [employer] [id number] 2021-Present [phone] [address] [place] [address] Medicaid [id number] 2021 Medicaid [id number] Social History Date Type Detail Facility Start: 08-17-2015 End: 07-25-2018 Tobacco smoking status NHIS Ex-smoker [facility] Work Phone: End: 10-08-1979 History of tobacco use Current smoker [facility] Work Phone: End: 10-08-1979 History of tobacco use Cigarette Smoker [facility] Work Phone: Start: 08-17-2015 End: 03-07-2023 Cigarettes smoked current (pack per day) - Reported 0.5 [facility] Work Phone: Start: 08-17-2015 End: 07-25-2018 Tobacco use and exposure Smokeless tobacco non-user [facility] Work Phone: Start: 07-11-2021 End: 01-02-2022 Alcohol intake Current non-drinker of alcohol (finding) [facility] Start: 1960 Sex Assigned At Not on file [facility] Start: 12-23-2021 End: 01-02-2022 Exposure to SARS-CoV-2 (event) Not sure [facility] Start: 03-07-2023 End: 05-15-2023 Tobacco use panel [facility] Work Phone: Adult Depression Screening Assessment 0 [facility] Work Phone: Medical Equipment Procedure Code Equipment Code Equipment Origin al Text Equipment Identifier Dates Cement Simplex P Bone Radiopaque Full Dose Sterile - [id number] Start: 05-25-2021 Glenoid W/Cleat Lg [id number] Start : 05-25-2021 Dynanite Vip Gle noid Pin, Nitinol, 2.8mm [id number] Start: 05-25-2021 Head Univers 48m m 19mm Humeral Sterile Shoulder - [id number] Start: 05-25-2021 Stem Univers Ape x 9mm Rectangle 60mm Humeral Press Fit Removable Trunion - [id number] Start: 05-25-2021 Clinical Notes 04-25-2018 to 07-30-2023 Telephone Encounter - Donna Patel RN - 07/30/2023 4:49 PM EDTWaCris sevilla MD - 07/25/2023 3:02 PM EDTPatient Honey Delgado RN - 07/25/2023 2:45 PM EDT Note Date & Type Note Facility 07-30-2023 Miscellaneous Notes Received result from [facility]. DOS 07/28/23 Pulmonary Function Studies. Placed in PCP inbox for review. documented in this encounter [facility] 07-25-2023 Note HNO ID: [id number] Author: Cris Duque MD Service: ? Author Type: Physician Type: Progress Notes Filed: 07/28/2023 1:45 PM Note Text: HISTORY AND PHYSICAL Judy Lyons Jinserge 1960 REFERRING PHYSICIAN: No ref. provider found CHIEF COMPLAINT: Consult (Colonoscopy consultation. ) HPI: The patient is a 63 year old male referred for endoscopy. Judy notes no history of colon complaints. He has a history of colon polyps, he last had a colonoscopy 2018 with findings of tubular adenoma He notes no colon cancer in his immediate family. He had an WA about two years ago after a shoulder surgery. He had stent placed and has been on Brillinta since. He is followed by [facility] and was seen by Eb Leach a few weeks ago. He denies blood in his stools, denies changes in bowel habits, denies abdominal pain. PAST MEDICAL HISTORY Diagnosis Date Atrophic kidney CKD (chronic kidney disease) stage 3, GFR 30-59 ml/min ([facility]) DVT (deep venous thrombosis) ([facility]) 01/10/2020 left leg Esophageal reflux Gastroesophageal reflux Essential hypertension Gout Helicobacter pylori (H. pylori) infection Hyperuricemia Mixed hyperlipidemia Presence of stent in coronary artery in patient with coronary artery disease 06/15/2021 Testicular mass PAST SURGICAL HISTORY Procedure Laterality Date ARTHROSCOPY KNEE DIAGNOSTIC W/WO SYNOVIAL BX SPX Left 12/30/2019 Arthroscopy, knee by Jose Armando Downs for sepsis ARTHRS KNE SURG W/MENISCECTOMY MED/LAT W/SHVG Right 05/14/2020 Right knee arthroscopic medial and lateral menisectomy, medial chondroplasty COLONOSCOPY FLX DX W/COLLJ SPEC WHEN PFRMD 07/25/2018 Colonoscopy PAST SURGICAL HISTORY OF Right 1996 IANDD Right ring finger - splinter Current Outpatient Medications Medication Sig sildenafil (VIAGRA) 50 mg tablet take 1 tablet by mouth if needed for SEXUAL ACTIVITY *ADMINISTER ... (REFER TO PRESCRIPTION NOTES). aspirin, enteric coated (ASPIRIN, ENTERIC COATED) 81 mg EC tablet Take 81 mg by mouth once daily. allopurinol (ZYLOPRIM) 300 mg tablet take 1 tablet by mouth once daily atorvastatin (LIPITOR) 40 mg tablet Take by mouth. metoprolol tartrate, short acting, (LOPRESSOR) 25 mg tablet Take by mouth. ticagrelor (BRILINTA) 90 mg tablet Take 1 tablet by mouth twice daily. lisinopril (ZESTRIL, PRINIVIL) 20 mg tablet take 1 tablet by mouth once daily gabapentin (NEURONTIN) 300 mg capsule Take 2 capsules by mouth twice daily for 60 days. aspirin 325 mg tablet Take 1 tablet by mouth once daily for 28 days. (Patient not taking: Reported on 03/07/2023) No current facility-administered medications for this visit. ALLERGIES: Keflex [Cephalexin] PERSONAL HISTORY: Social History Tobacco Use Smoking status: Former Packs/day: 0.50 Years: 6.00 Additional pack years: 0.00 Total pack years: 3.00 Types: Cigarettes Quit date: 10/08/1979 Years since quittin.8 Smokeless tobacco: Never Vaping Use Vaping Use: Never used Substance Use Topics Alcohol use: No Drug use: Yes Frequency: 3.0 times per week Types: Marijuana Comment: marijuana FAMILY HISTORY Problem Relation Age of Onset Hypertension Mother The review of systems data was entered by the nurse and reviewed by pa Nursing Notes: Honey Yousif RN 07/25/2023 2:47 PM Signed REVIEW OF SYSTEMS: General: The patient denies fatigue, denies weight loss, denies weight gain, denies feeling hot, and denies feelings of cold. Eyes: The patient denies glaucoma, denies eye injury/surgery, does not wear glasses or contacts. Ear/Nose/Throat: The patient NOTES allergies, denies hayfever, denies ear infections, and denies bloody noses. Cardiovascular: The patient denies chest pain, NOTES heart disease, NOTES high blood pressure,NOTES cardiac stent, denies prior heart attack, denies irregular heart beat, NOTES high cholesterol, denies poor circulation, denies heart failure, other cardiac issues, denies claudication, denies cold feet, denies peripheral arterial stent. Respiratory: The patient denies tuberculosis, denies pneumonia, denies frequent cough, denies pulmonary embolism, denies shortness of breath, and denies coughing up blood. Gastrointestinal: The patient denies difficulty swallowing, NOTES acid reflux, denies ulcers, denies vomiting, denies jaundice/hepatitis, denies gallbladder problems, denies black or tarry stools, denies hemorrhoids, denies bleeding from rectum, denies diverticulitis, denies constipation, denies diarrhea, denies loss of stool control, and denies hernias. Kidney/Bladder: The patient denies kidney stones, denies urine infections, denies bloody urine and NOTES CKD . Skin: The patient denies a history of skin cancer, denies bleeding/changing moles, and denies a history of skin rash. Neurologic: The patient denies a history of epilepsy/convulsions, denies headaches, denies head/spinal injuries, and denies stroke/TI (more content not included)... [facility] 07-25-2023 History of Presen t illness Narrative HISTORY AND PHYSICAL Judy Estes 1960 REFERRING PHYSICIAN: No ref. provider found CHIEF COMPLAINT: Consult (Colonoscopy consultation. ) HPI: The patient is a 63 year old male referred for endoscopy. Judy notes no history of colon complaints. He has a history of colon polyps, he last had a colonoscopy 2017 with findings of tubular adenoma He notes no colon cancer in his immediate family. He had an WA about two years ago after a shoulder surgery. He had stent placed and has been on Brillinta since. He is followed by [facility] and was seen by Eb Leach a few weeks ago. He denies blood in his stools, denies changes in bowel habits, denies abdominal pain. PAST MEDICAL HISTORY Diagnosis Date Atrophic kidney CKD (chronic kidney disease) stage 3, GFR 30-59 ml/min ([facility]) DVT (deep venous thrombosis) ([facility]) 01/10/2020 left leg Esophageal reflux Gastroesophageal reflux Essential hypertension Gout Helicobacter pylori (H. pylori) infection Hyperuricemia Mixed hyperlipidemia Presence of stent in coronary artery in patient with coronary artery disease 06/15/2021 Testicular mass PAST SURGICAL HISTORY Procedure Laterality Date ARTHROSCOPY KNEE DIAGNOSTIC W/WO SYNOVIAL BX SPX Left 12/30/2019 Arthroscopy, knee by Jose Armando Downs for sepsis ARTHRS KNE SURG W/MENISCECTOMY MED/LAT W/SHVG Right 05/14/2020 Right knee arthroscopic medial and lateral menisectomy, medial chondroplasty COLONOSCOPY FLX DX W/COLLJ SPEC WHEN PFRMD 07/25/2018 Colonoscopy PAST SURGICAL HISTORY OF Right 1997 I&D Right ring finger - splinter Current Outpatient Medications Medication Sig sildenafil (VIAGRA) 50 mg tablet take 1 tablet by mouth if needed for SEXUAL ACTIVITY *ADMINISTER ... (REFER TO PRESCRIPTION NOTES). aspirin, enteric coated (ASPIRIN, ENTERIC COATED) 81 mg EC tablet Take 81 mg by mouth once daily. allopurinol (ZYLOPRIM) 300 mg tablet take 1 tablet by mouth once daily atorvastatin (LIPITOR) 40 mg tablet Take by mouth. metoprolol tartrate, short acting, (LOPRESSOR) 25 mg tablet Take by mouth. ticagrelor (BRILINTA) 90 mg tablet Take 1 tablet by mouth twice daily. lisinopril (ZESTRIL, PRINIVIL) 20 mg tablet take 1 tablet by mouth once daily gabapentin (NEURONTIN) 300 mg capsule Take 2 capsules by mouth twice daily for 60 days. aspirin 325 mg tablet Take 1 tablet by mouth once daily for 28 days. (Patient not taking: Reported on 03/07/2023) No current facility-administered medications for this visit. ALLERGIES: Keflex [Cephalexin] PERSONAL HISTORY: Social History Tobacco Use Smoking status: Former Packs/day: 0.50 Years: 6.00 Additional pack years: 0.00 Total pack years: 3.00 Types: Cigarettes Quit date: 10/08/1979 Years since quittin.8 Smokeless tobacco: Never Vaping Use Vaping Use: Never used Substance Use Topics Alcohol use: No Drug use: Yes Frequency: 3.0 times per week Types: Marijuana Comment: marijuana FAMILY HISTORY Problem Relation Age of Onset Hypertension Mother The review of systems data was entered by the nurse and reviewed by pa Nursing Notes: Honey Yousif RN 07/25/2023 2:47 PM Signed REVIEW OF SYSTEMS: General: The patient denies fatigue, denies weight loss, denies weight gain, denies feeling hot, and denies feelings of cold. Eyes: The patient denies glaucoma, denies eye injury/surgery, does not wear glasses or contacts. Ear/Nose/Throat: The patient NOTES allergies, denies hayfever, denies ear infections, and denies bloody noses. Cardiovascular: The patient denies chest pain, NOTES heart disease, NOTES high blood pressure,NOTES cardiac stent, denies prior heart attack, denies irregular heart beat, NOTES high cholesterol, denies poor circulation, denies heart failure, other cardiac issues, denies claudication, denies cold feet, denies peripheral arterial stent. Respiratory: The patient denies tuberculosis, denies pneumonia, denies frequent cough, denies pulmonary embolism, denies shortness of breath, and denies coughing up blood. Gastrointestinal: The patient denies difficulty swallowing, NOTES acid reflux, denies ulcers, denies vomiting, denies jaundice/hepatitis, denies gallbladder problems, denies black or tarry stools, denies hemorrhoids, denies bleeding from rectum, denies diverticulitis, denies constipation, denies diarrhea, denies loss of stool control, and denies hernias. Kidney/Bladder: The patient denies kidney stones, denies urine infections, denies bloody urine and NOTES CKD . Skin: The patient denies a history of skin cancer, denies bleeding/changing moles, and denies a history of skin rash. Neurologic: The patient denies a history of epilepsy/convulsions, denies headaches, denies head/spinal injuries, and denies stroke/TIA. Psychiatric: The patient denies psychiatric medications, denies depression, and denies voices, denies substance abuse. Endocrine: The patient denies thyroid disorders, denies diabetes, and denies hormonal problems. Hematologic: The patient denies a history of bruising, denies bleeding, and denies anemia, NOTES blood clots. Infections: The patient denies a history of measles and mumps, denies rheumatic fever, and denies sexually transmitted diseases. Musculoskeletal: The patient denies back pain/injury, denies back problems, denies sciatica, denies knee/foot trouble, denies arthritis, or NOTES gout. When was patient's last Mammogram screening? N/A Last Colonoscopy: 07/25/2018 Honey Yousif RN PHYSICAL EXAMINATION: General: The patient is 63 year old male, well nourished, well hydrated in no acute distress. The patient is oriented to time, place, and person. VITALS: Blood pressure 126/70, pulse 98, temperature 36.2 C (97.2 F), height 172.7 cm (5' 8 ), weight 90.4 kg (199 lb 3.2 oz), SpO2 98 %. Body mass index is 30.29 kg/m . Head: Normal cephalic, atraumatic Eyes: pupils are equally round, sclera are clear/anicteric Neck is supple with no tracheal deviation Cardiac: normal heart sounds, regular Respiratory: normal breath sounds, normal respiratory excursion and pattern. Abdominal exam: benign Extremities: no clubbing, cyanosis or edema. Neuro: non focal Psych: normal mood Assessment IMPRESSION: history of colon polyps PLAN: I have discussed the above with the patient. I have offered colonoscopy, possible biopsies I have explained the procedure to the patient. I have counseled the patient as to the risks of the procedure, including but not limited to: infection, bleeding, injury to any intrabdominal organs such as liver/spleen, perforation of the GI tract, inability to complete the procedure, complications of anesthesia, etc. - the patient understands. The patient wishes to proceed. I have answered all questions to the patient s satisfaction and the patient has no further questions. My clinic staff has educated the patient as to the colon cleansing regimen and I have prescribed Golytely for the colon cleansing solution. The patient will be scheduled for the procedure at [facility]. He will require a cardiology clearance from Eb Leach and instructions as to how long the Brillinta can be held prior to surgical procedure. Diagnoses: (Z86.010) History of colonic polyps (primary encounter diagnosis) (Z79.02) Antiplatelet or antithrombotic long-term use I have confirmed and edited as necessary, the PFSH and ROS obtained by others. Medical Decision Making: Problems: Low: Stable chronic illness Risk: Low: Low risk from testing/treatment Medical Decision Making Level: 3 - Low Cris Duque MD documented in this encounter [facility] 07-25-2023 Instructions Cris Duque MD - 07/25/2023 2:46 PM EDT Images from the original note were not included. Bowel Preparation Instructions for: Golytely, Nulytely, Trilyte or Colyte (polyethylene glycol 3350 and electrolytes) IF YOU DO NOT FOLLOW THESE DIRECTIONS, YOUR COLONOSCOPY WILL BE CANCELLED. Gonsalez Instructions: Your bowel must be empty so that your doctor can clearly view your colon. Follow all of the instructions in this handout EXACTLY as they are written. Do NOT eat any solid food the ENTIRE day before your colonoscopy. Drink only clear liquids. Buy your bowel preparation at least 5 days before your colonoscopy. TRANSPORTATION on the Day of Your Exam A responsible person MUST be present with you at Check In prior to your colonoscopy and REMAIN in the endoscopy area until you are discharged. You are NOT ALLOWED to drive, take a taxi or bus, or leave the Endoscopy Center ALONE. If you do not have a responsible racecar driver (family member or friend) with you to take you home, your exam cannot be done with sedation and will be cancelled. Please bring a list of all of your current medications, including any Over-the Counter medications with you. Medications If you take insulin, diabetic medications or blood thinners such as Coumadin (warfarin), Plavix (clopidogrel), Ticlid (ticlopidine hydrochloride), Agrylin (anagrelide), Xarelto (Rivaroxaban), Pradaxa (Dabigatran), Eliquis (Apixaban), and Effient (Prasugrel). You MUST call the doctors who orders those medicines for instructions on altering the dosage before your colonoscopy. All other medications should be taken the day of the exam with a sip of water including ASPIRIN. Five (5) Days Before Your Colonoscopy Do NOT take medicines that stop diarrhea - such as Imodium, Kaopectate, or Pepto Bismol. Do NOT take fiber supplements - such as Metamucil, Citrucel, or Perdiem. Do NOT take products that contain iron - such as multi-vitamins (the label lists what is in the products). Do NOT take Vitamin E. Buy the prescription bowel preparation solution at your local pharmacy or drugstore pharmacy. 09/2019 Bowel Preparation Instructions for: Golytely, Nulytely, Trilyte or Colyte (polyethylene glycol 3350 and electrolytes) Three (3) Days Before Your Colonoscopy Do NOT eat high-fiber foods - such as popcorn, beans, seeds (flax, sunflower, quinoa), multigrain bread, nuts, salad/vegetables, or fresh and dried fruit. One (1) Day Before Your Colonoscopy Only drink clear liquids the ENTIRE DAY before your colonoscopy. Do NOT eat any solid foods. Drink at least 8 ounces of clear liquids every hour after waking up. The clear liquids you can drink include: Clear Liquid (NO RED LIQUIDS) DO NOT DRINK Gatorade, Pedialyte or Powerade Clear broth or bouillon Coffee or tea (no milk or non-dairy creamer) Carbonated and non-carbonated soft drinks Brian-Aid or other fruit flavored drinks Strained fruit juices (no pulp) Jell-O, popsicles, hard candy Water Alcohol Milk or non-dairy creamers Noodles or vegetables in soup Juice with pulp Liquid you cannot see through Do not use tobacco/vaping products The bowel preparation solution will be consumed in two parts. Mix the solution the evening before your colonoscopy and refrigerate before drinking. You may add the flavor pack that came with the bowel preparation. Do NOT add ice, sugar or any other flavorings to the solution. Part 1 At 6:00 PM - Evening before your colonoscopy Drink an 8-oz glass of bowel preparation every 10 minutes for a total of 8 glasses. You may continue to drink clear liquids until midnight. Part 2 On the day of your colonoscopy you may drink clear liquids up to (three) 3 hours before your procedure. 4 1/2 hours before your colonoscopy Drink an 8-oz glass of bowel preparation every 10 minutes for a total of 8 glasses. Fifteen (15) minutes later, drink an 8-oz glass of clear liquids every 15 minutes for a total of 2 glasses. You may continue to drink clear liquids up to (three) 3 hours before your exam. 2 09/2019 documented in this encounter [facility] 07-25-2023 Nurse Note REVIEW OF SYSTEMS: General: The patient denies fatigue, denies weight loss, denies weight gain, denies feeling hot, and denies feelings of cold. Eyes: The patient denies glaucoma, denies eye injury/surgery, does not wear glasses or contacts. Ear/Nose/Throat: The patient NOTES allergies, denies hayfever, denies ear infections, and denies bloody noses. Cardiovascular: The patient denies chest pain, NOTES heart disease, NOTES high blood pressure,NOTES cardiac stent, denies prior heart attack, denies irregular heart beat, NOTES high cholesterol, denies poor circulation, denies heart failure, other cardiac issues, denies claudication, denies cold feet, denies peripheral arterial stent. Respiratory: The patient denies tuberculosis, denies pneumonia, denies frequent cough, denies pulmonary embolism, denies shortness of breath, and denies coughing up blood. Gastrointestinal: The patient denies difficulty swallowing, NOTES acid reflux, denies ulcers, denies vomiting, denies jaundice/hepatitis, denies gallbladder problems, denies black or tarry stools, denies hemorrhoids, denies bleeding from rectum, denies diverticulitis, denies constipation, denies diarrhea, denies loss of stool control, and denies hernias. Kidney/Bladder: The patient denies kidney stones, denies urine infections, denies bloody urine and NOTES CKD . Skin: The patient denies a history of skin cancer, denies bleeding/changing moles, and denies a history of skin rash. Neurologic: The patient denies a history of epilepsy/convulsions, denies headaches, denies head/spinal injuries, and denies stroke/TIA. Psychiatric: The patient denies psychiatric medications, denies depression, and denies voices, denies substance abuse. Endocrine: The patient denies thyroid disorders, denies diabetes, and denies hormonal problems. Hematologic: The patient denies a history of bruising, denies bleeding, and denies anemia, NOTES blood clots. Infections: The patient denies a history of measles and mumps, denies rheumatic fever, and denies sexually transmitted diseases. Musculoskeletal: The patient denies back pain/injury, denies back problems, denies sciatica, denies knee/foot trouble, denies arthritis, or NOTES gout. When was patient's last Mammogram screening? N/A Last Colonoscopy: 07/25/2018 Honey Yousif RN documented in this encounter [facility] 07-09-2023 Miscellaneous Notes Received ED summary for rt eyelid pain and swelling from [facility]. Placed in provider's inbox for review. Route to MA scanning. documented in this encounter [facility] 05-15-2023 Note HNO ID: [id number] Author: Ernesto Melton APRN.[employer] Service: ? Author Type: Nurse Practitioner Type: Progress Notes Filed: 05/15/2023 12:10 PM Note Text: Subjective HPI Nontoxic-appearing male presents urgent care chief complaint eye pain. Duration of symptoms 3 days. Associated symptoms eye swelling redness and discomfort. States having increased pain under right upper eyelid. Has not used any OTC medication. No known sick contacts. No eye trauma or visual changes. No pain with EOM/light or floaters. Denies any fever body aches chills productive cough chest pain shortness of breath pleuritic pain hemoptysis nausea vomiting abdominal pain change in bowel or bladder habits. Past medical history prescription medication use and allergies reviewed. .Patient presents with: Eye Problem: Right eye red, swelling and irritated x 3 days PAST MEDICAL HISTORY Diagnosis Date Atrophic kidney CKD (chronic kidney disease) stage 3, GFR 30-59 ml/min ([facility]) DVT (deep venous thrombosis) ([facility]) 01/10/2020 left leg Esophageal reflux Gastroesophageal reflux Essential hypertension Gout Helicobacter pylori (H. pylori) infection Hyperuricemia Presence of stent in coronary artery in patient with coronary artery disease 06/15/2021 Testicular mass PAST SURGICAL HISTORY Procedure Laterality Date ARTHROSCOPY KNEE DIAGNOSTIC W/WO SYNOVIAL BX SPX Left 12/30/2019 Arthroscopy, knee by Jose Armando Downs for sepsis ARTHRS KNE SURG W/MENISCECTOMY MED/LAT W/SHVG Right 05/14/2020 Right knee arthroscopic medial and lateral menisectomy, medial chondroplasty COLONOSCOPY FLX DX W/COLLJ SPEC WHEN PFRMD 07/25/2018 Colonoscopy PAST SURGICAL HISTORY OF Right 1996 IANDD Right ring finger - splinter ALLERGIES Keflex [Cephalexin] MEDICATIONS aspirin, enteric coated (ASPIRIN, ENTERIC COATED) 81 mg EC tablet Take 81 mg by mouth once daily. gabapentin (NEURONTIN) 300 mg capsule Take 2 capsules by mouth twice daily for 60 days. allopurinol (ZYLOPRIM) 300 mg tablet take 1 tablet by mouth once daily atorvastatin (LIPITOR) 40 mg tablet Take by mouth. metoprolol tartrate, short acting, (LOPRESSOR) 25 mg tablet Take by mouth. ticagrelor (BRILINTA) 90 mg tablet Take 1 tablet by mouth twice daily. lisinopril (ZESTRIL, PRINIVIL) 20 mg tablet take 1 tablet by mouth once daily aspirin 325 mg tablet Take 1 tablet by mouth once daily for 28 days. (Patient not taking: Reported on 03/07/2023) FAMILY HISTORY Problem Relation Age of Onset Hypertension Mother Social History Tobacco Use Smoking status: Former Packs/day: 0.50 Years: 6.00 Total pack years: 3.00 Types: Cigarettes Quit date: 10/08/1979 Years since quittin.6 Smokeless tobacco: Never Vaping Use Vaping Use: Never used Substance Use Topics Alcohol use: No Drug use: Yes Frequency: 3.0 times per week Types: Marijuana Comment: marijuana BP 130/84 Pulse 86 Temp 36.1 ?C (97 ?F) (Tympanic) Resp 16 Wt 88.6 kg (195 lb 6.4 oz) SpO2 98% BMI 29.71 kg/m? Review of Systems Constitutional: Negative for chills, fever and malaise/fatigue. HENT: Negative for congestion, ear discharge, ear pain, sinus pain and sore throat. Eyes: Positive for pain, discharge and redness. Negative for blurred vision, double vision and photophobia. Respiratory: Negative for cough, hemoptysis, sputum production, shortness of breath, wheezing and stridor. Cardiovascular: Negative for chest pain. Gastrointestinal: Negative for abdominal pain, diarrhea, nausea and vomiting. Musculoskeletal: Negative for myalgias. Skin: Negative for itching and rash. Neurological: Negative for dizziness and headaches. Objective Physical Exam Constitutional: General: He is not in acute distress. Appearance: He is not toxic-appearing. HENT: Head: Normocephalic. Nose: Nose normal. Eyes: Pupils: Pupils are equal, round, and reactive to light. Comments: Pain with palpation upper eyelid. Erythema edema noted. No foreign bodies could be appreciated. Limbus clear. Cardiovascular: Rate and Rhythm: Normal rate. Pulmonary: Effort: Pulmonary effort is normal. No respiratory distress. Musculoskeletal: Cervical back: Normal range of motion. Skin: General: Skin is warm and dry. Neurological: General: No focal deficit present. Mental Status: He is alert. ASSESSMENT/PLAN: 1. Eye pain, right - ICD9: 379.91, ICD10: H57.11 Diagnosed with right eye pain. Suspicious foreign body underneath right eyelid. Unable to retrieve foreign body. Recommend patient be seen by ophthalmology today for further evaluation care. Patient verbalized understand agrees plan of care. Ernesto Melton APRN.[facility] 04-11-2023 Note HNO ID: [id number] Author: John Knapp PT Service: ? Author Type: Physical Therapist Type: Progress Notes Filed: 04/11/2023 12:52 PM Note Text: Episode Visit Count: 2 Therapist That Will Accept/Oversee The Plan Of Care: John Knapp Start of Care Date: 03/26/23 Onset Date: 10/08/22 Plan of Care Certification Date: 03/26/23 Next Certification Due Date: 05/26/23 REHABILITATION AND SPORTS THERAPY PHYSICAL THERAPY TREATMENT NOTE ASSESSMENT: Judy Estes tolerated the session with decreased symptoms. He demonstrated improvements in radicular symptoms. The patient will continue to benefit from ongoing skilled physical therapy to progress toward set goals. PLAN FOR NEXT VISIT: Progress core strengthening, continue traction for any radicular symptoms SUBJECTIVE: Patient Reason for Visit: Pt doing much better today, notes little to no numbness, and walking is pain free Pain: Pain Pain Level: 0 Pain Location: Foot - Right OBJECTIVE MEASURES WITH LEVEL OF FUNCTION: No radicular symptoms today TREATMENT: Therapeutic Exercise: 1: SKC 3x30 sec/side 2: *TA bracing 3x10, 5 sec holds 3: *TA bracing plus BKFO 3x10/side 4: *TA bracing plus hiphikes 3x10 5: *GTB rows 3x10 6: *GTB straight arm extensions 3x10 7: *GTB pallof press 3x10 Skilled Intervention: Patient was educated in proper exercise technique and purpose for exercises. Skilled judgment was provided in selection of appropriate interventions. Provided written instruction for home exercise program to facilitate proper performance and compliance. Correct performance of therapeutic exercises was facilitated with verbal, visual, and tactile cuing. Manual Therapy: 1: Manual lumbar belt traction with feet on stool x10 min Skilled Intervention: Manual skills to improve joint mobility, ROM, and decrease pain. Utilized anatomy knowledge of the therapist, and assessment of patient's response to intervention. Billing Therapeutic Exercise Treatment Minutes: 30 Manual TherapyTreatment Minutes: 10 Total Treatment Time Minutes (timed/untimed): 40 John Knapp, PT [facility] 04-11-2023 History of Presen t illness Narrative Episode Visit Count: 2 Therapist That Will Accept/Oversee The Plan Of Care: John Knapp Start of Care Date: 03/26/23 Onset Date: 10/08/22 Plan of Care Certification Date: 03/26/23 Next Certification Due Date: 05/26/23 REHABILITATION AND SPORTS THERAPY PHYSICAL THERAPY TREATMENT NOTE ASSESSMENT: Judy Estes tolerated the session with decreased symptoms. He demonstrated improvements in radicular symptoms. The patient will continue to benefit from ongoing skilled physical therapy to progress toward set goals. PLAN FOR NEXT VISIT: Progress core strengthening, continue traction for any radicular symptoms SUBJECTIVE: Patient Reason for Visit: Pt doing much better today, notes little to no numbness, and walking is pain free Pain: Pain Pain Level: 0 Pain Location: Foot - Right OBJECTIVE MEASURES WITH LEVEL OF FUNCTION: No radicular symptoms today TREATMENT: Therapeutic Exercise: 1: SKC 3x30 sec/side 2: *TA bracing 3x10, 5 sec holds 3: *TA bracing plus BKFO 3x10/side 4: *TA bracing plus hiphikes 3x10 5: *GTB rows 3x10 6: *GTB straight arm extensions 3x10 7: *GTB pallof press 3x10 Skilled Intervention: Patient was educated in proper exercise technique and purpose for exercises. Skilled judgment was provided in selection of appropriate interventions. Provided written instruction for home exercise program to facilitate proper performance and compliance. Correct performance of therapeutic exercises was facilitated with verbal, visual, and tactile cuing. Manual Therapy: 1: Manual lumbar belt traction with feet on stool x10 min Skilled Intervention: Manual skills to improve joint mobility, ROM, and decrease pain. Utilized anatomy knowledge of the therapist, and assessment of patient's response to intervention. Billing Therapeutic Exercise Treatment Minutes: 30 Manual TherapyTreatment Minutes: 10 Total Treatment Time Minutes (timed/untimed): 40 John Knapp PT documented in this encounter [facility] 03-26-2023 Note HNO ID: [id number] Author: John Knapp PT Service: ? Author Type: Physical Therapist Type: Progress Notes Filed: 03/26/2023 3:28 PM Note Text: Episode Visit Count: 1 Therapist That Will Accept/Oversee The Plan Of Care: John Knapp Start of Care Date: 03/26/23 Onset Date: 10/08/22 Plan of Care Certification Date: 03/26/23 Next Certification Due Date: 05/26/23 Patient Identified by Name and Date of : Yes REHABILITATION AND SPORTS THERAPY PHYSICAL THERAPY EVALUATION PLAN OF CARE: Assessment: Judy Estes presents with chief complaint of RLE numbness that interferes with walking, standing . He presents with impairments in ADL's, gait, overall function, range of motion, strength, and symptom management. PROMIS? (Patient-Reported Outcomes Measurement Information System) scores were reviewed and all domains identified as a rehabilitation concern. Prognosis for therapy is Good due to: current objective clinical presentation, good overall health status, acuteness of condition, within-session changes, good support system/ coping skills . He will benefit from skilled therapy services to meet the goals established for this plan of care as noted below. Classification Low Back Pain Subgroup Classification: Unweighting subgroup: recommended visits 6. Unweighting Subgroup Classification based on: LE symptoms distal to the knee Goals for Episode of Care: created on 03/26/23 through 05/26/23 Independent in home exercises. Patient will decrease pain rating by 2 points to meet minimal clinical important difference for numeric pain rating scale. Restore pain-free lumbar ROM to WNL to allow for improved functional mobility Stand / Walk as needed for ADLs and recreationally without pain/symptoms. Sleep through night without pain/symptoms. Patient will increase strength of trunk/core and RLE to 4+ to 5/5 to allow for improve ability to complete ADLs. Planned Interventions, Frequency, and Duration: Current Frequency: 1x/week Duration: 6 weeks Total Number of Visits Planned: 6 Planned Treatment Interventions: Therapeutic exercise (63926), Neuromuscular re-education (38664), Manual therapy (06024), Therapeutic activities (33118), Self-custodial management (83227), Patient/Family/Caregiver Education, Body Mechanics Training PLAN FOR NEXT VISIT: continue traction, flexion bias. May add in neutral spine strengthening for core Patient demonstrates good understanding of plan of care and treatment. The above goals and plan of care were discussed and agreed upon by patient/family. SUBJECTIVE: Judy Estes is a 62 year old male seen today for R sided sciatic symptoms for ~3 months now. Started on Gabapetin and this took pain away, but now constalty numb, tingly. Notes difficulty moving the toes on the right side. Walking causes the most pain and symptoms, feels like leg goes to sleep. Rest helps, but still there Functional Limitations: walking, standing Intake Information: Prescription present Previous Treatment: Pain meds Pain: Pain Pain Level: 8 Pain Location: Foot - Right Description: Numbness Frequency: Continuous Post Treatment Pain Post Treatment Pain Level: 3 Post Treatment Pain Location: Foot - Right Post Treatment Pain Description: Numbness PROMIS Scales Higher is Better 03/26/2023 Phys Func - Score 39 (moderate dysfunction) Phys Func - Percentile 14 % Self-Eff Symptom - Score 36 (Low) Self-Eff Symptom - Percentile 8 % T-scores: mean of general population = 50. 5 points is clinically meaningfully difference Percentiles provide an indication of how the patient's score ranks in relation to the general population. Higher percentile rankings indicate better function/quality of life. 50th percentile is the average of the general population and indicates half of respondents had a worse score. OBJECTIVE MEASURES WITH LEVEL OF FUNCTION: Lumbar Spine AROM Lumbar Flexion: Normal Lumbar Extension: Moderate limitation Lumbar R Side-Bend: End range pain, Moderate limitation Lumbar L Side-Bend: Normal Lumbar R Rotation: Normal Lumbar L Rotation: Normal Repeated Test Movements - Lumbar RFIL - Symptoms During: decreases RFIL - Symptoms After: better LE Strength Trunk Strength: 3/5 grossly R LE Strength: 5/5 grossly except noted below L LE Strength: 5/5 grossly L Ankle Dorsiflexion (L4): 4/5 L Ankle Plantarflexion Functional Strength (S1): 3+/5 L Great Toes Extension (L5, S1): 3+/5 Special Tests - Hip and Spine Hip and Spine Special Tests: SLR Test SLR Test: Right Positive Education: Education Learning/educational needs: Home exercise program, Plan of Care, Changes in Plan of Care, Posture, Body Mechanics TREATMENT: PT Treatment Interventions: Therapeutic Exercise, Manual Therapy Evaluation Therapeutic Exercise: 1: *SKC 3x30 sec/side 2: *DKC 3x30 sec 3: Showed pt self pressure to mimic traction for home Skilled (more content not included)... [facility] 03-07-2023 Note HNO ID: [id number] Author: Paulina Maldonado PA-C Service: ? Author Type: Physician Build Technician Type: Progress Notes Filed: 03/07/2023 2:13 PM Note Text: Paulina Maldonado PA-C [facility] [address] [address] 03/07/2023 ASSESSMENT AND PLAN: Assessment : Encounter Diagnosis ICD-10-CM 1. Lumbar radiculopathy M54.16 CONSULT TO PHYSICAL THERAPY RIGHT S1 2. Paresthesia of right foot R20.2 gabapentin (NEURONTIN) 300 mg capsule CONSULT TO PHYSICAL THERAPY 3. Lumbar degenerative disc disease M51.36 gabapentin (NEURONTIN) 300 mg capsule CONSULT TO PHYSICAL THERAPY Discussion: Mr. Estes is a pleasant 62-year-old man here for evaluation of right lower extremity radiating symptoms over the past 2-1/2 months without known injury. Symptoms are worse when he is active and walking Placed on gabapentin and notices symptoms primarily in the S1 distribution as he describes it He had a series of plain radiographs EXAM Highlights: He mobilizes well from sitting standing posture and has slightly flexed gait favoring the right leg Lumbar motion does not reproduce any symptoms. He has no pain on palpation over the low back or PSIS or sciatic notches or greater trochanters Motor function is normal throughout lower extremities except for right lower extremity where he has some dorsiflexor weakness in the toes and milder weakness in the great toe He has some sensory disturbance in the right S1 dermatome all the way down to the foot Voluntary sitting SLR is positive on the right Reflexes diminished on the right Achilles IMAGING: We reviewed his x-rays in detail during today's visit here today. He had multiple areas of listhesis and severe DDD and DISH syndrome throughout the lumbar region. There is facet arthrosis at L5-S1 as well. SUMMARY/PLAN: He will start with supervised PT and return here if symptoms persist. I would anticipate need for lumbar MRI scan to consider injections if symptoms persist and he does not improve in terms of his numbness and tingling in the right leg. We will be increasing gabapentin to 600 mg twice a day Plan : REFERAL FOR SERVICES: -Physical therapy will be instituted. MEDICATIONS: -See prescribed medication list for this encounter. ACTIVITY RECOMMENDATIONS: -The patient is encouraged to avoid bed rest and maintain normal activity. FOLLOW-UP: -The patient is instructed to return after six weeks of therapy. This document has been created with the use of voice recognition technology. It may contain inaccuracies: (e.g. misspellings, inaccurate syntax or word sense) that have escaped review. Time spent: 40 minutes today with this patient visit. This includes [id number] time, review of chart records regarding conservative care history, spine-pertinent imaging, and communication/care coordination with referring provider, problem-specific history-taking and counseling/education regarding treatment options. cc: Chanda Cisse E Michi [facility] [id number] Results of consultation to be transmitted via electronic medical record for those providers who practice within [facility] or with access to [facility] via MD Connect, or via letter. ################################ ################################ ######## CHIEF COMPLAINT: Patient is here for the lower back pain, right buttocks area and right leg pain. Level of the pain is at 5/10. Pain started 2.5 months ago, he was walking and his foot started to get numb. Walking is very painful. 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 Spinal Injections: He has not gotten prior spinal injections. Other: None Current Outpatient Medications Medication Sig Dispense Refill aspirin, enteric coated (ASPIRIN, ENTERIC COATED) 81 mg EC tablet Take 81 mg by mouth once daily. gabapentin (NEURONTIN) 300 mg capsule Take 1 capsule by mouth twice daily for 30 days. 60 capsule 0 allopurinol (ZYLOPRIM) 300 mg tablet take 1 tablet by mouth once daily 180 tablet 3 atorvastatin (LIPITOR) 40 mg tablet Take by mouth. metoprolol tartrate, short acting, (LOPRESSOR) 25 mg tablet Take by mouth. ticagrelor (BRILINTA) 90 mg tablet Take 1 tablet by mouth twice daily. 60 tablet 5 lisinopril (ZESTRIL, PRINIVIL) 20 mg tablet take 1 tablet by mouth once daily 180 tablet 0 aspirin 325 mg tablet Take 1 tablet by mouth once daily for 28 days (more content not included)... [facility] 05-31-2023 History of Presen t illness Narrative Images from the original note were not included. Paulina Maldonado PA-C [facility] [address] [address] 03/07/2023 ASSESSMENT AND PLAN: Assessment : Encounter Diagnosis ICD-10-CM 1. Lumbar radiculopathy M54.16 CONSULT TO PHYSICAL THERAPY RIGHT S1 2. Paresthesia of right foot R20.2 gabapentin (NEURONTIN) 300 mg capsule CONSULT TO PHYSICAL THERAPY 3. Lumbar degenerative disc disease M51.36 gabapentin (NEURONTIN) 300 mg capsule CONSULT TO PHYSICAL THERAPY Discussion: Mr. Estes is a pleasant 62-year-old man here for evaluation of right lower extremity radiating symptoms over the past 2-1/2 months without known injury. Symptoms are worse when he is active and walking Placed on gabapentin and notices symptoms primarily in the S1 distribution as he describes it He had a series of plain radiographs EXAM Highlights: He mobilizes well from sitting standing posture and has slightly flexed gait favoring the right leg Lumbar motion does not reproduce any symptoms. He has no pain on palpation over the low back or PSIS or sciatic notches or greater trochanters Motor function is normal throughout lower extremities except for right lower extremity where he has some dorsiflexor weakness in the toes and milder weakness in the great toe He has some sensory disturbance in the right S1 dermatome all the way down to the foot Voluntary sitting SLR is positive on the right Reflexes diminished on the right Achilles IMAGING: We reviewed his x-rays in detail during today's visit here today. He had multiple areas of listhesis and severe DDD and DISH syndrome throughout the lumbar region. There is facet arthrosis at L5-S1 as well. SUMMARY/PLAN: He will start with supervised PT and return here if symptoms persist. I would anticipate need for lumbar MRI scan to consider injections if symptoms persist and he does not improve in terms of his numbness and tingling in the right leg. We will be increasing gabapentin to 600 mg twice a day Plan : REFERAL FOR SERVICES: -Physical therapy will be instituted. MEDICATIONS: -See prescribed medication list for this encounter. ACTIVITY RECOMMENDATIONS: -The patient is encouraged to avoid bed rest and maintain normal activity. FOLLOW-UP: -The patient is instructed to return after six weeks of therapy. This document has been created with the use of voice recognition technology. It may contain inaccuracies: (e.g. misspellings, inaccurate syntax or word sense) that have escaped review. Time spent: 40 minutes today with this patient visit. This includes txtv-pd-pnel time, review of chart records regarding conservative care history, spine-pertinent imaging, and communication/care coordination with referring provider, problem-specific history-taking and counseling/education regarding treatment options. [facility] [id number] Results of consultation to be transmitted via electronic medical record for those providers who practice within [facility] or with access to [facility] via MD Connect, or via letter. ################################ ################################ ######## CHIEF COMPLAINT: Patient is here for the lower back pain, right buttocks area and right leg pain. Level of the pain is at 5/10. Pain started 2.5 months ago, he was walking and his foot started to get numb. Walking is very painful. 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 Spinal Injections: He has not gotten prior spinal injections. Other: None Current Outpatient Medications Medication Sig Dispense Refill aspirin, enteric coated (ASPIRIN, ENTERIC COATED) 81 mg EC tablet Take 81 mg by mouth once daily. gabapentin (NEURONTIN) 300 mg capsule Take 1 capsule by mouth twice daily for 30 days. 60 capsule 0 allopurinol (ZYLOPRIM) 300 mg tablet take 1 tablet by mouth once daily 180 tablet 3 atorvastatin (LIPITOR) 40 mg tablet Take by mouth. metoprolol tartrate, short acting, (LOPRESSOR) 25 mg tablet Take by mouth. ticagrelor (BRILINTA) 90 mg tablet Take 1 tablet by mouth twice daily. 60 tablet 5 lisinopril (ZESTRIL, PRINIVIL) 20 mg tablet take 1 tablet by mouth once daily 180 tablet 0 aspirin 325 mg tablet Take 1 tablet by mouth once daily for 28 days. (Patient not taking: Reported on 03/07/2023) 28 tablet 0 No current facility-administered medications for this visit. Allergies: Keflex [Cephalexin] PAST MEDICAL HISTORY Diagnosis Date Atrophic kidney CKD (chronic kidney disease) stage 3, GFR 30-59 ml/min ([facility]) DVT (deep venous thrombosis) ([facility]) 01/10/2020 left leg Esophageal reflux Gastroesophageal reflux Essential hypertension Gout Helicobacter pylori (H. pylori) infection Hyperuricemia Presence of stent in coronary artery in patient with coronary artery disease 06/15/2021 Testicular mass PAST SURGICAL HISTORY Procedure Laterality Date ARTHROSCOPY KNEE DIAGNOSTIC W/WO SYNOVIAL BX SPX Left 12/30/2019 Arthroscopy, knee by Jose Armando Downs for sepsis ARTHRS KNE SURG W/MENISCECTOMY MED/LAT W/SHVG Right 05/14/2020 Right knee arthroscopic medial and lateral menisectomy, medial chondroplasty COLONOSCOPY FLX DX W/COLLJ SPEC WHEN PFRMD 07/25/2018 Colonoscopy PAST SURGICAL HISTORY OF Right 1997 I&D Right ring finger - splinter Social History Tobacco Use Smoking status: Former Packs/day: 0.50 Years: 6.00 Pack years: 3.00 Types: Cigarettes Quit date: 10/08/1979 Years since quittin.4 Smokeless tobacco: Never Vaping Use Vaping Use: Never used Substance Use Topics Alcohol use: No Drug use: Yes Frequency: 3.0 times per week Types: Marijuana Comment: marijuana FAMILY HISTORY Problem Relation Age of Onset Hypertension Mother REVIEW OF SYSTEMS: Constitutional: (-) Fever/Chills (-) Night Sweats (-) Weight Gain (-) Weight Loss (-) Fatigue Gastrointestinal: (-) Abdominal Pain (-) Diarrhea (-) Constipation (-) Nausea/Vomiting (-) Heart Burn Cardiovascular: (-) Chest Pain (-) Palpitations (-) Lightheadedness (-) Swelling of Ankles (+) Hx Heart Surgery/ 1 Stent Respiratory: (+) Short of Breath (+) Cough (+) Snoring Neurologic: (+) Headache (-) Blurry Vision (-) Fainting Skin: (-) Rashes (-) Itching (-) Other Lesions Psychiatric: (-) Depression (-) Anxiety (-) Suicidal Thoughts Genitourinary: (-) Frequency (-) Urgency Endocrine: (-) Thyroid Disorder (-) Diabetes Hematologic: (-) Prolonged Bleeding (+) Easy Bruising ################################ ################################ ################################ ################################ # PHYSICAL EXAM: Blood pressure 133/97, pulse 81, height 172.7 cm (5' 8 ), weight 89.6 kg (197 lb 9.6 oz), SpO2 98 %. Body mass index is 30.04 kg/m . General: Patient is a(n) average historian. The patient appears approximately the recorded age and is sitting comfortably in the examining room. The patient is average height in stature and is overweight in appearance. This individual has no difficulty arising from a sitting position and does have difficulty acquiring a full, upright position when standing. Station and Gait: flexed posture and antalgic gait leaning forward and favoring the right lower extremity The patient is able to but has difficulty in attempting to walk in a tandem gait. MENTAL STATUS EXAMINATION: The patient was casually attired. The patient had good eye contact and rapport was average to establish. The patient appeared to be alert and oriented in all spheres. The patient's overall medical judgment appeared to be fair.The patient's motivation for treatment was judged based on today's encounter to be good. SPINE: Lumbar Lordosis: Decreased/flattened Thoracic Kyphosis: Normal RANGE OF MOTION: Flexion: normal, as expected for age and weight Pain: No Extension: normal, as expected for age and weight Pain: No Lateral Bending: Right normal, as expected for age and weight Pain: No Left normal, as expected for age and weight Pain: No PALPATION TENDERNESS: Moderate tenderness at: gluteal region Hyperesthesia present: No Regional symptoms present: No Increased pain with axial loading: No Distraction: Normal Pain responses: appropriate NEUROLOGIC EXAM: MOTOR: Walk on Toes: Right: Yes Left: Yes Walk on Heels: Right: Yes Left: Yes Requires verbal cues to minimize cog-wheel or give-way resistance: No Hip Flexor R: 5/5 L: 5/5 Hip Abductor R: 5/5 L: 5/5 Hip Adductor R: 5/5 L: 5/5 Knee Extension R: 5/5 L: 5/5 Foot Dorsiflexion R: 4/5 L: 5/5 Foot Plantar Flexion R: 5/5 L: 5/5 Ext Hallicus Longus R: +4/5 L: 5/5 Toe Extensors R: -4/5 L: 5/5 SENSATION to Light Touch: Lumbar: S1: R: Abnormal: Noted findings are decreased sensation to light touch within this dermatome., L: Normal REFLEXES: Lower Extremity: Patella tendon: R: 2+ L: 2+ Achilles tendon: R: 0 L: 1+ Clonus: R: 0 beats/Normal L: 0 beats/Normal Babinski Sign: Negative bilaterally. VASCULAR: Skin appearance: Right: Warm/pink Left: Warm/pink Capillary refill: Right: brisk Left: brisk ADDITIONAL MUSCULOSKELETAL EXAM: HIP/PELVIS EXAM: Tenderness over the PSIS: Right: No Left: No Greater Trochanteric pain: Right: No Left: No SPECIAL TESTS: Straight Leg Raise: positive on the right Contralateral Straight Leg Raise: negative bilaterally IMAGING STUDIES: See discussion above documented in this encounter [facility] 02-12-2023 Note HNO ID: [id number] Author: Skinny Desouza MD Service: ? Author Type: Physician Type: Progress Notes Filed: 02/12/2023 1:57 PM Note Text: UNIVERSAL PROTOCOL / SAFETY CHECKLIST Procedure to be Performed: EMG Sign In: A Moment of CARE was completed. Personnel directly involved with the procedure wore the appropriate PPE (Personal Protective Equipment). Patient/Surrogate Stated/Verified: PATIENT VERIFIED(optional for EMERGENT procedures): Patient name, Date of , Relevant allergies, and The intended procedure Time Out Communication: Intended patient and procedure match the source documents. Correct side/site marked and visible. Sign Out: SIGN OUT (optional for EMERGENT procedures): Post-procedure follow-up management communicated and Plan of Care Visit completed when applicable. Farida Desouza MD [facility] 02-12-2023 Miscellaneous Notes Spoke with patient and relayed message. Patient verbalized understanding. Transferred to scheduling Let patient know that his nerve study confirmed that the nerve in his lower spine is causing the numbness in his foot. Would recommend a consult with spine medicine for further evaluation and treatment options. Consult order placed, please assist with scheduling. Chanda Carrion APRN.JACOBO documented in this encounter [facility] 02-12-2023 History of Presen t illness Narrative UNIVERSAL PROTOCOL / SAFETY CHECKLIST Procedure to be Performed: EMG Sign In: A Moment of CARE was completed. Personnel directly involved with the procedure wore the appropriate PPE (Personal Protective Equipment). Patient/Surrogate Stated/Verified: PATIENT VERIFIED(optional for EMERGENT procedures): Patient name, Date of , Relevant allergies, and The intended procedure Time Out Communication: Intended patient and procedure match the source documents. Correct side/site marked and visible. Sign Out: SIGN OUT (optional for EMERGENT procedures): Post-procedure follow-up management communicated and Plan of Care Visit completed when applicable. Farida Desouza MD documented in this encounter [facility] 01-25-2023 Miscellaneous Notes Images from the original note were not included. LINDSEY Garcia Primary Care Triage Nurse Pool Let patient know that his lumbar xray showed significant arthritic changes with bony projections coming off the spine. These bony growths could be putting pressure on the nearby nerve, causing the numbness in his foot. I'd like him to still proceed with the EMG study as scheduled in 02/12. I could also initiate a referral to spine medicine now if he'd like, or we can wait til the EMG results. Chanda Carrion APRN.CNP Discussed message above with patient. He will complete EMG as scheduled. Wishes to wait for EMG results prior to moving forward with spine. Seda Hernandez RN Reason for Disposition Health Information question, no triage required and triager able to answer question Protocols used: Information Only Call - No [id number] documented in this encounter [facility] 01-23-2023 Note HNO ID: [id number] Author: RT Kaylee(R) Service: ? Author Type: Manager Fraud Type: Progress Notes Filed: 01/23/2023 11:37 AM Note Text: Radiology Service Progress Note PATIENT NAME: Judy Estes DATE OF SERVICE: January 23, 2023 TIME: 11:23 AM PATIENT IDENTITY VERIFICATION COMPLETED USING TWO (2) IDENTIFIERS: Name and Date of confirmed by patient verbally. FALL SCREENING: Has the patient had 2 falls in the last year or 1 fall with injury or currently using an Ambulatory Assistive Device (Walker, Cane, Wheelchair, Crutches, etc.)? No PATIENT GENDER DATA: Male PATIENT RELEVANT IMPLANT DATA REVIEWED: Yes RADIOLOGY DEPARTMENT: General X-ray: Exam(s) Completed: Spine X-Ray(s): Lumbar AP / LAT / L5-S1 PERIPHERAL IV DATA: Not applicable SIGNED BY: RT Kaylee(R) January 23, 2023 11:23 AM [facility] 01-22-2023 Note HNO ID: [id number] Author: Chanda Carrion APRN.CNP Service: ? Author Type: Nurse Practitioner Type: Progress Notes Filed: 01/22/2023 12:17 PM Note Text: This note was created using [employer]. Subjective Judy Estes is a 62 year old male. Patient reports numbness in right foot in the last month. Feels it over entire foot, but moreso to lateral side, sometimes up into the ankle. No pain, no tingling/burning. Feels like foot is asleep . Was intermittent, now persistent. Denies low back pain or any history of back problems. No history of similar symptoms. Saw PCP on 12/29 for right hip pain, that has resolved, completed Celebrex. Did not discuss these symptoms with PCP at that time Review of Systems Musculoskeletal: Negative for arthralgias and gait problem. Neurological: Positive for numbness. Negative for weakness. PAST MEDICAL HISTORY Diagnosis Date Atrophic kidney CKD (chronic kidney disease) stage 3, GFR 30-59 ml/min ([facility]) DVT (deep venous thrombosis) ([facility]) 01/10/2020 left leg Esophageal reflux Gastroesophageal reflux Essential hypertension Gout Helicobacter pylori (H. pylori) infection Hyperuricemia Presence of stent in coronary artery in patient with coronary artery disease 06/15/2021 Testicular mass PAST SURGICAL HISTORY Procedure Laterality Date ARTHROSCOPY KNEE DIAGNOSTIC W/WO SYNOVIAL BX SPX Left 12/30/2019 Arthroscopy, knee by Jose Armando Downs for sepsis ARTHRS KNE SURG W/MENISCECTOMY MED/LAT W/SHVG Right 05/14/2020 Right knee arthroscopic medial and lateral menisectomy, medial chondroplasty COLONOSCOPY FLX DX W/COLLJ SPEC WHEN PFRMD 07/25/2018 Colonoscopy PAST SURGICAL HISTORY OF Right 1996 IANDD Right ring finger - splinter ALLERGIES Keflex [Cephalexin] MEDICATIONS celecoxib (CELEBREX) 200 mg capsule Take 1 capsule by mouth once daily. allopurinol (ZYLOPRIM) 300 mg tablet take 1 tablet by mouth once daily atorvastatin (LIPITOR) 40 mg tablet Take by mouth. metoprolol tartrate, short acting, (LOPRESSOR) 25 mg tablet Take by mouth. ticagrelor (BRILINTA) 90 mg tablet Take 1 tablet by mouth twice daily. aspirin 325 mg tablet Take 1 tablet by mouth once daily for 28 days. (Patient taking differently: Take 81 mg by mouth once daily.) lisinopril (ZESTRIL, PRINIVIL) 20 mg tablet take 1 tablet by mouth once daily FAMILY HISTORY Problem Relation Age of Onset Hypertension Mother Social History Tobacco Use Smoking status: Former Packs/day: 0.50 Years: 6.00 Pack years: 3.00 Types: Cigarettes Quit date: 10/08/1979 Years since quittin.3 Smokeless tobacco: Never Vaping Use Vaping Use: Never used Substance Use Topics Alcohol use: No Drug use: Yes Frequency: 3.0 times per week Types: Marijuana Comment: marijuana Objective BP 144/85 Pulse (!) 52 Wt 92.1 kg (203 lb) BMI 30.87 kg/m? Physical Exam Vitals and nursing note reviewed. Constitutional: Appearance: He is well-developed. Cardiovascular: Pulses: Dorsalis pedis pulses are 2+ on the right side. Posterior tibial pulses are 2+ on the right side. Pulmonary: Effort: Pulmonary effort is normal. Musculoskeletal: Right lower leg: No tenderness or bony tenderness. No edema. Left lower leg: No edema. Right ankle: Normal. Right foot: Normal range of motion and normal capillary refill. No tenderness or bony tenderness. Normal pulse. Feet: Right foot: Protective Sensation: 8 sites tested. 6 sites sensed. Skin integrity: Skin integrity normal. Toenail Condition: Right toenails are normal. Comments: Decreased sensation to lateral foot Skin: General: Skin is warm and dry. Neurological: Mental Status: He is alert and oriented to person, place, and time. Gait: Gait normal. Assessment and Plan 1. Paresthesia of right foot Schedule EMG and walk in for lumbar xray. Supportive care discussed. Follow up PRN. - EMG(NEURO/NI); Future - XR LUMBAR GENERAL 3V AP/LAT/L5-S1; Future 2. Depression screening negative - DEPRESSION SCREENING/ASSESSMENT Chanda Carrion APRN.[employer] SUPERINTENDENT [facility] 01-22-2023 History of Presen t illness Narrative This note was created using [employer]. Subjective Judy Estes is a 62 year old male. Patient reports numbness in right foot in the last month. Feels it over entire foot, but moreso to lateral side, sometimes up into the ankle. No pain, no tingling/burning. Feels like foot is asleep . Was intermittent, now persistent. Denies low back pain or any history of back problems. No history of similar symptoms. Saw PCP on 12/29 for right hip pain, that has resolved, completed Celebrex. Did not discuss these symptoms with PCP at that time Review of Systems Musculoskeletal: Negative for arthralgias and gait problem. Neurological: Positive for numbness. Negative for weakness. PAST MEDICAL HISTORY Diagnosis Date Atrophic kidney CKD (chronic kidney disease) stage 3, GFR 30-59 ml/min ([facility]) DVT (deep venous thrombosis) ([facility]) 01/10/2020 left leg Esophageal reflux Gastroesophageal reflux Essential hypertension Gout Helicobacter pylori (H. pylori) infection Hyperuricemia Presence of stent in coronary artery in patient with coronary artery disease 06/15/2021 Testicular mass PAST SURGICAL HISTORY Procedure Laterality Date ARTHROSCOPY KNEE DIAGNOSTIC W/WO SYNOVIAL BX SPX Left 12/30/2019 Arthroscopy, knee by Jose Armando Downs for sepsis ARTHRS KNE SURG W/MENISCECTOMY MED/LAT W/SHVG Right 05/14/2020 Right knee arthroscopic medial and lateral menisectomy, medial chondroplasty COLONOSCOPY FLX DX W/COLLJ SPEC WHEN PFRMD 07/25/2018 Colonoscopy PAST SURGICAL HISTORY OF Right 1996 I&D Right ring finger - splinter ALLERGIES Keflex [Cephalexin] MEDICATIONS celecoxib (CELEBREX) 200 mg capsule Take 1 capsule by mouth once daily. allopurinol (ZYLOPRIM) 300 mg tablet take 1 tablet by mouth once daily atorvastatin (LIPITOR) 40 mg tablet Take by mouth. metoprolol tartrate, short acting, (LOPRESSOR) 25 mg tablet Take by mouth. ticagrelor (BRILINTA) 90 mg tablet Take 1 tablet by mouth twice daily. aspirin 325 mg tablet Take 1 tablet by mouth once daily for 28 days. (Patient taking differently: Take 81 mg by mouth once daily.) lisinopril (ZESTRIL, PRINIVIL) 20 mg tablet take 1 tablet by mouth once daily FAMILY HISTORY Problem Relation Age of Onset Hypertension Mother Social History Tobacco Use Smoking status: Former Packs/day: 0.50 Years: 6.00 Pack years: 3.00 Types: Cigarettes Quit date: 10/08/1979 Years since quittin.3 Smokeless tobacco: Never Vaping Use Vaping Use: Never used Substance Use Topics Alcohol use: No Drug use: Yes Frequency: 3.0 times per week Types: Marijuana Comment: marijuana Objective BP 144/85 Pulse (!) 52 Wt 92.1 kg (203 lb) BMI 30.87 kg/m Physical Exam Vitals and nursing note reviewed. Constitutional: Appearance: He is well-developed. Cardiovascular: Pulses: Dorsalis pedis pulses are 2+ on the right side. Posterior tibial pulses are 2+ on the right side. Pulmonary: Effort: Pulmonary effort is normal. Musculoskeletal: Right lower leg: No tenderness or bony tenderness. No edema. Left lower leg: No edema. Right ankle: Normal. Right foot: Normal range of motion and normal capillary refill. No tenderness or bony tenderness. Normal pulse. Feet: Right foot: Protective Sensation: 8 sites tested. 6 sites sensed. Skin integrity: Skin integrity normal. Toenail Condition: Right toenails are normal. Comments: Decreased sensation to lateral foot Skin: General: Skin is warm and dry. Neurological: Mental Status: He is alert and oriented to person, place, and time. Gait: Gait normal. Assessment and Plan 1. Paresthesia of right foot Schedule EMG and walk in for lumbar xray. Supportive care discussed. Follow up PRN. - EMG(NEURO/NI); Future - XR LUMBAR GENERAL 3V AP/LAT/L5-S1; Future 2. Depression screening negative - DEPRESSION SCREENING/ASSESSMENT Chanda Carrion APRN.SEED MILL SUPERINTENDENT documented in this encounter [facility] 01-03-2023 Miscellaneous Notes Called pt and relayed lab results and pcp recommendation. Pt indicated understanding. LM for patient to call office. Labs stable Kidney and glucose same as before. 1 liver enzyme just above normal. The rest are OK Lipid profile: Triglycerides within optimal range. HDL good cholesterol is below acceptable range. This often comes from genetics and can be improved with exercise. Target for HDL cholesterol is >45 mg/dl. In low to moderate risk patients, LDL bad cholesterol target is less than 100. Excellent result. White blood ocunt a little high Lyn Kontak, MD documented in this encounter [facility] 12-29-2022 Note HNO ID: [id number] Author: Lyn Diego MD Service: ? Author Type: Physician Type: Progress Notes Filed: 12/29/2022 4:46 PM Note Text: CHIEF COMPLAINT Patient presents with: Pain: Right leg x 3 weeks HISTORY OF PRESENT ILLNESS Judy Estes is a 62 year old male who presents here today for evaluation of hip pain. I last saw this patient on 06/15/21. Patient reports feeling generally well today. Hip Pain Patient has been having pain in his butt and it goes down his leg. He is having trouble sitting in the chair He says that the pain is constant and has be present for 3 weeks. Health Maintenance Due for routine labs Due for COVID boost. Due for Serum Creatinine Due for hemoglobin Due for Flu vaccine Due for Depression screen Labs reviewed. Past, family and social history reviewed. PAST MEDICAL HISTORY PAST MEDICAL HISTORY Diagnosis Date Atrophic kidney CKD (chronic kidney disease) stage 3, GFR 30-59 ml/min ([facility]) DVT (deep venous thrombosis) ([facility]) 01/10/2020 left leg Esophageal reflux Gastroesophageal reflux Essential hypertension Gout Helicobacter pylori (H. pylori) infection Hyperuricemia Presence of stent in coronary artery in patient with coronary artery disease 06/15/2021 Testicular mass PAST SURGICAL HISTORY Procedure Laterality Date ARTHROSCOPY KNEE DIAGNOSTIC W/WO SYNOVIAL BX SPX Left 12/30/2019 Arthroscopy, knee by Jose Armando Downs for sepsis ARTHRS KNE SURG W/MENISCECTOMY MED/LAT W/SHVG Right 05/14/2020 Right knee arthroscopic medial and lateral menisectomy, medial chondroplasty COLONOSCOPY FLX DX W/COLLJ SPEC WHEN PFRMD 07/25/2018 Colonoscopy PAST SURGICAL HISTORY OF Right 1996 IANDD Right ring finger - splinter ALLERGIES Keflex [Cephalexin] FAMILY HISTORY Problem Relation Age of Onset Hypertension Mother Social History Tobacco Use Smoking status: Former Packs/day: 0.50 Years: 6.00 Pack years: 3.00 Types: Cigarettes Quit date: 10/08/1979 Years since quittin.2 Smokeless tobacco: Never Vaping Use Vaping Use: Never used Substance Use Topics Alcohol use: No Drug use: Yes Frequency: 3.0 times per week Types: Marijuana Comment: marijuana REVIEW OF SYSTEMS General: Feels well, no weight changes, fever, chills. +obesity HEENT: No sinus congestion, earache, sore throat. Cardiac: No chest pain, palpitations +elevated BP Resp: No cough, wheeze, shortness of breath GI: No reflux symptoms, food intolerance, bowel changes. : No urinary frequency, dysuria. MS: +hip pain +leg pain PHYSICAL EXAMINATION BP 132/89 Pulse (!) 53 Ht 172.7 cm (5' 7.99 ) Wt 90.3 kg (199 lb) BMI 30.26 kg/m? Repeat BP: 120/82 General: Alert, well developed, well nourished, no distress, pleasant and cooperative. Obese. HEENT: No adenopathy or thyromegaly. Heart: Regular rate and rhythm. Normal S1 and S2. No murmurs, rubs, or gallops. Lungs: Clear to auscultation bilaterally. No respiratory distress. No wheezes, rales, or rhonchi. Abdomen: Soft, non-tender, no distention. Extremities: Feet/ankles without edema, posterior tibial pulses full and symmetrical. Musculoskeletal: pain over ischial tuberosity. Assessment/Plan (I25.10, Z95.5) Presence of stent in coronary artery in patient with coronary artery disease (primary encounter diagnosis) Comment: due for labs Plan: LIPID PANEL BASIC, COMP METABOLIC PANEL, CBC (I10) Essential hypertension, benign Comment: Bp elevated in office Plan: continue to monitor (M10.071) Acute idiopathic gout of right foot (Z79.899) Long-term use of high-risk medication Comment: due for labs Plan: URIC ACID BLOOD (M70.71) Ischial bursitis of right side Comment: Per PE Plan: Begin on Celebrex. Hold Brilinta for time he's on the Celebrex. Short term only Requested Prescriptions Signed Prescriptions Disp Refills celecoxib (CELEBREX) 200 mg capsule 14 capsule 0 Sig: Take 1 capsule by mouth once daily. RTO: PRN Scribe Attestation: By signing my name below, I, Nilsa Grant, attest that this documentation has been prepared under the direction and in the presence of Ernesto Diego M.D. Electronically Signed: Gurvinder Amaro. December 29, 2022 8:09 AM Provider Attestation: I, Lyn Diego MD, personally performed the services described in this documentation. All medical record entries made by the scribe were at my direction and in my presence. I have reviewed the chart and discharge instructions (if applicable) and agree that the record reflects my personal performance and is accurate and complete. Electronically Signed: Lyn Diego MD December 29, 2022 4:45 PM [facility] 12-29-2022 History of Presen t illness Narrative CHIEF COMPLAINT Patient presents with: Pain: Right leg x 3 weeks HISTORY OF PRESENT ILLNESS Judy Estes is a 62 year old male who presents here today for evaluation of hip pain. I last saw this patient on 06/15/21. Patient reports feeling generally well today. Hip Pain Patient has been having pain in his butt and it goes down his leg. He is having trouble sitting in the chair He says that the pain is constant and has be present for 3 weeks. Health Maintenance Due for routine labs Due for COVID boost. Due for Serum Creatinine Due for hemoglobin Due for Flu vaccine Due for Depression screen Labs reviewed. Past, family and social history reviewed. PAST MEDICAL HISTORY PAST MEDICAL HISTORY Diagnosis Date Atrophic kidney CKD (chronic kidney disease) stage 3, GFR 30-59 ml/min ([facility]) DVT (deep venous thrombosis) ([facility]) 01/10/2020 left leg Esophageal reflux Gastroesophageal reflux Essential hypertension Gout Helicobacter pylori (H. pylori) infection Hyperuricemia Presence of stent in coronary artery in patient with coronary artery disease 06/15/2021 Testicular mass PAST SURGICAL HISTORY Procedure Laterality Date ARTHROSCOPY KNEE DIAGNOSTIC W/WO SYNOVIAL BX SPX Left 12/30/2019 Arthroscopy, knee by Jose Armando Downs for sepsis ARTHRS KNE SURG W/MENISCECTOMY MED/LAT W/SHVG Right 05/14/2020 Right knee arthroscopic medial and lateral menisectomy, medial chondroplasty COLONOSCOPY FLX DX W/COLLJ SPEC WHEN PFRMD 07/25/2018 Colonoscopy PAST SURGICAL HISTORY OF Right 1996 I&D Right ring finger - splinter ALLERGIES Keflex [Cephalexin] FAMILY HISTORY Problem Relation Age of Onset Hypertension Mother Social History Tobacco Use Smoking status: Former Packs/day: 0.50 Years: 6.00 Pack years: 3.00 Types: Cigarettes Quit date: 10/08/1979 Years since quittin.2 Smokeless tobacco: Never Vaping Use Vaping Use: Never used Substance Use Topics Alcohol use: No Drug use: Yes Frequency: 3.0 times per week Types: Marijuana Comment: marijuana REVIEW OF SYSTEMS General: Feels well, no weight changes, fever, chills. +obesity HEENT: No sinus congestion, earache, sore throat. Cardiac: No chest pain, palpitations +elevated BP Resp: No cough, wheeze, shortness of breath GI: No reflux symptoms, food intolerance, bowel changes. : No urinary frequency, dysuria. MS: +hip pain +leg pain PHYSICAL EXAMINATION BP 132/89 Pulse (!) 53 Ht 172.7 cm (5' 7.99 ) Wt 90.3 kg (199 lb) BMI 30.26 kg/m Repeat BP: 120/82 General: Alert, well developed, well nourished, no distress, pleasant and cooperative. Obese. HEENT: No adenopathy or thyromegaly. Heart: Regular rate and rhythm. Normal S1 and S2. No murmurs, rubs, or gallops. Lungs: Clear to auscultation bilaterally. No respiratory distress. No wheezes, rales, or rhonchi. Abdomen: Soft, non-tender, no distention. Extremities: Feet/ankles without edema, posterior tibial pulses full and symmetrical. Musculoskeletal: pain over ischial tuberosity. Assessment/Plan (I25.10, Z95.5) Presence of stent in coronary artery in patient with coronary artery disease (primary encounter diagnosis) Comment: due for labs Plan: LIPID PANEL BASIC, COMP METABOLIC PANEL, CBC (I10) Essential hypertension, benign Comment: Bp elevated in office Plan: continue to monitor (M10.071) Acute idiopathic gout of right foot (Z79.899) Long-term use of high-risk medication Comment: due for labs Plan: URIC ACID BLOOD (M70.71) Ischial bursitis of right side Comment: Per PE Plan: Begin on Celebrex. Hold Brilinta for time he's on the Celebrex. Short term only Requested Prescriptions Signed Prescriptions Disp Refills celecoxib (CELEBREX) 200 mg capsule 14 capsule 0 Sig: Take 1 capsule by mouth once daily. RTO: PRN Scribe Attestation: By signing my name below, I, Nilsa Grant, attest that this documentation has been prepared under the direction and in the presence of Ernesto Diego M.D. Electronically Signed: Gurvinder Amaro. December 29, 2022 8:09 AM Provider Attestation: Lyn Painting MD, personally performed the services described in this documentation. All medical record entries made by the scribe were at my direction and in my presence. I have reviewed the chart and discharge instructions (if applicable) and agree that the record reflects my personal performance and is accurate and complete. Electronically Signed: Lyn Diego MD December 29, 2022 4:45 PM documented in this encounter [facility] 12-28-2022 Miscellaneous Notes The following approved medication requests have been transmitted electronically. Requested Prescriptions Signed Prescriptions Disp Refills allopurinol (ZYLOPRIM) 300 mg tablet 180 tablet 3 Sig: take 1 tablet by mouth once daily Authorizing Provider: LYN DIEGO MD Pharmacy verified in [facility]. Patient has been identified by name and date of : Yes Patient aware RX will be sent to pharmacy. No need to notify patient. Patient phones for refill(s): Requested Prescriptions Pending Prescriptions Disp Refills allopurinol (ZYLOPRIM) 300 mg tablet [Pharmacy Med Name: ALLOPURINOL 300 MG TABLET] 180 tablet 3 Sig: take 1 tablet by mouth once daily Date of last office visit : 01/02/2022 Date of next office visit : 12/29/2022 Last 2 Encounter Wt Readings: Date: Wt: 01/02/2022 91.4 kg (201 lb 6.4 oz) 08/11/2021 88 kg (194 lb) Not applicable Please advise. Kendra Adame MA documented in this encounter [facility] 12-07-2022 Miscellaneous Notes Received 12/07/2022 from [facility]. Placed in provider's inbox for review. Route to [place] for scanning. documented in this encounter [facility] 11-30-2022 Miscellaneous Notes Received lab results from [facility]. Placed in provider's inbox for review. Route to MA scanning. documented in this encounter [facility] 07-19-2022 Miscellaneous Notes Received ankle brachial index report from [facility]. Placed in provider's inbox for review. Route to MA scanning. documented in this encounter [facility] 07-04-2022 Miscellaneous Notes Received cardiovascular and hospital follow up from [facility]. Placed in provider's inbox for review. Route to MA scanning. documented in this encounter [facility] 04-26-2022 Miscellaneous Notes Received labs from [facility]. Placed in provider's inbox for review. Route to MA scanning. documented in this encounter [facility] 04-25-2022 Miscellaneous Notes Received labs from [facility]. Placed in provider's inbox for review. Route to MA scanning. documented in this encounter [facility] 03-07-2022 Miscellaneous Notes Patient coming in today for second Shingles vaccine. Please order documented in this encounter [facility] 03-03-2022 Miscellaneous Notes Patient is on nurse visit schedule for Sunday. Please review and sign Shingrix order. Reason for Disposition Nursing judgment Protocols used: NO GUIDELINE OR REFERENCE [id number] documented in this encounter [facility] 01-09-2022 Miscellaneous Notes Second call placed. Voicemail left stating we still have not gotten rest of labs from internet application developer Left message for to call office regarding labs. Please let patient know that we received part of his lipid panel results, but it was incomplete. Was he able to ask his internet application developer to forward all his recent lab results? May be easier if they could fax those to us. Chanda Carrion APRN.JACOBO documented in this encounter [facility] 01-02-2022 History of Presen t illness Narrative This note was created using Nayeliriter. Subjective Judy Estes is a 61 year old male. Patient here for 6 month follow-up on chronic conditions, last saw PCP in June 2021. Does not need refills today. HTN: doesn't check blood pressure's at home, well controlled today. CKD: saw internet application developer last month and had labs (not in chart), next appointment in April CAD: sees crepe laminator operator at [facility] every 6 months, due again in June Health Maintenance: patient states he had a lipid panel drawn by nephrology, did not bring lab results. Will get first Shringrix vaccine today and covid booster. Order given for PSA to complete when next labs are drawn. Admits to poor dentition and several broken teeth, no regular dental care. Also due for eye exam. Gout: takes allopurinol daily, no flare-ups in the last year Obesity: doesn't exercise; avoids fried foods and junk food, drinks lemonade, doesn't eat out very much The history is provided by the patient. Review of Systems Constitutional: Negative for chills, fever and unexpected weight change. HENT: Negative for congestion, ear pain, hearing loss, rhinorrhea and sore throat. Eyes: Negative for visual disturbance. Respiratory: Negative for cough, shortness of breath and wheezing. Cardiovascular: Negative for chest pain, palpitations and leg swelling. Gastrointestinal: Negative for abdominal pain, constipation, diarrhea, nausea and vomiting. Endocrine: Negative for polydipsia and polyuria. Genitourinary: Negative for dysuria, frequency, hematuria, scrotal swelling, testicular pain and urgency. Musculoskeletal: Positive for back pain. Negative for arthralgias, gait problem, joint swelling, myalgias and neck pain. Skin: Negative for color change. Allergic/Immunologic: Negative for immunocompromised state. Neurological: Negative for dizziness, syncope, light-headedness, numbness and headaches. Hematological: Negative for adenopathy. Does not bruise/bleed easily. Psychiatric/Behavioral: Negative for dysphoric mood. The patient is not nervous/anxious. PAST MEDICAL HISTORY Diagnosis Date Atrophic kidney CKD (chronic kidney disease) stage 3, GFR 30-59 ml/min ([facility]) DVT (deep venous thrombosis) ([facility]) 01/10/2020 left leg Esophageal reflux Gastroesophageal reflux Essential hypertension Gout Helicobacter pylori (H. pylori) infection Hyperuricemia Presence of stent in coronary artery in patient with coronary artery disease 06/15/2021 Testicular mass PAST SURGICAL HISTORY Procedure Laterality Date ARTHROSCOPY KNEE DIAGNOSTIC W/WO SYNOVIAL BX SPX Left 12/30/2019 Arthroscopy, knee by Jose Armando Downs for sepsis ARTHRS KNE SURG W/MENISCECTOMY MED/LAT W/SHVG Right 05/14/2020 Right knee arthroscopic medial and lateral menisectomy, medial chondroplasty COLONOSCOPY FLX DX W/COLLJ SPEC WHEN PFRMD 07/25/2018 Colonoscopy PAST SURGICAL HISTORY OF Right 1996 I&D Right ring finger - splinter ALLERGIES Keflex [Cephalexin] MEDICATIONS allopurinol (ZYLOPRIM) 300 mg tablet take 1 tablet by mouth once daily atorvastatin (LIPITOR) 40 mg tablet Take by mouth. metoprolol tartrate, short acting, (LOPRESSOR) 25 mg tablet Take by mouth. ticagrelor (BRILINTA) 90 mg tablet Take 1 tablet by mouth twice daily. aspirin 325 mg tablet Take 1 tablet by mouth once daily for 28 days. lisinopril (ZESTRIL, PRINIVIL) 20 mg tablet take 1 tablet by mouth once daily FAMILY HISTORY Problem Relation Age of Onset Hypertension Mother Social History Tobacco Use Smoking status: Former Smoker Packs/day: 0.50 Years: 6.00 Pack years: 3.00 Types: Cigarettes Quit date: 10/08/1979 Years since quittin.2 Smokeless tobacco: Never Used Vaping Use Vaping Use: Never used Substance Use Topics Alcohol use: No Drug use: Yes Frequency: 3.0 times per week Types: Marijuana Comment: marijuana Objective BP 107/74 Pulse 82 Ht 172.7 cm (5' 7.99 ) Wt 91.4 kg (201 lb 6.4 oz) BMI 30.63 kg/m Physical Exam Vitals and nursing note reviewed. Constitutional: Appearance: He is overweight. He is not ill-appearing. HENT: Head: Normocephalic. Right Ear: Tympanic membrane and ear canal normal. Left Ear: Tympanic membrane and ear canal normal. Mouth/Throat: Mouth: Mucous membranes are moist. Dentition: Abnormal dentition. Dental caries present. Pharynx: Oropharynx is clear. Eyes: Extraocular Movements: Extraocular movements intact. Conjunctiva/sclera: Conjunctivae normal. Pupils: Pupils are equal, round, and reactive to light. Neck: Thyroid: No thyroid mass or thyromegaly. Cardiovascular: Rate and Rhythm: Normal rate and regular rhythm. Pulses: Normal pulses. Heart sounds: Normal heart sounds. Pulmonary: Effort: Pulmonary effort is normal. Breath sounds: Normal breath sounds and air entry. Abdominal: General: Abdomen is flat. Bowel sounds are normal. Palpations: Abdomen is soft. Musculoskeletal: General: Normal range of motion. Cervical back: Normal range of motion. Right lower leg: No edema. Left lower leg: No edema. Lymphadenopathy: Cervical: No cervical adenopathy. Skin: General: Skin is warm and dry. Capillary Refill: Capillary refill takes less than 2 seconds. Neurological: Mental Status: He is alert and oriented to person, place, and time. Cranial Nerves: No cranial nerve deficit. Gait: Gait normal. Deep Tendon Reflexes: Reflexes normal. Psychiatric: Attention and Perception: Attention normal. Mood and Affect: Mood normal. Speech: Speech normal. Assessment and Plan 1. Essential hypertension, benign Controlled, continue current meds. 2. Stage 3 chronic kidney disease, unspecified whether stage 3a or 3b CKD (HCC) Follows with nephrology twice yearly. Gave our business cards to patient and asked him to request that nephrology fax us their most recent labs and consult note. Also give card to cardiology and ask that they also send consult notes and any lab/imaging results in the future. 3. Presence of stent in coronary artery in patient with coronary artery disease Follows with cardiology twice yearly. 4. Polyarticular gout Controlled on allopurinol, continue. 5. Obesity, Class I, BMI 30-34.9 Encouraged 60 minutes of daily exercise, heart healthy diet. 6. Screening for prostate cancer - PSA/PROSTSPECAG SCRN; Future 7. Encounter for immunization - [employer] COVID-19 VACCINE, AGE 12+ YR (HERNANDES TOP) - ZOSTER VACC RECOMBINANT,IM Recommend annual eye exams and dental visit YOANA. Chanda Carrion APRN.CNP documented in this encounter [facility] documented in this encounter [facility]03-23-2022 Miscellaneous Notes* Telephone Encounter - Nicolle Montiel - 12/28/2021 12:26 PM EDT Called patient and got appointment set up. * Telephone Encounter - Chanda Carrion APRN.CNP - 12/28/2021 10:21 AM EDT Please schedule follow-up visit for maintenance of chronic issues, overdue, either provider Chanda Carrion APRN.CNP * Telephone Encounter - Madhavi Posadas MA - 12/28/2021 10:07 AM EDT Last appointment: 06-15-21 Next appointment: na Pharmacy verified in Epic. Refill(s) requested: Pending Prescriptions Disp Refills ALLOPURINOL 300 MG TABLET 180 tablet Sig: take 1 tablet by mouth once daily YUE: Yes Order(s) pended. Please advise. Madhavi Posadas MA, EXTRUDER TENDER [facility] NoteHNO ID: [id number] Author: Paulina Rosales MD Service: ? Author Type: Fellow Type: Progress Notes Filed: 05/26/2021 8:33 AM Note Text: ORTHOPEDIC SURGERY PROGRESS NOTE Procedure: Procedure(s) and Anesthesia Type: * ARTHROPLASTY SHOULDER - [facility] - Extremity Upper (Date: 05/25/2021) Subjective: Pain controlled, no nausea/vomiting, no chest pain, no shortness of breath. Vitals: BP 139/89 Pulse 106 Temp 36.8 ?C (98.2 ?F) (Oral) Resp 18 Ht 172.7 cm (5' 8 ) Wt 86.2 kg (190 lb) SpO2 95% BMI 28.89 kg/m? Intake/Output Summary (Last 24 hours) at 05/25/2021 2335 Last data filed at 05/25/2021 1600 Gross per 24 hour Intake 2000 ml Output 600 ml Net 1400 ml Physical Examination: General: alert/oriented x3, in no apparent distress Dressing CDI. SILT A/M/R/U. Able to do thumbs up, ok, cross fingers, extend fingers, fires deltoid. WWP, BCR Lab: CBC, Coags, BMP, Mg, Phos Recent Labs 05/26/21 0442 HB 12.3* HCT 35.5* Impression/Plan: POD 1 s/p R TSA NWB RUE in sling PT today PO pain Gen Diet DVT ppx Periop abx Dispo:pending PT Paulina Rosales MD Orthopedic Surgery (c) [phone] NoteHNO ID: [id number] Author: Cedric Arcos APRN.COMPOSITE BOAT BUILDER Service: Anesthesiology Author Type: Nurse Drupal Architect Type: Anesthesia Procedure Notes Filed: 05/25/2021 8:20 AM Note Text: ANESTHESIOLOGY PROCEDURE NOTE Airway General Information Procedure Start Time/Medication Administration: 05/25/2021 7:56 AM Patient location during procedure: OR Timeout Performed Pre-procedure: timeout performed Consent Obtained: Yes Patient identity confirmed: arm band and patient Staffing COMPOSITE BOAT BUILDER: Cedric Arcos APRN.COMPOSITE BOAT BUILDER Performed by: GALE Indications and Patient Condition Preoxygenated: yes Difficult Mask: No Indications for airway management: anesthesia Method: asleep Airway Accessory: oral airway Final Airway Details Final airway type: endotracheal airway Final Endotracheal Airway: ETT Successful intubation technique: direct laryngoscopy Devices used: intubating stylet Blade: Any Blade size: #3 ETT size (mm): 7.5 Measured from: teeth Measurement (cm): 22 Placement verified by: chest auscultation and capnometry Cormack-Lehane Classification: grade IIa - partial view of glottis Number of attempts at approach: 1 Airway not difficult SIGNATURE: Cedric Arcos APRN.COMPOSITE BOAT BUILDER PATIENT NAME: Judy Estes DATE: May 25, 2021 TIME: 8:19 AM CSN: [id number] NoteHNO ID: [id number] Author: Eb Gold III, MD Service: Anesthesiology Author Type: Anesthesiologist Type: Anesthesia Procedure Notes Filed: 05/25/2021 7:24 AM Note Text: ANESTHESIOLOGY PROCEDURE NOTE Peripheral Nerve Block General Information Procedure Start Time/Medication Administration: 05/25/2021 7:00 AM Procedure End time: 05/25/2021 7:10 AM Patient location during procedure: pre-op Timeout Performed Pre-procedure: timeout performed Consent Obtained: Yes Patient identity confirmed: arm band and patient Reason for block: post-op pain management/at surgeon's request Staffing Anesthesiologist: Eb Gold III, MD Performed by: anesthesiologist Preparation Sterility Preparation: hand hygiene performed prior to procedure, surgical cap used, mask used, sterile drape used during line insertion, skin prep agent completely dried prior to procedure Site Prep: Chloraprep Pre-Procedure Neuro Exam Location: RUE Sensory: intact Motor: intact Procedure Details Patient Position: sitting Monitoring: Pulse OX, EKG and NIBP Block Type Upper Extremity: brachial plexus Approach: interscalene Laterality: right Injection Technique: single-shot Ultrasound Guided: Yes Image in Chart: yes Local Infiltration: Yes Needle Needle Type: echogenic Needle Gauge: 22 G Needle Length: 50 mm Needle Localization: ultrasound Assessment Injection assessment: negative aspiration, no paresthesia on injection, incremental injection and local visualized surrounding nerve on ultrasound Paresthesia: none Post-Procedure Neuro Exam Expected Regional Anesthesia: Yes Medications Administered Bupivacaine (PF) 0.5 % (5 mg/mL) injection, 10 mL bupivacaine liposome (PF) 1.3 % (13.3 mg/mL) injection (EXPAREL), 133 mg SIGNATURE: Eb Gold MD PATIENT NAME: Judy Estes DATE: May 25, 2021 TIME: 7:24 AM CSN: [id number] History of Past illness Narrative* Problem Noted Date Resolved Date Polyarthralgia 04/25/2018 09/25/2018 documented as of this encounter (statuses as of 12/28/2021) [address]19-2018 History of Past illness Narrative* Problem Noted Date Resolved Date Polyarthralgia 04/25/2018 09/25/2018 documented as of this encounter (statuses as of 01/02/2022) [place] [address] History of Past illness Narrative* Problem Noted Date Resolved Date Polyarthralgia 04/25/2018 09/25/2018 documented as of this encounter (statuses as of 01/16/2022) [address]19-2018 History of Past illness Narrative* Problem Noted Date Resolved Date Polyarthralgia 04/25/2018 09/25/2018 documented as of this encounter (statuses as of 03/07/2022) [place] [address] History of Past illness Narrative* Problem Noted Date Resolved Date Polyarthralgia 04/25/2018 09/25/2018 documented as of this encounter (statuses as of 03/07/2022) [place] [address] History of Past illness Narrative* Problem Noted Date Resolved Date Polyarthralgia 04/25/2018 09/25/2018 documented as of this encounter (statuses as of 03/08/2022) [place] [address] History of Past illness Narrative* Problem Noted Date Resolved Date Polyarthralgia 04/25/2018 09/25/2018 documented as of this encounter (statuses as of 04/25/2022) [place] [address] History of Past illness Narrative* Problem Noted Date Resolved Date Polyarthralgia 04/25/2018 09/25/2018 documented as of this encounter (statuses as of 04/26/2022) [address]19-2018 History of Past illness Narrative* Problem Noted Date Resolved Date Polyarthralgia 04/25/2018 09/25/2018 documented as of this encounter (statuses as of 07/04/2022) [place] [address] History of Past illness Narrative* Problem Noted Date Resolved Date Polyarthralgia 04/25/2018 09/25/2018 documented as of this encounter (statuses as of 07/07/2022) [address]19-2018 History of Past illness Narrative* Problem Noted Date Resolved Date Polyarthralgia 04/25/2018 09/25/2018 documented as of this encounter (statuses as of 07/19/2022) [place] [address] History of Past illness Narrative* Problem Noted Date Resolved Date Polyarthralgia 04/25/2018 09/25/2018 documented as of this encounter (statuses as of 12/01/2022) [place] [address] History of Past illness Narrative* Problem Noted Date Resolved Date Polyarthralgia 04/25/2018 09/25/2018 documented as of this encounter (statuses as of 12/07/2022) [place] [address] History of Past illness Narrative* Problem Noted Date Resolved Date Polyarthralgia 04/25/2018 09/25/2018 documented as of this encounter (statuses as of 12/28/2022) [place] [address] History of Past illness Narrative* Problem Noted Date Resolved Date Polyarthralgia 04/25/2018 09/25/2018 documented as of this encounter (statuses as of 12/29/2022) [address]19-2018 History of Past illness Narrative* Problem Noted Date Resolved Date Polyarthralgia 04/25/2018 09/25/2018 documented as of this encounter (statuses as of 01/03/2023) [place] [address] History of Past illness Narrative* Problem Noted Date Resolved Date Polyarthralgia 04/25/2018 09/25/2018 documented as of this encounter (statuses as of 01/22/2023) [place] [address] History of Past illness Narrative* Problem Noted Date Resolved Date Polyarthralgia 04/25/2018 09/25/2018 documented as of this encounter (statuses as of 02/12/2023) [place] [address] History of Past illness Narrative* Problem Noted Date Resolved Date Polyarthralgia 04/25/2018 09/25/2018 documented as of this encounter (statuses as of 02/13/2023) [place] [address] History of Past illness Narrative* Problem Noted Date Resolved Date Polyarthralgia 04/25/2018 09/25/2018 documented as of this encounter (statuses as of 03/07/2023) [place] [address] History of Past illness Narrative* Problem Noted Date Resolved Date Polyarthralgia 04/25/2018 09/25/2018 documented as of this encounter (statuses as of 04/11/2023) [place] [address] History of Past illness Narrative* Problem Noted Date Diagnosed Date Resolved Date Polyarthralgia 04/25/2018 09/25/2018 documented as of this encounter (statuses as of 07/10/2023) [place] [address] History of Past illness Narrative* Problem Noted Date Diagnosed Date Resolved Date Polyarthralgia 04/25/2018 09/25/2018 documented as of this encounter (statuses as of 07/28/2023) [place] [address] History of Past illness Narrative* Problem Noted Date Diagnosed Date Resolved Date Polyarthralgia 04/25/2018 09/25/2018 documented as of this encounter (statuses as of 08/02/2023) [place] [address] History of Past illness Narrative* Problem Noted Date Diagnosed Date Resolved Date Polyarthralgia 04/25/2018 09/25/2018 documented as of this encounter (statuses as of 08/06/2023) [place] [address] History of Past illness Narrative* Problem Noted Date Diagnosed Date Resolved Date Polyarthralgia 04/25/2018 09/25/2018 documented as of this encounter (statuses as of 08/08/2023) [facility] Diagnosis Hyperuricemia Other abnormal blood chemistry [facility] Diagnosis Encounter for immunization- Primary Need for other specified prophylactic vaccination against single bacterial disease [facility] Diagnosis Encounter for immunization- Primary Need for other specified prophylactic vaccination against single bacterial disease [facility]* Diagnosis Medication management Encounter for long-term (current) use of other medications Presence of stent in coronary artery in patient with coronary artery disease Chronic renal disease, stage 3, moderately decreased glomerular filtration rate (GFR) between 30-59 mL/min/1.73 square meter (HCC) Chronic kidney disease, Stage III (moderate) documented in this encounter [facility] note* Diagnosis Hyperuricemia Other abnormal blood chemistry [facility]* Diagnosis Presence of stent in coronary artery in patient with coronary artery disease- Primary Essential hypertension, benign 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 Long-term use of high-risk medication Coronary artery disease involving buck[place] coronary artery of buck[place] heart without angina pectoris documented in this encounter [facility] note* Diagnosis Paresthesia of right foot- Primary Disturbance of skin sensation Depression screening negative [facility]* Diagnosis Paresthesia of right foot Disturbance of skin sensation documented in this encounter [facility] note* Diagnosis Paresthesia of right foot- Primary Disturbance of skin sensation Lumbar degenerative disc disease Degeneration of lumbar or lumbosacral intervertebral disc documented in this encounter [facility] note* Diagnosis Lumbar radiculopathy- Primary Thoracic or lumbosacral neuritis or radiculitis, unspecified Paresthesia of right foot Disturbance of skin sensation Lumbar degenerative disc disease Degeneration of lumbar or lumbosacral intervertebral disc [facility]* Diagnosis Paresthesia of right foot- Primary Disturbance of skin sensation Lumbar degenerative disc disease Degeneration of lumbar or lumbosacral intervertebral disc Lumbar radiculopathy Thoracic or lumbosacral neuritis or radiculitis, unspecified documented in this encounter [facility] note* Diagnosis History of colonic polyps- Primary Personal history of colonic polyps Antiplatelet or antithrombotic long-term use Encounter for long-term (current) use of antiplatelets/antithrombotics documented in this encounter [facility] note* Diagnosis History of colon polyps- Primary Personal history of colonic polyps documented in this encounter [facility] for referral (narrative)* Diagnostic Procedure Only (Routine) - Pending Review Specialty Diagnoses / Procedures Referred By Contac t Referred To Contact XR IMAGING Diagnoses Paresthesia of right foot Procedures XR LUMBAR GENERAL 3V AP/LAT/L5-S1 RADEX SPINE LUMBOSACRAL 2/3 VIEWS Chanda Carrion APRN.SEED MILL SUPERINTENDENT [address] [place] [address] Xr Imaging Referral ID Status Reason Start Date Expiration Date Visits Requested Visits Authorized [id number] Pending Review Auto-Generat ed Referral 01/22/2023 02/21/2024 1 1 * Outpatient Procedure (Routine) - Pending Review Specialty Diagnoses / Procedures Referred By Contac t Referred To Contact [facility] Diagnoses Paresthesia of right foot Procedures EMG(NEURO/NI) NERVE CONDUCTION STUDIES 9-10 STUDIES Chanda Carrion APRN.SEED MILL SUPERINTENDENT [address] [place] [address] Neu[facility] [address] [place] [address] Referral ID Status Reason Start Date Expiration Date Visits Requested Visits Authorized [id number] Pending Review Auto-Generat ed Referral 01/22/2023 01/23/2024 [address] [facility] for referral (narrative)* - Pending Review Specialty Diagnoses / Procedures Referred By Contac t Referred To Contact Diagnoses Paresthesia of right foot Lumbar degenerative disc disease Lumbar radiculopathy Procedures CONSULT TO PHYSICAL THERAPY Paulina Maldonado PA-C [address] [place] [id number] Referral ID Status Reason Start Date Expiration Date V isits Requested Visits Authorized [id number] Pending Review 03/07/2023 06/05/2023 [address] [facility] for referral (narrative)* Outpatient Procedure (Routine) - Pending Review Specialty Diagnoses / Procedures Referred By Jame pedraza Referred To Contact [facility] Diagnoses History of colonic polyps Procedures COLONOSCOPY SCREENING COLONOSCOPY FLX DX W/COLLJ SPEC WHEN Cris Solorzano MD [address] [place] [address] [address] Referral ID Status Reason Start Date Expiration Date Visits Requested Visits Authorized [id number] Pending Review Auto-Generat ed Referral 3 07/25/2024 [address] [facility] for referral (narrative)* Outpatient Procedure (Routine) - Authorized Specialty Diagnoses / Procedures Referred By Jame pedraza Referred To Contact [facility] [place] Diagnoses History of colon polyps Procedures COLONOSCOPY SCREENING COLONOSCOPY FLX DX W/COLLJ SPEC WHEN Cris Solorzano MD [address] [place] [address] [address] Referral ID Status Reason Start Date Expiration Date Visits Requested Visits Authorized [id number] Authorized Auto-Generat ed Referral 3 08/02/2024 [address] [facility] for visit Narrative* Outpatient Procedure (Routine) - Closed Specialty Diagnoses / Procedures Referred By Jame pedraza Referred To Contact [facility] Diagnoses Paresthesia of right foot Procedures EMG(NEURO/NI) NERVE CONDUCTION STUDIES 9-10 STUDIES Chanda Carrion, ASSISTANT STORE MANAGER TRAINEE.SEED MILL SUPERINTENDENT [address] [place] [address] [address] Referral ID Status Reason Start Date Expiration Date V isits Requested Visits Authorized [id number] Closed Auto-Generate d Referral 01/22/2023 01/23/2024 1 1 [facility] Summary Purpose Family History No Family History Records FoundNo Family History Records FoundNo Family History Records FoundNo Family History Records FoundNo Family History Records Found Advance Directives No Advanced Directives Records FoundDocuments on File Type Date Recorded Patient 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 Author Type: Nurse Drupal Architect Type: Anesthesia Procedure Notes Filed: 05/14/2020 7:56 AM Note Text: ANESTHESIOLOGY PROCEDURE NOTE Airway General Information Procedure Start Time/Medication Administration: 05/14/2020 7:39 AM Procedure End Time: 05/14/2020 7:41 AM Patient location during procedure: OR Patient identity confirmed: arm band Staffing COMPOSITE BOAT BUILDER: Jordan Segundo Performed by: COMPOSITE BOAT BUILDER Indications and Patient Condition Preoxygenated: yes Patient position: sniffing Indications for airway management: anesthesia anesthesia circuit Method: asleep Final Airway Details Final airway type: supraglottic airway Final Supraglottic Airway: IGEL Size 4 Seal Adequate: yes Airway not difficult Medications Administered Propofol iv bolus (DIPRIVAN), 150 mg fentaNYL 50 mcg/mL injection (SUBLIMAZE), 50 mcg SIGNATURE: Jordan Segundo APRN.CRNA PATIENT NAME: Judy Estes DATE: May 14, 2020 TIME: 7:54 AM CSN: [id number] Reason for Referral Specialty Diagnoses / Procedures Referred By Jame pedraza Referred To Contact [facility] / SPINE Diagnoses Paresthesia of right foot Lumbar degenerative disc disease Procedures CONSULT TO [facility] OFFICE/OUTPATIENT [facility] 60-74 MINUTES Chanda Carrion, ASSISTANT STORE MANAGER TRAINEE.SEED MILL SUPERINTENDENT [address] [place] [address] Spine [facility] [address] [address] Referral ID Status Reason Start Date Expiration Date Visits Requested Visits Authorized [id number] Pending Review PCP Requested Referral 02/12/2023 02/12/2024 1 1 Additional Source Comments (unrecognized sect ion and content) No Status Records FoundNo Status Records FoundNo Status Records FoundNo Status Records FoundNo Status Records Found INFORMATION SOURCE (unrecogn ized section and content) DATE CREATED AUTHOR AUTHOR'S ORGANIZ ATION 12/10/2019 [facility] DATE CREATED AUTHOR AUTHOR'S ORGANIZ ATION 05/27/2020 [facility] DATE CREATED AUTHOR AUTHOR'S ORGANIZ ATION 05/26/2021 [facility] DATE CREATED AUTHOR AUTHOR'S ORGANIZ ATION 09/13/2023 [facility] Source Comments (unrecognize d section and content) In the event this informatio n is protected by the Federal Confidentiality of Alcohol and Drug Abuse Patient Records regulations: The Federal rules restrict any use of the information to criminally investigate or prosecute any alcohol or drug abuse patient.[facility] the event this information is protected by the Federal Confidentiality of Alcohol and Drug Abuse Patient Records regulations: The Federal rules restrict any use of the information to criminally investigate or prosecute any alcohol or drug abuse patient.[facility] the event this information is protected by the Federal Confidentiality of Alcohol and Drug Abuse Patient Records regulations: The Federal rules restrict any use of the information to criminally investigate or prosecute any alcohol or drug abuse patient.[facility] the event this information is protected by the Federal Confidentiality of Alcohol and Drug Abuse Patient Records regulations: The Federal rules restrict any use of the information to criminally investigate or prosecute any alcohol or drug abuse patient.[facility] the event this information is protected by the Federal Confidentiality of Alcohol and Drug Abuse Patient Records regulations: The Federal rules restrict any use of the information to criminally investigate or prosecute any alcohol or drug abuse patient.[facility] the event this information is protected by the Federal Confidentiality of Alcohol and Drug Abuse Patient Records regulations: The Federal rules restrict any use of the information to criminally investigate or prosecute any alcohol or drug abuse patient.[facility] the event this information is protected by the Federal Confidentiality of Alcohol and Drug Abuse Patient Records regulations: The Federal rules restrict any use of the information to criminally investigate or prosecute any alcohol or drug abuse patient.[facility] the event this information is protected by the Federal Confidentiality of Alcohol and Drug Abuse Patient Records regulations: The Federal rules restrict any use of the information to criminally investigate or prosecute any alcohol or drug abuse patient.[facility] the event this information is protected by the Federal Confidentiality of Alcohol and Drug Abuse Patient Records regulations: The Federal rules restrict any use of the information to criminally investigate or prosecute any alcohol or drug abuse patient.[facility] the event this information is protected by the Federal Confidentiality of Alcohol and Drug Abuse Patient Records regulations: The Federal rules restrict any use of the information to criminally investigate or prosecute any alcohol or drug abuse patient.[facility] the event this information is protected by the Federal Confidentiality of Alcohol and Drug Abuse Patient Records regulations: The Federal rules restrict any use of the information to criminally investigate or prosecute any alcohol or drug abuse patient.[facility] the event this information is protected by the Federal Confidentiality of Alcohol and Drug Abuse Patient Records regulations: The Federal rules restrict any use of the information to criminally investigate or prosecute any alcohol or drug abuse patient.[facility] the event this information is protected by the Federal Confidentiality of Alcohol and Drug Abuse Patient Records regulations: The Federal rules restrict any use of the information to criminally investigate or prosecute any alcohol or drug abuse patient.[facility] the event this information is protected by the Federal Confidentiality of Alcohol and Drug Abuse Patient Records regulations: The Federal rules restrict any use of the information to criminally investigate or prosecute any alcohol or drug abuse patient.[facility] the event this information is protected by the Federal Confidentiality of Alcohol and Drug Abuse Patient Records regulations: The Federal rules restrict any use of the information to criminally investigate or prosecute any alcohol or drug abuse patient.[facility] the event this information is protected by the Federal Confidentiality of Alcohol and Drug Abuse Patient Records regulations: The Federal rules restrict any use of the information to criminally investigate or prosecute any alcohol or drug abuse patient.[facility] the event this information is protected by the Federal Confidentiality of Alcohol and Drug Abuse Patient Records regulations: The Federal rules restrict any use of the information to criminally investigate or prosecute any alcohol or drug abuse patient.[facility] the event this information is protected by the Federal Confidentiality of Alcohol and Drug Abuse Patient Records regulations: The Federal rules restrict any use of the information to criminally investigate or prosecute any alcohol or drug abuse patient.[facility] Hospital[facility] the event this information is protected by the Federal Confidentiality of Alcohol and Drug Abuse Patient Records regulations: The Federal rules restrict any use of the information to criminally investigate or prosecute any alcohol or drug abuse patient.[facility] Hospital[facility] the event this information is protected by the Federal Confidentiality of Alcohol and Drug Abuse Patient Records regulations: The Federal rules restrict any use of the information to criminally investigate or prosecute any alcohol or drug abuse patient.[facility] Hospital[facility] the event this information is protected by the Federal Confidentiality of Alcohol and Drug Abuse Patient Records regulations: The Federal rules restrict any use of the information to criminally investigate or prosecute any alcohol or drug abuse patient.[facility] Hospital[facility] the event this information is protected by the Federal Confidentiality of Alcohol and Drug Abuse Patient Records regulations: The Federal rules restrict any use of the information to criminally investigate or prosecute any alcohol or drug abuse patient.[facility] the event this information is protected by the Federal Confidentiality of Alcohol and Drug Abuse Patient Records regulations: The Federal rules restrict any use of the information to criminally investigate or prosecute any alcohol or drug abuse patient.[facility] Hospital[facility] the event this information is protected by the Federal Confidentiality of Alcohol and Drug Abuse Patient Records regulations: The Federal rules restrict any use of the information to criminally investigate or prosecute any alcohol or drug abuse patient.[facility] HospitalIn the event this information is protected by the Federal Confidentiality of Alcohol and Drug Abuse Patient Records regulations: The Federal rules restrict any use of the information to criminally investigate or prosecute any alcohol or drug abuse patient.[facility] HospitalIn the event this information is protected by the Federal Confidentiality of Alcohol and Drug Abuse Patient Records regulations: The Federal rules restrict any use of the information to criminally investigate or prosecute any alcohol or drug abuse patient.[facility] Reason for Visit (unrecogniz ed section and content) 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 Comments 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 Reason Comments Orders Reason Comments Outside Lab Results [facility] Reason Comments Received Outside Medical Records [facility] Reason Comments Received Outside Medical Records [facility] Car diovascular Reason Comments Received Outside Medical Records [facility] office summary 12/07/2022 Reason Comments Pain Right leg x 3 weeks Reason Comments Results Lab Reason Comments Numbness Right foot x 1 month Reason Comments Results Orders Reason Comments New Patient Low Back Pain Leg Pain Specialty Diagnoses / Procedures Referred By Contac t Referred To Contact [facility] / SPINE Diagnoses Paresthesia of right foot Lumbar degenerative disc disease Procedures CONSULT TO [facility] OFFICE/OUTPATIENT [facility] 60-74 MINUTES Chanda Carrion, [place].[employer] SUPERINTENDENT [address] [place] [address] Spine [facility] [address] [address] Referral ID Status Reason Start Date Expiration Date Visits Requested Visits Authorized [id number] Pending Review PCP Requested Referral 02/12/2023 02/12/2024 1 1 Reason Comments Physical Therapy Specialty Diagnoses / Procedures Referred By Contac t Referred To Contact [facility] Diagnoses Paresthesia of right foot Lumbar degenerative disc disease Lumbar radiculopathy Procedures CONSULT TO PHYSICAL THERAPY Paulina Maldonado, [facility] [address] [place] [address] John Knapp PT Referral ID Status Reason Start Date Expiration Date V isits Requested Visits Authorized [id number] Authorized 11/08/2022 10/07/2023 30 30 Reason Comments Received Outside Medical Records [facility] ED 05/15/23 Reason Comments Consult Colonoscopy consulta tion. Reason Comments Results Reason Comments Nurse Triage Call Care Teams (unrecognized sec tion and content) 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 Start Date End Date Lyn Diego MD [address] [place] [address] PCP - General Family Practice 07/18/17 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 Start Date End Date Lyn Diego MD [address] [place] [address] PCP - General Family Practice 07/18/17 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 Start Date End Date Lyn Diego MD [address] [place] [address] PCP - General Family Practice 07/18/17 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 Start Date End Date Lyn Diego MD [facility] [place] [address] PCP - General Family Medicine 07/18/17 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 Start Date End Date Lyn Diego MD [facility] [place] [address] PCP - General Family Medicine 07/18/17 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 Start Date End Date Lyn Diego MD [address] [place] [address], [place] [address] PCP - General Family Medicine 07/18/17 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 Start Date End Date Lyn Diego MD [facility] [place] [address] PCP - General Family Medicine 07/18/17 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 Start Date End Date Lyn Diego MD [facility] [place] [address] PCP - General Family Medicine 07/18/17 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 Start Date End Date Lyn Diego MD [address] [place] [address], [place] [address] PCP - General Family Medicine 07/18/17 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 Start Date End Date Lyn Diego MD [address] [place] [address], [place] [address] PCP - General Family Medicine 07/18/17 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 Start Date End Date Lny Diego MD [address] [place] [address] PCP - General Family Medicine 07/18/17 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 Start Date End Date Lyn Diego MD [address] [place] [address] PCP - General Family Medicine 07/18/17 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 Start Date End Date Lyn Diego MD [address] [place] [address] PCP - General Family Medicine 07/18/17 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 Start Date End Date Lyn Diego MD [address] [place] [address] PCP - General Family Medicine 07/18/17 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 Start Date End Date Lyn Diego MD [address] [place] [address] PCP - General Family Medicine 07/18/17 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 This clinical summary was aggregated from multiple sources. Caution should be exercised in using it in the provision of clinical care. This summary normalizes information from multiple sources, and as a consequence, information in this document may materially change the coding, format and clinical context of patient data. In addition, data may be omitted in some cases. CLINICAL DECISIONS SHOULD BE BASED ON THE PRIMARY CLINICAL RECORDS. [employer] [facility]. provides no warranty or guarantee of the accuracy or completeness of information in this document.
--- OUTSIDE RECORDS SUMMARY | 2023-11-29 06:27 | XMS RPT_ITS | CCD ---
Author Name Unknown Address [facility] [address] [place] [address] Organization [facility] Care Team Providers Care Gis Technician Name Role Phone Lyn Diego MD Primary [...] Referring Unavailable LYN DIEGO Primary Care Unavailable Cris Duque Attending Unavailable Allergies Allergy Classification Reported Allergen(s) Allergy Type Date of Onset Reaction(s) Facility (20 sources) Cephalexin; Translations: [CEPHALEXIN] Drug Allergy 07-11-2019 Diarrhea, Vomiting [facility] Medications Completed/Discontinued Medications Medication Drug Class(es) [...] coronary artery; Translations: [Atherosclerotic heart disease of [place] coronary artery without angina pectoris] Onset: 06-15-2021 [...] source) H/O: high risk medication; Translations: [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 therapy] Episodic Other and unspecified [...] 172.7 cm Cris Duque MD Work Phone: [facility] 07-25-2023 14:39-0400 Body temperature 97.2 [degF] Cris Duque MD Work Phone: [facility] 07-25-2023 14:39-0400 Body weight 90.36 kg Cris Duque MD Work Phone: [facility] 07-25-2023 14:39-0400 Diastolic blood pressure 70 mm[Hg] Cris Duque MD Work Phone: [facility] 07-25-2023 14:39-0400 Heart rate 98 /min Cris Duque MD Work Phone: [facility] 07-25-2023 14:39-0400 SaO2% (BldA) [Mass fraction] 98 % Cris Duque MD Work Phone: [facility] 07-25-2023 14:39-0400 Systolic blood pressure 126 mm[Hg] Cris Duque MD Work Phone: [facility] 03-07-2023 13:38-0400 Body height 172.7 cm Paulina Maldonado PA-C Work Phone: [facility] 03-07-2023 13:38-0400 Body weight 89.63 kg Paulina Maldonado PA-C Work Phone: [facility] 03-07-2023 13:38-0400 Diastolic blood pressure 97 mm[Hg] Paulina Maldonado PA-C Work Phone: [facility] 03-07-2023 13:38-0400 Heart rate 81 /min Paulina Maldonado PA-C Work Phone: [facility] 03-07-2023 13:38-0400 SaO2% (BldA) [Mass fraction] 98 % Paulina Maldonado PA-C Work Phone: [facility] 03-07-2023 13:38-0400 Systolic blood pressure 133 mm[Hg] Paulina Maldonado PA-C Work Phone: [facility] 01-22-2023 10:48-0400 Body weight 92.08 kg Chanda Carrion APRN.CNP Work Phone: [facility] 01-22-2023 10:48-0400 Diastolic blood pressure 85 mm[Hg] Chanda Christina INSPECTOR OF WEIGHTS AND MEASURES.BASEBALL WINDER Work Phone: [facility] 01-22-2023 10:48-0400 Heart rate 52 /min Chanda Christina INSPECTOR OF WEIGHTS AND MEASURES.BASEBALL WINDER Work Phone: [facility] 01-22-2023 10:48-0400 Systolic blood pressure 144 mm[Hg] Chanda Christina INSPECTOR OF WEIGHTS AND MEASURES.BASEBALL WINDER Work Phone: [facility] 12-29-2022 10:54-0400 Diastolic blood pressure 82 mm[Hg] Lyn Diego MD Work Phone: [facility] 12-29-2022 10:54-0400 Systolic blood pressure 120 mm[Hg] Lyn Diego MD Work Phone: [facility] 12-29-2022 10:35-0400 Body height 172.7 cm Lyn Diego MD Work Phone: [facility] 12-29-2022 10:35-0400 Body weight 90.27 kg Lyn Diego MD Work Phone: [facility] 12-29-2022 10:35-0400 Heart rate 53 /min Lyn Diego MD Work Phone: [facility] 01-02-2022 10:59-0400 Body height 172.7 cm Chanda Christina INSPECTOR OF WEIGHTS AND MEASURES.BASEBALL WINDER Work Phone: [facility] 01-02-2022 10:59-0400 Body weight 91.35 kg Chanda Christina INSPECTOR OF WEIGHTS AND MEASURES.BASEBALL WINDER Work Phone: [facility] 01-02-2022 10:59-0400 Diastolic blood pressure 74 mm[Hg] Chanda Christina INSPECTOR OF WEIGHTS AND MEASURES.BASEBALL WINDER Work Phone: [facility] 01-02-2022 10:59-0400 Heart rate 82 /min Chanda Christina INSPECTOR OF WEIGHTS AND MEASURES.BASEBALL WINDER Work Phone: [facility] 01-02-2022 10:59-0400 Systolic blood pressure 107 mm[Hg] Chanda Carrion APRN.BASEBALL WINDER Work Phone: [facility] Encounters Encounter Date Encounter Type Care Provider Facility Start: 09-07-2023 End: 09-07-2023 ambulatory LYN DIEGO Facility:[facility] Start: 08-02-2023 Orders Only Cris sevilla MD Work Phone: LD PROVIDER ADULT Procedures Date Procedure Procedure Detail Performing Clinician Start: 02-12-2023 Nerve conduction jessica dies 5-6 studies Chanda Carrion APRN.BASEBALL WINDER Work Phone: Start: 12-29-2022 Lipid 1996 panel - S serina or Plasma Lyn Diego MD Work Phone: Start: 01-02-2022 P[facility]ER-BIONTIDRI ([facility]) COVI D-19 VACCINE, AGE 12+ YR (HERNANDES TOP) Chanda Carrion APRN.BASEBALL WINDER Work Phone: Start: 01-02-2022 Adult depression screening assessment Chanda Carrion APRN.BASEBALL WINDER Work Phone: Start: 12-27-2021 Lipid panel [facility] Prov[facility] Start: 05-11-2021 Antibody screen Plan of Treatment Date Care Activity Detail Author Start: 06-15-2031 Urine microalbumin profile [facility] Start: 12-30-2027 Lipid 1996 panel - Serum or Plasma Lipid Screening [facility] Start: 12-30-2027 LIPID SCREEN LIPID SCREEN [facility] Start: 01-10-2027 PROSTATE CANCER SCREENING DISCUSSION PROSTATE CANCER SCREENING DISCUSSION [facility] Start: 12-27-2026 LIPID SCREEN LIPID SCREEN [facility] Start: 12-29-2025 DIABETES SCREEN DIABETES SCREEN [facility] Start: 12-29-2025 Diabetes Screening Diabetes Screening [facility] Start: 07-25-2024 BP Controlled (<130/80) BP Controlled (<130/80) [facility] Start: 05-11-2024 DIABETES SCREEN DIABETES SCREEN [facility] Start: 01-23-2024 ANNUAL PCP TEAM CHRONIC DISEASE VISIT ANNUAL PCP TEAM CHRONIC DISEASE VISIT [facility] Start: 12-30-2023 ANNUAL PCP TEAM CHRONIC DISEASE VISIT ANNUAL PCP TEAM CHRONIC DISEASE VISIT [facility] Start: 12-30-2023 HEMOGLOBIN/HEMATOCRIT HEMOGLOBIN/HEMATOCRIT [facility] Start: 12-30-2023 Hepatitis B surface antibody level LDL CHOLESTEROL [facility] Start: 12-30-2023 SERUM CREATININE SERUM CREATININE [facility] Start: 07-25-2023 Colonoscopy COLONOSCOPY [facility] Start: 07-25-2023 COLORECTAL CANCER SCREENING COLORECTAL CANCER SCREENING [facility] Start: 06-08-2023 Covid-19 Vaccine () Covid-19 Vaccine () [facility] Start: 06-08-2023 Influenza vaccination [facility] Start: 01-02-2023 Adult depression screening assessment DEPRESSION SCREENING [facility] Start: 01-02-2023 ANNUAL PCP TEAM CHRONIC DISEASE VISIT ANNUAL PCP TEAM CHRONIC DISEASE VISIT [facility] Start: 01-02-2023 BP CONTROLLED (<130/80) BP CONTROLLED (<130/80) [facility] Start: 10-08-2022 DEPRESSION ASSESSMENT DEPRESSION ASSESSMENT [facility] Start: 07-04-2022 End: 09-03-2022 CBC panel - Blood by Automated count CBC Lab Routine Chronic renal disease, stage 3, moderately decreased glomerular filtration rate (GFR) between 30-59 mL/min/1.73 square meter (HCC) Expected: 07/04/2022, Expires: 09/03/2022 [facility] Work Phone: Immunizations Immunization Date Immunization Notes Care Provider Jos lewis 03-07-2022 zoster vaccine recombinant Lyn Diego MD Work Phone: [facility] 01-02-2022 COVID-19 vaccine, ag e 12+ yr (PFIZER-BIONTIDRI ([facility]) - [facility]) Chanda Christina INSPECTOR OF WEIGHTS AND MEASURES.BASEBALL WINDER Work Phone: [facility] 01-02-2022 zoster vaccine recombinant Chanda Christina INSPECTOR OF WEIGHTS AND MEASURES.BASEBALL WINDER Work Phone: [facility] 06-15-2021 tetanus toxoid, redu stacey diphtheria toxoid, and acellular pertussis vaccine, adsorbed Lyn Diego MD Work Phone: [facility] 04-01-2021 tetanus toxoid, redu stacey diphtheria toxoid, and acellular pertussis vaccine, adsorbed Chanda Christina INSPECTOR OF WEIGHTS AND MEASURES.BASEBALL WINDER Work Phone: [facility] 01-21-2021 COVID-19 vaccine, fu ll dose (MODERNA) Lyn Diego MD Work Phone: [facility] 12-24-2020 COVID-19 vaccine, fu ll dose (MODERNA) Lyn Diego MD Work Phone: [facility] Payers Date Payer Category Payer Medicaid [id number] 2021 Medicaid [employer] [id number] 2021-Present [phone] [address] [place] [address] Medicaid [id number] 2021 Medicaid [id number] Social History Date Type Detail Facility Start: 08-17-2015 End: 07-25-2018 Tobacco smoking status NHIS Ex-smoker [facility] Work Phone: End: 10-08-1979 History of tobacco use Current smoker [facility] Work Phone: End: 10-08-1979 History of tobacco use Cigarette Smoker [facility] Work Phone: Start: 08-17-2015 End: 03-07-2023 Cigarettes smoked current (pack per day) - Reported 0.5 [facility] Work Phone: Start: 08-17-2015 End: 07-25-2018 Tobacco use and exposure Smokeless tobacco non-user [facility] Work Phone: Start: 07-11-2021 End: 01-02-2022 Alcohol intake Current non-drinker of alcohol (finding) [facility] Start: 1960 Sex Assigned At Not on file C [facility] Start: 12-23-2021 End: 01-02-2022 Exposure to SARS-CoV-2 (event) Not sure [facility] Start: 03-07-2023 End: 05-15-2023 Tobacco use panel [facility] Work Phone: Adult Depression Screening Assessment 0 [facility] Work Phone: Medical Equipment Procedure Code Equipment Code Equipment Origin al Text Equipment Identifier Dates Cement Simplex P Bone Radiopaque Full Dose Sterile - [id number] Start: 05-25-2021 Glenoid W/Cleat Lg [id number] Start : 05-25-2021 Dynanite Vip Gle noid Pin, Nitinol, 2.8mm [id number] Start: 05-25-2021 Head Univers 48m m 19mm Humeral Sterile Shoulder - [id number] Start: 05-25-2021 Stem Univers Ape x 9mm Rectangle 60mm Humeral Press Fit Removable Trunion - [id number] Start: 05-25-2021 Clinical Notes 04-25-2018 to 07-30-2023 Telephone Encounter - Donna Patel RN - 07/30/2023 4:49 PM EDTWaCris sevilla MD - 07/25/2023 3:02 PM EDTPatient Honey Delgado RN - 07/25/2023 2:45 PM EDT Note Date & Type Note Facility 07-30-2023 Miscellaneous Notes Received result from [facility]. DOS 07/28/23 Pulmonary Function Studies. Placed in PCP inbox for review. documented in this encounter [facility] 07-25-2023 Note HNO ID: [id number] Author: Cris Duque MD Service: ? Author [...] in his immediate family. He had an [place] about two years ago after a shoulder surgery. He had stent placed and has been on Brillinta since. He is followed by [facility] and was seen by Eb Leach a few weeks ago. He denies blood in his stools, denies changes in bowel habits, denies abdominal pain. PAST MEDICAL HISTORY Diagnosis Date Atrophic kidney CKD (chronic kidney disease) stage 3, GFR 30-59 ml/min ([facility]) DVT (deep venous thrombosis) ([facility]) 01/10/2020 left leg Esophageal reflux Gastroesophageal reflux [...] entered by the nurse and reviewed by ne Nursing Notes: Honey Yousif RN 07/25/2023 2:47 [...] and denies stroke/TI (more content not included)... [facility] 07-25-2023 History of Presen t illness [...] in his immediate family. He had an NY about two years ago after a shoulder surgery. He had stent placed and has been on Brillinta since. He is followed by [facility] and was seen by Eb Leach a few weeks ago. He denies blood in his stools, denies changes in bowel habits, denies abdominal pain. PAST MEDICAL HISTORY Diagnosis Date Atrophic kidney CKD (chronic kidney disease) stage 3, GFR 30-59 ml/min ([facility]) DVT (deep venous thrombosis) ([facility]) 01/10/2020 left leg Esophageal reflux Gastroesophageal reflux [...] entered by the nurse and reviewed by ne Nursing Notes: Honey Yousif RN 07/25/2023 2:47 [...] will be scheduled for the procedure at [facility]. He will require a cardiology clearance from [...] Cris Duque MD documented in this encounter [facility] 07-25-2023 Instructions Cris Duque MD - [...] If you do not have a responsible transit mixer driver (family member or friend) with you [...] exam. 2 09/2019 documented in this encounter [facility] 07-25-2023 Nurse Note REVIEW OF SYSTEMS: [...] Honey Yousif RN documented in this encounter [facility] 07-09-2023 Miscellaneous Notes Received ED summary for rt eyelid pain and swelling from [facility]. Placed in provider's inbox for review. Route to MA scanning. documented in this encounter [facility] 05-15-2023 Note HNO ID: [id number] Author: Ernesto Melton APRN.BASEBALL WINDER Service: ? Author Type: Nurse Practitioner Type: [...] kidney disease) stage 3, GFR 30-59 ml/min ([facility]) DVT (deep venous thrombosis) ([facility]) 01/10/2020 left leg Esophageal reflux Gastroesophageal reflux [...] understand agrees plan of care. Ernesto Melton APRN.[facility] 04-11-2023 Note HNO ID: [id number] Author: John Knapp PT Service: ? Author [...] Time Minutes (timed/untimed): 40 John Knapp, PT [facility] 04-11-2023 History of Presen t illness [...] John Knapp PT documented in this encounter [facility] 03-26-2023 Note HNO ID: [id number] Author: John Knapp PT Service: ? Author [...] Planned: 6 Planned Treatment Interventions: Therapeutic exercise (94019), Neuromuscular re-education (96966), Manual therapy (51266), Therapeutic activities (43206), Self-skilled nursing management (99504), Patient/Family/Caregiver Education, Body Mechanics Training PLAN FOR [...] for home Skilled (more content not included)... [facility] 03-07-2023 Note HNO ID: [id number] Author: Paulina Maldonado PA-C Service: ? Author Type: Physician Bindery Machine Operator Type: Progress Notes Filed: 03/07/2023 2:13 PM Note Text: Paulina Maldonado PA-C [facility] [address] [address] 03/07/2023 ASSESSMENT AND PLAN: Assessment : Encounter [...] today with this patient visit. This includes [id number]-rc-yeqy time, review of chart records regarding conservative care history, spine-pertinent imaging, and communication/care coordination with referring provider, problem-specific history-taking and counseling/education regarding treatment options. cc: Chanda Cisse E [facility] [id number] Results of consultation to be transmitted via electronic medical record for those providers who practice within [facility] or with access to [employer] via MD Connect, or via letter. ################################ [...] for 28 days (more content not included)... [facility] 05-31-2023 History of Presen t illness Narrative Images from the original note were not included. Paulina Maldonado PA-C [facility] [address] [address] 03/07/2023 ASSESSMENT AND PLAN: Assessment : Encounter [...] today with this patient visit. This includes qacr-ko-[id number] time, review of chart records regarding conservative care history, spine-pertinent imaging, and communication/care coordination with referring provider, problem-specific history-taking and counseling/education regarding treatment options. cc: Chanda Cisse [facility] [phone] Results of consultation to be transmitted via electronic medical record for those providers who practice within [facility] or with access to [employer] via MD Connect, or via letter. ################################ [...] kidney disease) stage 3, GFR 30-59 ml/min ([facility]) DVT (deep venous thrombosis) ([facility]) 01/10/2020 left leg Esophageal reflux Gastroesophageal reflux [...] See discussion above documented in this encounter [facility] 02-12-2023 Note HNO ID: [id number] Author: Skinny Desouza MD Service: ? Author [...] Visit completed when applicable. Farida Desouza MD [facility] 02-12-2023 Miscellaneous Notes Spoke with patient [...] Chanda Carrion APRN.JACOBO documented in this encounter [facility] 02-12-2023 History of Presen t illness [...] Farida Desouza MD documented in this encounter [facility] 01-25-2023 Miscellaneous Notes Images from the [...] Protocols used: Information Only Call - No [id number] documented in this encounter [facility] 01-23-2023 Note HNO ID: [id number] Author: RT Kaylee(R) Service: ? Author Type: Wool Scourer Type: Progress Notes Filed: 01/23/2023 11:37 AM [...] RT Kaylee(R) January 23, 2023 11:23 AM [facility] 01-22-2023 Note HNO ID: [id number] Author: Chanda Carrion APRN.CNP Service: ? Author Type: Nurse Practitioner Type: Progress Notes Filed: 01/22/2023 12:17 PM Note Text: This note was created using [employer]ruriter. Subjective Judy Estes is a 62 year [...] kidney disease) stage 3, GFR 30-59 ml/min ([facility]) DVT (deep venous thrombosis) ([facility]) 01/10/2020 left leg Esophageal reflux Gastroesophageal reflux [...] screening negative - DEPRESSION SCREENING/ASSESSMENT Chanda Carrion APRN.BASEBALL WINDER [facility] 01-22-2023 History of Presen t illness Narrative This note was created using [employer]ruriter. Subjective Judy Estes is a 62 year [...] kidney disease) stage 3, GFR 30-59 ml/min ([facility]) DVT (deep venous thrombosis) ([facility]) 01/10/2020 left leg Esophageal reflux Gastroesophageal reflux [...] screening negative - DEPRESSION SCREENING/ASSESSMENT Chanda Carrion APRN.BASEBALL WINDER documented in this encounter [facility] 01-03-2023 Miscellaneous Notes Called pt and [...] Lyn Kontak, MD documented in this encounter [facility] 12-29-2022 Note HNO ID: [id number] Author: Lyn Diego MD Service: ? Author [...] kidney disease) stage 3, GFR 30-59 ml/min ([facility]) DVT (deep venous thrombosis) ([facility]) 01/10/2020 left leg Esophageal reflux Gastroesophageal reflux [...] Diego MD December 29, 2022 4:45 PM [facility] 12-29-2022 History of Presen t illness [...] kidney disease) stage 3, GFR 30-59 ml/min ([facility]) DVT (deep venous thrombosis) ([facility]) 01/10/2020 left leg Esophageal reflux Gastroesophageal reflux [...] 2022 4:45 PM documented in this encounter [facility] 12-28-2022 Miscellaneous Notes The following approved medication requests have been transmitted electronically. Requested Prescriptions Signed Prescriptions Disp Refills allopurinol (ZYLOPRIM) 300 mg tablet 180 tablet 3 Sig: take 1 tablet by mouth once daily Authorizing Provider: LYN DIEGO MD Pharmacy verified in [employer]. Patient has been identified by name and [...] Kendra Adame MA documented in this encounter [facility] 12-07-2022 Miscellaneous Notes Received 12/07/2022 from [facility]. Placed in provider's inbox for review. Route to MA for scanning. documented in this encounter [facility] 11-30-2022 Miscellaneous Notes Received lab results from [facility]. Placed in provider's inbox for review. Route to MA scanning. documented in this encounter [facility] 07-19-2022 Miscellaneous Notes Received ankle brachial index report from [facility]. Placed in provider's inbox for review. Route to MA scanning. documented in this encounter [facility] 07-04-2022 Miscellaneous Notes Received cardiovascular and hospital follow up from [facility]. Placed in provider's inbox for review. Route to MA scanning. documented in this encounter [facility] 04-26-2022 Miscellaneous Notes Received labs from [facility]. Placed in provider's inbox for review. Route to MA scanning. documented in this encounter [facility] 04-25-2022 Miscellaneous Notes Received labs from [facility]. Placed in provider's inbox for review. Route to MA scanning. documented in this encounter [facility] 03-07-2022 Miscellaneous Notes Patient coming in today for second Shingles vaccine. Please order documented in this encounter [facility] 03-03-2022 Miscellaneous Notes Patient is on nurse visit schedule for Sunday. Please review and sign Shingrix order. Reason for Disposition Nursing judgment Protocols used: NO GUIDELINE OR REFERENCE [id number] documented in this encounter [facility] 01-09-2022 Miscellaneous Notes Second call placed. Voicemail left stating we still have not gotten rest of labs from engine tester Left message for to call office regarding labs. Please let patient know that we received part of his lipid panel results, but it was incomplete. Was he able to ask his engine tester to forward all his recent lab results? May be easier if they could fax those to us. Chanda Carrion APRN.JACOBO documented in this encounter [facility] 01-02-2022 History of Presen t illness Narrative This note was created using Nayeliriter. Subjective Judy Estes is a 61 year old male. Patient here for 6 month follow-up on chronic conditions, last saw PCP in June 2021. Does not need refills today. HTN: doesn't check blood pressure's at home, well controlled today. CKD: saw engine tester last month and had labs (not in chart), next appointment in April CAD: sees solutions architect at [facility] every 6 months, due again in [...] kidney disease) stage 3, GFR 30-59 ml/min ([facility]) DVT (deep venous thrombosis) ([facility]) 01/10/2020 left leg Esophageal reflux Gastroesophageal reflux [...] SCRN; Future 7. Encounter for immunization - [facility] ([facility]) COVID-19 VACCINE, AGE 12+ YR (HERNANDES TOP) - ZOSTER VACC RECOMBINANT,IM Recommend annual eye exams and dental visit YOANA. Chanda Carrion APRN.CNP documented in this encounter [facility] documented in this encounter [facility]03-23-2022 Miscellaneous Notes* Telephone Encounter - Nicolle [...] Order(s) pended. Please advise. Madhavi Posadas MA, SURGICAL ASST [facility] NoteHNO ID: [id number] Author: Paulina Rosales MD Service: ? Author [...] PT Paulina Rosales MD Orthopedic Surgery (c) [phone] NoteHNO ID: [id number] Author: Cedric Arcos APRN.ART PREPARATOR Service: Anesthesiology Author Type: Nurse Senior Catering Sales Manager Type: Anesthesia Procedure Notes Filed: 05/25/2021 8:20 AM Note Text: ANESTHESIOLOGY PROCEDURE NOTE Airway General Information Procedure Start Time/Medication Administration: 05/25/2021 7:56 AM Patient location during procedure: OR Timeout Performed Pre-procedure: timeout performed Consent Obtained: Yes Patient identity confirmed: arm band and patient Staffing ART PREPARATOR: Cedric Arcos APRN.ART PREPARATOR Performed by: GALE Indications and Patient Condition [...] 1 Airway not difficult SIGNATURE: Cedric Arcos APRN.ART PREPARATOR PATIENT NAME: Judy Estes DATE: May 25, 2021 TIME: 8:19 AM CSN: [id number] NoteHNO ID: [id number] Author: Eb Gold III, MD Service: Anesthesiology [...] May 25, 2021 TIME: 7:24 AM CSN: [id number] History of Past illness Narrative* Problem Noted Date Resolved Date Polyarthralgia 04/25/2018 09/25/2018 documented as of this encounter (statuses as of 12/28/2021) [address]19-2018 History of Past illness Narrative* Problem Noted Date Resolved Date Polyarthralgia 04/25/2018 09/25/2018 documented as of this encounter (statuses as of 01/02/2022) [address] [id number] History of Past illness Narrative* Problem Noted Date Resolved Date Polyarthralgia 04/25/2018 09/25/2018 documented as of this encounter (statuses as of 01/16/2022) [address]19-2018 History of Past illness Narrative* Problem Noted Date Resolved Date Polyarthralgia 04/25/2018 09/25/2018 documented as of this encounter (statuses as of 03/07/2022) [place] [id number] History of Past illness Narrative* Problem Noted Date Resolved Date Polyarthralgia 04/25/2018 09/25/2018 documented as of this encounter (statuses as of 03/07/2022) [place] [address] History of Past illness Narrative* Problem Noted Date Resolved Date Polyarthralgia 04/25/2018 09/25/2018 documented as of this encounter (statuses as of 03/08/2022) [place] [address] History of Past illness Narrative* Problem Noted Date Resolved Date Polyarthralgia 04/25/2018 09/25/2018 documented as of this encounter (statuses as of 04/25/2022) [place] [address] History of Past illness Narrative* Problem Noted Date Resolved Date Polyarthralgia 04/25/2018 09/25/2018 documented as of this encounter (statuses as of 04/26/2022) [address]19-2018 History of Past illness Narrative* Problem Noted Date Resolved Date Polyarthralgia 04/25/2018 09/25/2018 documented as of this encounter (statuses as of 07/04/2022) [place] [address] History of Past illness Narrative* Problem Noted Date Resolved Date Polyarthralgia 04/25/2018 09/25/2018 documented as of this encounter (statuses as of 07/07/2022) [address]19-2018 History of Past illness Narrative* Problem Noted Date Resolved Date Polyarthralgia 04/25/2018 09/25/2018 documented as of this encounter (statuses as of 07/19/2022) [place] [address] History of Past illness Narrative* Problem Noted Date Resolved Date Polyarthralgia 04/25/2018 09/25/2018 documented as of this encounter (statuses as of 12/01/2022) [place] [address] History of Past illness Narrative* Problem Noted Date Resolved Date Polyarthralgia 04/25/2018 09/25/2018 documented as of this encounter (statuses as of 12/07/2022) [place] [address] History of Past illness Narrative* Problem Noted Date Resolved Date Polyarthralgia 04/25/2018 09/25/2018 documented as of this encounter (statuses as of 12/28/2022) [place] [address] History of Past illness Narrative* Problem Noted Date Resolved Date Polyarthralgia 04/25/2018 09/25/2018 documented as of this encounter (statuses as of 12/29/2022) [address]19-2018 History of Past illness Narrative* Problem Noted Date Resolved Date Polyarthralgia 04/25/2018 09/25/2018 documented as of this encounter (statuses as of 01/03/2023) [place] [address] History of Past illness Narrative* Problem Noted Date Resolved Date Polyarthralgia 04/25/2018 09/25/2018 documented as of this encounter (statuses as of 01/22/2023) [place] [address] History of Past illness Narrative* Problem Noted Date Resolved Date Polyarthralgia 04/25/2018 09/25/2018 documented as of this encounter (statuses as of 02/12/2023) [place] [address] History of Past illness Narrative* Problem Noted Date Resolved Date Polyarthralgia 04/25/2018 09/25/2018 documented as of this encounter (statuses as of 02/13/2023) [place] [address] History of Past illness Narrative* Problem Noted Date Resolved Date Polyarthralgia 04/25/2018 09/25/2018 documented as of this encounter (statuses as of 03/07/2023) [place] [address] History of Past illness Narrative* Problem Noted Date Resolved Date Polyarthralgia 04/25/2018 09/25/2018 documented as of this encounter (statuses as of 04/11/2023) [place] [address] History of Past illness Narrative* Problem Noted Date Diagnosed Date Resolved Date Polyarthralgia 04/25/2018 09/25/2018 documented as of this encounter (statuses as of 07/10/2023) [place] [address] History of Past illness Narrative* Problem Noted Date Diagnosed Date Resolved Date Polyarthralgia 04/25/2018 09/25/2018 documented as of this encounter (statuses as of 07/28/2023) [place] [address] History of Past illness Narrative* Problem Noted Date Diagnosed Date Resolved Date Polyarthralgia 04/25/2018 09/25/2018 documented as of this encounter (statuses as of 08/02/2023) [place] [address] History of Past illness Narrative* Problem Noted Date Diagnosed Date Resolved Date Polyarthralgia 04/25/2018 09/25/2018 documented as of this encounter (statuses as of 08/06/2023) [place] [address] History of Past illness Narrative* Problem Noted Date Diagnosed Date Resolved Date Polyarthralgia 04/25/2018 09/25/2018 documented as of this encounter (statuses as of 08/08/2023) [facility] Diagnosis Hyperuricemia Other abnormal blood chemistry [facility] Diagnosis Encounter for immunization- Primary Need for other specified prophylactic vaccination against single bacterial disease [facility] Diagnosis Encounter for immunization- Primary Need for other specified prophylactic vaccination against single bacterial disease [facility]* Diagnosis Medication management Encounter for long-term (current) use of other medications Presence of stent in coronary artery in patient with coronary artery disease Chronic renal disease, stage 3, moderately decreased glomerular filtration rate (GFR) between 30-59 mL/min/1.73 square meter (HCC) Chronic kidney disease, Stage III (moderate) documented in this encounter [facility] note* Diagnosis Hyperuricemia Other abnormal blood chemistry [facility]* Diagnosis Presence of stent in coronary artery in patient with coronary artery disease- Primary Essential hypertension, benign 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 Long-term use of high-risk medication Coronary artery disease involving red cliff coronary artery of red cliff heart without angina pectoris documented in this encounter [facility] note* Diagnosis Paresthesia of right foot- Primary Disturbance of skin sensation Depression screening negative [facility]* Diagnosis Paresthesia of right foot Disturbance of skin sensation documented in this encounter [facility] note* Diagnosis Paresthesia of right foot- Primary Disturbance of skin sensation Lumbar degenerative disc disease Degeneration of lumbar or lumbosacral intervertebral disc documented in this encounter [facility] note* Diagnosis Lumbar radiculopathy- Primary Thoracic or lumbosacral neuritis or radiculitis, unspecified Paresthesia of right foot Disturbance of skin sensation Lumbar degenerative disc disease Degeneration of lumbar or lumbosacral intervertebral disc [facility]* Diagnosis Paresthesia of right foot- Primary Disturbance of skin sensation Lumbar degenerative disc disease Degeneration of lumbar or lumbosacral intervertebral disc Lumbar radiculopathy Thoracic or lumbosacral neuritis or radiculitis, unspecified documented in this encounter [facility] note* Diagnosis History of colonic polyps- Primary Personal history of colonic polyps Antiplatelet or antithrombotic long-term use Encounter for long-term (current) use of antiplatelets/antithrombotics documented in this encounter [facility] note* Diagnosis History of colon polyps- Primary Personal history of colonic polyps documented in this encounter [facility] for referral (narrative)* Diagnostic Procedure Only (Routine) - Pending Review Specialty Diagnoses / Procedures Referred By Contac t Referred To Contact XR IMAGING Diagnoses Paresthesia of right foot Procedures XR LUMBAR GENERAL 3V AP/LAT/L5-S1 RADEX SPINE LUMBOSACRAL 2/3 VIEWS Chanda Carrion APRN.BASEBALL WINDER [address] [place] [address] Xr Imaging Referral ID Status Reason Start Date Expiration Date Visits Requested Visits Authorized [id number] Pending Review Auto-Generat ed Referral 01/22/2023 02/21/2024 1 1 * Outpatient Procedure (Routine) - Pending Review Specialty Diagnoses / Procedures Referred By Contac t Referred To Contact [facility] Diagnoses Paresthesia of right foot Procedures EMG(NEURO/NI) NERVE CONDUCTION STUDIES 9-10 STUDIES Chanda Carrion APRN.BASEBALL WINDER [address] [place] [address] [facility] [address] [place] [address] Referral ID Status Reason Start Date Expiration Date Visits Requested Visits Authorized [id number] Pending Review Auto-Generat ed Referral 01/22/2023 01/23/2024 1 1 [facility] for referral (narrative)* - Pending Review Specialty Diagnoses / Procedures Referred By Contac t Referred To Contact Diagnoses Paresthesia of right foot Lumbar degenerative disc disease Lumbar radiculopathy Procedures CONSULT TO PHYSICAL THERAPY Paulina Maldonado PA-C [address] [place] [address] Referral ID Status Reason Start Date Expiration Date V isits Requested Visits Authorized [id number] Pending Review 03/07/2023 06/05/2023 1 1 [facility] for referral (narrative)* Outpatient Procedure (Routine) - Pending Review Specialty Diagnoses / Procedures Referred By Jame pedraza Referred To Contact [facility] Diagnoses History of colonic polyps Procedures COLONOSCOPY SCREENING COLONOSCOPY FLX DX W/COLLJ SPEC WHEN Cris Solorzano MD [address] [place] [address] [address] Referral ID Status Reason Start Date Expiration Date Visits Requested Visits Authorized [id number] Pending Review Auto-Generat ed Referral 3 07/25/2024 1 1 [facility] for referral (narrative)* Outpatient Procedure (Routine) - Authorized Specialty Diagnoses / Procedures Referred By Jame pedraza Referred To Contact [facility] Diagnoses History of colon polyps Procedures COLONOSCOPY SCREENING COLONOSCOPY FLX DX W/COLLJ SPEC WHEN Cris Solorzano MD [address] [place] [address] [address] Referral ID Status Reason Start Date Expiration Date Visits Requested Visits Authorized [id number] Authorized Auto-Generat ed Referral 3 08/02/2024 1 1 [facility] for visit Narrative* Outpatient Procedure (Routine) - Closed Specialty Diagnoses / Procedures Referred By Jame pedraza Referred To Contact [facility] Diagnoses Paresthesia of right foot Procedures EMG(NEURO/NI) NERVE CONDUCTION STUDIES 9-10 STUDIES Chanda Carrion, INSPECTOR OF WEIGHTS AND MEASURES.BASEBALL WINDER [address] [place] [address] [address] Referral ID Status Reason Start Date Expiration Date V isits Requested Visits Authorized [id number] Closed Auto-Generate d Referral 01/22/2023 01/23/2024 1 1 [facility] Summary Purpose Family History No Family History Records FoundNo Family History Records FoundNo Family History Records FoundNo Family History Records FoundNo Family History Records Found Advance Directives No Advanced Directives Records FoundDocuments on File Type Date 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 Author Type: Nurse Senior Catering Sales Manager Type: Anesthesia Procedure Notes Filed: 05/14/2020 7:56 AM Note Text: ANESTHESIOLOGY PROCEDURE NOTE Airway General Information Procedure Start Time/Medication Administration: 05/14/2020 7:39 AM Procedure End Time: 05/14/2020 7:41 AM Patient location during procedure: OR Patient identity confirmed: arm band Staffing ART PREPARATOR: Jordan Segundo Performed by: ART PREPARATOR Indications and Patient Condition Preoxygenated: yes Patient position: sniffing Indications for airway management: anesthesia anesthesia circuit Method: asleep Final Airway Details Final airway type: supraglottic airway Final Supraglottic Airway: IGEL Size 4 Seal Adequate: yes Airway not difficult Medications Administered Propofol iv bolus (DIPRIVAN), 150 mg fentaNYL 50 mcg/mL injection (SUBLIMAZE), 50 mcg SIGNATURE: oJrdan Segundo APRN.CRNA PATIENT NAME: Judy Estes DATE: May 14, 2020 TIME: 7:54 AM CSN: [id number] Reason for Referral Specialty Diagnoses / Procedures Referred By Jame pedraza Referred To Contact [facility] / SPINE Diagnoses Paresthesia of right foot Lumbar degenerative disc disease Procedures CONSULT TO [facility] OFFICE/OUTPATIENT [facility] 60-74 MINUTES Chanda Carrion, INSPECTOR OF WEIGHTS AND MEASURES.BASEBALL WINDER [address] [place] [address] Spine [facility] [address] [address] Referral ID Status Reason Start Date Expiration Date Visits Requested Visits Authorized [id number] Pending Review PCP Requested Referral 02/12/2023 02/12/2024 1 1 Additional Source Comments (unrecognized sect ion and content) No Status Records FoundNo Status Records FoundNo Status Records FoundNo Status Records FoundNo Status Records Found INFORMATION SOURCE (unrecogn ized section and content) DATE CREATED AUTHOR AUTHOR'S ORGANIZ ATION 12/10/2019 [facility] DATE CREATED AUTHOR AUTHOR'S ORGANIZ ATION 05/27/2020 [facility] DATE CREATED AUTHOR AUTHOR'S ORGANIZ ATION 05/26/2021 [facility] DATE CREATED AUTHOR AUTHOR'S ORGANIZ ATION 09/13/2023 [facility] Source Comments (unrecognize d section and content) In the event this informatio n is protected by the Federal Confidentiality of Alcohol and Drug Abuse Patient Records regulations: The Federal rules restrict any use of the information to criminally investigate or prosecute any alcohol or drug abuse patient.[facility] the event this information is protected by the Federal Confidentiality of Alcohol and Drug Abuse Patient Records regulations: The Federal rules restrict any use of the information to criminally investigate or prosecute any alcohol or drug abuse patient.[facility] the event this information is protected by the Federal Confidentiality of Alcohol and Drug Abuse Patient Records regulations: The Federal rules restrict any use of the information to criminally investigate or prosecute any alcohol or drug abuse patient.[facility] the event this information is protected by the Federal Confidentiality of Alcohol and Drug Abuse Patient Records regulations: The Federal rules restrict any use of the information to criminally investigate or prosecute any alcohol or drug abuse patient.[facility] the event this information is protected by the Federal Confidentiality of Alcohol and Drug Abuse Patient Records regulations: The Federal rules restrict any use of the information to criminally investigate or prosecute any alcohol or drug abuse patient.[facility] the event this information is protected by the Federal Confidentiality of Alcohol and Drug Abuse Patient Records regulations: The Federal rules restrict any use of the information to criminally investigate or prosecute any alcohol or drug abuse patient.[facility] the event this information is protected by the Federal Confidentiality of Alcohol and Drug Abuse Patient Records regulations: The Federal rules restrict any use of the information to criminally investigate or prosecute any alcohol or drug abuse patient.[facility] the event this information is protected by the Federal Confidentiality of Alcohol and Drug Abuse Patient Records regulations: The Federal rules restrict any use of the information to criminally investigate or prosecute any alcohol or drug abuse patient.[facility] the event this information is protected by the Federal Confidentiality of Alcohol and Drug Abuse Patient Records regulations: The Federal rules restrict any use of the information to criminally investigate or prosecute any alcohol or drug abuse patient.[facility] the event this information is protected by the Federal Confidentiality of Alcohol and Drug Abuse Patient Records regulations: The Federal rules restrict any use of the information to criminally investigate or prosecute any alcohol or drug abuse patient.[facility] the event this information is protected by the Federal Confidentiality of Alcohol and Drug Abuse Patient Records regulations: The Federal rules restrict any use of the information to criminally investigate or prosecute any alcohol or drug abuse patient.[facility] the event this information is protected by the Federal Confidentiality of Alcohol and Drug Abuse Patient Records regulations: The Federal rules restrict any use of the information to criminally investigate or prosecute any alcohol or drug abuse patient.[facility] the event this information is protected by the Federal Confidentiality of Alcohol and Drug Abuse Patient Records regulations: The Federal rules restrict any use of the information to criminally investigate or prosecute any alcohol or drug abuse patient.[facility] the event this information is protected by the Federal Confidentiality of Alcohol and Drug Abuse Patient Records regulations: The Federal rules restrict any use of the information to criminally investigate or prosecute any alcohol or drug abuse patient.[facility] the event this information is protected by the Federal Confidentiality of Alcohol and Drug Abuse Patient Records regulations: The Federal rules restrict any use of the information to criminally investigate or prosecute any alcohol or drug abuse patient.[facility] the event this information is protected by the Federal Confidentiality of Alcohol and Drug Abuse Patient Records regulations: The Federal rules restrict any use of the information to criminally investigate or prosecute any alcohol or drug abuse patient.[facility] the event this information is protected by the Federal Confidentiality of Alcohol and Drug Abuse Patient Records regulations: The Federal rules restrict any use of the information to criminally investigate or prosecute any alcohol or drug abuse patient.[facility] the event this information is protected by the Federal Confidentiality of Alcohol and Drug Abuse Patient Records regulations: The Federal rules restrict any use of the information to criminally investigate or prosecute any alcohol or drug abuse patient.[facility] the event this information is protected by the Federal Confidentiality of Alcohol and Drug Abuse Patient Records regulations: The Federal rules restrict any use of the information to criminally investigate or prosecute any alcohol or drug abuse patient.[facility] the event this information is protected by the Federal Confidentiality of Alcohol and Drug Abuse Patient Records regulations: The Federal rules restrict any use of the information to criminally investigate or prosecute any alcohol or drug abuse patient.[facility] HospitalIn the event this information is protected by the Federal Confidentiality of Alcohol and Drug Abuse Patient Records regulations: The Federal rules restrict any use of the information to criminally investigate or prosecute any alcohol or drug abuse patient.[facility] HospitalIn the event this information is protected [...] or prosecute any alcohol or drug abuse patient.[facility] Hospital[facility] the event this information is protected by the Federal Confidentiality of Alcohol and Drug Abuse Patient Records regulations: The Federal rules restrict any use of the information to criminally investigate or prosecute any alcohol or drug abuse patient.[facility]In the event this information is protected by the Federal Confidentiality of Alcohol and Drug Abuse Patient Records regulations: The Federal rules restrict any use of the information to criminally investigate or prosecute any alcohol or drug abuse patient.[facility] HospitalIn the event this information is protected by the Federal Confidentiality of Alcohol and Drug Abuse Patient Records regulations: The Federal rules restrict any use of the information to criminally investigate or prosecute any alcohol or drug abuse patient.[facility] Reason for Visit (unrecogniz ed section and content) Reason Comments 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 Reason Comments Orders Reason Comments Outside Lab Results [facility] Reason Comments Received Outside Medical Records [facility] Reason Comments Received Outside Medical Records [facility] Car diovascular Reason Comments Received Outside Medical Records [facility] office summary 12/07/2022 Reason Comments Pain Right leg x 3 weeks Reason Comments Results Lab Reason Comments Numbness Right foot x 1 month Reason Comments Results Orders Reason Comments New Patient Low Back Pain Leg Pain Specialty Diagnoses / Procedures Referred By Contac t Referred To Contact [facility] / SPINE Diagnoses Paresthesia of right foot Lumbar degenerative disc disease Procedures CONSULT TO [facility] OFFICE/OUTPATIENT [facility] [place] 60-74 MINUTES Chanda Carrion, [place].BASEBALL WINDER [address] [place] [address] Spine [facility] [address] [address] Referral ID Status Reason Start Date Expiration Date Visits Requested Visits Authorized [id number] Pending Review PCP Requested Referral 02/12/2023 02/12/2024 1 1 Reason Comments Physical Therapy Specialty Diagnoses / Procedures Referred By Contac t Referred To Contact [facility] Diagnoses Paresthesia of right foot Lumbar degenerative disc disease Lumbar radiculopathy Procedures CONSULT TO PHYSICAL THERAPY Paulina Maldonado, PACristinaC [address] [place] [address] John Knapp PT Referral ID Status Reason Start Date Expiration Date V isits Requested Visits Authorized [id number] Authorized 11/08/2022 10/07/2023 30 30 Reason Comments Received Outside Medical Records [facility] ED 05/15/23 Reason Comments Consult Colonoscopy consulta tion. Reason Comments Results Reason Comments Nurse Triage Call Care Teams (unrecognized sec tion and content) Gis Technician Relationship Specialty Start Date End Date Lyn Diego MD [address] [place] [address] PCP - General Family Practice 07/18/17 Gis Technician Relationship Specialty Start Date End Date Lyn Diego MD [address] [place] [address] PCP - General Family Practice 07/18/17 Gis Technician Relationship Specialty Start Date End Date Lyn Diego MD [address] [place] [address] PCP - General Family Practice 07/18/17 Gis Technician Relationship Specialty Start Date End Date Lyn Diego MD [facility] [place] [address] PCP - General Family Medicine 07/18/17 Gis Technician Relationship Specialty Start Date End Date Lyn Diego MD [facility] [place] [address] PCP - General Family Medicine 07/18/17 Gis Technician Relationship Specialty Start Date End Date Lyn Diego MD [address] [place] [address], [place] [address] PCP - General Family Medicine 07/18/17 Gis Technician Relationship Specialty Start Date End Date Lyn Diego MD [facility] [place] [address] PCP - General Family Medicine 07/18/17 Gis Technician Relationship Specialty Start Date End Date Lyn Diego MD [facility] [place] [address] PCP - General Family Medicine 07/18/17 Gis Technician Relationship Specialty Start Date End Date Lyn Diego MD [address] [place] [address], [place] [address] PCP - General Family Medicine 07/18/17 Gis Technician Relationship Specialty Start Date End Date Lyn Diego MD [address] [place] [address], [place] [address] PCP - General Family Medicine 07/18/17 Gis Technician Relationship Specialty Start Date End Date Lyn Diego MD [address] [place] [address] PCP - General Family Medicine 07/18/17 Gis Technician Relationship Specialty Start Date End Date Lyn Diego MD [address] [place] [address] PCP - General Family Medicine 07/18/17 Gis Technician Relationship Specialty Start Date End Date Lyn Diego MD [address] [place] [address] PCP - General Family Medicine 07/18/17 Gis Technician Relationship Specialty Start Date End Date Lyn Diego MD [address] [place] [address] PCP - General Family Medicine 07/18/17 Gis Technician Relationship Specialty Start Date End Date Lyn Diego MD [address] [place] [address] PCP - General Family Medicine 07/18/17 Gis Technician Relationship Specialty Start Date End Date Lyn Diego MD [address] [place] [address] PCP - General Family Medicine 07/18/17 Gis Technician Relationship Specialty Start Date End Date Lyn Diego MD [address] [place] [address] PCP - General Family Medicine 07/18/17 Gis Technician Relationship Specialty Start Date End Date Lyn Diego MD [address] [place] [address] PCP - General Family Medicine 07/18/17 FOR [...] BE BASED ON THE PRIMARY CLINICAL RECORDS. [facility]. provides no warranty or guarantee of the accuracy or completeness of information in this document.
--- NOTE | 2023-11-29 16:22 | STRESSREP ---
Stress Test Report Exercise myocardial perfusion stress test. 63-year-old male with a history of chest pain Stress protocol: Resting EKG demonstrates sinus bradycardia with a rate of 56 bpm resting blood pressure is 124/82 mmHg. The patient exercised according to the regular Maxwell protocol for a total duration of 5 minutes and 30 seconds attaining a maximum heart rate of 130 bpm which was 83% of maximum predicted heart rate; the maximum workload was 7 metabolic equivalents. At rest there were no ST or T wave changes noted to suggest ischemia and at peak exercise upsloping ST changes only were noted which did not meet the criteria for ischemia. No clinical angina was noted the test was terminated due to the target heart rate being achieved/fatigue. The peak blood pressure was 204/86 mmHg. this was a hypertensive response to exercise rate-pressure product was 24,900. Myocardial perfusion protocol. 11.8 mCi of technetium 99m sestamibi was injected at rest. The patient exercised according to regular Maxwell protocol for total duration of 5 minutes and 30 and at peak exercise 34.1 mCi of technetium 99m sestamibi was injected stress images were obtained stress and rest images were reconstructed in comparing the short axis vertical long and horizontal long axis. Gated images were also obtained. Perfusion SPECT analysis: Review of the stress images demonstrate normal uptake of tracer noted in all areas of the myocardium. The resting images similarly demonstrate normal uptake of tracer noted in all areas of the myocardium. No areas of reversibility are noted to suggest ischemia no previous infarct was noted. Gated SPECT analysis: The gated ejection fraction is 68%. Conclusion: Normal exercise myocardial perfusion stress test at a moderate workload Preserved ejection fraction.
== END | disposition home or self-care (01) ==
LOC: CVS 06:24
PROVIDERS: PCP Family Medicine; Referring Provider Nurse Practitioner Family; Visit Provider Nurse Practitioner Family
DX: G47.30 Sleep apnea, unspecified (principal); I25.10 Atherosclerotic heart disease of native coronary artery without angina pectoris; I10 Essential (primary) hypertension; Z95.5 Presence of coronary angioplasty implant and graft; R06.02 Shortness of breath
CPT/HCPCS: 78452; 93017; A9500; A4216

== ENCOUNTER → 2023-12-07 | Outpatient (CLI) | payer MEDICAID, SELFPAY ==
[2021-07-22 09:40] VITALS: BMI 29.6
--- OUTSIDE RECORDS SUMMARY | 2023-12-07 12:19 | XMS RPT_ITS | CCD ---
Author Name Unknown Address [facility] [address] [place] [address] Organization [facility] Care Team Providers Care Engineering Technician Parking Name Role Phone Lyn Diego MD Primary [...] Translations: [CEPHALEXIN] Drug Allergy 07-11-2019 Diarrhea, Vomiting [facility] Medications Completed/Discontinued Medications Medication Drug Class(es) Dates [...] coronary artery; Translations: [Atherosclerotic heart disease of [place] coronary artery without angina pectoris] Onset: 06-15-2021 [...] source) H/O: high risk medication; Translations: [Other intermediate (current) drug therapy] Episodic Other and unspecified [...] 172.7 cm Cris Duque MD Work Phone: [facility] 07-25-2023 14:39-0400 Body temperature 97.2 [degF] Cris Duque MD Work Phone: [facility] 07-25-2023 14:39-0400 Body weight 90.36 kg Cris Duque MD Work Phone: [facility] 07-25-2023 14:39-0400 Diastolic blood pressure 70 mm[Hg] Cris Duque MD Work Phone: [facility] 07-25-2023 14:39-0400 Heart rate 98 /min Cris Duque MD Work Phone: [facility] 07-25-2023 14:39-0400 SaO2% (BldA) [Mass fraction] 98 % Cris Duque MD Work Phone: [facility] 07-25-2023 14:39-0400 Systolic blood pressure 126 mm[Hg] Cris Duque MD Work Phone: [facility] 03-07-2023 13:38-0400 Body height 172.7 cm Paulina Maldonado PA-C Work Phone: [facility] 03-07-2023 13:38-0400 Body weight 89.63 kg Paulina Maldonado PA-C Work Phone: [facility] 03-07-2023 13:38-0400 Diastolic blood pressure 97 mm[Hg] Paulina Maldonado PA-C Work Phone: [facility] 03-07-2023 13:38-0400 Heart rate 81 /min Paulina Maldonado PA-C Work Phone: [facility] 03-07-2023 13:38-0400 SaO2% (BldA) [Mass fraction] 98 % Paulina Maldonado PA-C Work Phone: [facility] 03-07-2023 13:38-0400 Systolic blood pressure 133 mm[Hg] Paulina Maldonado PA-C Work Phone: [facility] 01-22-2023 10:48-0400 Body weight 92.08 kg Chanda Carrion APRN.CNP Work Phone: [facility] 01-22-2023 10:48-0400 Diastolic blood pressure 85 mm[Hg] Chanda Christina STAVE BOLT EQUALIZER.ERP IMPLEMENTATION CONSULTANT Work Phone: [facility] 01-22-2023 10:48-0400 Heart rate 52 /min Chanda Christina STAVE BOLT EQUALIZER.ERP IMPLEMENTATION CONSULTANT Work Phone: [facility] 01-22-2023 10:48-0400 Systolic blood pressure 144 mm[Hg] Chanda Christina STAVE BOLT EQUALIZER.ERP IMPLEMENTATION CONSULTANT Work Phone: [facility] 12-29-2022 10:54-0400 Diastolic blood pressure 82 mm[Hg] Lyn Diego MD Work Phone: [facility] 12-29-2022 10:54-0400 Systolic blood pressure 120 mm[Hg] Lyn Diego MD Work Phone: [facility] 12-29-2022 10:35-0400 Body height 172.7 cm Lyn Diego MD Work Phone: [facility] 12-29-2022 10:35-0400 Body weight 90.27 kg Lyn Diego MD Work Phone: [facility] 12-29-2022 10:35-0400 Heart rate 53 /min Lyn Diego MD Work Phone: [facility] 01-02-2022 10:59-0400 Body height 172.7 cm Chanda Christina STAVE BOLT EQUALIZER.ERP IMPLEMENTATION CONSULTANT Work Phone: [facility] 01-02-2022 10:59-0400 Body weight 91.35 kg Chanda Christina STAVE BOLT EQUALIZER.ERP IMPLEMENTATION CONSULTANT Work Phone: [facility] 01-02-2022 10:59-0400 Diastolic blood pressure 74 mm[Hg] Chanda Christina STAVE BOLT EQUALIZER.ERP IMPLEMENTATION CONSULTANT Work Phone: [facility] 01-02-2022 10:59-0400 Heart rate 82 /min Chanda Christina STAVE BOLT EQUALIZER.ERP IMPLEMENTATION CONSULTANT Work Phone: [facility] 01-02-2022 10:59-0400 Systolic blood pressure 107 mm[Hg] Chanda Carrion APRN.ERP IMPLEMENTATION CONSULTANT Work Phone: [facility] Encounters Encounter Date Encounter Type Care Provider Facility Start: 09-07-2023 End: 09-07-2023 ambulatory LYN DIEGO Facility:[facility] Start: 08-02-2023 Orders Only Cris sevilla MD Work Phone: LD PROVIDER ADULT Procedures Date Procedure Procedure Detail Performing Clinician Start: 02-12-2023 Nerve conduction jessica dies 5-6 studies Chanda Carrion APRN.ERP IMPLEMENTATION CONSULTANT Work Phone: Start: 12-29-2022 Lipid 1996 panel - S serina or Plasma Lyn Diego MD Work Phone: Start: 01-02-2022 PFIZER-BIONTXMOS COVI D-19 VACCINE, AGE 12+ YR (HERNANDES TOP) Chanda Carrion APRN.ERP IMPLEMENTATION CONSULTANT Work Phone: Start: 01-02-2022 Adult depression screening assessment Chanda Carrion APRN.ERP IMPLEMENTATION CONSULTANT Work Phone: Start: 12-27-2021 Lipid panel [facility] Prov[facility] er Start: 05-11-2021 Antibody screen Plan of Treatment Date Care Activity Detail Author Start: 06-15-2031 Urine microalbumin profile [facility] Start: 12-30-2027 Lipid 1996 panel - Serum or Plasma Lipid Screening [facility] Start: 12-30-2027 LIPID SCREEN LIPID SCREEN [facility] Start: 01-10-2027 PROSTATE CANCER SCREENING DISCUSSION PROSTATE CANCER SCREENING DISCUSSION [facility] Start: 12-27-2026 LIPID SCREEN LIPID SCREEN [facility] Start: 12-29-2025 DIABETES SCREEN DIABETES SCREEN [facility] Start: 12-29-2025 Diabetes Screening Diabetes Screening [facility] Start: 07-25-2024 BP Controlled (<130/80) BP Controlled (<130/80) [facility] Start: 05-11-2024 DIABETES SCREEN DIABETES SCREEN [facility] Start: 01-23-2024 ANNUAL PCP TEAM CHRONIC DISEASE VISIT ANNUAL PCP TEAM CHRONIC DISEASE VISIT [facility] Start: 12-30-2023 ANNUAL PCP TEAM CHRONIC DISEASE VISIT ANNUAL PCP TEAM CHRONIC DISEASE VISIT [facility] Start: 12-30-2023 HEMOGLOBIN/HEMATOCRIT HEMOGLOBIN/HEMATOCRIT [facility] Start: 12-30-2023 Hepatitis B surface antibody level LDL CHOLESTEROL [facility] Start: 12-30-2023 SERUM CREATININE SERUM CREATININE [facility] Start: 07-25-2023 Colonoscopy COLONOSCOPY [facility] Start: 07-25-2023 COLORECTAL CANCER SCREENING COLORECTAL CANCER SCREENING [facility] Start: 06-08-2023 Covid-19 Vaccine () Covid-19 Vaccine () [facility] Start: 06-08-2023 Influenza vaccination [facility] Start: 01-02-2023 Adult depression screening assessment DEPRESSION SCREENING [facility] Start: 01-02-2023 ANNUAL PCP TEAM CHRONIC DISEASE VISIT ANNUAL PCP TEAM CHRONIC DISEASE VISIT [facility] Start: 01-02-2023 BP CONTROLLED (<130/80) BP CONTROLLED (<130/80) [facility] Start: 10-08-2022 DEPRESSION ASSESSMENT DEPRESSION ASSESSMENT [facility] Start: 07-04-2022 End: 09-03-2022 CBC panel - Blood by Automated count CBC Lab Routine Chronic renal disease, stage 3, moderately decreased glomerular filtration rate (GFR) between 30-59 mL/min/1.73 square meter (HCC) Expected: 07/04/2022, Expires: 09/03/2022 [facility] Work Phone: Immunizations Immunization Date Immunization Notes Care Provider Jos lewis 03-07-2022 zoster vaccine recombinant Lyn Diego MD Work Phone: [facility] 01-02-2022 COVID-19 vaccine, ag e 12+ yr (PFIZER-BIONTXMOS - [facility]) Chanda Christina STAVE BOLT EQUALIZER.ERP IMPLEMENTATION CONSULTANT Work Phone: [facility] 01-02-2022 zoster vaccine recombinant Chanda Christina STAVE BOLT EQUALIZER.ERP IMPLEMENTATION CONSULTANT Work Phone: [facility] 06-15-2021 tetanus toxoid, redu stacey diphtheria toxoid, and acellular pertussis vaccine, adsorbed Lyn Diego MD Work Phone: [facility] 04-01-2021 tetanus toxoid, redu stacey diphtheria toxoid, and acellular pertussis vaccine, adsorbed Chanda Christina STAVE BOLT EQUALIZER.ERP IMPLEMENTATION CONSULTANT Work Phone: [facility] 01-21-2021 COVID-19 vaccine, fu ll dose (MODERNA) Lyn Diego MD Work Phone: [facility] 12-24-2020 COVID-19 vaccine, fu ll dose (MODERNA) Lyn Diego MD Work Phone: [facility] Payers Date Payer Category Payer Medicaid [id number] 2021 Medicaid [employer] [id number] 2021-Present [phone] [address] [place] [address] Medicaid [id number] 2021 Medicaid [id number] Social History Date Type Detail Facility Start: 08-17-2015 End: 07-25-2018 Tobacco smoking status NHIS Ex-smoker [facility] Work Phone: End: 10-08-1979 History of tobacco use Current smoker [facility] Work Phone: End: 10-08-1979 History of tobacco use Cigarette Smoker [facility] Work Phone: Start: 08-17-2015 End: 03-07-2023 Cigarettes smoked current (pack per day) - Reported 0.5 [facility] Work Phone: Start: 08-17-2015 End: 07-25-2018 Tobacco use and exposure Smokeless tobacco non-user [facility] Work Phone: Start: 07-11-2021 End: 01-02-2022 Alcohol intake Current non-drinker of alcohol (finding) [facility] Start: 1960 Sex Assigned At Not on file [facility] Start: 12-23-2021 End: 01-02-2022 Exposure to SARS-CoV-2 (event) Not sure [facility] Start: 03-07-2023 End: 05-15-2023 Tobacco use panel [facility] Work Phone: Adult Depression Screening Assessment 0 [facility] Work Phone: Medical Equipment Procedure Code Equipment Code Equipment Origin al Text Equipment Identifier Dates Cement Simplex P Bone Radiopaque Full Dose Sterile - [id number] Start: 05-25-2021 Glenoid W/Cleat Lg [id number] Start : 05-25-2021 Dynanite Vip Gle noid Pin, Nitinol, 2.8mm [id number] Start: 05-25-2021 Head Univers 48m m 19mm Humeral Sterile Shoulder - [id number] Start: 05-25-2021 Stem Univers Ape x 9mm Rectangle 60mm Humeral Press Fit Removable Trunion - [id number] Start: 05-25-2021 Clinical Notes 04-25-2018 to 07-30-2023 Telephone Encounter - Donna Patel RN - 07/30/2023 4:49 PM EDTWaCris sevilla MD - 07/25/2023 3:02 PM EDTPatient Honey Delgado RN - 07/25/2023 2:45 PM EDT Note Date & Type Note Facility 07-30-2023 Miscellaneous Notes Received result from [facility]. DOS 07/28/23 Pulmonary Function Studies. Placed in PCP inbox for review. documented in this encounter [facility] 07-25-2023 Note HNO ID: [id number] Author: Cris Duque MD Service: ? Author [...] in his immediate family. He had an AK about two years ago after a shoulder surgery. He had stent placed and has been on Brillinta since. He is followed by [facility] and was seen by Eb Leach a few weeks ago. He denies blood in his stools, denies changes in bowel habits, denies abdominal pain. PAST MEDICAL HISTORY Diagnosis Date Atrophic kidney CKD (chronic kidney disease) stage 3, GFR 30-59 ml/min ([facility]) DVT (deep venous thrombosis) ([facility]) 01/10/2020 left leg Esophageal reflux [...] entered by the nurse and reviewed by ny Nursing Notes: Honey Yousif RN 07/25/2023 2:47 [...] and denies stroke/TI (more content not included)... [facility] 07-25-2023 History of Presen t illness [...] in his immediate family. He had an AK about two years ago after a shoulder surgery. He had stent placed and has been on Brillinta since. He is followed by [facility] and was seen by Eb Leach a few weeks ago. He denies blood in his stools, denies changes in bowel habits, denies abdominal pain. PAST MEDICAL HISTORY Diagnosis Date Atrophic kidney CKD (chronic kidney disease) stage 3, GFR 30-59 ml/min ([facility]) DVT (deep venous thrombosis) ([facility]) 01/10/2020 left leg Esophageal reflux [...] entered by the nurse and reviewed by ny Nursing Notes: Honey Yousif RN 07/25/2023 2:47 [...] will be scheduled for the procedure at [facility]. He will require a cardiology clearance [...] Cris Duque MD documented in this encounter [facility] 07-25-2023 Instructions Cris Duque MD - 07/25/2023 [...] If you do not have a responsible line haul driver (family member or friend) with you [...] exam. 2 09/2019 documented in this encounter [facility] 07-25-2023 Nurse Note REVIEW OF SYSTEMS: General: [...] Honey Yousif RN documented in this encounter [facility] 07-09-2023 Miscellaneous Notes Received ED summary for rt eyelid pain and swelling from [facility]. Placed in provider's inbox for review. Route to MA scanning. documented in this encounter [facility] 05-15-2023 Note HNO ID: [id number] Author: Ernesto Melton APRN.ERP IMPLEMENTATION CONSULTANT Service: ? Author Type: Nurse Practitioner Type: [...] kidney disease) stage 3, GFR 30-59 ml/min ([facility]) DVT (deep venous thrombosis) ([facility]) 01/10/2020 left leg Esophageal reflux [...] understand agrees plan of care. Ernesto Melton APRN.[facility] 04-11-2023 Note HNO ID: [id number] Author: John Knapp PT Service: ? Author [...] Time Minutes (timed/untimed): 40 John Knapp, PT [facility] 04-11-2023 History of Presen t illness [...] John Knapp PT documented in this encounter [facility] 03-26-2023 Note HNO ID: [id number] Author: John Knapp PT Service: ? Author [...] Planned: 6 Planned Treatment Interventions: Therapeutic exercise (13676), Neuromuscular re-education (11595), Manual therapy (96897), Therapeutic activities (94935), Self-long-term management (86092), Patient/Family/Caregiver Education, Body Mechanics Training PLAN FOR [...] for home Skilled (more content not included)... [facility] 03-07-2023 Note HNO ID: [id number] Author: Paulina Maldonado PA-C Service: ? Author Type: Physician Turnstile Collector Type: Progress Notes Filed: 03/07/2023 2:13 PM Note Text: Paulina Maldonado PA-C [facility] [address] [address] 03/07/2023 ASSESSMENT AND PLAN: Assessment : Encounter [...] today with this patient visit. This includes ccyd-ny-sbhx time, review of chart records regarding conservative care history, spine-pertinent imaging, and communication/care coordination with referring provider, problem-specific history-taking and counseling/education regarding treatment options. cc: Chanda Cisse E Michi [facility] [phone] Results of consultation to be transmitted via electronic medical record for those providers who practice within [facility] or with access to [employer] via MD Connect, or via letter. ################################ [...] for 28 days (more content not included)... [facility] 05-31-2023 History of Presen t illness Narrative Images from the original note were not included. Paulina Maldonado PA-C [facility] [address] [address] 03/07/2023 ASSESSMENT AND PLAN: Assessment : Encounter [...] today with this patient visit. This includes ivra-le-gceh time, review of chart records regarding conservative care history, spine-pertinent imaging, and communication/care coordination with referring provider, problem-specific history-taking and counseling/education regarding treatment options. cc: [facility] [id number] Results of consultation to be transmitted via electronic medical record for those providers who practice within [facility] or with access to [employer] via MD Connect, or via letter. ################################ [...] kidney disease) stage 3, GFR 30-59 ml/min ([facility]) DVT (deep venous thrombosis) ([facility]) 01/10/2020 left leg Esophageal reflux [...] See discussion above documented in this encounter [facility] 02-12-2023 Note HNO ID: [id number] Author: Skinny Desouza MD Service: ? Author [...] Visit completed when applicable. Farida Desouza MD [facility] 02-12-2023 Miscellaneous Notes Spoke with patient [...] Chanda Carrion APRN.JACOBO documented in this encounter [facility] 02-12-2023 History of Presen t illness Narrative [...] Farida Desouza MD documented in this encounter [facility] 01-25-2023 Miscellaneous Notes Images from the original [...] Protocols used: Information Only Call - No Ipacry-NYITU-IC documented in this encounter [facility] 01-23-2023 Note HNO ID: [id number] Author: RT Kaylee(R) Service: ? Author Type: Punching Machine Operator Type: Progress Notes Filed: 01/23/2023 11:37 AM [...] RT Kaylee(R) January 23, 2023 11:23 AM [facility] 01-22-2023 Note HNO ID: [id number] Author: Chanda Carrion APRN.CNP Service: ? Author Type: Nurse Practitioner Type: Progress Notes Filed: 01/22/2023 12:17 PM Note Text: This note was created using [employer]. Subjective Judy Estes is a 62 [...] kidney disease) stage 3, GFR 30-59 ml/min ([facility]) DVT (deep venous thrombosis) ([facility]) 01/10/2020 left leg Esophageal reflux [...] screening negative - DEPRESSION SCREENING/ASSESSMENT Chanda Carrion APRN.ERP IMPLEMENTATION CONSULTANT [facility] 01-22-2023 History of Presen t illness Narrative This note was created using [employer]. Subjective Judy Estes is a 62 [...] kidney disease) stage 3, GFR 30-59 ml/min ([facility]) DVT (deep venous thrombosis) ([facility]) 01/10/2020 left leg Esophageal reflux [...] screening negative - DEPRESSION SCREENING/ASSESSMENT Chanda Carrion APRN.ERP IMPLEMENTATION CONSULTANT documented in this encounter [facility] 01-03-2023 Miscellaneous Notes Called pt and relayed [...] Lyn Kontak, MD documented in this encounter [facility] 12-29-2022 Note HNO ID: [id number] Author: Lyn Diego MD Service: ? Author [...] kidney disease) stage 3, GFR 30-59 ml/min ([facility]) DVT (deep venous thrombosis) ([facility]) 01/10/2020 left leg Esophageal reflux [...] Diego MD December 29, 2022 4:45 PM [facility] 12-29-2022 History of Presen t illness [...] kidney disease) stage 3, GFR 30-59 ml/min ([facility]) DVT (deep venous thrombosis) ([facility]) 01/10/2020 left leg Esophageal reflux [...] 2022 4:45 PM documented in this encounter [facility] 12-28-2022 Miscellaneous Notes The following approved medication requests have been transmitted electronically. Requested Prescriptions Signed Prescriptions Disp Refills allopurinol (ZYLOPRIM) 300 mg tablet 180 tablet 3 Sig: take 1 tablet by mouth once daily Authorizing Provider: LYN DIEGO MD Pharmacy verified in [employer]. Patient has been identified by name and [...] Kendra Adame MA documented in this encounter [facility] 12-07-2022 Miscellaneous Notes Received 12/07/2022 from [facility]. Placed in provider's inbox for review. Route to [place] for scanning. documented in this encounter [facility] 11-30-2022 Miscellaneous Notes Received lab results from [facility]. Placed in provider's inbox for review. Route to MA scanning. documented in this encounter [facility] 07-19-2022 Miscellaneous Notes Received ankle brachial index report from [facility]. Placed in provider's inbox for review. Route to MA scanning. documented in this encounter [facility] 07-04-2022 Miscellaneous Notes Received cardiovascular and hospital follow up from [facility]. Placed in provider's inbox for review. Route to MA scanning. documented in this encounter [facility] 04-26-2022 Miscellaneous Notes Received labs from [facility]. Placed in provider's inbox for review. Route to MA scanning. documented in this encounter [facility] 04-25-2022 Miscellaneous Notes Received labs from [facility]. Placed in provider's inbox for review. Route to MA scanning. documented in this encounter [facility] 03-07-2022 Miscellaneous Notes Patient coming in today for second Shingles vaccine. Please order documented in this encounter [facility] 03-03-2022 Miscellaneous Notes Patient is on nurse visit schedule for Sunday. Please review and sign Shingrix order. Reason for Disposition Nursing judgment Protocols used: NO GUIDELINE OR REFERENCE [id number] documented in this encounter [facility] 01-09-2022 Miscellaneous Notes Second call placed. Voicemail left stating we still have not gotten rest of labs from manager staffing Left message for to call office regarding labs. Please let patient know that we received part of his lipid panel results, but it was incomplete. Was he able to ask his manager staffing to forward all his recent lab results? May be easier if they could fax those to us. Chanda Carrion APRN.JACOBO documented in this encounter [facility] 01-02-2022 History of Presen t illness Narrative This note was created using [employer]. Subjective Judy Estes is a 61 year old male. Patient here for 6 month follow-up on chronic conditions, last saw PCP in June 2021. Does not need refills today. HTN: doesn't check blood pressure's at home, well controlled today. CKD: saw manager staffing last month and had labs (not in chart), next appointment in April CAD: sees stock clerk self service store at [facility] every 6 months, due again in June [...] kidney disease) stage 3, GFR 30-59 ml/min ([facility]) DVT (deep venous thrombosis) ([facility]) 01/10/2020 left leg Esophageal reflux [...] SCRN; Future 7. Encounter for immunization - [employer] COVID-19 VACCINE, AGE 12+ YR (HERNANDES TOP) - ZOSTER VACC RECOMBINANT,IM Recommend annual eye exams and dental visit YOANA. Chanda Carrion APRN.CNP documented in this encounter [facility] documented in this encounter [facility] Miscellaneous Notes* Telephone Encounter - Nicolle Montiel [...] Order(s) pended. Please advise. Madhavi Posadas MA, SCRAP PILER documented [facility]21 NoteHNO ID: [id number] Author: Paulina Rosales MD Service: ? Author [...] PT Paulina Rosales MD Orthopedic Surgery (c) [phone] NoteHNO ID: [id number] Author: Cedric Arcos APRN.POWER TRANSFORMER ASSEMBLER Service: Anesthesiology Author Type: Nurse Equipment Operator/Laborer/Supervisor Type: Anesthesia Procedure Notes Filed: 05/25/2021 8:20 AM Note Text: ANESTHESIOLOGY PROCEDURE NOTE Airway General Information Procedure Start Time/Medication Administration: 05/25/2021 7:56 AM Patient location during procedure: OR Timeout Performed Pre-procedure: timeout performed Consent Obtained: Yes Patient identity confirmed: arm band and patient Staffing POWER TRANSFORMER ASSEMBLER: Cedric Arcos APRN.POWER TRANSFORMER ASSEMBLER Performed by: GALE Indications and Patient Condition [...] 1 Airway not difficult SIGNATURE: Cedric Arcos APRN.POWER TRANSFORMER ASSEMBLER PATIENT NAME: Judy Estes DATE: May 25, 2021 TIME: 8:19 AM CSN: [id number] NoteHNO ID: [id number] Author: Eb Gold III, MD Service: Anesthesiology [...] May 25, 2021 TIME: 7:24 AM CSN: [id number] History of Past illness Narrative* Problem Noted Date Resolved Date Polyarthralgia 04/25/2018 09/25/2018 documented as of this encounter (statuses as of 12/28/2021) [address]19-2018 History of Past illness Narrative* Problem Noted Date Resolved Date Polyarthralgia 04/25/2018 09/25/2018 documented as of this encounter (statuses as of 01/02/2022) [place] [address] History of Past illness Narrative* Problem Noted Date Resolved Date Polyarthralgia 04/25/2018 09/25/2018 documented as of this encounter (statuses as of 01/16/2022) [address]19-2018 History of Past illness Narrative* Problem Noted Date Resolved Date Polyarthralgia 04/25/2018 09/25/2018 documented as of this encounter (statuses as of 03/07/2022) [place] [address] History of Past illness Narrative* Problem Noted Date Resolved Date Polyarthralgia 04/25/2018 09/25/2018 documented as of this encounter (statuses as of 03/07/2022) [place] [address] History of Past illness Narrative* Problem Noted Date Resolved Date Polyarthralgia 04/25/2018 09/25/2018 documented as of this encounter (statuses as of 03/08/2022) [place] [address] History of Past illness Narrative* Problem Noted Date Resolved Date Polyarthralgia 04/25/2018 09/25/2018 documented as of this encounter (statuses as of 04/25/2022) [place] [address] History of Past illness Narrative* Problem Noted Date Resolved Date Polyarthralgia 04/25/2018 09/25/2018 documented as of this encounter (statuses as of 04/26/2022) [address]19-2018 History of Past illness Narrative* Problem Noted Date Resolved Date Polyarthralgia 04/25/2018 09/25/2018 documented as of this encounter (statuses as of 07/04/2022) [place] [address] History of Past illness Narrative* Problem Noted Date Resolved Date Polyarthralgia 04/25/2018 09/25/2018 documented as of this encounter (statuses as of 07/07/2022) [address]19-2018 History of Past illness Narrative* Problem Noted Date Resolved Date Polyarthralgia 04/25/2018 09/25/2018 documented as of this encounter (statuses as of 07/19/2022) [place] [address] History of Past illness Narrative* Problem Noted Date Resolved Date Polyarthralgia 04/25/2018 09/25/2018 documented as of this encounter (statuses as of 12/01/2022) [place] [address] History of Past illness Narrative* Problem Noted Date Resolved Date Polyarthralgia 04/25/2018 09/25/2018 documented as of this encounter (statuses as of 12/07/2022) [place] [address] History of Past illness Narrative* Problem Noted Date Resolved Date Polyarthralgia 04/25/2018 09/25/2018 documented as of this encounter (statuses as of 12/28/2022) [place] [address] History of Past illness Narrative* Problem Noted Date Resolved Date Polyarthralgia 04/25/2018 09/25/2018 documented as of this encounter (statuses as of 12/29/2022) [address]19-2018 History of Past illness Narrative* Problem Noted Date Resolved Date Polyarthralgia 04/25/2018 09/25/2018 documented as of this encounter (statuses as of 01/03/2023) [place] [address] History of Past illness Narrative* Problem Noted Date Resolved Date Polyarthralgia 04/25/2018 09/25/2018 documented as of this encounter (statuses as of 01/22/2023) [place] [address] History of Past illness Narrative* Problem Noted Date Resolved Date Polyarthralgia 04/25/2018 09/25/2018 documented as of this encounter (statuses as of 02/12/2023) [place] [address] History of Past illness Narrative* Problem Noted Date Resolved Date Polyarthralgia 04/25/2018 09/25/2018 documented as of this encounter (statuses as of 02/13/2023) [place] [address] History of Past illness Narrative* Problem Noted Date Resolved Date Polyarthralgia 04/25/2018 09/25/2018 documented as of this encounter (statuses as of 03/07/2023) [place] [address] History of Past illness Narrative* Problem Noted Date Resolved Date Polyarthralgia 04/25/2018 09/25/2018 documented as of this encounter (statuses as of 04/11/2023) [place] [address] History of Past illness Narrative* Problem Noted Date Diagnosed Date Resolved Date Polyarthralgia 04/25/2018 09/25/2018 documented as of this encounter (statuses as of 07/10/2023) [place] [address] History of Past illness Narrative* Problem Noted Date Diagnosed Date Resolved Date Polyarthralgia 04/25/2018 09/25/2018 documented as of this encounter (statuses as of 07/28/2023) [place] [address] History of Past illness Narrative* Problem Noted Date Diagnosed Date Resolved Date Polyarthralgia 04/25/2018 09/25/2018 documented as of this encounter (statuses as of 08/02/2023) [place] [address] History of Past illness Narrative* Problem Noted Date Diagnosed Date Resolved Date Polyarthralgia 04/25/2018 09/25/2018 documented as of this encounter (statuses as of 08/06/2023) [place] [address] History of Past illness Narrative* Problem Noted Date Diagnosed Date Resolved Date Polyarthralgia 04/25/2018 09/25/2018 documented as of this encounter (statuses as of 08/08/2023) [facility] [place] [facility]* Diagnosis Hyperuricemia Other abnormal blood chemistry documented in this encounter [facility] [place] [facility]* Diagnosis Encounter for immunization- Primary Need for other specified prophylactic vaccination against single bacterial disease [facility] [place] [facility] Diagnosis Encounter for immunization- Primary Need for other specified prophylactic vaccination against single bacterial disease [facility] [place] [facility]* Diagnosis Medication management Encounter for long-term (current) use of other medications Presence of stent in coronary artery in patient with coronary artery disease Chronic renal disease, stage 3, moderately decreased glomerular filtration rate (GFR) between 30-59 mL/min/1.73 square meter (HCC) Chronic kidney disease, Stage III (moderate) documented in this encounter [facility] note* Diagnosis Hyperuricemia Other abnormal blood chemistry [facility] [place] [facility]* Diagnosis Presence of stent in coronary artery in patient with coronary artery disease- Primary Essential hypertension, benign 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 Long-term use of high-risk medication Coronary artery disease involving [place] coronary artery of [place] heart without angina pectoris documented in this encounter [facility] note* Diagnosis Paresthesia of right foot- Primary Disturbance of skin sensation Depression screening negative [facility] [place] [facility]* Diagnosis Paresthesia of right foot Disturbance of skin sensation documented in this encounter [facility] note* Diagnosis Paresthesia of right foot- Primary Disturbance of skin sensation Lumbar degenerative disc disease Degeneration of lumbar or lumbosacral intervertebral disc documented in this encounter [facility] note* Diagnosis Lumbar radiculopathy- Primary Thoracic or lumbosacral neuritis or radiculitis, unspecified Paresthesia of right foot Disturbance of skin sensation Lumbar degenerative disc disease Degeneration of lumbar or lumbosacral intervertebral disc [facility] [place] [facility]* Diagnosis Paresthesia of right foot- Primary Disturbance of skin sensation Lumbar degenerative disc disease Degeneration of lumbar or lumbosacral intervertebral disc Lumbar radiculopathy Thoracic or lumbosacral neuritis or radiculitis, unspecified documented in this encounter [facility] note* Diagnosis History of colonic polyps- Primary Personal history of colonic polyps Antiplatelet or antithrombotic long-term use Encounter for long-term (current) use of antiplatelets/antithrombotics documented in this encounter [facility] note* Diagnosis History of colon polyps- Primary Personal history of colonic polyps documented in this encounter [facility] for referral (narrative)* Diagnostic Procedure Only (Routine) - Pending Review Specialty Diagnoses / Procedures Referred By Contac t Referred To Contact XR IMAGING Diagnoses Paresthesia of right foot Procedures XR LUMBAR GENERAL 3V AP/LAT/L5-S1 RADEX SPINE LUMBOSACRAL 2/3 VIEWS Chanda Carrion APRN.ERP IMPLEMENTATION CONSULTANT [address] [place] [address] Xr Imaging Referral ID Status Reason Start Date Expiration Date Visits Requested Visits Authorized [id number] Pending Review Auto-Generat ed Referral 01/22/2023 02/21/2024 1 1 * Outpatient Procedure (Routine) - Pending Review Specialty Diagnoses / Procedures Referred By Contac t Referred To Contact [facility] Diagnoses Paresthesia of right foot Procedures EMG(NEURO/NI) NERVE CONDUCTION STUDIES 9-10 STUDIES Chanda Carrion APRN.ERP IMPLEMENTATION CONSULTANT [address] [place] [address] [facility] [place] [address] [place] [address] Referral ID Status Reason Start Date Expiration Date Visits Requested Visits Authorized [id number] Pending Review Auto-Generat ed Referral 01/22/2023 01/23/2024 1 1 [facility] for referral (narrative)* - Pending Review Specialty Diagnoses / Procedures Referred By Contac t Referred To Contact Diagnoses Paresthesia of right foot Lumbar degenerative disc disease Lumbar radiculopathy Procedures CONSULT TO PHYSICAL THERAPY Paulina Maldonado PA-C [address] [place] [address] Referral ID Status Reason Start Date Expiration Date V isits Requested Visits Authorized [id number] Pending Review 03/07/2023 06/05/2023 1 1 [facility] for referral (narrative)* Outpatient Procedure (Routine) - Pending Review Specialty Diagnoses / Procedures Referred By Jame pedraza Referred To Contact [facility] [place] Diagnoses History of colonic polyps Procedures COLONOSCOPY SCREENING COLONOSCOPY FLX DX W/COLLJ SPEC WHEN Cris Solorzano MD [address] [place] [address] [address] Referral ID Status Reason Start Date Expiration Date Visits Requested Visits Authorized [id number] Pending Review Auto-Generat ed Referral 3 07/25/2024 1 1 [facility] for referral (narrative)* Outpatient Procedure (Routine) - Authorized Specialty Diagnoses / Procedures Referred By Jame pedraza Referred To Contact [facility] [place] Diagnoses History of colon polyps Procedures COLONOSCOPY SCREENING COLONOSCOPY FLX DX W/COLLJ SPEC WHEN Cris Solorzano MD [address] [place] [address] [address] Referral ID Status Reason Start Date Expiration Date Visits Requested Visits Authorized [id number] Authorized Auto-Generat ed Referral 3 08/02/2024 1 1 [facility] for visit Narrative* Outpatient Procedure (Routine) - Closed Specialty Diagnoses / Procedures Referred By Jame pedraza Referred To Contact [facility] Diagnoses Paresthesia of right foot Procedures EMG(NEURO/NI) NERVE CONDUCTION STUDIES 9-10 STUDIES Chadna Carrion, STAVE BOLT EQUALIZER.ERP IMPLEMENTATION CONSULTANT [address] [place] [address] [address] Referral ID Status Reason Start Date Expiration Date V isits Requested Visits Authorized [id number] Closed Auto-Generate d Referral 01/22/2023 01/23/2024 1 1 [facility] Summary Purpose Family History No Family History Records FoundNo Family History Records FoundNo Family History Records FoundNo Family History Records FoundNo Family History Records Found Advance Directives No Advanced Directives Records FoundDocuments on File Type Date Recorded Patient Chemist Water 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 Author Type: Nurse Equipment Operator/Laborer/Supervisor Type: Anesthesia Procedure Notes Filed: 05/14/2020 7:56 AM Note Text: ANESTHESIOLOGY PROCEDURE NOTE Airway General Information Procedure Start Time/Medication Administration: 05/14/2020 7:39 AM Procedure End Time: 05/14/2020 7:41 AM Patient location during procedure: OR Patient identity confirmed: arm band Staffing POWER TRANSFORMER ASSEMBLER: Jordan Segundo Performed by: POWER TRANSFORMER ASSEMBLER Indications and Patient Condition Preoxygenated: yes Patient [...] May 14, 2020 TIME: 7:54 AM CSN: [id number] Reason for Referral Specialty Diagnoses / Procedures Referred By Jame pedraza Referred To Contact [facility] [place] / [facility] Diagnoses Paresthesia of right foot Lumbar degenerative disc disease Procedures CONSULT TO [facility] OFFICE/OUTPATIENT [facility] 60-74 MINUTES Chanda Carrion, STAVE BOLT EQUALIZER.ERP IMPLEMENTATION CONSULTANT [address] [place] [address] [facility] [address] [address] Referral ID Status Reason Start Date Expiration Date Visits Requested Visits Authorized [id number] Pending Review PCP Requested Referral 02/12/2023 02/12/2024 1 1 Additional Source Comments (unrecognized sect ion and content) No Status Records FoundNo Status Records FoundNo Status Records FoundNo Status Records FoundNo Status Records Found INFORMATION SOURCE (unrecogn ized section and content) DATE CREATED AUTHOR AUTHOR'S ORGANIZ ATION 12/10/2019 [facility] DATE CREATED AUTHOR AUTHOR'S ORGANIZ ATION 05/27/2020 [facility] DATE CREATED AUTHOR AUTHOR'S ORGANIZ ATION 05/26/2021 [facility] DATE CREATED AUTHOR AUTHOR'S ORGANIZ ATION 09/13/2023 [facility] Source Comments (unrecognize d section and content) In the event this informatio n is protected by the Federal Confidentiality of Alcohol and Drug Abuse Patient Records regulations: The Federal rules restrict any use of the information to criminally investigate or prosecute any alcohol or drug abuse patient.[facility] Center[facility] the event this information is protected by the Federal Confidentiality of Alcohol and Drug Abuse Patient Records regulations: The Federal rules restrict any use of the information to criminally investigate or prosecute any alcohol or drug abuse patient.[facility] Center[facility] the event this information is protected by the Federal Confidentiality of Alcohol and Drug Abuse Patient Records regulations: The Federal rules restrict any use of the information to criminally investigate or prosecute any alcohol or drug abuse patient.[facility] CenterIn the event this information is protected by the Federal Confidentiality of Alcohol and Drug Abuse Patient Records regulations: The Federal rules restrict any use of the information to criminally investigate or prosecute any alcohol or drug abuse patient.[facility] CenterIn the event this information is protected by the Federal Confidentiality of Alcohol and Drug Abuse Patient Records regulations: The Federal rules restrict any use of the information to criminally investigate or prosecute any alcohol or drug abuse patient.[facility] CenterIn the event this information is protected by the Federal Confidentiality of Alcohol and Drug Abuse Patient Records regulations: The Federal rules restrict any use of the information to criminally investigate or prosecute any alcohol or drug abuse patient.[facility] CenterIn the event this information is protected by the Federal Confidentiality of Alcohol and Drug Abuse Patient Records regulations: The Federal rules restrict any use of the information to criminally investigate or prosecute any alcohol or drug abuse patient.[facility] CenterIn the event this information is protected by the Federal Confidentiality of Alcohol and Drug Abuse Patient Records regulations: The Federal rules restrict any use of the information to criminally investigate or prosecute any alcohol or drug abuse patient.[facility] CenterIn the event this information is protected by the Federal Confidentiality of Alcohol and Drug Abuse Patient Records regulations: The Federal rules restrict any use of the information to criminally investigate or prosecute any alcohol or drug abuse patient.[facility] CenterIn the event this information is protected by the Federal Confidentiality of Alcohol and Drug Abuse Patient Records regulations: The Federal rules restrict any use of the information to criminally investigate or prosecute any alcohol or drug abuse patient.[facility] CenterIn the event this information is protected by the Federal Confidentiality of Alcohol and Drug Abuse Patient Records regulations: The Federal rules restrict any use of the information to criminally investigate or prosecute any alcohol or drug abuse patient.[facility] CenterIn the event this information is protected by the Federal Confidentiality of Alcohol and Drug Abuse Patient Records regulations: The Federal rules restrict any use of the information to criminally investigate or prosecute any alcohol or drug abuse patient.[facility] CenterIn the event this information is protected by the Federal Confidentiality of Alcohol and Drug Abuse Patient Records regulations: The Federal rules restrict any use of the information to criminally investigate or prosecute any alcohol or drug abuse patient.[facility] CenterIn the event this information is protected by the Federal Confidentiality of Alcohol and Drug Abuse Patient Records regulations: The Federal rules restrict any use of the information to criminally investigate or prosecute any alcohol or drug abuse patient.[facility] CenterIn the event this information is protected by the Federal Confidentiality of Alcohol and Drug Abuse Patient Records regulations: The Federal rules restrict any use of the information to criminally investigate or prosecute any alcohol or drug abuse patient.[facility] CenterIn the event this information is protected by the Federal Confidentiality of Alcohol and Drug Abuse Patient Records regulations: The Federal rules restrict any use of the information to criminally investigate or prosecute any alcohol or drug abuse patient.[facility] CenterIn the event this information is protected by the Federal Confidentiality of Alcohol and Drug Abuse Patient Records regulations: The Federal rules restrict any use of the information to criminally investigate or prosecute any alcohol or drug abuse patient.[facility] CenterIn the event this information is protected by the Federal Confidentiality of Alcohol and Drug Abuse Patient Records regulations: The Federal rules restrict any use of the information to criminally investigate or prosecute any alcohol or drug abuse patient.[facility] CenterIn the event this information is protected by the Federal Confidentiality of Alcohol and Drug Abuse Patient Records regulations: The Federal rules restrict any use of the information to criminally investigate or prosecute any alcohol or drug abuse patient.[facility] CenterIn the event this information is protected by the Federal Confidentiality of Alcohol and Drug Abuse Patient Records regulations: The Federal rules restrict any use of the information to criminally investigate or prosecute any alcohol or drug abuse patient.[facility] CenterIn the event this information is protected by the Federal Confidentiality of Alcohol and Drug Abuse Patient Records regulations: The Federal rules restrict any use of the information to criminally investigate or prosecute any alcohol or drug abuse patient.[facility] CenterIn the event this information is protected by [...] or prosecute any alcohol or drug abuse patient.[facility] CenterIn the event this information is protected by the Federal Confidentiality of Alcohol and Drug Abuse Patient Records regulations: The Federal rules restrict any use of the information to criminally investigate or prosecute any alcohol or drug abuse patient.[facility] CenterIn the event this information is protected by the Federal Confidentiality of Alcohol and Drug Abuse Patient Records regulations: The Federal rules restrict any use of the information to criminally investigate or prosecute any alcohol or drug abuse patient.[facility] CenterIn the event this information is protected by the Federal Confidentiality of Alcohol and Drug Abuse Patient Records regulations: The Federal rules restrict any use of the information to criminally investigate or prosecute any alcohol or drug abuse patient.[facility] Reason for Visit (unrecogniz ed section and content) Reason Comments 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 Reason Comments Orders Reason Comments Outside Lab Results [facility] Reason Comments Received Outside Medical Records [facility] Reason Comments Received Outside Medical Records [facility] Car diovascular Reason Comments Received Outside Medical Records [facility] office summary 12/07/2022 Reason Comments Pain Right leg x 3 weeks Reason Comments Results Lab Reason Comments Numbness Right foot x 1 month Reason Comments Results Orders Reason Comments New Patient Low Back Pain Leg Pain Specialty Diagnoses / Procedures Referred By Contac t Referred To Contact [facility] [place] / SP[facility] Diagnoses Paresthesia of right foot Lumbar degenerative disc disease Procedures CONSULT TO [facility] OFFICE/OUTPATIENT [facility] 60-74 MINUTES Chanda Carrion, [place].ERP IMPLEMENTATION CONSULTANT [address] [place] [address] Spine [facility] [address] [address] Referral ID Status Reason Start Date Expiration Date Visits Requested Visits Authorized [id number] Pending Review PCP Requested Referral 02/12/2023 02/12/2024 1 1 Reason Comments Physical Therapy Specialty Diagnoses / Procedures Referred By Contac t Referred To Contact [facility] Diagnoses Paresthesia of right foot Lumbar degenerative disc disease Lumbar radiculopathy Procedures CONSULT TO PHYSICAL THERAPY Paulina Maldonado, PACristinaC [address] [place] [address] John Knapp PT Referral ID Status Reason Start Date Expiration Date V isits Requested Visits Authorized [id number] Authorized 11/08/2022 10/07/2023 30 30 Reason Comments Received Outside Medical Records [facility] 05/15/23 Reason Comments Consult Colonoscopy consulta tion. Reason Comments Results Reason Comments Nurse Triage Call Care Teams (unrecognized sec tion and content) Engineering Technician Parking Relationship Specialty Start Date End Date Lyn Diego MD [address] [place] [address] PCP - General Family Practice 07/18/17 Engineering Technician Parking Relationship Specialty Start Date End Date Lyn Diego MD [address] [facility] [place] [address] PCP - General Family Practice 07/18/17 Engineering Technician Parking Relationship Specialty Start Date End Date Lyn Diego MD [address] [facility] [place] [address] PCP - General Family Practice 07/18/17 Engineering Technician Parking Relationship Specialty Start Date End Date Lyn Diego MD [facility] [place] [place] [address] PCP - General Family Medicine 07/18/17 Engineering Technician Parking Relationship Specialty Start Date End Date Lyn Diego MD [facility] [place] [address] PCP - General Family Medicine 07/18/17 Engineering Technician Parking Relationship Specialty Start Date End Date Lyn Diego MD [address] [place] [address], [place] [address] PCP - General Family Medicine 07/18/17 Engineering Technician Parking Relationship Specialty Start Date End Date Lyn Diego MD [facility] [place] [address] PCP - General Family Medicine 07/18/17 Engineering Technician Parking Relationship Specialty Start Date End Date Lyn Diego MD [facility] [place] [address] PCP - General Family Medicine 07/18/17 Engineering Technician Parking Relationship Specialty Start Date End Date Lyn Diego MD [address] [place] [address], [place] [address] PCP - General Family Medicine 07/18/17 Engineering Technician Parking Relationship Specialty Start Date End Date Lyn Diego MD [address] [place] [address], [place] [address] PCP - General Family Medicine 07/18/17 Engineering Technician Parking Relationship Specialty Start Date End Date Lyn Diego MD [address] [place] [address] PCP - General Family Medicine 07/18/17 Engineering Technician Parking Relationship Specialty Start Date End Date Lyn Diego MD [address] [place] [address] PCP - General Family Medicine 07/18/17 Engineering Technician Parking Relationship Specialty Start Date End Date Lyn Diego MD [address] [place] [address] PCP - General Family Medicine 07/18/17 Engineering Technician Parking Relationship Specialty Start Date End Date Lyn Diego MD [address] [place] [address] PCP - General Family Medicine 07/18/17 Engineering Technician Parking Relationship Specialty Start Date End Date Lyn Diego MD [address] [place] [address] PCP - General Family Medicine 07/18/17 Engineering Technician Parking Relationship Specialty Start Date End Date Lyn Diego MD [address] [place] [address] PCP - General Family Medicine 07/18/17 Engineering Technician Parking Relationship Specialty Start Date End Date Lyn Diego MD [address] [place] [address] PCP - General Family Medicine 07/18/17 Engineering Technician Parking Relationship Specialty Start Date End Date Lyn Diego MD [address] [place] [address] PCP - General Family Medicine 07/18/17 FOR [...] BE BASED ON THE PRIMARY CLINICAL RECORDS. [employer] [facility]. provides no warranty or guarantee of the accuracy or completeness of information in this document.
[2023-12-07 12:50] LABS: Albumin, Serum 3.9 g/dL (3.2-5.0); BUN 28 mg/dL (7-18); BUN/Creat Ratio 15.1 RATIO (10-20); Chloride 108 mmol/L (98-107); Creatinine, Serum 1.86 mg/dL (0.70-1.30); EST Glomerular Filtration Rate 39 mL/min (>60); Est Glom Filt Rate - Afr Amer 47 mL/min (>60); Glucose 120 mg/dL (74-106); Phosphorus 3.3 mg/dL (2.5-4.9); Potassium 4.6 mmol/L (3.5-5.1); Sodium Level 134 mmol/L (136-145); Uric Acid 5.3 mg/dL (3.5-7.2)
== END | disposition home or self-care (01) ==
LOC: LAB 11:57
PROVIDERS: PCP Family Medicine; Referring Provider Internal Medicine Nephrology; Visit Provider Internal Medicine Nephrology
DX: N18.31 Chronic kidney disease, stage 3a (principal); N28.89 Other specified disorders of kidney and ureter
CPT/HCPCS: 36415; 80069; 84550

== ENCOUNTER → 2024-12-11 | Outpatient (CLI) | payer MEDICARE, SELFPAY ==
[2021-07-22 09:40] VITALS: BMI 29.6
[2024-12-11 13:32] LABS: Albumin, Serum 4.2 g/dL (3.4-4.8); Anion Gap 13 (5-15); BUN 39 mg/dL (4-19); BUN/Creat Ratio 22.8 RATIO (10-20); Calcium,Total 9.5 mg/dL (7.6-11.0); Carbon Dioxide 18.6 mmol/L (21.0-32.0); Chloride 102 mmol/L (98-108); Creatinine, Serum 1.72 mg/dL (0.70-1.20); EST Glomerular Filtration Rate 44 (>60); Glucose 100 mg/dL (70-99); Phosphorus 4.2 mg/dL (2.7-4.5); Potassium 5.3 mmol/L (3.3-5.1); Sodium Level 134 mmol/L (133-145); Uric Acid 6.4 mg/dL (3.5-7.2)
== END | disposition home or self-care (01) ==
LOC: LAB 12:38
PROVIDERS: PCP Family Medicine; Referring Provider Internal Medicine Nephrology; Visit Provider Internal Medicine Nephrology
DX: N18.31 Chronic kidney disease, stage 3a (principal); N28.89 Other specified disorders of kidney and ureter
CPT/HCPCS: 36415; 80069; 84550